=== PATIENT | female | born 1950 | race African-American/Black ===

== ENCOUNTER 2016-07-28 19:13 | Emergency (ER) | payer MEDICARE ==
[~2016-07-28] VITALS: Ht 154.9 cm; Wt 60.0 kg
[~2016-07-28 19:13] MED LIST: ASPI81TA82 PO; ATOR40TA PO; CORE25TA PO; DIGO0.12 PO; FLUO20TA20 PO; FURO1TAB93 PO; LISI-360 PO; POTA-243 PO; RANI150T PO; REME15TA PO; SULF500T35 PO
[2016-07-28 19:15] VITALS: BP 135/78; PULSE 78; RESP 16; TEMP 98.5; O2SAT 97
[2016-07-28] MEDS ORDERED: FURO1TAB60 PO (19:48)
[2016-07-28] MEDS ORDERED: DIGO0.25 PO (19:48)
[2016-07-28] MEDS ORDERED: LISI10TA3 PO (19:48)
[2016-07-28] MEDS ORDERED: COUM5TAB PO (19:48)
[2016-07-28] MEDS ORDERED: SULF500T3 PO (19:48)
[2016-07-28] MEDS ORDERED: MIRTA15 PO (19:48)
[2016-07-28] MEDS ORDERED: RANI150T PO (19:48)
[2016-07-28] MEDS ORDERED: CARV12.5 PO (19:48)
[2016-07-28] MEDS ORDERED: POTA10TA2 PO (19:48)
--- NOTE | 2016-07-28 19:53 | PD ---
HPI Chief Complaint: Cold / Flu Symptoms Time Seen by Provider: 19:47 Travel History International Travel<30 days: No Contact w/Intl Traveler<30days: No Traveled to known affect area: No History of Present Illness HPI 65-year-old black female presents to emergency department with complaints of chronic joint pain and sinus problems. She states that these have been bothering her now for several months. Her doctor moved out of the area and she has not gotten a new doctor. She has missed her last appointment with her theology teacher and has not rescheduled. She also states that she saw her GI doctor back in January. Patient states that she thinks that she has osteoarthritis and has pain in her ankles, knees and arms. She also has sinus congestion, ear pain and intermittent sore throat. She states that these symptoms of been persistent for weeks to months. No acute changes. PFSH Past Medical History Arthritis: Yes Asthma: Yes Atrial Fibrillation: Yes Autoimmune Disease: No Blood Disorders: No Heart Rhythm Problems: No Cancer: No Cardiac Catheterization: Yes Cardiovascular Problems: Yes (ISCHEMIC HEART DISEASE) High Cholesterol: No Chemotherapy: No Chest Pain: Yes Congestive Heart Failure: Yes COPD: No Cerebrovascular Accident: No Coronary Artery Disease: Yes Diabetes: No Diminished Hearing: No Endocrine: No Gastrointestinal Disorders: Yes (CROHN'S) GERD: No Glaucoma: No Genitourinary: No Headaches: No Hepatitis: No Hiatal Hernia: No Hypertension: Yes Immune Disorder: No Kidney Stones: Yes Musculoskeletal: Yes (scoliosis. ) Neurologic: Yes (SCIATICA.) Psychiatric: No Reproductive: No Respiratory: Yes (NEW ONSET CHF) Migraines: No Myocardial Infarction: Yes (2005.) Radiation Therapy: No Renal Failure: No Seizures: No Sickle Cell Disease: No Sleep Apnea: No Thyroid Disease: No Ulcer: No Tetanus Vaccination: Unknown Influenza Vaccination: No Menopausal: Yes : 2 Para: 2 Miscarriage: 0 Past Surgical History Abdominal Surgery: Yes (C SECTION TIMES TWO AND FIBROIDS REMOVED) AICD: No Appendectomy: Yes Arteriovenous Shunt: No Cardiac Surgery: Yes ([employer]) Section: Yes (x2) Cholecystectomy: No Ear Surgery: No Endocrine Surgery: No Eye Surgery: No Genitourinary Surgery: No Gynecologic Surgery: No Insulin Pump: No Joint Replacement: No Neurologic Surgery: No Oral Surgery: No Thoracic Surgery: No Other Surgery: Yes Social History Alcohol Use: No Tobacco Use: No Substance Use: No Allergies-Medications (Allergen,Severity, Reaction): Coded Allergies: Penicillin (Verified Allergy, Severe, Swelling, 07/28/16) Cephalosporins (Verified Allergy, Unknown, Swelling, 07/28/16) Keflex (Verified Allergy, Unknown, RASH, 07/28/16) Reported Meds & Prescriptions Reported Meds & Active Scripts Active Reported Ranitidine (Ranitidine HCl) 150 Mg Tab 150 Mg PO BID Digoxin 0.25 Mg Tab 0.25 Mg PO DAILY Mirtazapine 15 Mg Tab 15 Mg PO HS Lasix (Furosemide) 40 Mg Tab 40 Mg PO DAILY Coreg (Carvedilol) 12.5 Mg Tab 12.5 Mg PO BID Sulfasalazine 500 Mg Tab 1,000 Mg PO BID Lisinopril 10 Mg Tab 10 Mg PO DAILY Potassium Chloride ER (Potassium Chloride) 10 Meq Tab 10 Meq PO DAILY Coumadin (Warfarin) 5 Mg Tab 5 Mg PO DAILY Review of Systems Except as stated in HPI: all other systems reviewed are Neg General / Constitutional: No: Fever, Chills Eyes: No: Diploplia, Blurred Vision HENT: Positive: Headaches, Sore Throat, Rhinitis, Congestion Cardiovascular: Positive: Irregular Rhythm, Edema Respiratory: Positive: Cough, No: Shortness of Breath, Wheezing Gastrointestinal: No: Nausea, Vomiting Genitourinary: No: Hematuria, Discharge Musculoskeletal: Positive: Myalgias, Arthralgias, Limited ROM, Weakness, Edema , Pain Skin: No Rash, No Itching Physical Exam Narrative GENERAL: Well-developed, well-nourished in no apparent distress. Nontoxic appearing. HEAD: Normocephalic, atraumatic. EYES: Pupils equal round and reactive. Extraocular motions intact. No scleral icterus. No injection or drainage. ENT: Nose clear. Throat without erythema, tonsillar hypertrophy or exudate. Uvula midline. Airway patent. NECK: Trachea midline. Supple, nontender, moves head freely. No central bony tenderness or spasm. CARDIOVASCULAR: Regular rate and irregular rhythm without murmurs, gallops, or rubs. RESPIRATORY: Clear to auscultation. Breath sounds equal bilaterally. No wheezes , rales, or rhonchi. GASTROINTESTINAL: Abdomen soft, non-tender, nondistended. No hepato-splenomegaly , or palpable masses. No guarding. EXTREMITIES: No clubbing, cyanosis, or edema. No joint tenderness. BACK: Nontender without deformity. No flank tenderness. NEUROLOGICAL: Awake, alert and oriented x 3 .Cranial nerves grossly intact. Motor and sensory grossly within normal limits. Normal speech. Data Data Last Documented VS Vital Signs Date Time Temp Pulse Resp B/P Pulse Ox O2 Delivery O2 Flow Rate FiO2 07/28/16 19:15 98.5 78 16 135/78 97 MDM Medical Decision Making Medical Screen Exam Complete: Yes Emergency Medical Condition: Yes Medical Record Reviewed: Yes Differential Diagnosis Differential diagnosis: Rheumatoid arthritis, osteoarthritis, CHF, allergies, sinusitis, URI Narrative Course Patient has multiple somatic complaints but a normal-appearing exam. The patient is taking Coumadin. She'll be placed on Lisa and Ultram. She'll be advised to follow-up with a primary care doctor within 1 week. The patient is counseled on taking Ultram and Coumadin. It does have a potential of increasing your INR. Patient is verbally counseled This is joint pain, rhinitis Diagnosis Primary Impression: Joint pain Qualified Code: M25.50 - Arthralgia, unspecified joint Additional Impression: Rhinitis Patient Instructions: General Instructions Additional Instructions: Rest. Contact a primary care doctor to make an appointment to be seen within 1 week. Contact her theology teacher to be seen within 1 week. Lisa and Ultram. Return to the ER for emergencies. Med/Other Pt SpecificInfo: Prescription(s) given Scripts Tramadol (Ultram)50 Mg Tab50 Mg PO Q8HR PRN (PAIN) #20 TAB Prov:Chicho Washington MD 07/28/16 Fexofenadine (Lisa Allergy)180 Mg [id number] Mg PO DAILY #30 TAB Ref 0 Prov:Chicho Washington MD 07/28/16 Disposition: 01 DISCHARGE HOME Condition: Stable Ivan Castañeda Jul 28, 2016 19:53
[2016-07-28] MEDS ORDERED: FEXO15TA PO (19:54)
[2016-07-28] MEDS ORDERED: ULTR50TA5 PO (19:54)
[2016-07-28] MEDS ORDERED: CETIRIZINE HCL 10 MG TAB PO ONE (20:00)
[2016-07-28] MEDS ORDERED: traMADol HCL 50 MG TAB PO ONE (20:00)
== END 2016-07-28 20:13 | disposition home or self-care (01) ==
LOC: NEPB 19:13
DX: M25.50 Pain in unspecified joint (principal); G89.29 Other chronic pain; J31.0 Chronic rhinitis
CPT/HCPCS: 99283

== ENCOUNTER 2016-12-22 22:04 | Emergency (ER) | payer MEDICARE ==
[~2016-12-22] VITALS: Ht 154.9 cm; Wt 55.0 kg
[~2016-12-22 22:04] MED LIST changes: -ASPI81TA82 PO; -ATOR40TA PO; +CARV12.5 PO; -CORE25TA PO; +COUM5TAB PO; -DIGO0.12 PO; +DIGO0.25 PO; +FEXO15TA PO; -FLUO20TA20 PO; +FURO1TAB60 PO; -FURO1TAB93 PO; -LISI-360 PO; +LISI10TA3 PO; +MIRTA15 PO; -POTA-243 PO; +POTA10TA2 PO; -REME15TA PO; +SULF500T3 PO; -SULF500T35 PO; +ULTR50TA5 PO
[2016-12-22 22:06] VITALS: BP 129/100; PULSE 109; RESP 20; TEMP 98.5; O2SAT 98
[2016-12-23 01:57] VITALS: BP 151/70; PULSE 110; RESP 18; O2SAT 98
[2016-12-23 02:34] VITALS: BP 137/109; PULSE 115; RESP 16; O2SAT 97
--- NOTE | 2016-12-23 03:26 | PD ---
HPI Chief Complaint: General Weakness Time Seen by Provider: 02:47 Travel History International Travel<30 days: No Contact w/Intl Traveler<30days: No Traveled to known affect area: No History of Present Illness HPI The patient is a 66-year-old Joann female who presents emergency department for multiple complaints. The patient states that she has a lead broken with her pacemaker, and had an appointment last week with her infectious disease physician, Dr. Patton. However, the patient states she was not feeling well and missed her appointment. She has an appointment in the future to see her infectious disease physician. She also notes a weight loss over the last 6 months of approximately 30 pounds. She saw her primary physician and is scheduled for an outpatient endoscopy and colonoscopy in January. The patient states earlier today she has some generalized weakness and was unable to get up out of bed. The patient felt like she had no energy. She denies any acute chest pain, shortness of breath, nausea, vomiting, or abdominal pain. She denies any dysuria. The patient states she just has generalized malaise. The patient does have a history of atrial fibrillation for which she takes Coumadin. PFSH Past Medical History Hx Anticoagulant Therapy: Yes Arthritis: Yes Asthma: Yes Atrial Fibrillation: Yes Autoimmune Disease: No Blood Disorders: No Heart Rhythm Problems: No Cancer: No Cardiac Catheterization: Yes Cardiovascular Problems: Yes (NV, HTN) High Cholesterol: No Chemotherapy: No Chest Pain: Yes Congestive Heart Failure: Yes COPD: No Cerebrovascular Accident: No Coronary Artery Disease: Yes Diabetes: No Diminished Hearing: No Endocrine: No Gastrointestinal Disorders: Yes (CROHN'S) GERD: No Glaucoma: No Genitourinary: No Headaches: No Hepatitis: No Hiatal Hernia: No Hypertension: Yes Immune Disorder: No Kidney Stones: Yes Musculoskeletal: Yes (scoliosis. ) Neurologic: Yes (SCIATICA.) Psychiatric: No Reproductive: No Respiratory: Yes (NEW ONSET CHF) Migraines: No Myocardial Infarction: Yes (2005.) Radiation Therapy: No Renal Failure: No Seizures: No Sickle Cell Disease: No Sleep Apnea: No Thyroid Disease: No Ulcer: No Tetanus Vaccination: Unknown Menopausal: Yes : 2 Para: 2 Miscarriage: 0 Past Surgical History Abdominal Surgery: Yes (C SECTION TIMES TWO AND FIBROIDS REMOVED) AICD: No Appendectomy: Yes Arteriovenous Shunt: No Cardiac Surgery: Yes ([employer]) Section: Yes (x2) Cholecystectomy: No Ear Surgery: No Endocrine Surgery: No Eye Surgery: No Genitourinary Surgery: No Gynecologic Surgery: No Insulin Pump: No Joint Replacement: No Neurologic Surgery: No Oral Surgery: No Thoracic Surgery: No Other Surgery: Yes Social History Alcohol Use: No Tobacco Use: No Substance Use: No Allergies-Medications (Allergen,Severity, Reaction): Coded Allergies: Penicillin (Verified Allergy, Severe, Swelling, 12/22/16) Cephalosporins (Verified Allergy, Unknown, Swelling, 12/22/16) Keflex (Verified Allergy, Unknown, RASH, 12/22/16) Reported Meds & Prescriptions Reported Meds & Active Scripts Active Lisa Allergy (Fexofenadine HCl) 180 Mg Tab 180 Mg PO DAILY Reported Ranitidine (Ranitidine HCl) 150 Mg Tab 150 Mg PO BID Digoxin 0.25 Mg Tab 0.25 Mg PO DAILY Mirtazapine 15 Mg Tab 15 Mg PO HS Lasix (Furosemide) 40 Mg Tab 40 Mg PO DAILY Coreg (Carvedilol) 12.5 Mg Tab 12.5 Mg PO BID Sulfasalazine 500 Mg Tab 1,000 Mg PO BID Lisinopril 10 Mg Tab 10 Mg PO DAILY Potassium Chloride ER (Potassium Chloride) 10 Meq Tab 10 Meq PO DAILY Coumadin (Warfarin) 5 Mg Tab 5 Mg PO DAILY Review of Systems Except as stated in HPI: all other systems reviewed are Neg General / Constitutional: No: Fever HENT: Positive: Lightheadedness Cardiovascular: Positive: Irregular Rhythm, No: Chest Pain or Discomfort, Dyspnea on exertion Respiratory: No: Shortness of Breath Gastrointestinal: Positive: Nausea, No: Vomiting, Abdominal Pain Genitourinary: No: Dysuria Musculoskeletal: Positive: Weakness Neurologic: Positive: Weakness Physical Exam Narrative GENERAL: Awake, alert, pleasant 66-year-old female who appears her stated age and is in no acute respiratory distress. SKIN: Focused skin assessment warm/dry. HEAD: Atraumatic. Normocephalic. EYES: Pupils equal and round. No scleral icterus. No injection or drainage. ENT: No nasal bleeding or discharge. No visible teeth. NECK: Trachea midline. No JVD. CARDIOVASCULAR: Irregularly irregular with a heart rate of 115. RESPIRATORY: No accessory muscle use. Clear to auscultation. Breath sounds equal bilaterally. GASTROINTESTINAL: Abdomen soft, non-tender, nondistended. No rebound tenderness. MUSCULOSKELETAL: No obvious deformities. No clubbing. No cyanosis. No edema. Positive distal pulses. NEUROLOGICAL: Awake and alert. No obvious cranial nerve deficits. Motor grossly within normal limits. Normal speech. PSYCHIATRIC: Appropriate mood and affect; insight and judgment normal. Data Data Last Documented VS Vital Signs Date Time Temp Pulse Resp B/P Pulse Ox O2 Delivery O2 Flow Rate FiO2 12/23/16 05:30 73 16 137/78 95 Room Air 12/22/16 22:06 98.5 Orders Complete Blood Count With Diff (12/23/16 03:19) Comprehensive Metabolic Panel (12/23/16 03:19) Creatine Kinase (Cpk) (12/23/16 03:19) Prothrombin Time / Inr (Pt) (12/23/16 03:19) Act Partial Throm Time (Ptt) (12/23/16 03:19) Troponin I (12/23/16 03:19) Thyroid Stimulating Hormone (12/23/16 03:19) Urinalysis - C+S If Indicated (12/23/16 03:19) Chest, Single Ap (12/23/16 03:19) Blood Glucose (12/23/16 03:19) Ecg Monitoring (12/23/16 03:19) Iv Access Insert/Monitor (12/23/16 03:19) Oximetry (12/23/16 03:19) Sodium Chloride 0.9% Flush (Ns Flush) (12/23/16 03:30) Sodium Chlorid 0.9% 500 Ml Inj (Ns 500 M (12/23/16 03:30) Diltiazem Inj (Cardizem Inj) (12/23/16 03:30) Digoxin (12/23/16 02:35) Diltiazem Inj (Cardizem Inj) (12/23/16 05:30) Urine Culture (12/23/16 04:40) Labs Laboratory Tests Test 12/23/16 12/23/16 02:35 04:40 White Blood Count 5.8 TH/MM3 Red Blood Count 4.86 MIL/MM3 Hemoglobin 11.9 GM/DL Hematocrit 37.4 % Mean Corpuscular Volume 77.0 FL Mean Corpuscular Hemoglobin 24.5 PG Mean Corpuscular Hemoglobin 31.7 % Concent Red Cell Distribution Width 21.0 % Platelet Count 314 TH/MM3 Mean Platelet Volume 8.3 FL Neutrophils (%) (Auto) 39.3 % Lymphocytes (%) (Auto) 50.3 % Monocytes (%) (Auto) 9.2 % Eosinophils (%) (Auto) 0.5 % Basophils (%) (Auto) 0.7 % Neutrophils # (Auto) 2.3 TH/MM3 Lymphocytes # (Auto) 2.9 TH/MM3 Monocytes # (Auto) 0.5 TH/MM3 Eosinophils # (Auto) 0.0 TH/MM3 Basophils # (Auto) 0.0 TH/MM3 CBC Comment DIFF FINAL Differential Comment Prothrombin Time 20.3 SEC Prothromb Time International 1.8 RATIO Ratio Activated Partial 30.1 SEC Thromboplast Time Sodium Level 140 MEQ/L Potassium Level 3.8 MEQ/L Chloride Level 104 MEQ/L Carbon Dioxide Level 27.8 MEQ/L Anion Gap 8 MEQ/L Blood Urea Nitrogen 12 MG/DL Creatinine 0.88 MG/DL Estimat Glomerular Filtration 78 ML/MIN Rate Random Glucose 86 MG/DL Calcium Level 8.6 MG/DL Total Bilirubin 0.6 MG/DL Aspartate Amino Transf 32 U/L (AST/SGOT) Alanine Aminotransferase 19 U/L (ALT/SGPT) Alkaline Phosphatase 140 U/L Total Creatine Kinase 86 U/L Troponin I 0.05 NG/ML Total Protein 7.5 GM/DL Albumin 3.1 GM/DL Thyroid Stimulating Hormone 3.020 uIU/ML 3rd Gen Digoxin Level 1.2 NG/ML Urine Color YELLOW Urine Turbidity CLEAR Urine pH 5.5 Urine Specific [place] 1.014 Urine Protein 30 mg/dL Urine Glucose (UA) NEG mg/dL Urine Ketones NEG mg/dL Urine Occult Blood NEG Urine Nitrite NEG Urine Bilirubin NEG Urine Urobilinogen LESS THAN 2.0 MG/DL Urine Leukocyte Esterase TRACE Urine RBC 1 /hpf Urine WBC 1 /hpf Urine Squamous Epithelial <1 /hpf Cells Urine Bacteria RARE /hpf Urine Hyaline Casts 11 /lpf Urine Granular Casts 2 /lpf Urine Mucus FEW /lpf Microscopic Urinalysis Comment CATH-CULTURE IND MDM Medical Decision Making Medical Screen Exam Complete: Yes Emergency Medical Condition: Yes Medical Record Reviewed: Yes Interpretation(s) EKG reveals atrial fibrillation with RVR, rate 116. Q wave noted in lead 1 and aVL. RSR prime in V1. Differential Diagnosis Differential diagnosis includes atrial fibrillation with RVR, congestive heart failure, ACS, UTI, hyponatremia, dehydration, hypothyroidism, electrolyte abnormality. Narrative Course IV was established, labs are drawn and sent, and the patient was placed on cardiac telemetry monitoring and continuous pulse oximetry monitoring. EKG was ordered and interpreted. Chest x-ray was obtained. UA was sent to lab. The patient did have A. fib with RVR, was administered Cardizem 10 mg intravenously. Diagnosis Primary Impression: Atrial fibrillation with RVR Additional Impression: Generalized weakness Patient Instructions: General Instructions Additional Instructions: Follow-up with your primary physician. Please provide the patient a copy of her x-ray results and lab results at discharge. Return if symptoms worsen or progress. Med/Other Pt SpecificInfo: No Change to Meds Disposition: 01 DISCHARGE HOME Condition: Stable Po Arboleda MD Dec 23, 2016 03:26
[2016-12-23] MEDS ORDERED: DILTIAZEM HCL 25 MG/5 ML VIAL IV ONE ×2 (03:30→05:30)
[2016-12-23] MEDS ORDERED: SODIUM CHLORID 0.9% 500 ML INJ 500 ML IV ONE (03:30)
[2016-12-23] MEDS ORDERED: SODIUM CHLORIDE 0.9% FLUSH 5 ML FLUSH IV FLUSH PRN (03:30)
[2016-12-23 03:49] LABS: AUTOMATED NEUTROPHIL # 2.3 TH/MM3 (1.8-7.7); BASOPHIL % 0.7 % (0.0-2.0); EOSINOPHIL % 0.5 % (0.0-4.0); HEMATOCRIT 37.4 % (35.0-46.0); HEMO FLAGS DIFF FINAL; LYMPH % 50.3 % (9.0-44.0); LYMPHOCYTE # 2.9 TH/MM3 (1.0-4.8); MEAN CORPUSCULAR HEMOGLOBIN 24.5 PG (27.0-34.0); MEAN CORPUSCULAR HGB CONC 31.7 % (32.0-36.0); MONO % 9.2 % (0.0-8.0); NEUT % 39.3 % (16.0-70.0); PLATELET COUNT 314 TH/MM3 (150-450); RED BLOOD COUNT 4.86 MIL/MM3 (4.00-5.30); WHITE BLOOD COUNT 5.8 TH/MM3 (4.0-11.0)
[2016-12-23 03:51] LABS: APTT (PATIENT) 30.1 SEC (24.3-30.1); INTERNATIONAL NORMALIZED RATIO 1.8 RATIO; PROTHROMBIN TIME - PATIENT 20.3 SEC (9.8-11.6)
[2016-12-23 03:55] VITALS: BP 145/101; PULSE 99; RESP 18; O2SAT 98
--- NOTE | 2016-12-23 04:02 | RADRPT ---
EXAM DATE/TIME: 12/23/2016 03:19 [facility] COMPARISON: CHEST SINGLE AP, May 30, 2014, 7:38. INDICATIONS : Shortness of breath. MEDICAL HISTORY : Hypertension. Myocardial infarction. Atrial fibrillation. SURGICAL HISTORY : Pacemaker. Cardiac catheterization. ENCOUNTER: Initial ACUITY: 1 day PAIN SCORE: 0/10 LOCATION: Bilateral chest FINDINGS: Portable AP view of the chest demonstrates a normal-sized cardiac silhouette with calcification of th e aorta. Left chest wall cardiac pacing device/AICD is present. EKG leads overlie the patient. There is elevation the right hemidiaphragm. No effusion, consolidation, or pneumothorax is visualized. The bones and soft tissues demonstrate no acute finding. CONCLUSION: No acute cardiopulmonary abnormality is identified. Kiet Ruiz MD on December 23, 2016 at 4:00 Board Certified Radiologist. This report was verified electronically.
[2016-12-23 04:12] LABS: ALT (GPT) 19 U/L (10-53); ANION GAP 8 MEQ/L (5-15); AST (GOT) 32 U/L (15-37); BICARBONATE 27.8 MEQ/L (21.0-32.0); BLOOD UREA NITROGEN 12 MG/DL (7-18); CHLORIDE 104 MEQ/L (98-107); GLOMERULAR FILTRATION RATE 78 ML/MIN (>89); POTASSIUM 3.8 MEQ/L (3.5-5.1); SODIUM (NA) 140 MEQ/L (136-145)
[2016-12-23 04:15] LABS: ALKALINE PHOSPHATASE 140 U/L (45-117); TOTAL BILIRUBIN ADULT 0.6 MG/DL (0.2-1.0)
[2016-12-23 04:22] LABS: CREATINE KINASE 86 U/L (26-192)
[2016-12-23 04:53] VITALS: BP 141/96; PULSE 109; RESP 18; O2SAT 96
[2016-12-23 04:58] LABS: DIGOXIN 1.2 NG/ML (0.8-2.0)
[2016-12-23 05:18] LABS: BACTERIA, URINE RARE /hpf; BLOOD, URINE NEG (NEG); COMMENT (UR) CATH-CULTURE IND; CULTURE IF INDICATED CATH CULTURE IND; GLUCOSE,URINE NEG (NEG); GRANULAR CAST, URINE 2 /lpf; HYALINE CAST, URINE 11 /lpf (RARE); KETONE, URINE NEG (NEG); MUCUS URINE FEW /lpf (OCC); NITRITE,URINE NEG (NEG); PH, URINE 5.5 (5.0-8.5); SQUAMOUS EPITHELIAL CELL URINE <1 /hpf (0-5); URINE COLOR YELLOW (YELLW/STRAW)
[2016-12-23 05:30] VITALS: BP 137/78; PULSE 73; RESP 16; O2SAT 95
--- NOTE | 2016-12-23 20:47 | EKG ---
Date Performed: 12/23/2016 Time Performed: 02:31:52 PTAGE: 66 years EKG: ATRIAL FIBRILLATION WITH RAPID VENTRICULAR RESPONSE PVCS IVCD RIGHT AXIS POSSIBLE ANTERIOR MYOCARDIAL INFARCTION ABNORMAL ECG PREVIOUS TRACING : 05/30/2014 07.34 Compared to the previous tracing SR no longer present DOCTOR: Ann Patton Interpretating Date/Time 12/23/2016 20:46:16
== END 2016-12-23 06:47 | disposition home or self-care (01) ==
LOC: NEPC 22:04
DX: I48.91 Unspecified atrial fibrillation (principal); I10 Essential (primary) hypertension; I50.9 Heart failure, unspecified; Z79.01 Long term (current) use of anticoagulants; Z95.0 Presence of cardiac pacemaker; J45.909 Unspecified asthma, uncomplicated; M19.90 Unspecified osteoarthritis, unspecified site; R53.81 Other malaise
CPT/HCPCS: 71010; 80053; 80162; 81001; 82550; 84443; 84484; 85025; 85610; 85730; 87086; 93005; 96361; 96374; 96376; 99285; J7040

== ENCOUNTER 2017-01-06 22:20 | Inpatient (IN) | payer MEDICARE ==
[~2017-01-06 22:20] MED LIST changes: -ULTR50TA5 PO
[2017-01-06 22:21] VITALS: BP 117/87; PULSE 93; RESP 18; TEMP 98.5; O2SAT 99
--- NOTE | 2017-01-06 22:26 | PD ---
Physical Exam Date Seen by Provider: Jan 06, 2017 Time Seen by Provider: 22:24 Narrative 66 yo female here for chest pain and SOB. Per patient she feels weak and tired. Cough. History of a. fib. Feels like something is off with her heart. No other issues. pain is 10/10. Vitals are stable in triage. Awaiting Bed placement. Data Data Last Documented VS Vital Signs Date Time Temp Pulse Resp B/P Pulse Ox O2 Delivery O2 Flow Rate FiO2 01/06/17 22:21 98.5 93 18 117/87 99 Room Air [facility] Medical Record Reviewed: Yes Supervised Visit with CORNELIUS: No Seamus Harvey Jan 06, 2017 22:26
[2017-01-06] MEDS ORDERED: SODIUM CHLORIDE 0.9% FLUSH 10 ML FLUSH IVF PRN (22:45)
[2017-01-06] MEDS ORDERED: ASPIRIN 81 MG CHEW TAB PO ONE (22:45)
[2017-01-06] MEDS ORDERED: REME15TA PO (22:47)
[2017-01-06] MEDS ORDERED: ATOR40TA16 PO (22:47)
[2017-01-06] MEDS ORDERED: PROZ20CA11 PO (22:47)
[2017-01-06] MEDS ORDERED: POTA-243 PO (22:47)
[2017-01-06] MEDS ORDERED: FOLI1TAB6 (22:47)
[2017-01-06 22:58] VITALS: BP_SYST 117; BP_SYST 134; BP_DIAS 80; BP_DIAS 88; PULSE 124
[2017-01-06 23:10] LABS: AUTOMATED NEUTROPHIL # 2.7 TH/MM3 (1.8-7.7); BASOPHIL % 0.3 % (0.0-2.0); EOSINOPHIL # 0.1 TH/MM3 (0-0.4); EOSINOPHIL % 1.1 % (0.0-4.0); HEMATOCRIT 40.7 % (35.0-46.0); HEMO FLAGS DIFF FINAL; LYMPH % 43.4 % (9.0-44.0); LYMPHOCYTE # 2.6 TH/MM3 (1.0-4.8); MEAN CELL VOLUME 78.4 FL (80.0-100.0); MEAN CORPUSCULAR HGB CONC 30.6 % (32.0-36.0); MONO % 9.2 % (0.0-8.0); PLATELET COUNT 271 TH/MM3 (150-450); RED BLOOD COUNT 5.19 MIL/MM3 (4.00-5.30); RED CELL DISTRIBUTION WIDTH 22.2 % (11.6-17.2); WHITE BLOOD COUNT 5.9 TH/MM3 (4.0-11.0)
--- NOTE | 2017-01-06 23:14 | RADRPT ---
EXAM DATE/TIME: 01/06/2017 22:50 [facility] COMPARISON: CHEST SINGLE AP, December 23, 2016, 3:19. INDICATIONS : Chest pain. MEDICAL HISTORY : Hypertension. Myocardial infarction. Atrial fibrillation. SURGICAL HISTORY : Pacemaker. ENCOUNTER: Initial ACUITY: 1 day PAIN SCORE: 3/10 LOCATION: Bilateral chest FINDINGS: Cardiomegaly, pacer/ICD device again noted. Lungs are clear. Osseous structures are intact. CONCLUSION: No acute disease. Jabari De Oliveira MD on January 06, 2017 at 23:12 Board Certified Radiologist. This report was verified electronically.
[2017-01-06 23:26] LABS: APTT (PATIENT) 22.3 SEC (24.3-30.1); INTERNATIONAL NORMALIZED RATIO 1.4 RATIO; PROTHROMBIN TIME - PATIENT 15.2 SEC (9.8-11.6)
[2017-01-06 23:36] LABS: ALT (GPT) 30 U/L (10-53)
[2017-01-06 23:40] LABS: ALKALINE PHOSPHATASE 171 U/L (45-117); CREATINE KINASE 108 U/L (26-192); TOTAL BILIRUBIN ADULT 0.9 MG/DL (0.2-1.0)
[2017-01-06 23:45] LABS: ANION GAP 6 MEQ/L (5-15); AST (GOT) 41 U/L (15-37); BLOOD UREA NITROGEN 12 MG/DL (7-18); CHLORIDE 98 MEQ/L (98-107); GLOMERULAR FILTRATION RATE 66 ML/MIN (>89); POTASSIUM 3.3 MEQ/L (3.5-5.1); SODIUM (NA) 136 MEQ/L (136-145)
--- NOTE | 2017-01-06 23:57 | PD ---
HPI Chief Complaint: Chest Pain Time Seen by Provider: 22:38 Travel History International Travel<30 days: No Contact w/Intl Traveler<30days: No Traveled to known affect area: No History of Present Illness HPI Patient is a 66 year old female who comes in complaining of chest pain, SOB, nausea and leg swelling. She says that she has noticed the leg swelling for the past few days. She says today she started to have chest pain and felt as if she would pass out, so she called 9-1-1. She says she has been using her inhaler at home without improvement of her SOB. She takes Lasix, and was recently told to take 20mg at morning and night, which she has been doing. She has not taken her Coumadin for the past day because she says she was supposed to have a colonoscopy tomorrow. PFSH Past Medical History Hx Anticoagulant Therapy: Yes Arthritis: Yes Asthma: Yes Atrial Fibrillation: Yes Autoimmune Disease: No Blood Disorders: No Heart Rhythm Problems: No Cancer: No Cardiac Catheterization: Yes Cardiovascular Problems: Yes (PR, HYPERTENSION) High Cholesterol: No Chemotherapy: No Chest Pain: Yes Congestive Heart Failure: Yes COPD: No Cerebrovascular Accident: No Coronary Artery Disease: Yes Diabetes: No Diminished Hearing: No Endocrine: No Gastrointestinal Disorders: Yes (CROHN'S) GERD: No Glaucoma: No Genitourinary: No Headaches: No Hepatitis: No Hiatal Hernia: No Hypertension: Yes Immune Disorder: No Implanted Vascular Access Dvce: Yes Kidney Stones: Yes Musculoskeletal: Yes (scoliosis. ) Neurologic: Yes (SCIATICA.) Psychiatric: No Reproductive: No Migraines: No Myocardial Infarction: Yes (2005.) Radiation Therapy: No Renal Failure: No Seizures: No Sickle Cell Disease: No Sleep Apnea: No Thyroid Disease: No Ulcer: No Menopausal: Yes : 2 Para: 2 Miscarriage: 0 Past Surgical History Abdominal Surgery: Yes (C SECTION TIMES TWO AND FIBROIDS REMOVED) AICD: No Appendectomy: Yes Arteriovenous Shunt: No Cardiac Surgery: Yes (MEDTRONIC) Section: Yes (x2) Cholecystectomy: No Ear Surgery: No Endocrine Surgery: No Eye Surgery: No Genitourinary Surgery: No Gynecologic Surgery: No Insulin Pump: No Joint Replacement: No Neurologic Surgery: No Oral Surgery: No Thoracic Surgery: No Other Surgery: Yes Social History Alcohol Use: No Tobacco Use: No Substance Use: No Allergies-Medications (Allergen,Severity, Reaction): Coded Allergies: Penicillin (Verified Allergy, Severe, Swelling, 01/06/17) Cephalosporins (Verified Allergy, Unknown, Swelling, 01/06/17) Keflex (Verified Allergy, Unknown, RASH, 01/06/17) Reported Meds & Prescriptions Reported Meds & Active Scripts Active Lisa Allergy (Fexofenadine HCl) 180 Mg Tab 180 Mg PO DAILY Reported Remeron (Mirtazapine) 15 Mg Tab 15 Mg PO HS Klor-Con 10 (Potassium Chloride) 10 Meq Tab 10 Meq PO BID Atorvastatin (Atorvastatin Calcium) 40 Mg Tab 40 Mg PO HS Prozac (Fluoxetine HCl) 20 Mg Cap 20 Mg PO DAILY Folic Acid 1 Mg Tablet Ranitidine (Ranitidine HCl) 150 Mg Tab 150 Mg PO BID Digoxin 0.25 Mg Tab 0.25 Mg PO DAILY Lasix (Furosemide) 40 Mg Tab 40 Mg PO DAILY Coreg (Carvedilol) 12.5 Mg Tab 12.5 Mg PO BID Sulfasalazine 500 Mg Tab 1,000 Mg PO BID Lisinopril 10 Mg Tab 10 Mg PO DAILY Coumadin (Warfarin) 5 Mg Tab 5 Mg PO DAILY Review of Systems Except as stated in HPI: all other systems reviewed are Neg General / Constitutional: No: Fever, Chills Eyes: No: Blurred Vision HENT: Positive: Lightheadedness, No: Headaches Cardiovascular: Positive: Chest Pain or Discomfort, Palpitations Respiratory: Positive: Cough, Shortness of Breath Gastrointestinal: Positive: Nausea, No: Vomiting Musculoskeletal: Positive: Edema, No: Pain Skin: No Rash, No Change in Pigmentation Neurologic: No: Weakness Physical Exam Narrative GENERAL: Awake and alert, in no acute distress. SKIN: Focused skin assessment warm/dry. HEAD: Atraumatic. Normocephalic. EYES: Pupils equal and round. No scleral icterus. ENT: Mucous membranes pink and moist. NECK: Trachea midline. No JVD. CARDIOVASCULAR: Regular rate and rhythm. No murmur appreciated. RESPIRATORY: No accessory muscle use. Crackles at the lung bases. Breath sounds equal bilaterally. GASTROINTESTINAL: Abdomen soft, non-tender, nondistended. MUSCULOSKELETAL: No obvious deformities. No clubbing. No cyanosis. 1+ pitting edema, bilateral lower extremities. NEUROLOGICAL: Awake and alert. No obvious cranial nerve deficits. Motor grossly within normal limits. Normal speech. PSYCHIATRIC: Appropriate mood and affect; insight and judgment normal. Data Data Last Documented VS Vital Signs Date Time Temp Pulse Resp B/P Pulse Ox O2 Delivery O2 Flow Rate FiO2 01/06/17 22:58 100 Nasal Cannula 2 01/06/17 22:58 124 117/80 134/88 01/06/17 22:21 98.5 18 Orders B-Type Natriuretic Peptide (01/06/17 22:45) Ckmb (Isoenzyme) Profile (01/06/17 22:45) Complete Blood Count With Diff (01/06/17 22:45) Comprehensive Metabolic Panel (01/06/17 22:45) Prothrombin Time / Inr (Pt) (01/06/17 22:45) Act Partial Throm Time (Ptt) (01/06/17 22:45) Troponin I (01/06/17 22:45) Chest, Single Ap (01/06/17 22:45) Ecg Monitoring (01/06/17 22:45) Bilateral Bp Monitoring (01/06/17 22:45) Iv Access Insert/Monitor (01/06/17 22:45) Oximetry (01/06/17 22:45) Oxygen Administration (01/06/17 22:45) Aspirin Chew (Aspirin Chew) (01/06/17 22:45) Sodium Chloride 0.9% Flush (Ns Flush) (01/06/17 22:45) CKMB (01/06/17 22:45) CKMB% (01/06/17 22:45) Heparin Infusion PATRICE.Q1H (01/06/17 23:50) Heparin Inj (Heparin Inj) (01/07/17 00:00) Heparin Inj (Heparin Inj) (01/07/17 06:00) Heparin Inj (Heparin Inj) (01/07/17 06:00) Heparin-D5w Inj (Heparin-D5w Inj) (01/07/17 00:00) Cbc No Diff, Includes Plts (01/09/17 06:00) Act Partial Throm Time (Ptt) (01/07/17 06:50) Occult Blood (Hemoccult) Stool (01/06/17 23:50) Potassium Chloride (Kcl) (01/07/17 00:00) Admit Order (Ed Use Only) (01/06/17 ) Labs Laboratory Tests Test 01/06/17 22:45 White Blood Count 5.9 TH/MM3 Red Blood Count 5.19 MIL/MM3 Hemoglobin 12.5 GM/DL Hematocrit 40.7 % Mean Corpuscular Volume 78.4 FL Mean Corpuscular Hemoglobin 24.0 PG Mean Corpuscular Hemoglobin 30.6 % Concent Red Cell Distribution Width 22.2 % Platelet Count 271 TH/MM3 Mean Platelet Volume 7.8 FL Neutrophils (%) (Auto) 46.0 % Lymphocytes (%) (Auto) 43.4 % Monocytes (%) (Auto) 9.2 % Eosinophils (%) (Auto) 1.1 % Basophils (%) (Auto) 0.3 % Neutrophils # (Auto) 2.7 TH/MM3 Lymphocytes # (Auto) 2.6 TH/MM3 Monocytes # (Auto) 0.5 TH/MM3 Eosinophils # (Auto) 0.1 TH/MM3 Basophils # (Auto) 0.0 TH/MM3 CBC Comment DIFF FINAL Differential Comment Prothrombin Time 15.2 SEC Prothromb Time International 1.4 RATIO Ratio Activated Partial 22.3 SEC Thromboplast Time Sodium Level 136 MEQ/L Potassium Level 3.3 MEQ/L Chloride Level 98 MEQ/L Carbon Dioxide Level 32.0 MEQ/L Anion Gap 6 MEQ/L Blood Urea Nitrogen 12 MG/DL Creatinine 1.01 MG/DL Estimat Glomerular Filtration 66 ML/MIN Rate Random Glucose 100 MG/DL Calcium Level 8.7 MG/DL Total Bilirubin 0.9 MG/DL Aspartate Amino Transf 41 U/L (AST/SGOT) Alanine Aminotransferase 30 U/L (ALT/SGPT) Alkaline Phosphatase 171 U/L Total Creatine Kinase 108 U/L Creatine Kinase MB 3.0 NG/ML Troponin I 0.19 NG/ML B-Type Natriuretic Peptide 901 PG/ML Total Protein 8.1 GM/DL Albumin 3.3 GM/DL [facility] Medical Decision Making Medical Screen Exam Complete: Yes Emergency Medical Condition: Yes Medical Record Reviewed: Yes Interpretation(s) ECG shows afib at a rate of 106, no ST elevation or depression. Differential Diagnosis ACS vs CHF vs NSTEMI vs STEMI Narrative Course Patient is a 66 year old female who comes in complaining of chest pain with SOB and nausea. Exam shows crackles at the lung bases and lower extremity edema. IV established, labs sent. 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 Patient given aspirin. Labs show a troponin of 0.19. INR is 1.4. Patient started on heparin. Chest x-ray shows cardiomegaly, no other abnormalities. Patient will be admitted for further management. Diagnosis Primary Impression: NSTEMI (non-ST elevated myocardial infarction) Additional Impression: CHF (congestive heart failure) Qualified Code: I50.23 - Acute on chronic systolic congestive heart failure Admitting Information Admitting Physician Requests: Admit Condition: Stable Renu Sheridan MD Jan 06, 2017 23:57
[2017-01-06] MEDS: HEPARIN-D5W INJ 250 ML IV SCH (23:59)
[2017-01-07] VITALS (16 sets, daily range): BP systolic 111–129; BP diastolic 68–102; PULSE 93–113; RESP 16–22; TEMP 97.9–98.3; O2SAT 93–100
[2017-01-07] MEDS ORDERED: NALOXONE HCL 0.4 MG/ML AMP IV PRN
[2017-01-07] MEDS ORDERED: HEPARIN SODIUM - IV 10,000 UNITS/10 ML VIAL IV ONE
--- NOTE | 2017-01-07 03:27 | HHI.HP ---
[facility] Joni Hair MD Admission Diagnosis NSTEMI Diagnoses: (1) NSTEMI (non-ST elevated myocardial infarction) (2) CHF (congestive heart failure) (3) Generalized weakness Chief Complaint: severe fatigue, shortness of breath, unintentional weight loss, peripheral edema Travel History International Travel<30 Days: No Contact w/Intl Traveler <30 Da: No Traveled to Known Affected Are: No History of Present Illness Written by Renetta Tellez, acting as scribe for Dr. Tony on 01/07/17 at 03:26. Colonoscopy prep day before yesterday but was unable to complete and called and cancelled yesterday. Coumadin on hold x 3 days for colonoscopy. She reports a history of Crohn's disease since age 39. Fatigue, severe - "I just don't have any get up and go" - symptoms x 3 - 4 weeks - 12/23/16 came to ED and received IVF, PCP Dr. Dee 12/28/16 - Lasix was adjusted by Dr. Dee - changed Lasix from 40 mg once daily to 20 mg BID 01/06/17, felt very light headed and near-syncopal during a visit to the restroom. Ankle and legs were edematous - states she's never had them swell before - started on 01/04/17. Reports a very poor appetite - 30 lb unintentional weight loss over the past 3 months - nausea and vomiting occurs intermittently. Denies dysphagia and odynophagia. She also reports diarrhea. Denies black or red stool. 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 Patton Lawtons like defibrillator has been shocking her over the past few weeks. Reports night sweats at home. EMS telemetry reviewed - patient was having runs of vtach Review of Systems Except as stated in HPI: all other systems reviewed are Neg Past Family Social History Past Medical History [place] 2005 Crohn's disease Atrial fibrillation CHF Asthma Denies diabetes mellitus, hypertension, CAD, kidney or liver disease, DVT, PE, CVA, seizures, or thyroid problems. Past Surgical History AICD 2014 Meniscus repair on right Appendectomy Myomectomy . Reported Medications Reported Meds & Active Scripts Active Lisa Allergy (Fexofenadine HCl) 180 Mg Tab 180 Mg PO DAILY Reported Remeron (Mirtazapine) 15 Mg Tab 15 Mg PO HS Klor-Con 10 (Potassium Chloride) 10 Meq Tab 10 Meq PO BID Atorvastatin (Atorvastatin Calcium) 40 Mg Tab 40 Mg PO HS Prozac (Fluoxetine HCl) 20 Mg Cap 20 Mg PO DAILY Folic Acid 1 Mg Tablet Ranitidine (Ranitidine HCl) 150 Mg Tab 150 Mg PO BID Digoxin 0.25 Mg Tab 0.25 Mg PO DAILY Lasix (Furosemide) 40 Mg Tab 40 Mg PO DAILY Coreg (Carvedilol) 12.5 Mg Tab 12.5 Mg PO BID Sulfasalazine 500 Mg Tab 1,000 Mg PO BID Lisinopril 10 Mg Tab 10 Mg PO DAILY Coumadin (Warfarin) 5 Mg Tab 5 Mg PO DAILY . Allergies: Coded Allergies: Penicillin (Verified Allergy, Severe, Swelling, 01/06/17) Cephalosporins (Verified Allergy, Unknown, Swelling, 01/06/17) Keflex (Verified Allergy, Unknown, RASH, 01/06/17) Active Ordered Medications Current Medications Aspirin (Aspirin Chew) 162 mg ONCE ONCE PO Last administered on 01/06/17 22:54 ; Start 01/06/17 at 22:45; Stop 01/06/17 at 22:46; Status DC Sodium Chloride (NS Flush) 2 ml UNSCH PRN IVF FLUSH AFTER USING IV ACCESS; Start 01/06/17 at 22:45; Stop 01/07/17 at 00:13; Status DC Heparin Sodium (Porcine) (Heparin Inj) 3,300 units ONCE ONCE IV Last administered on 01/06/17 23:58; Start 01/07/17 at 00:00; Stop 01/07/17 at 00:01 ; Status DC Heparin Sodium (Porcine) (Heparin Inj) 5,000 units UNSCH PRN IV APTT LESS THAN 25; Start 01/07/17 at 06:00 Heparin Sodium (Porcine) 2500 units 2,500 units UNSCH PRN IV APTT 25 TO 39; Start 01/07/17 at 06:00 Heparin Sodium/ Dextrose (Heparin-D5W Inj) 250 ml @ 0 mls/hr TITRATE IV Last administered on 01/06/17 23:59; Start 01/07/17 at 00:00 Potassium Chloride (KCl) 40 meq ONCE ONCE PO Last administered on 01/07/17 00 :08; Start 01/07/17 at 00:00; Stop 01/07/17 at 00:01; Status DC Sodium Chloride (NS Flush) 2 ml UNSCH PRN IV FLUSH FLUSH AFTER USING IV ACCESS ; Start 01/07/17 at 00:00 Sodium Chloride (NS Flush) 2 ml BID IV FLUSH ; Start 01/07/17 at 09:00 Naloxone HCl (Narcan Inj) 0.4 mg UNSCH PRN IV SEE LABEL COMMENTS; Start at 00:00 . Family History Mother with CAD, MVP . Social History Tobacco: denies Alcohol: denies Illicit drugs: denies . Physical Exam Vital Signs Vital Signs Date Time Temp Pulse Resp B/P Pulse Ox O2 Delivery O2 Flow Rate FiO2 01/07/17 01:52 105 18 98 Nasal Cannula 2 01/06/17 22:58 100 Nasal Cannula 2 01/06/17 22:58 124 117/80 134/88 01/06/17 22:21 98.5 93 18 117/87 99 Room Air Physical Exam GENERAL: This is a thin female patient, in no apparent distress. SKIN: No rashes, ecchymoses or lesions. Cool and dry. HEAD: Atraumatic. Normocephalic. EYES: No scleral icterus. No injection or drainage. ENT: Nose without bleeding, purulent drainage. NECK: Trachea midline. No JVD CARDIOVASCULAR: Regular rate and rhythm without murmurs, gallops, or rubs. RESPIRATORY: Bilaterally lower lobes with coarse creptiations. No wheezes, rales, or rhonchi. GASTROINTESTINAL: Abdomen soft, non-tender, nondistended. No guarding. MUSCULOSKELETAL: Extremities without clubbing, cyanosis. No calf tenderness. 1 + lower extremity edema. NEUROLOGICAL: Awake and alert. Motor and sensory grossly within normal limits. Normal speech. . Laboratory Laboratory Tests Test 01/06/17 22:45 White Blood Count 5.9 Red Blood Count 5.19 Hemoglobin 12.5 Hematocrit 40.7 Mean Corpuscular Volume 78.4 Mean Corpuscular Hemoglobin 24.0 Mean Corpuscular Hemoglobin 30.6 Concent Red Cell Distribution Width 22.2 Platelet Count 271 Mean Platelet Volume 7.8 Neutrophils (%) (Auto) 46.0 Lymphocytes (%) (Auto) 43.4 Monocytes (%) (Auto) 9.2 Eosinophils (%) (Auto) 1.1 Basophils (%) (Auto) 0.3 Neutrophils # (Auto) 2.7 Lymphocytes # (Auto) 2.6 Monocytes # (Auto) 0.5 Eosinophils # (Auto) 0.1 Basophils # (Auto) 0.0 CBC Comment DIFF FINAL Differential Comment Prothrombin Time 15.2 Prothromb Time International 1.4 Ratio Activated Partial 22.3 Thromboplast Time Sodium Level 136 Potassium Level 3.3 Chloride Level 98 Carbon Dioxide Level 32.0 Anion Gap 6 Blood Urea Nitrogen 12 Creatinine 1.01 Estimat Glomerular Filtration 66 Rate Random Glucose 100 Calcium Level 8.7 Total Bilirubin 0.9 Aspartate Amino Transf 41 (AST/SGOT) Alanine Aminotransferase 30 (ALT/SGPT) Alkaline Phosphatase 171 Total Creatine Kinase 108 Creatine Kinase MB 3.0 Troponin I 0.19 B-Type Natriuretic Peptide 901 Total Protein 8.1 Albumin 3.3 Result Diagram: 01/06/175 01/06/172244 Imaging Last Impressions Chest X-Ray 01/06/172244 Signed Impressions: Service Date/Time: Friday, January 06, 2017 22:50 - CONCLUSION: No acute disease. Jabari De Oliveira MD . Assessment and Plan Problem List: (1) CHF (congestive heart failure) ICD Code: I50.9 Status: Acute (2) Generalized weakness ICD Code: R53.1 Status: Acute Assessment and Plan Troponin spill secondary to respiratory distress vs NSTEMI - initial troponin I was 0.19 - on heparin drip - check serial EKGs and cardiac enzymes to r/o ACS - continuous cardiac telemetry to monitor heart rate and rhythm - consult patient's junior account manager Dr. Patton CHF exacerbation - BUN 901 - Lasix 20 mg IV BID - monitor I and Os qshift Hypokalemia - initial potassium 3.3 - replaced orally - recheck BMP in a.m. and follow results - replace potassium as needed Crohn's disease Unintentional weight loss with poor appetite and intermittent nausea/vomiting - consult senior librarian - patient follows with Dr. Robison. - will check TSH to evaluate diaphoresis and weight loss for possibly thyroid etiology DVT prophylaxis - on heparin drip . This note was transcribed by tere [Renetta Tellez]. I, Dr. Anurag Tony personally performed the history, physical exam, and medical decision making; and confirmed the accuracy of the information in the transcribed note. Authenticated by Dr. Anurag Tony on 01/07/17 at 03:26. Discussed Condition With ER physician and patient . Physician Certification 2 Midnight Certification Type: Admission for Inpatient Services Order for Inpatient Services The services are ordered in accordance with Medicare regulations or non- Medicare payer requirements, as applicable. In the case of services not specified as inpatient-only, they are appropriately provided as inpatient services in accordance with the 2-midnight benchmark. Estimated LOS (days): 3 days is the estimated time the patient will need to remain in the hospital, assuming treatment plan goals are met and no additional complications. Post-Hospital Plan: Home Problem Qualifiers (1) CHF (congestive heart failure): Qualified Code: I50.23 - Acute on chronic systolic congestive heart failure Renetta Tellez Jan 07, 2017 03:26 Anurag Tony MD Jan 07, 2017 08:18
[2017-01-07] MEDS ORDERED: FUROSEMIDE 20 MG/2 ML VIAL IV PUSH ONE (03:45)
[2017-01-07] MEDS ORDERED: POTASSIUM CHLORIDE 20 MEQ CONTROLLED RELEASE TAB PO ONE ×2 (03:45)
[2017-01-07] MEDS ORDERED: HEPARIN SODIUM - IV 10,000 UNITS/10 ML VIAL IV PRN ×2 (06:00)
[2017-01-07 06:08] LABS: AUTOMATED NEUTROPHIL # 2.2 TH/MM3 (1.8-7.7); BASOPHIL % 0.7 % (0.0-2.0); EOSINOPHIL # 0.1 TH/MM3 (0-0.4); EOSINOPHIL % 1.3 % (0.0-4.0); HEMATOCRIT 39.1 % (35.0-46.0); HEMO FLAGS DIFF FINAL; LYMPH % 48.7 % (9.0-44.0); LYMPHOCYTE # 2.6 TH/MM3 (1.0-4.8); MEAN CELL VOLUME 78.3 FL (80.0-100.0); MEAN CORPUSCULAR HEMOGLOBIN 24.2 PG (27.0-34.0); MEAN CORPUSCULAR HGB CONC 30.9 % (32.0-36.0); MONO % 8.1 % (0.0-8.0); NEUT % 41.2 % (16.0-70.0); PLATELET COUNT 290 TH/MM3 (150-450); RED CELL DISTRIBUTION WIDTH 22.4 % (11.6-17.2); WHITE BLOOD COUNT 5.3 TH/MM3 (4.0-11.0)
[2017-01-07 06:17] LABS: APTT (PATIENT) 51.1 SEC (24.3-30.1)
[2017-01-07 06:38] LABS: BICARBONATE 32.1 MEQ/L (21.0-32.0); POTASSIUM 4.2 MEQ/L (3.5-5.1)
--- NOTE | 2017-01-07 07:48 | HHI.PR ---
Subjective Remarks in no acute distress but with some sob. had on and off chest pain over night. Objective Vitals Vital Signs Date Time Temp Pulse Resp B/P Pulse Ox O2 Delivery O2 Flow Rate FiO2 01/07/17 06:47 98.3 113 20 121/94 95 01/07/17 04:00 102 22 122/68 100 Nasal Cannula 2 01/07/17 01:52 105 18 98 Nasal Cannula 2 01/06/17 22:58 100 Nasal Cannula 2 01/06/17 22:58 124 117/80 134/88 01/06/17 22:21 98.5 93 18 117/87 99 Room Air I/O 01/06/17 01/06/17 01/06/17 01/07/17 01/07/17 01/07/17 07:00 15:00 23:00 07:00 15:00 23:00 Output Total 550 ml Balance -550 ml Output Urine Total 550 ml Result Diagram: 01/07/17 0532 01/07/17 0532 Imaging Last Impressions Chest X-Ray 01/06/175 Signed Impressions: Service Date/Time: Friday, January 06, 2017 22:50 - CONCLUSION: No acute disease. Jabari De Oliveira MD Objective Remarks GENERAL: This is a well-nourished, well-developed patient, in no apparent distress. CARDIOVASCULAR: irregular rhythm/tachycardic RESPIRATORY: Clear to auscultation. Breath sounds equal bilaterally. No wheezes , rales, or rhonchi. GASTROINTESTINAL: Abdomen soft, non-tender, nondistended. Normal, active bowel sounds MUSCULOSKELETAL: Extremities without clubbing, cyanosis, or edema. NEURO: Alert & Oriented x4 to person, place, time, situation. Moves all ext x4 Medications and IVs Current Medications Aspirin (Aspirin Chew) 162 mg ONCE ONCE PO Last administered on 01/06/17 22:54 ; Start 01/06/17 at 22:45; Stop 01/06/17 at 22:46; Status DC Sodium Chloride (NS Flush) 2 ml UNSCH PRN IVF FLUSH AFTER USING IV ACCESS; Start 01/06/17 at 22:45; Stop 01/07/17 at 00:13; Status DC Heparin Sodium (Porcine) (Heparin Inj) 3,300 units ONCE ONCE IV Last administered on 01/06/17 23:58; Start 01/07/17 at 00:00; Stop 01/07/17 at 00:01 ; Status DC Heparin Sodium (Porcine) (Heparin Inj) 5,000 units UNSCH PRN IV APTT LESS THAN 25; Start 01/07/17 at 06:00 Heparin Sodium (Porcine) 2500 units 2,500 units UNSCH PRN IV APTT 25 TO 39; Start 01/07/17 at 06:00 Heparin Sodium/ Dextrose (Heparin-D5W Inj) 250 ml @ 0 mls/hr TITRATE IV Last administered on 01/06/17 23:59; Start 01/07/17 at 00:00 Potassium Chloride (KCl) 40 meq ONCE ONCE PO Last administered on 01/07/17 00 :08; Start 01/07/17 at 00:00; Stop 01/07/17 at 00:01; Status DC Sodium Chloride (NS Flush) 2 ml UNSCH PRN IV FLUSH FLUSH AFTER USING IV ACCESS ; Start 01/07/17 at 00:00 Sodium Chloride (NS Flush) 2 ml BID IV FLUSH ; Start 01/07/17 at 09:00 Naloxone HCl (Narcan Inj) 0.4 mg UNSCH PRN IV SEE LABEL COMMENTS; Start at 00:00 Aspirin (Ecotrin Ec) 325 mg DAILY PO ; Start 01/07/17 at 09:00 Atorvastatin Calcium (Lipitor) 40 mg HS PO ; Start 01/07/17 at 21:00 Carvedilol (Coreg) 12.5 mg BID PO ; Start 01/07/17 at 09:00 Digoxin (Lanoxin) 0.25 mg DAILY PO ; Start 01/07/17 at 09:00 Fluoxetine HCl (PROzac) 20 mg DAILY PO ; Start 01/07/17 at 09:00 Lisinopril (Prinivil) 10 mg DAILY PO ; Start 01/07/17 at 09:00 Mirtazapine (Remeron) 15 mg HS PO ; Start 01/07/17 at 21:00 Potassium Chloride (KCl) 10 meq BID PO ; Start 01/07/17 at 09:00 Sulfasalazine (Azulfidine) 1,000 mg BID PO ; Start 01/07/17 at 09:00 Famotidine (Pepcid) 20 mg BID PO ; Start 01/07/17 at 09:00 Furosemide (Lasix Inj) 20 mg BID@09,18 IV PUSH ; Start 01/07/17 at 09:00 Furosemide (Lasix Inj) 20 mg ONCE ONCE IV PUSH Last administered on 01/07/17 04:42; Start 01/07/17 at 03:45; Stop 01/07/17 at 03:46; Status DC Potassium Chloride (KCl) 40 meq ONCE ONCE PO Last administered on 01/07/17 04 :42; Start 01/07/17 at 03:45; Stop 01/07/17 at 03:46; Status DC A/P Assessment and Plan A/P NSTEMI - on heparin drip -continue aspirin,coreg and statin - continuous cardiac telemetry to monitor hear rate and rhythm - consulted patient's product safety administrator Dr. Patton CHF exacerbation - BUN 901 - Lasix 20 mg IV BID - monitor I and Os qshift Hypokalemia-replaced Crohn's disease Unintentional weight loss with poor appetite and intermittent nausea/vomiting - consulted manager management - patient follows with Dr. Robison. - TSH pending. DVT prophylaxis - on heparin ip Celina Patton MD Jan 07, 2017 07:48
[2017-01-07 08:23] LABS: HDL CHOLESTEROL 63.4 MG/DL (40.0-60.0)
[2017-01-07] MEDS: FUROSEMIDE 20 MG/2 ML VIAL IV PUSH SCH ×2 (09:00→18:21)
[2017-01-07] MEDS: FLUoxetine HCL 20 MG CAP PO SCH (09:50)
[2017-01-07] MEDS: ASPIRIN EC 325 MG TABEC PO SCH (09:51)
[2017-01-07] MEDS: CARVEDILOL 12.5 MG TAB PO SCH ×2 (09:51→21:03)
[2017-01-07] MEDS: DIGOXIN 0.25 MG TAB PO SCH (09:51)
[2017-01-07] MEDS: SODIUM CHLORIDE 0.9% FLUSH 10 ML FLUSH IV FLUSH SCH ×2 (09:51→21:00)
[2017-01-07] MEDS: FAMOTIDINE 20 MG TAB PO SCH ×2 (09:51→21:03)
[2017-01-07] MEDS: LISINOPRIL 10 MG TAB PO SCH (09:51)
[2017-01-07] MEDS: POTASSIUM CHLORIDE 10 MEQ CONTROLLED RELEASE TAB PO SCH ×2 (09:52→21:03)
[2017-01-07] MEDS: sulfaSALAzine 500 MG TAB PO SCH ×2 (10:15→21:03)
[2017-01-07] MEDS ORDERED: PROCHLORPERAZINE MALEATE 10 MG TAB PO PRN (11:15)
[2017-01-07 13:12] LABS: APTT (PATIENT) 47.8 SEC (24.3-30.1)
--- NOTE | 2017-01-07 14:05 | MB ---
cc: MOISES BRADSHAW DATE OF CONSULTATION: 01/07/2017 1950 REASON FOR GI CONSULTATION Evaluation of nausea and vomiting. HISTORY OF PRESENT ILLNESS This is a pleasant 66-year-old black female who is known to Dr. Robison in our practice. She was scheduled to have an outpatient EGD and colonoscopy and evaluation of 30-pound weight loss over the last 8 months, history of Crohn's disease, although the patient has been noncompliant with follow-up evaluations. She is maintained on Azulfidine therapy. She denies any hematochezia or GI bleeding. She has had some vague mid abdominal discomfort. She was prepping for a colonoscopy the day before yesterday but she could not complete the prep, she became nauseated. Coumadin was held for 3 days prior. Once again her Crohn's disease dates back to age 39. She felt very fatigued and then she developed shortness of breath. She was on Lasix. She had a near-syncopal episode in the restroom and she developed chest pain. She had presented to the hospital for further evaluation. She has a defibrillator in place. She feels a shocking sensation over the defibrillator region intermittently. The patient did have telemetry reviewed, she was having some runs of V-tach. The patient has had a poor appetite along with the weight loss. Apparently, she has been evaluated by Dr. Patton, cardiology and she apparently has sustained a non-ST MO. She was also diagnosed with modest CHF as well. I was asked to evaluate her nausea and vomiting further. PAST MEDICAL HISTORY 1. MO in 2005. 2. Crohn's disease. 3. Atrial fibrillation. 4. CHF. 5. Asthma. 6. She has an AICD placed in 2013. 7. Appendectomy. 8. Myectomy. MEDICATIONS Medications include: 1. Remeron. 2. Potassium. 3. Atorvastatin. 4. Prozac. 5. Folic acid. 6. Ranitidine. 7. Digoxin. 8. Lasix. 9. Coreg. 10. Sulfasalazine 1000 mg b.i.d. 11. Lisinopril. 12. Coumadin. ALLERGIES PENICILLIN, CEPHALASPORIN, AND KEFLEX. FAMILY HISTORY Family history is positive for coronary artery disease. SOCIAL HISTORY She denies smoking or alcohol or illicit drug use. REVIEW OF SYSTEMS A 12-point review of systems was stated above. LABORATORY DATA The hemoglobin was 12.5. White count, normal. Platelet count normal. Liver enzymes have SGOT, SGPT 41/30, respectively. Bilirubin was normal. Alk phos 170. Creatinine 1.0. PHYSICAL EXAMINATION GENERAL: Pleasant 66-year-old black female, alert and oriented x3 in no acute distress. VITAL SIGNS: Stable. She is afebrile. HEENT: Normocephalic. Sclerae anicteric. Oral mucosa dry. NECK: Neck is supple. I do not appreciate any JVD. CARDIAC: S1-S2, regular rhythm. A defibrillator is noted in the left anterior Chest. CHEST: The chest is clear to A&P. ABDOMEN: Abdomen is flat, soft, nontender. No organomegaly, masses. Bowel sounds are present. EXTREMITIES: Without clubbing, cyanosis or edema. IMPRESSION 1. Nausea and vomiting intermittently. 2. Non-ST MO. 3. History of coronary artery disease. 4. Mild CHF. 5. Long history of Crohn's disease. 6. History of unintentional weight loss of 30 pounds. PLAN At this point from a GI standpoint we will proceed conservatively due to her cardiac event and we will continue to monitor her GI course which apparently is stable at this time. I would suggest that the patient be given Zofran as needed p.r.n. for nausea or vomiting. If she has reflux symptoms will add PPI as well. I have explained to the patient that we can resume GI workup at a later date when she has been cleared from cardiology standpoint and her cardiac status is stable. We can continue her Azulfidine as well here in the hospital. Will follow the patient with you. Thank you for this consult. MD CALVIN Martinez/DAVID /11:09 AM /1:03 PM
--- NOTE | 2017-01-07 14:05 | ECHRPT ---
Indication: SHORTNESS OF BREATH CONCLUSIONS There are findings consistent with dilated cardiomyopathy. The left ventricular systolic function is severely reduced with an estimated ejection fraction less than 20%. There is global left ventricular dysfunction. The right ventricle is moderately dilated. The right ventricular systoilc function is moderately decreased. A pacemaker/defibrilator wire is noted. The left atrial size is urbtflgp-xb-mqolywxm dilated. The right atrial size is moderately dilated. Xxbvwtyo-yk-erkvtf mitral valve regurgitation. There is moderate to severe tricuspid valve regurgitation. There is estimated severe pulmonary hypertension present ( > 70 mmHg). The inferior vena cava is dilated. BP: 121 / 94 HR: 113 Rhythm: Sinus MEASUREMENTS (Male / Female) Normal Values Technical Quality:Fair 2D ECHO LV Diastolic Diameter PLAX 6.5 cm 4.2 - 5.9 / 3.9 - 5.3 cm LV Systolic Diameter PLAX 6.2 cm IVS Diastolic Thickness 0.8 cm 0.6 - 1.0 / 0.6 - 0.9 cm LVPW Diastolic Thickness 0.8 cm 0.6 - 1.0 / 0.6 - 0.9 cm LV Relative Wall Thickness 0.2 LVOT Diameter 1.8 cm Aortic Root Diameter 2.4 cm M-MODE AV Cusp Separation MM 1.9 cm DOPPLER LVOT Peak Velocity 52.3 cm/s LVOT Peak Gradient 1.1 mmHg LVOT Velocity Time Integral 5.2 cm Mitral E Point Velocity 107.0 cm/s LV E' Lateral Velocity 3.0 cm/s Mitral E to LV E' Lateral Ratio 35.2 LV E' Septal Velocity 3.3 cm/s Mitral E to LV E' Septal Ratio 32.8 TR Peak Velocity 379.0 cm/s TR Peak Gradient 57.5 mmHg PV Peak Velocity 40.1 cm/s PV Peak Gradient 0.6 mmHg FINDINGS LEFT VENTRICLE There are findings consistent with dilated cardiomyopathy. The left ventricular systolic function is severely reduced with an estimated ejection fraction less than 20%. There is global left ventricular dysfunction. This study was not technically sufficient to allow for evaluation of left ventricular diastolic func tion. RIGHT VENTRICLE The right ventricle is moderately dilated. The right ventricular systoilc function is moderately decreased. A pacemaker/defibrilator wire is noted. LEFT ATRIUM The left atrial size is gzmitddq-oi-snjsswwj dilated. RIGHT ATRIUM There is a pacemaker/defibrilator wire present in the right atrial cavity. The right atrial size is moderately dilated. ATRIAL SEPTUM The interatrial septum not well visualized. AORTA The aortic root and proximal ascending aorta are normal in size on limited imaging. MITRAL VALVE Structurally normal mitral valve. Dqglxceb-un-igsrwm mitral valve regurgitation. AORTIC VALVE Trileaflet aortic valve. Aortic valve sclerosis is present. No aortic valve regurgitation. TRICUSPID VALVE There is moderate to severe tricuspid valve regurgitation. Mild thickening of the tricuspid valve leaflets. There is estimated severe pulmonary hypertension present ( > 70 mmHg). PULMONARY VALVE No pulmonary valve regurgitation or stenosis. VESSELS The inferior vena cava is dilated. There is less than 50% respiratory change in dimension of the inferior vena cava (abnormal). PERICARDIUM No pericardial effusion. Chintan Joiner MD (Electronically Signed) Final Date:07 January 2017 14:04
--- NOTE | 2017-01-07 16:12 | EKG ---
Date Performed: 01/06/2017 Time Performed: 22:37:46 PTAGE: 66 years EKG: ATRIAL FIBRILLATION WITH RAPID VENTRICULAR RESPONSE POSSIBLE RIGHT VENTRICULAR HYPERTROPHY POSSIBLE ANTERIOR MYOCARDIAL INFARCTION Compared to prior tracing no significant change ABNORMAL ECG PREVIOUS TRACING : 12/23/2016 02.31 DOCTOR: Arash Contreras Interpretating Date/Time 01/07/2017 16:11:13
--- NOTE | 2017-01-07 20:36 | MB ---
cc: MATTHEW LAMMELI DATE OF CONSULTATION 01/07/17 HISTORY OF PRESENT ILLNESS Mrs. Krishna is a 66-year-old white female with history of nonischemic cardiomyopathy, Medtronic dual-chamber defibrillator placement, and atrial fibrillation. She has had severe fatigue, shortness of breath, weight loss, peripheral edema, poor appetite, nausea and vomiting over the last several weeks. She has been noncompliant with her followup in our office. PAST MEDICAL HISTORY Positive for myocardial function in 2005, nonischemic cardiomyopathy, coronary artery disease, ventricular tachycardia induced on EP testing in 2012, history of Medtronic dual-chamber defibrillator placement, hypertension, atrial fibrillation, hypokinemia, Crohn's disease, dyslipidemia, congestive heart failure. Depression and again noncompliance with medical management. MEDICATIONS AT HOME Included: 1. Coumadin. 2. Lasix. 3. Coreg. 4. Lisinopril. 5. Klor-Con. 6. Digoxin. 7. Ranitidine. 8. Folic acid. 9. Simvastatin. 10. Fluoxetine. 11. Sulfasalazine. ALLERGIES KEFLEX, PENICILLIN, CEPHALOSPORIN. SOCIAL HISTORY The patient does not smoke. She does not drink alcohol. She is . FAMILY HISTORY Positive for heart disease. REVIEW OF SYSTEMS Otherwise negative. PHYSICAL EXAMINATION VITAL SIGNS: Blood pressure 129/94, pulse 108 and irregular. HEENT: Negative. 2+ carotid upstrokes. No bruits. LUNGS: With bibasilar crackles. HEART: Irregular with no murmur, gallop. ABDOMEN: Soft. No bruits. EXTREMITIES: With mild edema. 1+ distal pulses. NEUROLOGIC: Exam is grossly nonfocal. CARDIOLOGY STUDIES EKG was reviewed and showed atrial fibrillation with increased ventricular response, right axis, delayed R-wave progression of precordial leads. Echocardiogram showed severe left ventricular dysfunction with an ejection fraction of less than 20%, biventricular enlargement, right ventricle dysfunction, biatrial enlargement, moderate to severe mitral regurgitation, ___ tricuspid regurgitation, severe pulmonary hypertension. LABORATORY DATA Hemoglobin 12.1, potassium 4.2, creatinine 0.9. Troponin 0.19 and 0.15. BNP 901, LDL 56, HDL 63. DIAGNOSIS 1. Acute exacerbation of chronic systolic congestive heart failure. 2. Nonischemic cardiomyopathy with severe left ventricular systolic dysfunction. 3. Mildly elevated troponin. 4. Chronic atrial fibrillation. 5. History of ventricular tachycardia. 6. History of Medtronic dual-chamber defibrillator placement. 7. Hypertension. 8. Crohn's disease. DISPOSITION Mrs. Krishna was found to have acute exacerbation of her chronic systolic congestive heart failure. I recommend to continue current medical program with IV diuresis closely monitoring her renal function. She has a history of nonischemic cardiomyopathy. I believe her mild troponin elevation is not related to acute coronary syndrome at this time. She has history of significant noncompliance with her medical care. I will follow her for cardiology during her hospitalization. She is undergoing a GI evaluation for her poor appetite, weight loss and Crohn's disease. MD TORO Farias/KAYLEE /7:23 PM /8:12 PM
[2017-01-07] MEDS: ATORVASTATIN 40 MG TAB PO SCH (21:03)
[2017-01-07] MEDS: MIRTAZAPINE 15 MG TAB PO SCH (21:03)
[2017-01-08] VITALS (24 sets, daily range): BP systolic 102–130; BP diastolic 72–95; PULSE 77–117; RESP 16–19; TEMP 98–98.6; O2SAT 94–98
--- NOTE | 2017-01-08 07:25 | HHI.GIFU ---
Subjective Remarks alert feeling better no nausea or chest pain Objective Vitals I&O Vital Signs Date Time Temp Pulse Resp B/P Pulse Ox O2 Delivery O2 Flow Rate FiO2 01/08/17 06:00 100 01/08/17 05:00 93 01/08/17 04:00 102 01/08/17 04:00 98.3 102 16 130/95 98 01/08/17 03:00 91 01/08/17 02:00 98 01/08/17 01:00 95 01/08/17 00:00 100 01/08/17 00:00 98.6 112 16 111/85 97 01/07/17 23:00 93 01/07/17 22:00 106 01/07/17 21:00 98 01/07/17 20:00 98.1 98 16 117/80 99 01/07/17 20:00 104 01/07/17 19:00 96 01/07/17 18:15 104 01/07/17 17:24 95 01/07/17 16:00 97.9 93 18 111/89 98 01/07/17 15:00 97.9 104 18 111/89 97 01/07/17 12:01 98.2 94 16 117/87 95 01/07/17 11:00 98.2 107 16 124/102 97 01/07/17 08:00 98.1 108 18 129/94 93 I/O 01/07/17 01/07/17 01/07/17 01/08/17 01/08/17 01/08/17 07:00 15:00 23:00 07:00 15:00 23:00 Intake Total 480 ml 550 ml Output Total 550 ml 1700 ml Balance -550 ml -1220 ml 550 ml Intake Oral 480 ml 480 ml IV Total 70 ml Output Urine Total 550 ml 1700 ml # Voids 3 # Bowel Movements 0 0 Laboratory Laboratory Tests Test 01/07/17 11:47 Activated Partial 47.8 Thromboplast Time Total Creatine Kinase 66 Troponin I 0.15 Thyroid Stimulating Hormone 2.170 3rd Gen Imaging Laboratory Tests Test 01/06/17 01/07/17 01/07/17 22:45 05:32 11:47 Prothrombin Time 15.2 SEC Prothromb Time International 1.4 RATIO Ratio Total Bilirubin 0.9 MG/DL Aspartate Amino Transf 41 U/L (AST/SGOT) Alanine Aminotransferase 30 U/L (ALT/SGPT) Alkaline Phosphatase 171 U/L Creatine Kinase MB 3.0 NG/ML B-Type Natriuretic Peptide 901 PG/ML Total Protein 8.1 GM/DL Albumin 3.3 GM/DL Magnesium Level 1.8 MG/DL White Blood Count 5.3 TH/MM3 Red Blood Count 5.00 MIL/MM3 Hemoglobin 12.1 GM/DL Hematocrit 39.1 % Mean Corpuscular Volume 78.3 FL Mean Corpuscular Hemoglobin 24.2 PG Mean Corpuscular Hemoglobin 30.9 % Concent Red Cell Distribution Width 22.4 % Platelet Count 290 TH/MM3 Mean Platelet Volume 7.8 FL Neutrophils (%) (Auto) 41.2 % Lymphocytes (%) (Auto) 48.7 % Monocytes (%) (Auto) 8.1 % Eosinophils (%) (Auto) 1.3 % Basophils (%) (Auto) 0.7 % Neutrophils # (Auto) 2.2 TH/MM3 Lymphocytes # (Auto) 2.6 TH/MM3 Monocytes # (Auto) 0.4 TH/MM3 Eosinophils # (Auto) 0.1 TH/MM3 Basophils # (Auto) 0.0 TH/MM3 CBC Comment DIFF FINAL Differential Comment Sodium Level 136 MEQ/L Potassium Level 4.2 MEQ/L Chloride Level 99 MEQ/L Carbon Dioxide Level 32.1 MEQ/L Anion Gap 5 MEQ/L Blood Urea Nitrogen 13 MG/DL Creatinine 0.86 MG/DL Estimat Glomerular Filtration 80 ML/MIN Rate Random Glucose 110 MG/DL Calcium Level 8.6 MG/DL Triglycerides Level 63 MG/DL Cholesterol Level 132 MG/DL LDL Cholesterol 56 MG/DL HDL Cholesterol 63.4 MG/DL Cholesterol/HDL Ratio 2.08 RATIO Activated Partial 47.8 SEC Thromboplast Time Total Creatine Kinase 66 U/L Troponin I 0.15 NG/ML Thyroid Stimulating Hormone 2.170 uIU/ML 3rd Gen Physical Exam CARDIAC: Regular rate and rhythm with no murmur gallop or rubs. ABDOMEN: Soft, nondistended, nontender; no hepatosplenomegaly; bowel sounds are present in all four quadrants. EXTREMITIES: No clubbing, cyanosis, or edema. SKIN: Normal; no rash; no jaundice. Assessment and Plan Assessment: (1) CHF (congestive heart failure) (2) NSTEMI (non-ST elevated myocardial infarction) (3) Nausea (4) Crohn's disease Plan Continue present therapy and w/u per cardiology..appears stable GI ... can consider GI w/u as outpt after dcd if cleared by cardiology... discussed w pt. Problem Qualifiers (1) CHF (congestive heart failure): Qualified Code: I50.23 - Acute on chronic systolic congestive heart failure Sammy Carroll MD Jan 08, 2017 07:25
--- NOTE | 2017-01-08 07:55 | HHI.PR ---
Subjective Remarks resting comfortably with no distress. no chest pain or sob. d/w the RN and no acute issues over night. Objective Vitals Vital Signs Date Time Temp Pulse Resp B/P Pulse Ox O2 Delivery O2 Flow Rate FiO2 01/08/17 06:00 100 01/08/17 05:00 93 01/08/17 04:00 102 01/08/17 04:00 98.3 102 16 130/95 98 01/08/17 03:00 91 01/08/17 02:00 98 01/08/17 01:00 95 01/08/17 00:00 100 01/08/17 00:00 98.6 112 16 111/85 97 01/07/17 23:00 93 01/07/17 22:00 106 01/07/17 21:00 98 01/07/17 20:00 98.1 98 16 117/80 99 01/07/17 20:00 104 01/07/17 19:00 96 01/07/17 18:15 104 01/07/17 17:24 95 01/07/17 16:00 97.9 93 18 111/89 98 01/07/17 15:00 97.9 104 18 111/89 97 01/07/17 12:01 98.2 94 16 117/87 95 01/07/17 11:00 98.2 107 16 124/102 97 01/07/17 08:00 98.1 108 18 129/94 93 I/O 01/07/17 01/07/17 01/07/17 01/08/17 01/08/17 01/08/17 07:00 15:00 23:00 07:00 15:00 23:00 Intake Total 480 ml 550 ml Output Total 550 ml 1700 ml Balance -550 ml -1220 ml 550 ml Intake Oral 480 ml 480 ml IV Total 70 ml Output Urine Total 550 ml 1700 ml # Voids 3 # Bowel Movements 0 0 Result Diagram: 01/07/17 0532 01/07/17 0532 Imaging Last Impressions Chest X-Ray 01/06/17 0495 Signed Impressions: Service Date/Time: Friday, January 06, 2017 22:50 - CONCLUSION: No acute disease. Jabari De Oliveira MD Objective Remarks GENERAL: This is a well-nourished, well-developed patient, in no apparent distress. CARDIOVASCULAR: irregular rhythm/tachycardic RESPIRATORY: Clear to auscultation. Breath sounds equal bilaterally. No wheezes , rales, or rhonchi. GASTROINTESTINAL: Abdomen soft, non-tender, nondistended. Normal, active bowel sounds MUSCULOSKELETAL: Extremities without clubbing, cyanosis, or edema. NEURO: Alert & Oriented x4 to person, place, time, situation. Moves all ext x4 Medications and IVs Current Medications Aspirin (Aspirin Chew) 162 mg ONCE ONCE PO Last administered on 01/06/17 22:54 ; Start 01/06/17 at 22:45; Stop 01/06/17 at 22:46; Status DC Sodium Chloride (NS Flush) 2 ml UNSCH PRN IVF FLUSH AFTER USING IV ACCESS; Start 01/06/17 at 22:45; Stop 01/07/17 at 00:13; Status DC Heparin Sodium (Porcine) (Heparin Inj) 3,300 units ONCE ONCE IV Last administered on 01/06/17 23:58; Start 01/07/17 at 00:00; Stop 01/07/17 at 00:01 ; Status DC Heparin Sodium (Porcine) (Heparin Inj) 5,000 units UNSCH PRN IV APTT LESS THAN 25; Start 01/07/17 at 06:00 Heparin Sodium (Porcine) 2500 units 2,500 units UNSCH PRN IV APTT 25 TO 39; Start 01/07/17 at 06:00 Heparin Sodium/ Dextrose (Heparin-D5W Inj) 250 ml @ 0 mls/hr TITRATE IV Last administered on 01/06/17 23:59; Start 01/07/17 at 00:00 Potassium Chloride (KCl) 40 meq ONCE ONCE PO Last administered on 01/07/17 00 :08; Start 01/07/17 at 00:00; Stop 01/07/17 at 00:01; Status DC Sodium Chloride (NS Flush) 2 ml UNSCH PRN IV FLUSH FLUSH AFTER USING IV ACCESS ; Start 01/07/17 at 00:00 Sodium Chloride (NS Flush) 2 ml BID IV FLUSH Last administered on 01/07/17 09: 51; Start 01/07/17 at 09:00 Naloxone HCl (Narcan Inj) 0.4 mg UNSCH PRN IV SEE LABEL COMMENTS; Start at 00:00 Aspirin (Ecotrin Ec) 325 mg DAILY PO Last administered on 01/07/17 09:51; Start 01/07/17 at 09:00 Atorvastatin Calcium (Lipitor) 40 mg HS PO Last administered on 01/07/17 21:03 ; Start 01/07/17 at 21:00 Carvedilol (Coreg) 12.5 mg BID PO Last administered on 01/07/17 21:03; Start 01/07/17 at 09:00 Digoxin (Lanoxin) 0.25 mg DAILY PO Last administered on 01/07/17 09:51; Start 01/07/17 at 09:00 Fluoxetine HCl (PROzac) 20 mg DAILY PO Last administered on 01/07/17 09:50; Start 01/07/17 at 09:00 Lisinopril (Prinivil) 10 mg DAILY PO Last administered on 01/07/17 09:51; Start 01/07/17 at 09:00 Mirtazapine (Remeron) 15 mg HS PO Last administered on 01/07/17 21:03; Start 01/07/17 at 21:00 Potassium Chloride (KCl) 10 meq BID PO Last administered on 01/07/17 21:03; Start 01/07/17 at 09:00 Sulfasalazine (Azulfidine) 1,000 mg BID PO Last administered on 01/07/17 21:03 ; Start 01/07/17 at 09:00 Famotidine (Pepcid) 20 mg BID PO Last administered on 01/07/17 21:03; Start at 09:00 Furosemide (Lasix Inj) 20 mg BID@,18 IV PUSH Last administered on 01/07/17 18:21; Start 01/07/17 at 09:00 Furosemide (Lasix Inj) 20 mg ONCE ONCE IV PUSH Last administered on 01/07/17 04:42; Start 01/07/17 at 03:45; Stop 01/07/17 at 03:46; Status DC Potassium Chloride (KCl) 40 meq ONCE ONCE PO Last administered on 01/07/17 04 :42; Start 01/07/17 at 03:45; Stop 01/07/17 at 03:46; Status DC Prochlorperazine Maleate (Compazine) 10 mg Q6H PRN PO nausea/vomting; Start 03/16 at 11:15 A/P Assessment and Plan A/P elevated troponin -continue aspirin,coreg and statin - continuous cardiac telemetry to monitor hear rate and rhythm - cardiology consult appreciated; recommended medical treatment- will dc heparin drip if ok with cardiology. CHF exacerbation - BUN 901 - Lasix 20 mg IV BID - monitor I and Os qshift Hypokalemia-replaced Crohn's disease Unintentional weight loss with poor appetite and intermittent nausea/vomiting - GI consult appreciated- further workup when more stable. consult PT. DVT prophylaxis - on heparin drip Discharge Planning discharge planning within the next 24-48 hrs if stable. Celina Patton MD Jan 08, 2017 07:55
[2017-01-08] MEDS: POTASSIUM CHLORIDE 10 MEQ CONTROLLED RELEASE TAB PO SCH ×2 (08:31→21:01)
[2017-01-08] MEDS: ASPIRIN EC 325 MG TABEC PO SCH (08:31)
[2017-01-08] MEDS: CARVEDILOL 12.5 MG TAB PO SCH ×2 (08:32→21:00)
[2017-01-08] MEDS: LISINOPRIL 10 MG TAB PO SCH (08:32)
[2017-01-08] MEDS: FAMOTIDINE 20 MG TAB PO SCH ×2 (08:32→21:00)
[2017-01-08] MEDS: sulfaSALAzine 500 MG TAB PO SCH ×2 (08:32→21:01)
[2017-01-08] MEDS: DIGOXIN 0.25 MG TAB PO SCH (08:32)
[2017-01-08] MEDS: FUROSEMIDE 20 MG/2 ML VIAL IV PUSH SCH ×2 (08:33→18:22)
[2017-01-08] MEDS: SODIUM CHLORIDE 0.9% FLUSH 10 ML FLUSH IV FLUSH SCH ×2 (08:33→21:00)
[2017-01-08] MEDS: FLUoxetine HCL 20 MG CAP PO SCH (08:33)
[2017-01-08] MEDS: HEPARIN-D5W INJ 250 ML IV SCH (11:02)
[2017-01-08 13:19] LABS: APTT (PATIENT) 37.1 SEC (24.3-30.1)
[2017-01-08 13:25] LABS: INTERNATIONAL NORMALIZED RATIO 1.5 RATIO; PROTHROMBIN TIME - PATIENT 16.7 SEC (9.8-11.6)
--- NOTE | 2017-01-08 17:21 | EKG ---
Date Performed: 01/07/2017 Time Performed: 12:31:10 PTAGE: 66 years EKG: Atrial fibrillation Marked right axis deviation Incomplete right bundle branch block Poor R wave progression brisach tonie be a normal varriant. Nonspecific T wave changes. There is one premature ventricular contraction noted. When compared to previous tracing, no significant change. Abnormal ECG PREVIOUS TRACING : 01/06/2017 22.37 DOCTOR: Carl Mobley Interpretating Date/Time 01/08/2017 17:20:24
--- NOTE | 2017-01-08 17:23 | PD.CARD.PN ---
Subjective Subjective Remarks No CP or SOB, feels better, tele w NS WCT Objective Medications Current Medications Medications (Trade) Dose Ordered Sig/Junaid Route Start Time Stop Time Status Last Admin (Heparin Inj) 5,000 units UNSCH PRN IV 01/07/17 06:00 Heparin Sodium (Porcine) 2500 units 2,500 units UNSCH PRN IV 01/07/17 06:00 01/08/17 13:44 (Heparin-D5W Inj) 250 ml @ 0 mls/hr TITRATE IV 01/07/17 00:00 01/08/17 11:02 (NS Flush) 2 ml UNSCH PRN IV FLUSH 01/07/17 00:00 (NS Flush) 2 ml BID IV FLUSH 01/07/17 09:00 01/07/17 09:51 (Narcan Inj) 0.4 mg UNSCH PRN IV 01/07/17 00:00 (Ecotrin Ec) 325 mg DAILY PO 01/07/17 09:00 01/08/17 08:31 (Lipitor) 40 mg HS PO 01/07/17 21:00 01/07/17 21:03 (Coreg) 12.5 mg BID PO 01/07/17 09:00 01/08/17 08:32 (Lanoxin) 0.25 mg DAILY PO 01/07/17 09:00 01/08/17 08:32 (PROzac) 20 mg DAILY PO 01/07/17 09:00 01/08/17 08:33 (Prinivil) 10 mg DAILY PO 01/07/17 09:00 01/08/17 08:32 (Remeron) 15 mg HS PO 01/07/17 21:00 01/07/17 21:03 (KCl) 10 meq BID PO 01/07/17 09:00 01/08/17 08:31 (Azulfidine) 1,000 mg BID PO 01/07/17 09:00 01/08/17 08:32 (Pepcid) 20 mg BID PO 01/07/17 09:00 01/08/17 08:32 (Lasix Inj) 20 mg BID@09,18 IV PUSH 01/07/17 09:00 01/08/17 08:33 Prochlorperazine Maleate 10 mg 10 mg Q6H PRN PO 01/07/17 11:15 (Coumadin Consult Pharmacy) 0 ml @ 0 mls/hr UNSCH OTHER 01/08/17 12:00 (Coumadin) 5 mg DAILY@16 PO 01/09/17 09:00 Vital Signs / I&O Vital Signs Date Time Temp Pulse Resp B/P Pulse Ox O2 Delivery O2 Flow Rate FiO2 01/08/17 16:34 109 01/08/17 15:30 101 01/08/17 15:30 98.2 89 18 120/94 96 01/08/17 14:20 77 01/08/17 13:34 95 01/08/17 12:06 91 01/08/17 11:26 98.3 101 19 102/72 94 01/08/17 11:26 81 01/08/17 10:00 106 01/08/17 09:47 98 01/08/17 08:30 106 01/08/17 07:30 106 01/08/17 07:30 98.0 106 18 122/84 94 Manual Cuff/Auscultation 01/08/17 06:00 100 01/08/17 05:00 93 01/08/17 04:00 102 01/08/17 04:00 98.3 102 16 130/95 98 01/08/17 03:00 91 01/08/17 02:00 98 01/08/17 01:00 95 01/08/17 00:00 100 01/08/17 00:00 98.6 112 16 111/85 97 01/07/17 23:00 93 01/07/17 22:00 106 01/07/17 21:00 98 01/07/17 20:00 98.1 98 16 117/80 99 01/07/17 20:00 104 01/07/17 19:00 96 01/07/17 18:15 104 01/07/17 17:24 95 I/O 01/07/17 01/07/17 01/07/17 01/08/17 01/08/17 01/08/17 06:59 14:59 22:59 06:59 14:59 22:59 Intake Total 480 ml 550 ml Output Total 550 ml 1700 ml Balance -550 ml -1220 ml 550 ml Intake Oral 480 ml 480 ml IV Total 70 ml Output Urine Total 550 ml 1700 ml # Voids 3 # Bowel Movements 0 0 Physical Exam GENERAL: In NAD SKIN: Warm and dry. HEAD: Normocephalic. EYES: No scleral icterus. No injection or drainage. NECK: Supple, trachea midline. No JVD or lymphadenopathy. CARDIOVASCULAR: Irreg, without murmurs, gallops, or rubs. RESPIRATORY: Breath sounds equal bilaterally. No accessory muscle use. GASTROINTESTINAL: Abdomen soft, non-tender, nondistended. MUSCULOSKELETAL: No cyanosis, or edema. Laboratory Laboratory Tests Test 01/08/17 11:07 Prothrombin Time 16.7 SEC Prothromb Time International 1.5 RATIO Ratio Activated Partial 37.1 SEC Thromboplast Time Imaging Last Impressions Chest X-Ray 01/06/17 5065 Signed Impressions: Service Date/Time: Friday, January 06, 2017 22:50 - CONCLUSION: No acute disease. Jabari De Oliveira MD Assessment and Plan Problem List: (1) Acute CHF (congestive heart failure) (2) Nonischemic cardiomyopathy (3) Elevated troponin (4) Atrial fibrillation with RVR (5) Crohn's disease Assessment and Plan Continue tx for CHF. No clear evidence of ACS, she has h/o nonischemic CM. Increase activity. Anticipate discharge soon. Will schedule f/u appt in our office. Ann Patton MD Jan 08, 2017 17:23
[2017-01-08 20:42] LABS: APTT (PATIENT) 64.6 SEC (24.3-30.1)
[2017-01-08] MEDS: ATORVASTATIN 40 MG TAB PO SCH (21:00)
[2017-01-08] MEDS: MIRTAZAPINE 15 MG TAB PO SCH (21:01)
[2017-01-09] VITALS (26 sets, daily range): BP systolic 92–117; BP diastolic 68–80; PULSE 3–115; RESP 16; TEMP 97.7–98.5; O2SAT 95–100
[2017-01-09 04:32] LABS: HEMATOCRIT 35.8 % (35.0-46.0); MEAN CELL VOLUME 77.3 FL (80.0-100.0); MEAN CORPUSCULAR HEMOGLOBIN 24.7 PG (27.0-34.0); MEAN CORPUSCULAR HGB CONC 31.9 % (32.0-36.0); PLATELET COUNT 230 TH/MM3 (150-450); RED BLOOD COUNT 4.63 MIL/MM3 (4.00-5.30); REVIEW FLAG FINAL; WHITE BLOOD COUNT 5.4 TH/MM3 (4.0-11.0)
[2017-01-09 04:42] LABS: APTT (PATIENT) 54.9 SEC (24.3-30.1); INTERNATIONAL NORMALIZED RATIO 1.4 RATIO
[2017-01-09 04:52] LABS: BICARBONATE 34.3 MEQ/L (21.0-32.0); POTASSIUM 3.8 MEQ/L (3.5-5.1)
[2017-01-09] MEDS: DIGOXIN 0.25 MG TAB PO SCH (07:59)
[2017-01-09] MEDS: FLUoxetine HCL 20 MG CAP PO SCH (07:59)
[2017-01-09] MEDS: ASPIRIN EC 325 MG TABEC PO SCH (07:59)
[2017-01-09] MEDS: LISINOPRIL 10 MG TAB PO SCH (07:59)
[2017-01-09] MEDS: CARVEDILOL 12.5 MG TAB PO SCH ×2 (07:59→20:44)
[2017-01-09] MEDS: FAMOTIDINE 20 MG TAB PO SCH (07:59)
[2017-01-09] MEDS: POTASSIUM CHLORIDE 10 MEQ CONTROLLED RELEASE TAB PO SCH ×2 (07:59→20:44)
[2017-01-09] MEDS: sulfaSALAzine 500 MG TAB PO SCH ×2 (07:59→20:44)
[2017-01-09] MEDS: SODIUM CHLORIDE 0.9% FLUSH 10 ML FLUSH IV FLUSH SCH ×2 (08:00→20:44)
[2017-01-09] MEDS: FUROSEMIDE 20 MG/2 ML VIAL IV PUSH SCH ×2 (08:00→16:22)
--- NOTE | 2017-01-09 08:16 | HHI.PR ---
Subjective Remarks in no acute distress. denies chest pain or sob. HR slightly elevated. d/w the RN. Objective Vitals Vital Signs Date Time Temp Pulse Resp B/P Pulse Ox O2 Delivery O2 Flow Rate FiO2 01/09/17 06:00 96 01/09/17 05:00 100 01/09/17 04:00 102 01/09/17 03:59 98.0 3 116/80 100 01/09/17 03:00 98 01/09/17 02:00 98 01/09/17 01:00 92 01/09/17 00:00 108 01/08/17 23:00 104 01/08/17 23:00 98.3 100 124/83 96 01/08/17 22:00 92 01/08/17 21:00 110 01/08/17 20:00 106 01/08/17 20:00 98.5 107 109/85 97 01/08/17 19:00 117 01/08/17 18:05 116 01/08/17 17:25 92 01/08/17 16:34 109 01/08/17 15:30 101 01/08/17 15:30 98.2 89 18 120/94 96 01/08/17 14:20 77 01/08/17 13:34 95 01/08/17 12:06 91 01/08/17 11:26 98.3 101 19 102/72 94 01/08/17 11:26 81 01/08/17 10:00 106 01/08/17 09:47 98 01/08/17 08:30 106 I/O 01/08/17 01/08/17 01/08/17 01/09/17 01/09/17 01/09/17 07:00 15:00 23:00 07:00 15:00 23:00 Intake Total 550 ml 692 ml 560 ml Output Total 1700 ml 1500 ml Balance 550 ml -1008 ml -940 ml Intake Oral 480 ml 600 ml 480 ml IV Total 70 ml 92 ml 80 ml Output Urine Total 1700 ml 1500 ml # Voids 3 # Bowel Movements 0 Result Diagram: 01/09/1730901/09/17309 Imaging Last Impressions Chest X-Ray 01/06/17 3188 Signed Impressions: Service Date/Time: Friday, January 06, 2017 22:50 - CONCLUSION: No acute disease. Jabari De Oliveira MD Objective Remarks GENERAL: This is a well-nourished, well-developed patient, in no apparent distress. CARDIOVASCULAR: irregular rhythm/tachycardic RESPIRATORY: Clear to auscultation. Breath sounds equal bilaterally. No wheezes , rales, or rhonchi. GASTROINTESTINAL: Abdomen soft, non-tender, nondistended. Normal, active bowel sounds MUSCULOSKELETAL: Extremities without clubbing, cyanosis, or edema. NEURO: Alert & Oriented x4 to person, place, time, situation. Moves all ext x4 Procedures none Medications and IVs Current Medications Aspirin (Aspirin Chew) 162 mg ONCE ONCE PO Last administered on 01/06/17 22:54 ; Start 01/06/17 at 22:45; Stop 01/06/17 at 22:46; Status DC Sodium Chloride (NS Flush) 2 ml UNSCH PRN IVF FLUSH AFTER USING IV ACCESS; Start 01/06/17 at 22:45; Stop 01/07/17 at 00:13; Status DC Heparin Sodium (Porcine) (Heparin Inj) 3,300 units ONCE ONCE IV Last administered on 01/06/17 23:58; Start 01/07/17 at 00:00; Stop 01/07/17 at 00:01 ; Status DC Heparin Sodium (Porcine) (Heparin Inj) 5,000 units UNSCH PRN IV APTT LESS THAN 25; Start 01/07/17 at 06:00 Heparin Sodium (Porcine) 2500 units 2,500 units UNSCH PRN IV APTT 25 TO 39 Last administered on 01/08/17 13:44; Start 01/07/17 at 06:00 Heparin Sodium/ Dextrose (Heparin-D5W Inj) 250 ml @ 0 mls/hr TITRATE IV Last administered on 01/08/17 11:02; Start 01/07/17 at 00:00 Potassium Chloride (KCl) 40 meq ONCE ONCE PO Last administered on 01/07/17 00 :08; Start 01/07/17 at 00:00; Stop 01/07/17 at 00:01; Status DC Sodium Chloride (NS Flush) 2 ml UNSCH PRN IV FLUSH FLUSH AFTER USING IV ACCESS ; Start 01/07/17 at 00:00 Sodium Chloride (NS Flush) 2 ml BID IV FLUSH Last administered on 01/09/17 08: 00; Start 01/07/17 at 09:00 Naloxone HCl (Narcan Inj) 0.4 mg UNSCH PRN IV SEE LABEL COMMENTS; Start at 00:00 Aspirin (Ecotrin Ec) 325 mg DAILY PO Last administered on 01/09/17 07:59; Start 01/07/17 at 09:00 Atorvastatin Calcium (Lipitor) 40 mg HS PO Last administered on 01/08/17 21:00 ; Start 01/07/17 at 21:00 Carvedilol (Coreg) 12.5 mg BID PO Last administered on 01/09/17 07:59; Start 01/07/17 at 09:00 Digoxin (Lanoxin) 0.25 mg DAILY PO Last administered on 01/09/17 07:59; Start 01/07/17 at 09:00 Fluoxetine HCl (PROzac) 20 mg DAILY PO Last administered on 01/09/17 07:59; Start 01/07/17 at 09:00 Lisinopril (Prinivil) 10 mg DAILY PO Last administered on 01/09/17 07:59; Start 01/07/17 at 09:00 Mirtazapine (Remeron) 15 mg HS PO Last administered on 01/08/17 21:01; Start 01/07/17 at 21:00 Potassium Chloride (KCl) 10 meq BID PO Last administered on 01/09/17 07:59; Start 01/07/17 at 09:00 Sulfasalazine (Azulfidine) 1,000 mg BID PO Last administered on 01/09/17 07:59 ; Start 01/07/17 at 09:00 Famotidine (Pepcid) 20 mg BID PO Last administered on 01/09/17 07:59; Start at 09:00 Furosemide (Lasix Inj) 20 mg BID@09,18 IV PUSH Last administered on 01/09/17 08:00; Start 01/07/17 at 09:00 Furosemide (Lasix Inj) 20 mg ONCE ONCE IV PUSH Last administered on 01/07/17 04:42; Start 01/07/17 at 03:45; Stop 01/07/17 at 03:46; Status DC Potassium Chloride (KCl) 40 meq ONCE ONCE PO Last administered on 01/07/17 04 :42; Start 01/07/17 at 03:45; Stop 01/07/17 at 03:46; Status DC Prochlorperazine Maleate 10 mg 10 mg Q6H PRN PO nausea/vomting; Start 01/07/17 at 11:15 Pharmacy Profile Note (Coumadin Consult Pharmacy) 0 ml @ 0 mls/hr UNSCH OTHER ; Start 01/08/17 at 12:00 Warfarin Sodium (Coumadin) 5 mg DAILY@16 PO ; Start 01/09/17 at 16:00 Patient Medication Teaching (Coumadin Booklet) 1 ONCE ONCE .XX Last administered on 01/08/17t 16:17; Start 01/08/17 at 16:00; Stop 01/08/17 at 16:01 ; Status DC A/P Assessment and Plan A/P elevated troponin -continue aspirin,coreg and statin - continuous cardiac telemetry to monitor hear rate and rhythm - cardiology consult appreciated; recommended medical treatment- CHF exacerbation - BUN 901 - Lasix 20 mg IV BID - monitor I and Os qshift atrial fibrillation; HR slightly elevated continue coreg; will consider increasing the dose if HR remains elevated. continue heparin drip and Coumadin monitor PT/INR Hypokalemia-replaced Crohn's disease Unintentional weight loss with poor appetite and intermittent nausea/vomiting - GI consult appreciated- further workup as outpatient- when more stable. PT evaluation appreciated. DVT prophylaxis - on heparin drip/coumadin Discharge Planning dc home- probably tomorrow- if HR remains stable- Celina Patton MD Jan 09, 2017 08:16
[2017-01-09] MEDS ORDERED: PILL SPLITTER OTHER PRN (14:00)
[2017-01-09] MEDS ORDERED: WARFARIN SOD 6 MG TAB PO ONE (16:00)
[2017-01-09] MEDS ORDERED: WARFARIN SOD 5 MG TAB PO SCH (16:00)
[2017-01-09] MEDS: MIRTAZAPINE 15 MG TAB PO SCH (20:44)
[2017-01-09] MEDS: ATORVASTATIN 40 MG TAB PO SCH (20:44)
[2017-01-10] VITALS (28 sets, daily range): BP systolic 102–126; BP diastolic 66–80; PULSE 64–174; RESP 16–18; TEMP 97.5–98.5; O2SAT 96–99
--- NOTE | 2017-01-10 07:55 | HHI.PR ---
Subjective Remarks in no acute distress. denies chest pain or sob. HR still on high side. Objective Vitals Vital Signs Date Time Temp Pulse Resp B/P Pulse Ox O2 Delivery O2 Flow Rate FiO2 01/10/17 06:00 101 01/10/17 05:00 90 01/10/17 04:00 92 01/10/17 03:30 98.5 83 16 102/80 99 01/10/17 03:00 93 01/10/17 02:00 90 01/10/17 01:00 78 01/10/17 00:00 94 01/09/17 23:30 98.4 80 16 109/76 95 01/09/17 23:00 103 01/09/17 22:00 94 01/09/17 21:00 104 01/09/17 20:45 98.5 87 16 93/71 97 01/09/17 20:00 98 01/09/17 19:00 90 01/09/17 18:14 109 01/09/17 17:06 94 01/09/17 16:27 87 01/09/17 15:08 98.0 93 16 92/68 100 01/09/17 15:08 97 01/09/17 14:21 81 01/09/17 13:25 80 01/09/17 12:13 63 01/09/17 11:32 97.7 107 16 92/68 99 01/09/17 11:32 81 01/09/17 10:00 73 01/09/17 09:16 115 01/09/17 08:45 97.8 98 16 117/74 99 01/09/17 08:45 93 I/O 01/09/17 01/09/17 01/09/17 01/10/17 01/10/17 01/10/17 07:00 15:00 23:00 07:00 15:00 23:00 Intake Total 560 ml 440 ml 540 ml Output Total 1500 ml 1300 ml 500 ml Balance -940 ml -860 ml 40 ml Intake Oral 480 ml 360 ml 460 ml IV Total 80 ml 80 ml 80 ml Output Urine Total 1500 ml 1300 ml 500 ml # Bowel Movements 1 0 Result Diagram: 01/09/1730901/09/17309 Imaging Last Impressions Chest X-Ray 01/06/17 1005 Signed Impressions: Service Date/Time: Wednesday, January 06, 2017 22:50 - CONCLUSION: No acute disease. Jabari De Oliveira MD Objective Remarks GENERAL: This is a well-nourished, well-developed patient, in no apparent distress. CARDIOVASCULAR: irregular rhythm/tachycardic RESPIRATORY: Clear to auscultation. Breath sounds equal bilaterally. No wheezes , rales, or rhonchi. GASTROINTESTINAL: Abdomen soft, non-tender, nondistended. Normal, active bowel sounds MUSCULOSKELETAL: Extremities without clubbing, cyanosis, or edema. NEURO: Alert & Oriented x4 to person, place, time, situation. Moves all ext x4 Procedures none Medications and IVs Current Medications Aspirin (Aspirin Chew) 162 mg ONCE ONCE PO Last administered on 01/06/17 22:54 ; Start 01/06/17 at 22:45; Stop 01/06/17 at 22:46; Status DC Sodium Chloride (NS Flush) 2 ml UNSCH PRN IVF FLUSH AFTER USING IV ACCESS; Start 01/06/17 at 22:45; Stop 01/07/17 at 00:13; Status DC Heparin Sodium (Porcine) (Heparin Inj) 3,300 units ONCE ONCE IV Last administered on 01/06/17 23:58; Start 01/07/17 at 00:00; Stop 01/07/17 at 00:01 ; Status DC Heparin Sodium (Porcine) (Heparin Inj) 5,000 units UNSCH PRN IV APTT LESS THAN 25; Start 01/07/17 at 06:00 Heparin Sodium (Porcine) 2500 units 2,500 units UNSCH PRN IV APTT 25 TO 39 Last administered on 01/08/17 13:44; Start 01/07/17 at 06:00 Heparin Sodium/ Dextrose (Heparin-D5W Inj) 250 ml @ 0 mls/hr TITRATE IV Last administered on 01/08/17 11:02; Start 01/07/17 at 00:00 Potassium Chloride (KCl) 40 meq ONCE ONCE PO Last administered on 01/07/17 00 :08; Start 01/07/17 at 00:00; Stop 01/07/17 at 00:01; Status DC Sodium Chloride (NS Flush) 2 ml UNSCH PRN IV FLUSH FLUSH AFTER USING IV ACCESS ; Start 01/07/17 at 00:00 Sodium Chloride (NS Flush) 2 ml BID IV FLUSH Last administered on 01/09/17 08: 00; Start 01/07/17 at 09:00 Naloxone HCl (Narcan Inj) 0.4 mg UNSCH PRN IV SEE LABEL COMMENTS; Start at 00:00 Aspirin (Ecotrin Ec) 325 mg DAILY PO Last administered on 01/09/17 07:59; Start 01/07/17 at 09:00 Atorvastatin Calcium (Lipitor) 40 mg HS PO Last administered on 01/09/17 20:44 ; Start 01/07/17 at 21:00 Carvedilol (Coreg) 12.5 mg BID PO Last administered on 01/09/17 20:44; Start 01/07/17 at 09:00 Digoxin (Lanoxin) 0.25 mg DAILY PO Last administered on 01/09/17 07:59; Start 01/07/17 at 09:00 Fluoxetine HCl (PROzac) 20 mg DAILY PO Last administered on 01/09/17 07:59; Start 01/07/17 at 09:00 Lisinopril (Prinivil) 10 mg DAILY PO Last administered on 01/09/17 07:59; Start 01/07/17 at 09:00 Mirtazapine (Remeron) 15 mg HS PO Last administered on 01/09/17 20:44; Start 01/07/17 at 21:00 Potassium Chloride (KCl) 10 meq BID PO Last administered on 01/09/17 20:44; Start 01/07/17 at 09:00 Sulfasalazine (Azulfidine) 1,000 mg BID PO Last administered on 01/09/17 20:44 ; Start 01/07/17 at 09:00 Famotidine (Pepcid) 20 mg BID PO Last administered on 01/09/17 07:59; Start at 09:00; Stop 01/09/17 at 13:55; Status DC Furosemide (Lasix Inj) 20 mg BID@,18 IV PUSH Last administered on 01/09/17 16:22; Start 01/07/17 at 09:00 Furosemide (Lasix Inj) 20 mg ONCE ONCE IV PUSH Last administered on 01/07/17 04:42; Start 01/07/17 at 03:45; Stop 8/10/17 at 03:46; Status DC Potassium Chloride (KCl) 40 meq ONCE ONCE PO Last administered on 01/07/17 04 :42; Start 01/07/17 at 03:45; Stop 01/07/17 at 03:46; Status DC Prochlorperazine Maleate 10 mg 10 mg Q6H PRN PO nausea/vomting; Start 01/07/17 at 11:15 Pharmacy Profile Note (Coumadin Consult Pharmacy) 0 ml @ 0 mls/hr UNSCH OTHER ; Start 01/08/17 at 12:00 Warfarin Sodium (Coumadin) 5 mg DAILY@16 PO ; Start 01/09/17 at 16:00; Status Hold Patient Medication Teaching (Coumadin Booklet) 1 ONCE ONCE .XX Last administered on 01/08/17 16:17; Start 01/08/17 at 16:00; Stop 01/08/17 at 16:01 ; Status DC Warfarin Sodium (Coumadin) 6 mg ONCE@1600 ONCE PO Last administered on 16:22; Start 01/09/17 at 16:00; Stop 01/09/17 at 16:01; Status DC Famotidine (Pepcid) 10 mg BID PO ; Start 01/10/17 at 09:00 Miscellaneous (Pill Splitter) 1 ea UNSCH PRN OTHER SEE LABEL COMMENTS; Start at 14:00 A/P Assessment and Plan A/P elevated troponin -continue aspirin,coreg and statin - continuous cardiac telemetry to monitor hear rate and rhythm - cardiology consult appreciated; recommended medical treatment- CHF exacerbation - BUN 901 - continue Lasix 20 mg IV BID - monitor I and Os qshift atrial fibrillation; HR slightly elevated continue coreg; will consider increasing the dose if HR remains elevated. continue heparin drip and Coumadin monitor PT/INR Hypokalemia-replaced Crohn's disease Unintentional weight loss with poor appetite and intermittent nausea/vomiting - GI consult appreciated- further workup as outpatient- when more stable. PT evaluation appreciated. DVT prophylaxis - on heparin drip/coumadin Discharge Planning dc home- probably tomorrow-if HR stable. Celina Patton MD Jan 10, 2017 07:55
[2017-01-10 08:07] LABS: INTERNATIONAL NORMALIZED RATIO 1.2 RATIO; PROTHROMBIN TIME - PATIENT 13.4 SEC (9.8-11.6)
[2017-01-10] MEDS: FUROSEMIDE 20 MG/2 ML VIAL IV PUSH SCH ×2 (08:40→16:54)
[2017-01-10] MEDS: FLUoxetine HCL 20 MG CAP PO SCH (08:41)
[2017-01-10] MEDS: LISINOPRIL 10 MG TAB PO SCH (08:41)
[2017-01-10] MEDS: ASPIRIN EC 325 MG TABEC PO SCH (08:41)
[2017-01-10] MEDS: FAMOTIDINE 20 MG TAB PO SCH ×2 (08:42→20:11)
[2017-01-10] MEDS: POTASSIUM CHLORIDE 10 MEQ CONTROLLED RELEASE TAB PO SCH ×2 (08:44→20:10)
[2017-01-10] MEDS: sulfaSALAzine 500 MG TAB PO SCH ×2 (08:45→20:10)
[2017-01-10] MEDS: DIGOXIN 0.25 MG TAB PO SCH (08:45)
[2017-01-10] MEDS: SODIUM CHLORIDE 0.9% FLUSH 10 ML FLUSH IV FLUSH SCH ×2 (08:46→20:11)
[2017-01-10] MEDS: CARVEDILOL 12.5 MG TAB PO SCH ×2 (08:47→20:11)
[2017-01-10 16:48] LABS: POTASSIUM 4.1 MEQ/L (3.5-5.1)
[2017-01-10] MEDS: WARFARIN SOD 7.5 MG TAB PO SCH (16:53)
[2017-01-10] MEDS: SODIUM CHLORIDE 0.9% FLUSH 10 ML FLUSH IV FLUSH PRN (16:55)
[2017-01-10] MEDS: ATORVASTATIN 40 MG TAB PO SCH (20:10)
[2017-01-10] MEDS: MIRTAZAPINE 15 MG TAB PO SCH (20:11)
[2017-01-10] MEDS: HEPARIN-D5W INJ 250 ML IV SCH (20:14)
[2017-01-11] VITALS (30 sets, daily range): BP systolic 97–121; BP diastolic 60–90; PULSE 74–149; RESP 14–19; TEMP 97.9–98.8; O2SAT 97–98
[2017-01-11 07:03] LABS: APTT (PATIENT) 58.1 SEC (24.3-30.1); INTERNATIONAL NORMALIZED RATIO 1.4 RATIO; PROTHROMBIN TIME - PATIENT 15.7 SEC (9.8-11.6)
--- NOTE | 2017-01-11 08:14 | HHI.PR ---
Subjective Remarks resting comfortably with no distress. no chest pain or sob. at times tachycardic. otherwise no other acute issues over night. d/w the RN. Objective Vitals Vital Signs Date Time Temp Pulse Resp B/P Pulse Ox O2 Delivery O2 Flow Rate FiO2 01/11/17 06:47 149 01/11/17 06:00 105 01/11/17 05:00 89 01/11/17 04:20 98.3 80 16 113/87 97 01/11/17 04:00 84 01/11/17 03:00 93 01/11/17 02:00 90 01/11/17 01:29 143 01/11/17 01:00 85 01/11/17 00:00 94 01/10/17 23:30 97.5 71 16 126/75 99 01/10/17 23:00 81 01/10/17 22:00 76 01/10/17 21:00 80 01/10/17 20:20 98.1 78 16 118/66 99 01/10/17 20:00 84 01/10/17 19:46 137 01/10/17 19:00 91 01/10/17 18:04 92 01/10/17 17:02 90 01/10/17 16:40 67 01/10/17 15:28 174 01/10/17 15:00 97.9 68 18 105/67 98 01/10/17 15:00 79 01/10/17 14:18 64 01/10/17 13:07 108 01/10/17 12:05 88 01/10/17 11:02 89 01/10/17 11:02 98.1 75 18 106/67 98 01/10/17 10:17 85 01/10/17 10:00 101 01/10/17 09:29 97.5 108 18 108/73 96 I/O 01/10/17 01/10/17 01/10/17 01/11/17 01/11/17 01/11/17 07:00 15:00 23:00 07:00 15:00 23:00 Intake Total 540 ml 816 ml 1158 ml Output Total 500 ml 1350 ml 400 ml Balance 40 ml -534 ml 758 ml Intake Oral 460 ml 720 ml 1070 ml IV Total 80 ml 96 ml 88 ml Output Urine Total 500 ml 1350 ml 400 ml # Bowel Movements 0 1 0 Result Diagram: 01/09/17 0310 01/10/17 1536 Imaging Last Impressions Chest X-Ray 01/06/17 2245 Signed Impressions: Service Date/Time: Friday, January 06, 2017 22:50 - CONCLUSION: No acute disease. Jabari De Oliveira MD Objective Remarks GENERAL: This is a well-nourished, well-developed patient, in no apparent distress. CARDIOVASCULAR: irregular rhythm/tachycardic RESPIRATORY: Clear to auscultation. Breath sounds equal bilaterally. No wheezes , rales, or rhonchi. GASTROINTESTINAL: Abdomen soft, non-tender, nondistended. Normal, active bowel sounds MUSCULOSKELETAL: Extremities without clubbing, cyanosis, or edema. NEURO: Alert & Oriented x4 to person, place, time, situation. Moves all ext x4 Procedures none Medications and IVs Current Medications Aspirin (Aspirin Chew) 162 mg ONCE ONCE PO Last administered on 01/06/17 22:54 ; Start 01/06/17 at 22:45; Stop 01/06/17 at 22:46; Status DC Sodium Chloride (NS Flush) 2 ml UNSCH PRN IVF FLUSH AFTER USING IV ACCESS; Start 01/06/17 at 22:45; Stop 01/07/17 at 00:13; Status DC Heparin Sodium (Porcine) (Heparin Inj) 3,300 units ONCE ONCE IV Last administered on 01/06/17 23:58; Start 01/07/17 at 00:00; Stop 01/07/17 at 00:01 ; Status DC Heparin Sodium (Porcine) (Heparin Inj) 5,000 units UNSCH PRN IV APTT LESS THAN 25; Start 01/07/17 at 06:00 Heparin Sodium (Porcine) 2500 units 2,500 units UNSCH PRN IV APTT 25 TO 39 Last administered on 01/08/17 13:44; Start 01/07/17 at 06:00 Heparin Sodium/ Dextrose (Heparin-D5W Inj) 250 ml @ 0 mls/hr TITRATE IV Last administered on 01/10/17 20:14; Start 01/07/17 at 00:00 Potassium Chloride (KCl) 40 meq ONCE ONCE PO Last administered on 01/07/17 00 :08; Start 01/07/17 at 00:00; Stop 01/07/17 at 00:01; Status DC Sodium Chloride (NS Flush) 2 ml UNSCH PRN IV FLUSH FLUSH AFTER USING IV ACCESS Last administered on 01/10/17 16:55; Start 01/07/17 at 00:00 Sodium Chloride (NS Flush) 2 ml BID IV FLUSH Last administered on 01/10/17 20: 11; Start 01/07/17 at 09:00 Naloxone HCl (Narcan Inj) 0.4 mg UNSCH PRN IV SEE LABEL COMMENTS; Start at 00:00 Aspirin (Ecotrin Ec) 325 mg DAILY PO Last administered on 01/10/17 08:41; Start 01/07/17 at 09:00 Atorvastatin Calcium (Lipitor) 40 mg HS PO Last administered on 01/10/17 20:10 ; Start 01/07/17 at 21:00 Carvedilol (Coreg) 12.5 mg BID PO Last administered on 01/10/17 20:11; Start 01/07/17 at 09:00 Digoxin (Lanoxin) 0.25 mg DAILY PO Last administered on 01/10/17 08:45; Start 01/07/17 at 09:00 Fluoxetine HCl (PROzac) 20 mg DAILY PO Last administered on 01/10/17 08:41; Start 01/07/17 at 09:00 Lisinopril (Prinivil) 10 mg DAILY PO Last administered on 01/10/17 08:41; Start 01/07/17 at 09:00 Mirtazapine (Remeron) 15 mg HS PO Last administered on 01/10/17 20:11; Start 01/07/17 at 21:00 Potassium Chloride (KCl) 10 meq BID PO Last administered on 01/10/17 20:10; Start 01/07/17 at 09:00 Sulfasalazine (Azulfidine) 1,000 mg BID PO Last administered on 01/10/17 20:10 ; Start 01/07/17 at 09:00 Famotidine (Pepcid) 20 mg BID PO Last administered on 01/09/17 07:59; Start at 09:00; Stop 01/09/17 at 13:55; Status DC Furosemide (Lasix Inj) 20 mg BID@18 IV PUSH Last administered on 01/10/17 16:54; Start 01/07/17 at 09:00 Furosemide (Lasix Inj) 20 mg ONCE ONCE IV PUSH Last administered on 01/07/17 04:42; Start 01/07/17 at 03:45; Stop 01/07/17 at 03:46; Status DC Potassium Chloride (KCl) 40 meq ONCE ONCE PO Last administered on 01/07/17 04 :42; Start 01/07/17 at 03:45; Stop 01/07/17 at 03:46; Status DC Prochlorperazine Maleate 10 mg 10 mg Q6H PRN PO nausea/vomting; Start 01/07/17 at 11:15 Pharmacy Profile Note (Coumadin Consult Pharmacy) 0 ml @ 0 mls/hr UNSCH OTHER ; Start 01/08/17 at 12:00 Warfarin Sodium (Coumadin) 5 mg DAILY@16 PO ; Start 01/09/17 at 16:00; Status Cancel Patient Medication Teaching (Coumadin Booklet) 1 ONCE ONCE .XX Last administered on 01/08/17 16:17; Start 01/08/17 at 16:00; Stop 01/08/17 at 16:01 ; Status DC Warfarin Sodium (Coumadin) 6 mg ONCE@1600 ONCE PO Last administered on 16:22; Start 01/09/17 at 16:00; Stop 01/09/17 at 16:01; Status DC Famotidine (Pepcid) 10 mg BID PO Last administered on 01/10/17 20:11; Start at 09:00 Miscellaneous (Pill Splitter) 1 ea UNSCH PRN OTHER SEE LABEL COMMENTS; Start at 14:00 Warfarin Sodium (Coumadin) 7.5 mg DAILY@1600 PO Last administered on 01/10/17 16:53; Start 01/10/17 at 16:00 A/P Assessment and Plan A/P elevated troponin -continue aspirin,coreg and statin - continuous cardiac telemetry to monitor hear rate and rhythm - cardiology consult appreciated; recommended medical treatment- CHF exacerbation - BUN 901 - continue Lasix 20 mg IV BID - monitor I and Os qshift atrial fibrillation; HR slightly elevated continue coreg; will consider increasing the dose if HR remains elevated. continue heparin drip and Coumadin monitor PT/INR Hypokalemia-replaced Crohn's disease Unintentional weight loss with poor appetite and intermittent nausea/vomiting - GI consult appreciated- further workup as outpatient- when more stable. PT evaluation appreciated. DVT prophylaxis - on heparin drip/coumadin Discharge Planning HR still at times elevated- will observe today and d/w cardiology about possible further adjustment in her meds. possible dc home tomorrow if stable. Celina Patton MD Jan 11, 2017 08:14
[2017-01-11] MEDS: sulfaSALAzine 500 MG TAB PO SCH ×2 (08:52→21:16)
[2017-01-11] MEDS: LISINOPRIL 10 MG TAB PO SCH (08:53)
[2017-01-11] MEDS: POTASSIUM CHLORIDE 10 MEQ CONTROLLED RELEASE TAB PO SCH ×2 (08:53→21:15)
[2017-01-11] MEDS: CARVEDILOL 12.5 MG TAB PO SCH ×2 (08:53→21:16)
[2017-01-11] MEDS: FAMOTIDINE 20 MG TAB PO SCH ×2 (08:53→21:15)
[2017-01-11] MEDS: ASPIRIN EC 325 MG TABEC PO SCH (08:53)
[2017-01-11] MEDS: FLUoxetine HCL 20 MG CAP PO SCH (08:53)
[2017-01-11] MEDS: FUROSEMIDE 20 MG/2 ML VIAL IV PUSH SCH ×2 (08:54→17:00)
[2017-01-11] MEDS: SODIUM CHLORIDE 0.9% FLUSH 10 ML FLUSH IV FLUSH SCH ×2 (08:54→21:00)
[2017-01-11] MEDS: DIGOXIN 0.25 MG TAB PO SCH (08:54)
[2017-01-11] MEDS: WARFARIN SOD 7.5 MG TAB PO SCH (16:59)
[2017-01-11] MEDS: SODIUM CHLORIDE 0.9% FLUSH 10 ML FLUSH IV FLUSH PRN (17:00)
--- NOTE | 2017-01-11 20:00 | PD.CARD.PN ---
Subjective Subjective Remarks No CP, mild ATWOOD, ambulating in the room Objective Medications Current Medications Medications (Trade) Dose Ordered Sig/Junaid Route Start Time Stop Time Status Last Admin (Heparin Inj) 5,000 units UNSCH PRN IV 01/07/17 06:00 Heparin Sodium (Porcine) 2500 units 2,500 units UNSCH PRN IV 01/07/17 06:00 01/08/17 13:44 (Heparin-D5W Inj) 250 ml @ 0 mls/hr TITRATE IV 01/07/17 00:00 01/10/17 20:14 (NS Flush) 2 ml UNSCH PRN IV FLUSH 01/07/17 00:00 01/11/17 17:00 (NS Flush) 2 ml BID IV FLUSH 01/07/17 09:00 01/11/17 08:54 (Narcan Inj) 0.4 mg UNSCH PRN IV 01/07/17 00:00 (Ecotrin Ec) 325 mg DAILY PO 01/07/17 09:00 01/11/17 08:53 (Lipitor) 40 mg HS PO 01/07/17 21:00 01/10/17 20:10 (Coreg) 12.5 mg BID PO 01/07/17 09:00 01/11/17 08:53 (Lanoxin) 0.25 mg DAILY PO 01/07/17 09:00 01/11/17 08:54 (PROzac) 20 mg DAILY PO 01/07/17 09:00 01/11/17 08:53 (Prinivil) 10 mg DAILY PO 01/07/17 09:00 01/11/17 08:53 (Remeron) 15 mg HS PO 01/07/17 21:00 01/10/17 20:11 (KCl) 10 meq BID PO 01/07/17 09:00 01/11/17 08:53 (Azulfidine) 1,000 mg BID PO 01/07/17 09:00 01/11/17 08:52 (Lasix Inj) 20 mg BID@09,18 IV PUSH 01/07/17 09:00 01/11/17 17:00 Prochlorperazine Maleate 10 mg 10 mg Q6H PRN PO 01/07/17 11:15 (Coumadin Consult Pharmacy) 0 ml @ 0 mls/hr UNSCH OTHER 01/08/17 12:00 (Pepcid) 10 mg BID PO 01/10/17 09:00 01/11/17 08:53 (Pill Splitter) 1 ea UNSCH PRN OTHER 01/09/17 14:00 (Coumadin) 7.5 mg DAILY@1600 PO 01/10/17 16:00 01/11/17 16:59 Vital Signs / I&O Vital Signs Date Time Temp Pulse Resp B/P Pulse Ox O2 Delivery O2 Flow Rate FiO2 01/11/17 18:18 94 01/11/17 17:00 84 01/11/17 16:00 82 01/11/17 15:25 97.9 86 14 121/60 98 01/11/17 15:00 107 01/11/17 14:00 86 01/11/17 13:00 88 01/11/17 12:00 74 01/11/17 11:15 98.7 84 19 97/63 97 01/11/17 11:00 94 01/11/17 10:00 96 01/11/17 09:00 94 01/11/17 08:00 92 01/11/17 07:45 98.8 81 16 101/68 97 01/11/17 07:12 94 01/11/17 06:47 149 01/11/17 06:00 105 01/11/17 05:00 89 01/11/17 04:20 98.3 80 16 113/87 97 01/11/17 04:00 84 01/11/17 03:00 93 01/11/17 02:00 90 01/11/17 01:29 143 01/11/17 01:00 85 01/11/17 00:00 94 01/10/17 23:30 97.5 71 16 126/75 99 01/10/17 23:00 81 01/10/17 22:00 76 01/10/17 21:00 80 01/10/17 20:20 98.1 78 16 118/66 99 01/10/17 20:00 84 I/O 01/10/17 01/10/17 01/10/17 01/11/17 01/11/17 01/11/17 07:00 15:00 23:00 07:00 15:00 23:00 Intake Total 540 ml 816 ml 1158 ml 1050 ml Output Total 500 ml 1350 ml 400 ml 1350 ml Balance 40 ml -534 ml 758 ml -300 ml Intake Oral 460 ml 720 ml 1070 ml 960 ml IV Total 80 ml 96 ml 88 ml 90 ml Output Urine Total 500 ml 1350 ml 400 ml 1350 ml # Bowel Movements 0 1 0 1 Physical Exam GENERAL: In NAD SKIN: Warm and dry. HEAD: Normocephalic. EYES: No scleral icterus. No injection or drainage. NECK: Supple, trachea midline. No JVD or lymphadenopathy. CARDIOVASCULAR: Irreg, without murmurs, gallops, or rubs. RESPIRATORY: Breath sounds equal bilaterally. No accessory muscle use. GASTROINTESTINAL: Abdomen soft, non-tender, nondistended. MUSCULOSKELETAL: No cyanosis, or edema. Laboratory Laboratory Tests Test 01/11/17 06:05 Prothrombin Time 15.7 SEC Prothromb Time International 1.4 RATIO Ratio Activated Partial 58.1 SEC Thromboplast Time Imaging Last Impressions Chest X-Ray 01/06/17 7825 Signed Impressions: Service Date/Time: Friday, January 06, 2017 22:50 - CONCLUSION: No acute disease. Jabari De Oliveira MD Assessment and Plan Problem List: (1) Acute CHF (congestive heart failure) (2) Nonischemic cardiomyopathy (3) Elevated troponin (4) Atrial fibrillation with RVR (5) Crohn's disease Assessment and Plan HR increased, will increase carvedilol for better rate control. Continue tx for CHF. No clear evidence of ACS, she has h/o nonischemic CM. Increase activity. Anticipate discharge soon. Will schedule f/u appt in our office. Ann Patton MD Jan 11, 2017 20:00
[2017-01-11] MEDS: MIRTAZAPINE 15 MG TAB PO SCH (21:15)
[2017-01-11] MEDS: ATORVASTATIN 40 MG TAB PO SCH (21:16)
[2017-01-11] MEDS ORDERED: LORATADINE 10 MG TAB PO PRN (21:45)
[2017-01-11] MEDS ORDERED: RESP: ALBUTEROL 2.5 MG/IPRATROPIUM 0.5 MG NEB (PRN) NEB (21:45)
[2017-01-11] MEDS: HEPARIN-D5W INJ 250 ML IV SCH (22:24)
[2017-01-12] VITALS (11 sets, daily range): BP systolic 93–108; BP diastolic 58–77; PULSE 74–89; RESP 15; TEMP 97.9–98.5; O2SAT 96–97
[2017-01-12 06:57] LABS: HEMATOCRIT 39.1 % (35.0-46.0); MEAN CELL VOLUME 78.5 FL (80.0-100.0); MEAN CORPUSCULAR HEMOGLOBIN 24.3 PG (27.0-34.0); MEAN CORPUSCULAR HGB CONC 30.9 % (32.0-36.0); PLATELET COUNT 250 TH/MM3 (150-450); RED BLOOD COUNT 4.99 MIL/MM3 (4.00-5.30); RED CELL DISTRIBUTION WIDTH 22.5 % (11.6-17.2); REVIEW FLAG FINAL; WHITE BLOOD COUNT 5.2 TH/MM3 (4.0-11.0)
[2017-01-12 07:12] LABS: APTT (PATIENT) 82.8 SEC (24.3-30.1); INTERNATIONAL NORMALIZED RATIO 1.9 RATIO; PROTHROMBIN TIME - PATIENT 21.3 SEC (9.8-11.6)
[2017-01-12] MEDS: SODIUM CHLORIDE 0.9% FLUSH 10 ML FLUSH IV FLUSH SCH (08:32)
[2017-01-12] MEDS: FLUoxetine HCL 20 MG CAP PO SCH (08:33)
[2017-01-12] MEDS: POTASSIUM CHLORIDE 10 MEQ CONTROLLED RELEASE TAB PO SCH (08:33)
[2017-01-12] MEDS: DIGOXIN 0.25 MG TAB PO SCH (08:33)
[2017-01-12] MEDS: LISINOPRIL 10 MG TAB PO SCH (08:33)
[2017-01-12] MEDS: FUROSEMIDE 20 MG/2 ML VIAL IV PUSH SCH (08:33)
[2017-01-12] MEDS: FAMOTIDINE 20 MG TAB PO SCH (08:33)
[2017-01-12] MEDS: ASPIRIN EC 325 MG TABEC PO SCH (08:34)
[2017-01-12] MEDS: sulfaSALAzine 500 MG TAB PO SCH (08:34)
[2017-01-12] MEDS: CARVEDILOL 12.5 MG TAB PO SCH (08:34)
--- NOTE | 2017-01-12 08:45 | HHI.PR ---
Subjective Remarks resting comfortably with no distress. denies chest pain or sob. HR is much better today. d/w the RN and no acute issues over night. Objective Vitals Vital Signs Date Time Temp Pulse Resp B/P Pulse Ox O2 Delivery O2 Flow Rate FiO2 01/12/17 08:00 85 01/12/17 07:00 80 01/12/17 07:00 97.9 79 15 108/77 96 01/12/17 06:10 74 01/12/17 05:00 86 01/12/17 04:00 80 01/12/17 03:00 98.5 85 93/58 97 01/12/17 03:00 89 01/12/17 02:00 88 01/12/17 01:00 84 01/12/17 00:00 82 01/11/17 23:00 93 01/11/17 23:00 98.4 87 114/90 97 01/11/17 22:00 84 01/11/17 21:00 84 01/11/17 20:00 98.5 90 108/83 97 01/11/17 20:00 96 01/11/17 19:00 100 01/11/17 18:18 94 01/11/17 17:00 84 01/11/17 16:00 82 01/11/17 15:25 97.9 86 14 121/60 98 01/11/17 15:00 107 01/11/17 14:00 86 01/11/17 13:00 88 01/11/17 12:00 74 01/11/17 11:15 98.7 84 19 97/63 97 01/11/17 11:00 94 01/11/17 10:00 96 01/11/17 09:00 94 I/O 01/11/17 01/11/17 01/11/17 01/12/17 01/12/17 01/12/17 07:00 15:00 23:00 07:00 15:00 23:00 Intake Total 1158 ml 1050 ml 240 ml Output Total 400 ml 1350 ml 500 ml Balance 758 ml -300 ml -260 ml Intake Oral 1070 ml 960 ml 240 ml IV Total 88 ml 90 ml Output Urine Total 400 ml 1350 ml 500 ml # Bowel Movements 0 1 Result Diagram: 01/12/17 0605 01/10/17 1536 Imaging Last Impressions Chest X-Ray 01/06/17 6585 Signed Impressions: Service Date/Time: Friday, January 06, 2017 22:50 - CONCLUSION: No acute disease. Jabari De Oliveira MD Objective Remarks GENERAL: This is a well-nourished, well-developed patient, in no apparent distress. CARDIOVASCULAR: irregular rhythm RESPIRATORY: Clear to auscultation. Breath sounds equal bilaterally. No wheezes , rales, or rhonchi. GASTROINTESTINAL: Abdomen soft, non-tender, nondistended. Normal, active bowel sounds MUSCULOSKELETAL: Extremities without clubbing, cyanosis, or edema. NEURO: Alert & Oriented x4 to person, place, time, situation. Moves all ext x4 Procedures none Medications and IVs Current Medications Aspirin (Aspirin Chew) 162 mg ONCE ONCE PO Last administered on 01/06/17 22:54 ; Start 01/06/17 at 22:45; Stop 01/06/17 at 22:46; Status DC Sodium Chloride (NS Flush) 2 ml UNSCH PRN IVF FLUSH AFTER USING IV ACCESS; Start 01/06/17 at 22:45; Stop 01/07/17 at 00:13; Status DC Heparin Sodium (Porcine) (Heparin Inj) 3,300 units ONCE ONCE IV Last administered on 01/06/17 23:58; Start 01/07/17 at 00:00; Stop 01/07/17 at 00:01 ; Status DC Heparin Sodium (Porcine) (Heparin Inj) 5,000 units UNSCH PRN IV APTT LESS THAN 25; Start 01/07/17 at 06:00 Heparin Sodium (Porcine) 2500 units 2,500 units UNSCH PRN IV APTT 25 TO 39 Last administered on 01/08/17 13:44; Start 01/07/17 at 06:00 Heparin Sodium/ Dextrose (Heparin-D5W Inj) 250 ml @ 0 mls/hr TITRATE IV Last administered on 01/11/17 22:24; Start 01/07/17 at 00:00 Potassium Chloride (KCl) 40 meq ONCE ONCE PO Last administered on 01/07/17 00 :08; Start 01/07/17 at 00:00; Stop 01/07/17 at 00:01; Status DC Sodium Chloride (NS Flush) 2 ml UNSCH PRN IV FLUSH FLUSH AFTER USING IV ACCESS Last administered on 01/11/17 17:00; Start 01/07/17 at 00:00 Sodium Chloride (NS Flush) 2 ml BID IV FLUSH Last administered on 01/11/17 21: 00; Start 01/07/17 at 09:00 Naloxone HCl (Narcan Inj) 0.4 mg UNSCH PRN IV SEE LABEL COMMENTS; Start at 00:00 Aspirin (Ecotrin Ec) 325 mg DAILY PO Last administered on 01/11/17 08:53; Start 01/07/17 at 09:00 Atorvastatin Calcium (Lipitor) 40 mg HS PO Last administered on 01/11/17 21:16 ; Start 01/07/17 at 21:00 Carvedilol (Coreg) 12.5 mg BID PO Last administered on 01/11/17 08:53; Start 01/07/17 at 09:00; Stop 01/11/17 at 19:59; Status DC Digoxin (Lanoxin) 0.25 mg DAILY PO Last administered on 01/11/17 08:54; Start 01/07/17 at 09:00 Fluoxetine HCl (PROzac) 20 mg DAILY PO Last administered on 01/11/17 08:53; Start 01/07/17 at 09:00 Lisinopril (Prinivil) 10 mg DAILY PO Last administered on 01/11/17 08:53; Start 01/07/17 at 09:00 Mirtazapine (Remeron) 15 mg HS PO Last administered on 01/11/17 21:15; Start 01/07/17 at 21:00 Potassium Chloride (KCl) 10 meq BID PO Last administered on 01/11/17 21:15; Start 01/07/17 at 09:00 Sulfasalazine (Azulfidine) 1,000 mg BID PO Last administered on 01/11/17 21:16 ; Start 01/07/17 at 09:00 Famotidine (Pepcid) 20 mg BID PO Last administered on 01/09/17 07:59; Start at 09:00; Stop 01/09/17 at 13:55; Status DC Furosemide (Lasix Inj) 20 mg BID@,18 IV PUSH Last administered on 01/11/17 17:00; Start 01/07/17 at 09:00 Furosemide (Lasix Inj) 20 mg ONCE ONCE IV PUSH Last administered on 01/07/17 04:42; Start 01/07/17 at 03:45; Stop 01/07/17 at 03:46; Status DC Potassium Chloride (KCl) 40 meq ONCE ONCE PO Last administered on 01/07/17 04 :42; Start 01/07/17 at 03:45; Stop 01/07/17 at 03:46; Status DC Prochlorperazine Maleate 10 mg 10 mg Q6H PRN PO nausea/vomting; Start 01/07/17 at 11:15 Pharmacy Profile Note (Coumadin Consult Pharmacy) 0 ml @ 0 mls/hr UNSCH OTHER ; Start 01/08/17 at 12:00 Warfarin Sodium (Coumadin) 5 mg DAILY@16 PO ; Start 01/09/17 at 16:00; Status Cancel Patient Medication Teaching (Coumadin Booklet) 1 ONCE ONCE .XX Last administered on 01/08/17 16:17; Start 01/08/17 at 16:00; Stop 01/08/17 at 16:01 ; Status DC Warfarin Sodium (Coumadin) 6 mg ONCE@1600 ONCE PO Last administered on 16:22; Start 01/09/17 at 16:00; Stop 01/09/17 at 16:01; Status DC Famotidine (Pepcid) 10 mg BID PO Last administered on 01/11/17 21:15; Start at 09:00 Miscellaneous (Pill Splitter) 1 ea UNSCH PRN OTHER SEE LABEL COMMENTS; Start at 14:00 Warfarin Sodium (Coumadin) 7.5 mg DAILY@1600 PO Last administered on 01/11/17 16:59; Start 01/10/17 at 16:00 Carvedilol (Coreg) 25 mg BID PO Last administered on 01/11/17 21:16; Start at 21:00 Non-Formulary Medication 180 mg DAILY PO ; Start 01/12/17 at 09:00; Stop at 09:00; Status DC Albuterol/ Ipratropium (Duoneb Neb) 1 ampule Q4HR NEB PRN NEB wheezing; Start 01/11/17 at 21:45 Loratadine (Claritin) 10 mg DAILY PRN PO ALLERGIES; Start 01/11/17 at 21:45 A/P Assessment and Plan A/P elevated troponin -continue aspirin,coreg and statin - continuous cardiac telemetry to monitor hear rate and rhythm - cardiology consult appreciated; recommended medical treatment- acute on chronic systolic CHF-improved - continue Lasix ,BB and lisinopril atrial fibrillation; HR now controlled increased coreg- continue coumadin monitor PT/INR as outpatient. Hypokalemia-replaced Crohn's disease Unintentional weight loss with poor appetite and intermittent nausea/vomiting - GI consult appreciated- further workup as outpatient- when more stable. PT evaluation appreciated. Discharge Planning [facility] was offered but the patient declined. will dc home with f/u by PCP,cardiology and GI. see med list. d/w the patient and RN. d/w today. time spent 31 min. Celina Patton MD Jan 12, 2017 08:45
[2017-01-12] MEDS ORDERED: CARV12.5 PO (08:47)
--- NOTE | 2017-01-12 08:48 | HHI.DS ---
Discharge Summary Admission Date Jan 07, 2017 at 00:03 Discharge Date: Jan 12, 2017 Admitting Diagnosis NSTEMI (1) CHF (congestive heart failure) ICD Code: I50.9 Diagnosis: Principal (2) Generalized weakness ICD Code: R53.1 Diagnosis: Principal Procedures none Brief History - From Admission Written by Renetta Tellez, acting as scribe for Dr. Tony on 01/07/17 at 03:26. Colonoscopy prep day before yesterday but was unable to complete and called and cancelled yesterday. Coumadin on hold x 3 days for colonoscopy. She reports a history of Crohn's disease since age 39. Fatigue, severe - "I just don't have any get up and go" - symptoms x 3 - 4 weeks - 12/23/16 came to ED and received IVF, PCP Dr. Dee 12/28/16 - Lasix was adjusted by Dr. Dee - changed Lasix from 40 mg once daily to 20 mg BID 01/06/17, felt very light headed and near-syncopal during a visit to the restroom. Ankle and legs were edematous - states she's never had them swell before - started on 01/04/17. Reports a very poor appetite - 30 lb unintentional weight loss over the past 3 months - nausea and vomiting occurs intermittently. Denies dysphagia and odynophagia. She also reports diarrhea. Denies black or red stool. Shortness of breath/asthma symptoms Sinus congestion, productive cough Pasting Inspector: Dr. Patton Barnard like defibrillator has been shocking her over the past few weeks. Reports night sweats at home. EMS telemetry reviewed - patient was having runs of vtach CBC/BMP: 01/12/17 0605 01/10/17 1536 Significant Findings Laboratory Tests Test 01/10/17 01/10/17 01/11/17 01/12/17 06:05 15:36 06:05 06:05 Prothrombin Time 13.4 SEC 15.7 SEC 21.3 SEC (9.8-11.6) (9.8-11.6) (9.8-11.6) Activated Partial 62.0 SEC 58.1 SEC 82.8 SEC Thromboplast Time (24.3-30.1) (24.3-30.1) (24.3-30.1) Chloride Level 97 MEQ/L (98-107) Carbon Dioxide Level 34.0 MEQ/L (21.0-32.0) Estimat Glomerular Filtration 67 ML/MIN (>89) Rate Mean Corpuscular Volume 78.5 FL (80.0-100.0) Mean Corpuscular Hemoglobin 24.3 PG (27.0-34.0) Mean Corpuscular Hemoglobin 30.9 % Concent (32.0-36.0) Red Cell Distribution Width 22.5 % (11.6-17.2) Imaging Last Impressions Chest X-Ray 01/06/179 Signed Impressions: Service Date/Time: Friday, January 06, 2017 22:50 - CONCLUSION: No acute disease. Jabari De Oliveira MD PE at Discharge GENERAL: This is a well-nourished, well-developed patient, in no apparent distress. CARDIOVASCULAR: irregular rhythm RESPIRATORY: Clear to auscultation. Breath sounds equal bilaterally. No wheezes , rales, or rhonchi. GASTROINTESTINAL: Abdomen soft, non-tender, nondistended. Normal, active bowel sounds MUSCULOSKELETAL: Extremities without clubbing, cyanosis, or edema. NEURO: Alert & Oriented x4 to person, place, time, situation. Moves all ext x4 Hospital Course elevated troponin -continue aspirin,coreg and statin - continuous cardiac telemetry to monitor hear rate and rhythm - cardiology consult appreciated; recommended medical treatment- acute on chronic systolic CHF-improved - continue Lasix ,BB and lisinopril atrial fibrillation; HR now controlled increased coreg- continue coumadin monitor PT/INR as outpatient. Hypokalemia-replaced Crohn's disease Unintentional weight loss with poor appetite and intermittent nausea/vomiting - GI consult appreciated- further workup as outpatient- when more stable. PT evaluation appreciated. Pt Condition on Discharge: Fair Discharge Disposition: Discharge Home Discharge Time: > 30 minutes Discharge Instructions DIET: Follow Instructions for: Heart Healthy Diet Activities you can perform: Regular-No Restrictions Follow up Referrals: Cardiology Gastroenterology PCP Follow-up New Orders: PT/INR New Medications: Carvedilol (Coreg) 12.5 Mg Tab 25 MG PO BID a-fib Days 30 Ref 0 TAB Continued Medications: Atorvastatin (Atorvastatin) 40 Mg Tab 40 MG PO HS Cholesterol Management #30 Ref 0 TAB Digoxin (Digoxin) 0.25 Mg Tab 0.25 MG PO DAILY Regulate Heart Beat #30 Ref 0 TAB Fexofenadine (Lisa Allergy) 180 Mg Tab 180 MG PO DAILY Allergy Management #30 Ref 0 TAB Fluoxetine (Prozac) 20 Mg Cap 20 MG PO DAILY #30 Ref 0 CAP Folic Acid (Folic Acid) 1 Mg Tablet Furosemide (Lasix) 40 Mg Tab 40 MG PO DAILY #30 Ref 0 TAB Lisinopril (Lisinopril) 10 Mg Tab 10 MG PO DAILY #30 Ref 0 TAB Mirtazapine (Remeron) 15 Mg Tab 15 MG PO HS Depression Control #30 Ref 0 TAB Potassium Chloride ER (Klor-Con 10) 10 Meq Tab 10 MEQ PO BID Electrolyte Replacement #60 Ref 0 TAB Ranitidine (Ranitidine) 150 Mg Tab 150 MG PO BID Heartburn Management #60 Ref 0 TAB Sulfasalazine (Sulfasalazine) 500 Mg Tab 1000 MG PO BID #240 Ref 0 TAB Warfarin (Coumadin) 5 Mg Tab 5 MG PO DAILY Blood Clot Prevention #30 Ref 0 TAB Discontinued Medications: Carvedilol (Coreg) 12.5 Mg Tab 12.5 MG PO BID #60 Ref 0 TAB Celina Patton MD Jan 12, 2017 08:48
--- NOTE | 2017-01-12 08:48 | HHI.DCPOC ---
Discharge Care Plan Diagnosis: (1) Acute CHF (congestive heart failure) Your Health Problems Are: Shortness of Breath Goals to Promote Your Health * To prevent worsening of your condition and complications * To maintain your health at the optimal level Directions to Meet Your Goals Take your medications as prescribed Follow your dietary instruction Follow activity as directed Keep your appointments as scheduled Take your immunizations and boosters as scheduled If your symptoms worsen call your PCP, if no PCP go to Urgent Care Center or Emergency Room Smoking is Dangerous to Your Health. Avoid second hand smoke Call the 24-hour hour crisis hotline for domestic abuse at Celina Patton MD Jan 12, 2017 08:48
[2017-01-12] MEDS ORDERED: NON-FORMULARY DRUG (Fexofenadine (Allegra Allergy) 180 MG) PO SCH (09:00)
--- NOTE | 2017-01-12 11:57 | PD.CARD.PN ---
Subjective Subjective Remarks No CP or SOB, HR better controlled Objective Medications Current Medications Medications (Trade) Dose Ordered Sig/Junaid Route Start Time Stop Time Status Last Admin (Heparin Inj) 5,000 units UNSCH PRN IV 01/07/17 06:00 (Heparin Inj) 2,500 units UNSCH PRN IV 01/07/17 06:00 01/08/17 13:44 (NS Flush) 2 ml UNSCH PRN IV FLUSH 01/07/17 00:00 01/11/17 17:00 (NS Flush) 2 ml BID IV FLUSH 01/07/17 09:00 01/12/17 08:32 (Narcan Inj) 0.4 mg UNSCH PRN IV 01/07/17 00:00 (Ecotrin Ec) 325 mg DAILY PO 01/07/17 09:00 01/12/17 08:34 (Lipitor) 40 mg HS PO 01/07/17 21:00 01/11/17 21:16 (Lanoxin) 0.25 mg DAILY PO 01/07/17 09:00 01/12/17 08:33 (PROzac) 20 mg DAILY PO 01/07/17 09:00 01/12/17 08:33 (Prinivil) 10 mg DAILY PO 01/07/17 09:00 01/12/17 08:33 (Remeron) 15 mg HS PO 01/07/17 21:00 01/11/17 21:15 (KCl) 10 meq BID PO 01/07/17 09:00 01/12/17 08:33 (Azulfidine) 1,000 mg BID PO 01/07/17 09:00 01/12/17 08:34 (Lasix Inj) 20 mg BID@09,18 IV PUSH 01/07/17 09:00 01/12/17 08:33 Prochlorperazine Maleate 10 mg 10 mg Q6H PRN PO 01/07/17 11:15 (Coumadin Consult Pharmacy) 0 ml @ 0 mls/hr UNSCH OTHER 01/08/17 12:00 (Pepcid) 10 mg BID PO 01/10/17 09:00 01/12/17 08:33 (Pill Splitter) 1 ea UNSCH PRN OTHER 01/09/17 14:00 (Coreg) 25 mg BID PO 01/11/17 21:00 01/12/17 08:34 (Claritin) 10 mg DAILY PRN PO 01/11/17 21:45 (Coumadin) 5 mg DAILY@16 PO 01/12/17 16:00 Vital Signs / I&O Vital Signs Date Time Temp Pulse Resp B/P Pulse Ox O2 Delivery O2 Flow Rate FiO2 01/12/17 10:02 86 01/12/17 09:00 74 01/12/17 08:00 85 01/12/17 07:00 80 01/12/17 07:00 97.9 79 15 108/77 96 01/12/17 06:10 74 01/12/17 05:00 86 01/12/17 04:00 80 01/12/17 03:00 98.5 85 93/58 97 01/12/17 03:00 89 01/12/17 02:00 88 01/12/17 01:00 84 01/12/17 00:00 82 01/11/17 23:00 93 01/11/17 23:00 98.4 87 114/90 97 01/11/17 22:00 84 01/11/17 21:00 84 01/11/17 20:00 98.5 90 108/83 97 01/11/17 20:00 96 01/11/17 19:00 100 01/11/17 18:18 94 01/11/17 17:00 84 01/11/17 16:00 82 01/11/17 15:25 97.9 86 14 121/60 98 01/11/17 15:00 107 01/11/17 14:00 86 01/11/17 13:00 88 01/11/17 12:00 74 I/O 01/11/17 01/11/17 01/11/17 01/12/17 01/12/17 01/12/17 07:00 15:00 23:00 07:00 15:00 23:00 Intake Total 1158 ml 1050 ml 240 ml Output Total 400 ml 1350 ml 500 ml Balance 758 ml -300 ml -260 ml Intake Oral 1070 ml 960 ml 240 ml IV Total 88 ml 90 ml Output Urine Total 400 ml 1350 ml 500 ml # Bowel Movements 0 1 Physical Exam GENERAL: In NAD SKIN: Warm and dry. HEAD: Normocephalic. EYES: No scleral icterus. No injection or drainage. NECK: Supple, trachea midline. No JVD or lymphadenopathy. CARDIOVASCULAR: Irreg, without murmurs, gallops, or rubs. RESPIRATORY: Breath sounds equal bilaterally. No accessory muscle use. GASTROINTESTINAL: Abdomen soft, non-tender, nondistended. MUSCULOSKELETAL: No cyanosis, or edema. Laboratory Laboratory Tests Test 01/12/17 06:05 White Blood Count 5.2 TH/MM3 Red Blood Count 4.99 MIL/MM3 Hemoglobin 12.1 GM/DL Hematocrit 39.1 % Mean Corpuscular Volume 78.5 FL Mean Corpuscular Hemoglobin 24.3 PG Mean Corpuscular Hemoglobin 30.9 % Concent Red Cell Distribution Width 22.5 % Platelet Count 250 TH/MM3 Mean Platelet Volume 8.2 FL Prothrombin Time 21.3 SEC Prothromb Time International 1.9 RATIO Ratio Activated Partial 82.8 SEC Thromboplast Time Imaging Last Impressions Chest X-Ray 01/06/17 5015 Signed Impressions: Service Date/Time: Friday, January 06, 2017 22:50 - CONCLUSION: No acute disease. Jabari De Oliveira MD Assessment and Plan Problem List: (1) Acute CHF (congestive heart failure) (2) Nonischemic cardiomyopathy (3) Elevated troponin (4) Atrial fibrillation with RVR (5) Crohn's disease Assessment and Plan HR controlled with increased dose carvedilol. Continue tx for CHF. No clear evidence of ACS, she has h/o nonischemic CM. Increase activity. Discharge home as planned. Will schedule f/u appt in our office. Ann Patton MD Jan 12, 2017 11:57
[2017-01-12] MEDS ORDERED: WARFARIN SOD 5 MG TAB PO SCH (16:00)
== END 2017-01-12 12:10 | disposition home or self-care (01) | DRG 292 ==
LOC: NEPC 22:20 → NEDA 01-07 00:03 → NEDH 01-07 04:00 → HCVR 01-07 06:43 → HCIN 01-07 17:00
PROVIDERS: ADMIT Internal Medicine; ATTEND Internal Medicine
DX: I11.0 Hypertensive heart disease with heart failure (principal); K50.90 Crohn's disease, unspecified, without complications; I47.2 Ventricular tachycardia; I42.9 Cardiomyopathy, unspecified; I48.2 Chronic atrial fibrillation; I50.23 Acute on chronic systolic (congestive) heart failure; M19.90 Unspecified osteoarthritis, unspecified site; J45.909 Unspecified asthma, uncomplicated; I25.10 Atherosclerotic heart disease of native coronary artery without angina pectoris; E87.6 Hypokalemia; E78.5 Hyperlipidemia, unspecified; F32.9 Major depressive disorder, single episode, unspecified; R53.1 Weakness; R63.4 Abnormal weight loss; Z79.01 Long term (current) use of anticoagulants; Z95.810 Presence of automatic (implantable) cardiac defibrillator; I25.2 Old myocardial infarction; Z91.19 Patient's noncompliance with other medical treatment and regimen
CPT/HCPCS: 71010; 80048; 80053; 80061; 82550; 82552; 83735; 83880; 84443; 84484; 85025; 85027; 85610; 85730; 93005; 93306; 96374; 96375; J1644; J1940

== ENCOUNTER 2017-05-10 07:56 | Day surgery (SDC) | payer MEDICARE ==
[2017-05-10] VITALS (8 sets, daily range): BP systolic 98–121; BP diastolic 64–77; PULSE 56–82; RESP 16–20; TEMP 97.7–97.9; O2SAT 91–98
[~2017-05-10] VITALS: Ht 154.9 cm; Wt 47.3 kg
[~2017-05-10 07:56] MED LIST changes: +ATOR40TA16 PO; +FOLI1TAB6; +KLOR10TA PO; -MIRTA15 PO; -POTA10TA2 PO; +PROZ20CA11 PO; +REME15TA PO
[2017-05-10] MEDS ORDERED: SIMV40TA PO (08:13)
[2017-05-10] MEDS ORDERED: SYMB160A INH (08:13)
[2017-05-10 08:41] LABS: AUTOMATED NEUTROPHIL # 5.8 TH/MM3 (1.8-7.7); BASOPHIL % 0.4 % (0.0-2.0); EOSINOPHIL # 0.1 TH/MM3 (0-0.4); EOSINOPHIL % 0.7 % (0.0-4.0); HEMATOCRIT 37.2 % (35.0-46.0); HEMO FLAGS DIFF FINAL; LYMPH % 27.7 % (9.0-44.0); LYMPHOCYTE # 2.6 TH/MM3 (1.0-4.8); MEAN CELL VOLUME 91.7 FL (80.0-100.0); MEAN CORPUSCULAR HEMOGLOBIN 29.9 PG (27.0-34.0); MEAN CORPUSCULAR HGB CONC 32.6 % (32.0-36.0); MONO % 9.6 % (0.0-8.0); NEUT % 61.6 % (16.0-70.0); PLATELET COUNT 369 TH/MM3 (150-450); RED BLOOD COUNT 4.06 MIL/MM3 (4.00-5.30); WHITE BLOOD COUNT 9.4 TH/MM3 (4.0-11.0)
[2017-05-10 08:59] LABS: APTT (PATIENT) 36.4 SEC (24.3-30.1); INTERNATIONAL NORMALIZED RATIO 1.4 RATIO; PROTHROMBIN TIME - PATIENT 13.9 SEC (9.8-11.6)
[2017-05-10] MEDS ORDERED: LIDOCAINE 1%/EPINEPHrine 1:100,000 SOLN 20 ML VIAL ONE (09:03)
[2017-05-10] MEDS ORDERED: MIDAZOLAM HCL 2 MG/2 ML VIAL ONE (09:22)
[2017-05-10] MEDS ORDERED: SODIUM CHLOR 0.9% 1000 ML IV SCH (09:45)
--- NOTE | 2017-05-10 10:51 | PD.RAD ---
Post CT Procedure Prog Note Pre Procedure Diagnosis: (1) Elevated LFTs Post Procedure Diagnosis: Procedure Date: May 10, 2017 Supervising Radiologist: Vladimir Wilson Proceduralist/Assist: marco ulloa Estimated blood loss: none Plan of Activity Patient to Unit: ROPU Patient Condition: Good See PACS Report for procedural detail/treatment Vladimir Wilson MD May 10, 2017 10:51
--- NOTE | 2017-05-10 16:06 | RADRPT ---
EXAM DATE/TIME: 05/10/2017 09:43 [facility] COMPARISON: No previous studies available for comparison. INDICATIONS : Abnormal liver function tests. SEDATION TIME: 15 minutes BIOPSY SITE: liver MEDICATION(S): 1.) 1 mg midazolam (Versed) IV 2.) 50 mcg fentanyl (Sublimaze) DEVICE(S): 1.) 18 gauge Temno core biopsy needle MEDICAL HISTORY : Chronic obstructive pulmonary disease. Congestive heart failure. SURGICAL HISTORY : Appendectomy. ENCOUNTER: Initial ACUITY: 1 day PAIN SCORE: 0/10 LOCATION: Bilateral abdomen A total of one core specimen(s) were obtained and sent to the laboratory for pathologic evaluation. PROCEDURE: 1. CT guided liver biopsy. 2. Conscious sedation with continuous EKG and oximetry monitoring. 3. EKG and oximetry remained stable throughout the procedure. Prior to the procedure informed consent was obtained. Any appropriate prior imaging studies were rev iewed. Using automated exposure control and adjustment of the mA and/or kV according to patient size, radiat ion dose was kept as low as reasonably achievable to obtain optimal diagnostic quality images. DICOM format image data is available electronically for review and comparison. The site was prepped in a sterile fashion. Full sterile technique was used, including cap, mask, dank rile gloves and gown and a large sterile sheet. Hand hygiene and 2% chlorhexidine and/or betadine/al cohol prep was utilized per protocol for cutaneous antisepsis. The skin and subcutaneous tissues wer e infiltrated with local anesthetic solution. With CT guidance the previously identified target was localized. Biopsy was performed using the presc ribed needle as above. Adequate hemostasis was obtained with compression at the puncture site. Follow-up CT scan reveals no hemorrhage. The patient tolerated the procedure well and there were no complications. The patient was returned to the Radiology Outpatient Unit in stable condition. CONCLUSION: Uncomplicated CT guided biopsy. Vladimir Wilson MD on May 10, 2017 at 16:04 Board Certified Radiologist. This report was verified electronically.
== END 2017-05-10 14:40 | disposition home or self-care (01) ==
LOC: HRAD 07:56 → HRIP 07:59 → HRAD 14:40
PROVIDERS: ATTEND Physician Assistant Medical
DX: K75.3 Granulomatous hepatitis, not elsewhere classified (principal); J44.9 Chronic obstructive pulmonary disease, unspecified; I50.9 Heart failure, unspecified; I11.0 Hypertensive heart disease with heart failure; Z90.49 Acquired absence of other specified parts of digestive tract
CPT/HCPCS: 47000; 77012; 85025; 85610; 85730; 88307; 88312; 88313; J2250; J3010

== ENCOUNTER 2017-08-16 16:28 | Inpatient (IN) | payer MEDICARE ==
[~2017-08-16] VITALS: Ht 154.9 cm; Wt 42.0 kg
[~2017-08-16 16:28] MED LIST changes: -ATOR40TA16 PO; +SIMV40TA PO; +SYMB160A INH
[2017-08-16 17:13] VITALS: BP 104/61; PULSE 81; RESP 15; TEMP 98.3; O2SAT 97
[2017-08-16] MEDS ORDERED: PROZ20CA11 PO (17:27)
[2017-08-16] MEDS ORDERED: ATOR40TA16 PO (17:27)
[2017-08-16] MEDS ORDERED: ALBU0.08 NEB (17:27)
[2017-08-16] MEDS ORDERED: SODIUM CHLOR 0.9% 1000 ML INJ 1,000 ML IV SCH (17:48)
--- NOTE | 2017-08-16 18:33 | PD ---
HPI Chief Complaint: General Weakness Time Seen by Provider: 17:04 Travel History International Travel<30 days: No Contact w/Intl Traveler<30days: No Traveled to known affect area: No History of Present Illness HPI 67-year-old female that presents to the ED for evaluation of generalized weakness. Patient came here by ambulance for evaluation of this. Patient was at her doctor's office in complaining of having weakness and not been able to eat for the past 6 months. Per patient she's been taking some liquids as well as ensure but she states that for the most part she has a loss of appetite and she's also having burning when she eats. Per patient he feels like her foot gets stuck as well. She has a significant history of chronic Crohn's disease as well as A. fib with a defibrillator. She takes Coumadin. She states that she had an episode of blood in her stool on Wednesday but has since stopped. She states the she's been compliant with her Crohn's disease. Per patient she had EGD as well as a colonoscopy recently this year. She does not know their results of it however. It seems that the patient is mainly very concerned that no one of her doctors actually pain attention to her. Per patient most of her doctors have been complaining to maybe she is noncompliant although she states that she has been compliant. She states that her pain on her belly is chronic but she is concerned because now she is not eating or drinking anything. She states that her pain currently is 5 out of 10. Denies any urinary issues. States that her main concern is that she is not able to swallow well and she has a lot of pain and she thinks she might have thrush. PFSH Past Medical History Hx Anticoagulant Therapy: Yes Arthritis: Yes (RA , OA) Asthma: Yes Atrial Fibrillation: Yes Autoimmune Disease: Yes (Crohn's , OA , RA) Blood Disorders: No Anxiety: Yes Depression: Yes Heart Rhythm Problems: Yes (A FIB) Cancer: No Cardiac Catheterization: Yes Cardiovascular Problems: Yes High Cholesterol: Yes Chemotherapy: No Chest Pain: Yes Congestive Heart Failure: Yes COPD: Yes Cerebrovascular Accident: No Coronary Artery Disease: Yes Diabetes: No Diminished Hearing: No Endocrine: No Gastrointestinal Disorders: Yes (Crohn's) GERD: Yes Glaucoma: No Genitourinary: No Headaches: No Hepatitis: No Hiatal Hernia: No Hypertension: Yes Immune Disorder: Yes (crohn's ) Implanted Vascular Access Dvce: Yes Kidney Stones: No Musculoskeletal: Yes Neurologic: No Psychiatric: Yes (depression) Reproductive: No Respiratory: Yes Migraines: No Myocardial Infarction: Yes (2005.) Radiation Therapy: No Renal Failure: No Seizures: No Sickle Cell Disease: No Sleep Apnea: No Thyroid Disease: No Ulcer: No Tetanus Vaccination: Unknown Menopausal: Yes : 2 Para: 2 Miscarriage: 0 Past Surgical History Abdominal Surgery: Yes (appendectomy) AICD: Yes (defib mode DDD low 40, high 130) Appendectomy: Yes Arteriovenous Shunt: No Cardiac Surgery: No Section: Yes (x2) Cholecystectomy: No Ear Surgery: No Endocrine Surgery: No Eye Surgery: No Genitourinary Surgery: No Gynecologic Surgery: Yes (fibroids removed, ) Insulin Pump: No Joint Replacement: No Neurologic Surgery: No Oral Surgery: No Pacemaker: Yes Thoracic Surgery: No Other Surgery: Yes (fibroids removed 1985, , appendectomy, knee sx bilat, ) Social History Alcohol Use: No Tobacco Use: No Substance Use: No Allergies-Medications (Allergen,Severity, Reaction): Coded Allergies: penicillin G (Unverified Allergy, Severe, Swelling, 08/16/17) cefepime (Unverified Allergy, Unknown, Swelling, 08/16/17) ceftaroline fosamil (Unverified Allergy, Unknown, Swelling, 08/16/17) cephalexin (Unverified Allergy, Unknown, RASH, 08/16/17) Reported Meds & Prescriptions Reported Meds & Active Scripts Active Coreg (Carvedilol) 12.5 Mg Tab 25 Mg PO BID 30 Days Lisa Allergy (Fexofenadine HCl) 180 Mg Tab 180 Mg PO DAILY Reported Albuterol Neb (Albuterol Sulfate) 2.5 Mg/3 Ml Neb 2.5 Mg NEB TID NEB PRN Atorvastatin (Atorvastatin Calcium) 40 Mg Tab 40 Mg PO HS Prozac (Fluoxetine HCl) 20 Mg Cap 20 Mg PO DAILY Remeron (Mirtazapine) 15 Mg Tab 15 Mg PO HS Klor-Con 10 (Potassium Chloride) 10 Meq Tab 10 Meq PO BID Folic Acid 1 Mg Tablet Ranitidine (Ranitidine HCl) 150 Mg Tab 150 Mg PO BID Digoxin 0.25 Mg Tab 0.25 Mg PO DAILY Lasix (Furosemide) 40 Mg Tab 40 Mg PO DAILY Sulfasalazine 500 Mg Tab 1,000 Mg PO BID Lisinopril 10 Mg Tab 5 Mg PO DAILY Coumadin (Warfarin) 5 Mg Tab 5 Mg PO DAILY Review of Systems Except as stated in HPI: all other systems reviewed are Neg Physical Exam Narrative GENERAL: SKIN: Warm and dry. HEAD: Atraumatic. Normocephalic. EYES: Pupils equal and round. No scleral icterus. No injection or drainage. ENT: No nasal bleeding or discharge. Mucous membranes pink and moist. Tongue is midline. No uvula deviation. No obvious erythema or white patches on the throat. NECK: Trachea midline. No JVD. CARDIOVASCULAR: Regular rate and rhythm. No murmurs, S3, S4. RESPIRATORY: No accessory muscle use. Clear to auscultation. Breath sounds equal bilaterally. GASTROINTESTINAL: Abdomen soft, tender to palpation on the lower abdomen, nondistended. Hepatic and splenic margins not palpable. MUSCULOSKELETAL: Extremities without clubbing, cyanosis, or edema. No obvious deformities. Full range of motion of the upper and lower extremities bilaterally. 2+ pulses bilaterally. NEUROLOGICAL: Awake and alert. No obvious cranial nerve deficits. Motor grossly within normal limits. Five out of 5 muscle strength in the arms and legs. Normal speech. PSYCHIATRIC: Appropriate mood and affect; insight and judgment normal. Data Data Last Documented VS Vital Signs Date Time Temp Pulse Resp B/P (MAP) Pulse Ox O2 Delivery O2 Flow Rate FiO2 08/16/17 19:29 82 16 120/72 (88) 98 Nasal Cannula 2.00 08/16/17 17:13 98.3 Orders Orders Complete Blood Count With Diff (08/16/17 17:48) Comprehensive Metabolic Panel (08/16/17 17:48) Lipase (08/16/17 17:48) Lactic Acid (08/16/17 17:48) Prothrombin Time / Inr (Pt) (08/16/17 17:48) Act Partial Throm Time (Ptt) (08/16/17 17:48) Urinalysis - C+S If Indicated (08/16/17 17:48) Ct Abd/Pel W Iv Contrast(Rout) (08/16/17 17:48) Iv Access Insert/Monitor (08/16/17 17:48) Sodium Chlor 0.9% 1000 Ml Inj (Ns 1000 M (08/16/17 17:48) Chest, Single Ap (08/16/17 17:48) Barium Swallow (08/16/17 ) Ondansetron Inj (Zofran Inj) (08/16/17 19:30) Morphine Inj (Morphine Inj) (08/16/17 19:30) Type And Screen (08/16/17 19:45) Red Blood Cells (Rbc) (08/16/17 19:45) Blood Product Administration (08/16/17 19:45) Sodium Chlor 0.9% 250 Ml Inj (Ns 250 Ml (08/16/17 19:45) Admit To Inpatient (08/16/17 ) Vital Signs (Adult) Q4H (08/16/17 19:56) Activity Oob With Assistance (08/16/17 19:56) Soldering Inspector / Telemetry .CONTINUOUS (08/16/17 19:56) Diet Heart Healthy (08/17/17 Breakfast) Sodium Chloride 0.9% Flush (Ns Flush) (08/16/17 20:00) Sodium Chloride 0.9% Flush (Ns Flush) (08/16/17 21:00) Basic Metabolic Panel (Bmp) (08/17/17 06:00) Complete Blood Count With Diff (08/17/17 06:00) Pt Request For Service (08/16/17 19:56) Case Management Consult (08/16/17 19:56) Naloxone Inj (Narcan Inj) (08/16/17 20:00) Inpatient Certification (08/16/17 ) Admit Order (Ed Use Only) (08/16/17 19:59) Labs Laboratory Tests Test 08/16/17 18:00 08/16/17 18:10 White Blood Count 10.5 TH/MM3 Red Blood Count 2.52 MIL/MM3 Hemoglobin 7.8 GM/DL Hematocrit 24.1 % Mean Corpuscular Volume 95.6 FL Mean Corpuscular Hemoglobin 30.8 PG Mean Corpuscular Hemoglobin Concent 32.2 % Red Cell Distribution Width 17.5 % Platelet Count 440 TH/MM3 Mean Platelet Volume 6.2 FL Neutrophils (%) (Auto) 58.2 % Lymphocytes (%) (Auto) 24.1 % Monocytes (%) (Auto) 16.9 % Eosinophils (%) (Auto) 0.6 % Basophils (%) (Auto) 0.2 % Neutrophils # (Auto) 6.1 TH/MM3 Lymphocytes # (Auto) 2.5 TH/MM3 Monocytes # (Auto) 1.8 TH/MM3 Eosinophils # (Auto) 0.1 TH/MM3 Basophils # (Auto) 0.0 TH/MM3 CBC Comment DIFF FINAL Differential Comment Prothrombin Time 17.4 SEC Prothromb Time International Ratio 1.7 RATIO Activated Partial Thromboplast Time 33.0 SEC Blood Urea Nitrogen 11 MG/DL Creatinine 0.78 MG/DL Random Glucose 91 MG/DL Total Protein 6.1 GM/DL Albumin 1.9 GM/DL Calcium Level 7.8 MG/DL Alkaline Phosphatase 163 U/L Aspartate Amino Transf (AST/SGOT) 14 U/L Alanine Aminotransferase (ALT/SGPT) 12 U/L Total Bilirubin 0.3 MG/DL Sodium Level 136 MEQ/L Potassium Level 3.9 MEQ/L Chloride Level 105 MEQ/L Carbon Dioxide Level 22.7 MEQ/L Anion Gap 8 MEQ/L Estimat Glomerular Filtration Rate 89 ML/MIN Lactic Acid Level 1.2 mmol/L Lipase 122 U/L Urine Color YELLOW Urine Turbidity CLEAR Urine pH 5.0 Urine Specific [place] 1.007 Urine Protein NEG mg/dL Urine Glucose (UA) NEG mg/dL Urine Ketones NEG mg/dL Urine Occult Blood NEG Urine Nitrite NEG Urine Bilirubin NEG Urine Urobilinogen LESS THAN 2.0 MG/DL Urine Leukocyte Esterase TRACE Urine RBC 1 /hpf Urine WBC 1 /hpf Urine Squamous Epithelial Cells 1 /hpf Urine Hyaline Casts 18 /lpf Urine Mucus FEW /lpf Microscopic Urinalysis Comment CULT NOT INDICATED MDM Medical Decision Making Medical Screen Exam Complete: Yes Emergency Medical Condition: Yes Medical Record Reviewed: Yes Interpretation(s) CBC & BMP Diagram 08/16/17 18:00 Total Protein 6.1 L, Albumin 1.9 L, Calcium Level 7.8 L, Alkaline Phosphatase 163 H, Aspartate Amino Transf (AST/SGOT) 14 L, Alanine Aminotransferase (ALT/ SGPT) 12, Total Bilirubin 0.3 Last Impressions Chest X-Ray 08/16/17 1748 Signed Impressions: Service Date/Time: Wednesday, August 16, 2017 18:22 - CONCLUSION: 1. No acute findings. Mild elevation right hemidiaphragm. Cardiomegaly. Ivan Zavaleta MD Barium Swallow X-Ray 08/16/17 0000 Signed Impressions: Service Date/Time: Wednesday, August 16, 2017 18:22 - CONCLUSION: 1. Moderate to severe esophageal motility disorder. No obstructing or constricting lesions. Ivan Zavaleta MD Differential Diagnosis Acute abdomen versus obstruction versus Crohn's disease versus dysphagia versus nausea versus mass versus generalized weakness Narrative Course 67-year-old female that presents to the ED for evaluation of inability to eat and weakness. Patient was properly examined and was found to have signs and symptoms of unclear etiology. Recommend labs and imaging. Patient will be having a bite and swallow she states that she has a lot of difficulty eating secondary to pain when she swallows. No obvious sign of infection on exam she is concerned she might have thrush but she does not have any white patches. She does state that the food does seem to get stuck and questionable whether patient has strictures. Labs and imaging came back positive for significant anemia change from before as well as motility disorder to the esophagus. No other sign of acute disease. 4 she patient cannot get a CT contrast or CT without contrast of the abdomen secondary to patient having the barium swallow. Case was discussed in my attending who recommends patient get a dose of Dilaudid here and admission for further eval. Patient was admitted to who agrees to admission. I spoke with Dr. beck over the phone who states that for the most part for the motility disorders not much to do unfortunately. He will round on the patient if she gets admitted. [facility] Point of Care Internal Pos. & Neg. Controls: Passed Fecal Specimen Occult Blood: Negative Diagnosis Primary Impression: Generalized weakness Additional Impressions: Anemia Qualified Codes: D64.9 - Anemia, unspecified Abdominal pain Qualified Codes: R10.30 - Lower abdominal pain, unspecified Esophageal motility disorder Admitting Information Admitting Physician Requests: Admit Seamus Harvey Aug 16, 2017 18:33
[2017-08-16 18:34] LABS: AUTOMATED NEUTROPHIL # 6.1 TH/MM3 (1.8-7.7); BASOPHIL % 0.2 % (0.0-2.0); EOSINOPHIL # 0.1 TH/MM3 (0-0.4); EOSINOPHIL % 0.6 % (0.0-4.0); HEMATOCRIT 24.1 % (35.0-46.0); HEMOGLOBIN 7.8 GM/DL (11.6-15.3); LYMPH % 24.1 % (9.0-44.0); LYMPHOCYTE # 2.5 TH/MM3 (1.0-4.8); MEAN CELL VOLUME 95.6 FL (80.0-100.0); MEAN CORPUSCULAR HEMOGLOBIN 30.8 PG (27.0-34.0); MEAN CORPUSCULAR HGB CONC 32.2 % (32.0-36.0); MEAN PLATELET VOLUME 6.2 FL (7.0-11.0); MONO % 16.9 % (0.0-8.0); MONOCYTE # 1.8 TH/MM3 (0-0.9); NEUT % 58.2 % (16.0-70.0); PLATELET COUNT 440 TH/MM3 (150-450); RED BLOOD COUNT 2.52 MIL/MM3 (4.00-5.30); RED CELL DISTRIBUTION WIDTH 17.5 % (11.6-17.2); WHITE BLOOD COUNT 10.5 TH/MM3 (4.0-11.0)
[2017-08-16 18:41] LABS: INTERNATIONAL NORMALIZED RATIO 1.7 RATIO; PROTHROMBIN TIME - PATIENT 17.4 SEC (9.8-11.6)
[2017-08-16 18:41] LABS: BILIRUBIN, URINE NEG (NEG); BLOOD, URINE NEG (NEG); GLUCOSE,URINE NEG (NEG); HYALINE CAST, URINE 18 /lpf (RARE); KETONE, URINE NEG (NEG); MUCUS URINE FEW /lpf (OCC); NITRITE,URINE NEG (NEG); SQUAMOUS EPITHELIAL CELL URINE 1 /hpf (0-5); URINE COLOR YELLOW (YELLW/STRAW); URINE LEUKOCYTE ESTERASE TRACE (NEG)
[2017-08-16 18:48] LABS: ALBUMIN 1.9 GM/DL (3.4-5.0); AST (GOT) 14 U/L (15-37); BICARBONATE 22.7 MEQ/L (21.0-32.0); BLOOD UREA NITROGEN 11 MG/DL (7-18); CALCIUM 7.8 MG/DL (8.5-10.1); CHLORIDE 105 MEQ/L (98-107); CREATININE 0.78 MG/DL (0.50-1.00); GLOMERULAR FILTRATION RATE 89 ML/MIN (>89); GLUCOSE,RANDOM 91 MG/DL (74-106); SODIUM (NA) 136 MEQ/L (136-145)
[2017-08-16 18:50] LABS: ALT (GPT) 12 U/L (10-53)
[2017-08-16 18:52] LABS: ALKALINE PHOSPHATASE 163 U/L (45-117); TOTAL BILIRUBIN ADULT 0.3 MG/DL (0.2-1.0); TOTAL PROTEIN 6.1 GM/DL (6.4-8.2)
--- NOTE | 2017-08-16 19:19 | RADRPT ---
EXAM DATE/TIME: 08/16/2017 18:22 [facility] COMPARISON: No previous studies available for comparison. INDICATIONS : Patient has had difficulty swallowing for a week. FLUORO TIME: .4 minutes IMAGE COUNT: 8 CONTRAST: 1. Liquid E-Z Paque Barium Sulfate (60% w/v, 41% w.w) MEDICAL HISTORY : Chronic obstructive pulmonary disease. Congestive heart failure Crohns SURGICAL HISTORY : Appendectomy. ENCOUNTER: Initial ACUITY: 1 week PAIN SCORE: 6/10 LOCATION: mid sternum FINDINGS: No aspiration noted. Esophagus is mildly dilated and there is a moderate to severe esophageal motilit y disorder. No obstructing or constricting lesions identified. CONCLUSION: 1. Moderate to severe esophageal motility disorder. No obstructing or constricting lesions. Ivan Zavaleta MD on August 16, 2017 at 19:16 Board Certified Radiologist. This report was verified electronically.
--- NOTE | 2017-08-16 19:28 | RADRPT ---
EXAM DATE/TIME: 08/16/2017 18:22 [facility] COMPARISON: CHEST SINGLE AP, January 06, 2017, 22:50. INDICATIONS : Mid chest pain and inability to swallow food. MEDICAL HISTORY : Chronic obstructive pulmonary disease. Congestive heart failure Crohns SURGICAL HISTORY : Appendectomy. Pacemaker. ENCOUNTER: Initial ACUITY: 1 week PAIN SCORE: 7/10 LOCATION: mid chest FINDINGS: A single view of the chest demonstrates elevated right hemidiaphragm. No focal consolidation or effus ion. Pacer leads overlie right atrium and right ventricle. Mild cardiomegaly. CONCLUSION: 1. No acute findings. Mild elevation right hemidiaphragm. Cardiomegaly. Ivan Zavaleta MD on August 16, 2017 at 19:24 Board Certified Radiologist. This report was verified electronically.
[2017-08-16 19:29] VITALS: BP 120/72; PULSE 82; RESP 16; O2SAT 98
[2017-08-16] MEDS ORDERED: MORPHINE SULFATE 4 MG/ML INJ IV PUSH ONE (19:30)
[2017-08-16] MEDS ORDERED: ONDANSETRON HCL 4 MG/2 ML VIAL IV PUSH ONE (19:30)
[2017-08-16] MEDS ORDERED: SODIUM CHLOR 0.9% 250 ML INJ 250 ML IV ONE (19:45)
[2017-08-16] MEDS ORDERED: NALOXONE HCL 0.4 MG/ML AMP IV PUSH PRN (20:00)
[2017-08-16] MEDS ORDERED: SODIUM CHLORIDE 0.9% FLUSH 10 ML FLUSH IV FLUSH PRN (20:00)
[2017-08-16 21:37] VITALS: BP 112/67; PULSE 82
[2017-08-16] MEDS: PANTOPRAZOLE SODIUM 40 MG VIAL IV PUSH SCH (23:03)
[2017-08-17] VITALS (15 sets, daily range): BP systolic 92–135; BP diastolic 53–92; PULSE 60–94; RESP 15–17; TEMP 98.1–98.9; O2SAT 96–99
[2017-08-17] MEDS: SODIUM CHLORIDE 0.9% FLUSH 10 ML FLUSH IV FLUSH SCH ×3 (00:15→21:25)
--- NOTE | 2017-08-17 02:59 | HHI.HP ---
[facility] Service [facility] Primary [facility] Physician Joni Hair MD Admission Diagnosis acute anemia, hypotension, esophageal motility disorder Diagnoses: Travel History International Travel<30 Days: No Contact w/Intl Traveler <30 Da: No Traveled to Known Affected Are: No History of Present Illness History from patient, ER PA communication, review of medical records. Patient reported that she wants to her PCPs office today and was complaining of her generalized weakness and weight loss. 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 valle and was telling him about her dark stool. She was told at that time on Wednesday to stop her Coumadin. Her and her was 4.6. PCP then sent the patient to hospital for further evaluation. Patient stated that she has stopped her Coumadin since Wednesday. She denies missing any of her medications. She states that she is compliant She reports the black stool also has stopped since Wednesday. It was only once. Patient follows with Dr. Dr. Robison for her Crohn's disease. She reported has had endoscopy and colonoscopy in April 2017. Had polypectomy. But nothing significant was found in the EGD. Also report of weight loss. Reports she lost from 136 pounds to 92 pounds between December 2016 to now July 2017. She has been taking ensure for the past 14 days. She has been taking ensure for the past 2-1/2 months. When she swallows food, she felt food stuck in her mouth. Also has learning disabilities lost 136lbs to 92lbs between december 2016 to now have been taking ensure last 2.5 months when she swallows food, she felt food is stuck around epigastric area, also had burning at belly button area had ct abdomen and pelvis at [facility] about 3 months ago - nothing was wrong then diarrhea off and on due to crohn/s but nothing unusal Review of Systems Except as stated in HPI: all other systems reviewed are Neg Past Family Social History Past Medical History htn crohn's cad- [place] 2005; EF 20-% then s/p aicd- cardiomyopathy- EF 20% in echo 12/2016 afib pulmonary htn >70 moderate to severe mitral regurg osteoarthritis rheumatic arthritis Past Surgical History aicd fibroids c section Allergies: Coded Allergies: penicillin G (Unverified Allergy, Severe, Swelling, 08/16/17) cefepime (Unverified Allergy, Unknown, Swelling, 08/16/17) ceftaroline fosamil (Unverified Allergy, Unknown, Swelling, 08/16/17) cephalexin (Unverified Allergy, Unknown, RASH, 08/16/17) Family History son - dm brother- heart problem and at 33 yo mom- mitral valve prolapse Social History never smoked no etoh abuse no drugs 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 o in no apparent distress. SKIN: No rashes, ecchymoses or lesions. Cool and dry. HEAD: Atraumatic. Normocephalic. No temporal or scalp tenderness. EYES: No scleral icterus. No injection or drainage. ENT: Nose without bleeding, purulent drainage or septal hematoma. Airway patent. NECK: upple, nontender, no meningeal signs. CARDIOVASCULAR: Regular rate and rhythm without murmurs, gallops, or rubs. RESPIRATORY: Clear to auscultation. Breath sounds equal bilaterally. No wheezes , rales, or rhonchi. GASTROINTESTINAL: Abdomen soft, non-tender, nondistended. . No guarding. MUSCULOSKELETAL: Extremities without clubbing, cyanosis, or edema.No calf tenderness. NEUROLOGICAL: Awake and alert. Normal speech Laboratory Laboratory Tests Test 08/16/17 18:00 08/16/17 18:10 White Blood Count 10.5 Red Blood Count 2.52 Hemoglobin 7.8 Hematocrit 24.1 Mean Corpuscular Volume 95.6 Mean Corpuscular Hemoglobin 30.8 Mean Corpuscular Hemoglobin Concent 32.2 Red Cell Distribution Width 17.5 Platelet Count 440 Mean Platelet Volume 6.2 Neutrophils (%) (Auto) 58.2 Lymphocytes (%) (Auto) 24.1 Monocytes (%) (Auto) 16.9 Eosinophils (%) (Auto) 0.6 Basophils (%) (Auto) 0.2 Neutrophils # (Auto) 6.1 Lymphocytes # (Auto) 2.5 Monocytes # (Auto) 1.8 Eosinophils # (Auto) 0.1 Basophils # (Auto) 0.0 CBC Comment DIFF FINAL Differential Comment Prothrombin Time 17.4 Prothromb Time International Ratio 1.7 Activated Partial Thromboplast Time 33.0 Blood Urea Nitrogen 11 Creatinine 0.78 Random Glucose 91 Total Protein 6.1 Albumin 1.9 Calcium Level 7.8 Alkaline Phosphatase 163 Aspartate Amino Transf (AST/SGOT) 14 Alanine Aminotransferase (ALT/SGPT) 12 Total Bilirubin 0.3 Sodium Level 136 Potassium Level 3.9 Chloride Level 105 Carbon Dioxide Level 22.7 Anion Gap 8 Estimat Glomerular Filtration Rate 89 Lactic Acid Level 1.2 Lipase 122 Urine Color YELLOW Urine Turbidity CLEAR Urine pH 5.0 Urine Specific [place] 1.007 Urine Protein NEG Urine Glucose (UA) NEG Urine Ketones NEG Urine Occult Blood NEG Urine Nitrite NEG Urine Bilirubin NEG Urine Urobilinogen LESS THAN 2.0 Urine Leukocyte Esterase TRACE Urine RBC 1 Urine WBC 1 Urine Squamous Epithelial Cells 1 Urine Hyaline Casts 18 Urine Mucus FEW Microscopic Urinalysis Comment CULT NOT INDICATED Result Diagram: 08/16/17 1800 08/16/17 1800 Caprini VTE Risk Assessment Caprini VTE Risk Assessment: Mod/High Risk (score >= 2) Caprini Risk Assessment Model Point Value = 1 Point Value = 2 Point Value = 3 Point Value = 5 Age 41-60 Minor surgery BMI > 25 kg/m2 Swollen legs Varicose veins or History of unexplained or recurrent spontaneous Oral contraceptives or hormone replacement Sepsis (< 1 month) Serious lung disease, including pneumonia (< 1 month) Abnormal pulmonary function Acute myocardial infarction Congestive heart failure (< 1 month) History of inflammatory bowel disease Medical patient at bed rest Age 61-74 Arthroscopic surgery Major open surgery (> 45 min) Laparoscopic surgery (> 45 min) Malignancy Confined to bed (> 72 hours) Immobilizing plaster cast Central venous access Age >= 75 History of VTE Family history of VTE Factor V Leiden Prothrombin [id number] Lupus anticoagulant Anticardiolipin antibodies Elevated serum homocysteine Heparin-induced thrombocytopenia Other congenital or acquired thrombophilia Stroke (< 1 month) Elective arthroplasty Hip, pelvis, or leg fracture Acute spinal cord injury (< 1 month) Prophylaxis Regimen Total Risk Factor Score Risk Level Prophylaxis Regimen 0-1 Low Early ambulation 2 Moderate Order ONE of the following: *Sequential Compression Device (SCD) *Heparin 5000 units SQ BID 3-4 Higher Order ONE of the following medications: *Heparin 5000 units SQ TID *Enoxaparin/Lovenox 40 mg SQ daily (WT < 150 kg, CrCl > 30 mL/min) *Enoxaparin/Lovenox 30 mg SQ daily (WT < 150 kg, CrCl > 10-29 mL/min) *Enoxaparin/Lovenox 30 mg SQ BID (WT < 150 kg, CrCl > 30 mL/min) AND/OR *Sequential Compression Device (SCD) 5 or more Highest Order ONE of the following medications: *Heparin 5000 units SQ TID (Preferred with Epidurals) *Enoxaparin/Lovenox 40 mg SQ daily (WT < 150 kg, CrCl > 30 mL/min) *Enoxaparin/Lovenox 30 mg SQ daily (WT < 150 kg, CrCl > 10-29 mL/min) *Enoxaparin/Lovenox 30 mg SQ BID (WT < 150 kg, CrCl > 30 mL/min) AND *Sequential Compression Device (SCD) Assessment and Plan Assessment and Plan Impression: Generalized weakness. Symptomatically anemia. Acute blood loss anemia. Patient had 1 large episode of melena on Wednesday. She stopped Coumadin since then. Today's guaiac is negative per ER. Significant weight loss since December 2016. Dysphagia. Barium swallow revealing esophageal motility disorder. Hypertension Nonischemic cardiomyopathy. EF of 20%. Latest echo December 2016 on records. Patient reports she had echo on Wednesday, August 13, 2017 at clinic. Atrial fibrillation. Status post AICD/pacemaker placement. Pulmonary hypertension greater than 70 on echocardiogram Moderate to severe mitral regurgitation on echocardiogram Crohn's disease Osteo-arthritis Rheumatic arthritis Depression. Patient lost her son at age 2525 years old to diabetes. 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 Plan: Transfuse 2 units of PRBC tonight. Transfuse each unit over 4 hours Watch for fluid overload. Lasix in between transfusions. Hold Coumadin. Protonix 40 mg IV every 12 hours. GI consult. Barium swallow reports reviewed. Evidence of esophageal motility disorder. Chest x-ray Reviewed. No Evidence of Pneumothorax/Infiltrate/Pulmonary Edema. Continue Home Medications Apart from Coumadin. Physical Therapy Evaluation DVT Prophylaxis with SCD. GI Prophylaxis on Pantoprazole. Discussed Condition With Patient, ER PA, nursing staff Physician Certification 2 Midnight Certification Type: Admission for Inpatient Services Order for Inpatient Services The services are ordered in accordance with Medicare regulations or non- Medicare payer requirements, as applicable. In the case of services not specified as inpatient-only, they are appropriately provided as inpatient services in accordance with the 2-midnight benchmark. Estimated LOS (days): 2 days is the estimated time the patient will need to remain in the hospital, assuming treatment plan goals are met and no additional complications. Post-Hospital Plan: Home Anurag Tony MD Aug 17, 2017 02:59
[2017-08-17] MEDS ORDERED: RESP: ALBUTEROL 2.5 MG/3 ML NEB (PRN) NEB (03:30)
[2017-08-17] MEDS ORDERED: FUROSEMIDE 20 MG/2 ML VIAL IV PUSH ONE (03:30)
[2017-08-17] MEDS ORDERED: PILL SPLITTER OTHER PRN (03:45)
[2017-08-17] MEDS: POTASSIUM CHLORIDE 10 MEQ CONTROLLED RELEASE TAB PO SCH ×2 (08:57→21:24)
[2017-08-17] MEDS: LORATADINE 10 MG TAB PO SCH (08:57)
[2017-08-17] MEDS: PANTOPRAZOLE SODIUM 40 MG VIAL IV PUSH SCH ×2 (08:57→21:25)
[2017-08-17] MEDS: FUROSEMIDE 40 MG TAB PO SCH (08:58)
[2017-08-17] MEDS: sulfaSALAzine 500 MG TAB PO SCH ×2 (08:58→23:00)
[2017-08-17] MEDS: LISINOPRIL 10 MG TAB PO SCH (08:58)
[2017-08-17] MEDS: CARVEDILOL 12.5 MG TAB PO SCH ×2 (08:58→21:25)
[2017-08-17] MEDS: FAMOTIDINE 20 MG TAB PO SCH ×2 (08:58→21:24)
[2017-08-17] MEDS: FLUoxetine HCL 20 MG CAP PO SCH (08:58)
[2017-08-17] MEDS: DIGOXIN 0.25 MG TAB PO SCH (09:00)
[2017-08-17] MEDS ORDERED: DIATRIZOATE MEGLUM/DIATRIZOATE SOD 9 ML CUP ONE ×2 (10:32)
--- NOTE | 2017-08-17 11:14 | MB ---
cc: Rio Multani MD, Sunil P MD Moulis, Harry MD Oung,Anurag MELTON DATE OF CONSULT: 08/17/2017 REASON FOR CONSULTATION: I have asked to see the patient at request of Dr. Tony for evaluation of anemia and Crohn's disease. HISTORY: The patient is a pleasant 67-year-old white female who has been diagnosed with small bowel Crohn's. I reviewed the chart. We do not have pathology in this regard, but apparently this was determined at the time of either an appendectomy or a Meckel's diverticulectomy. She denies any Azulfidine. She was on sulfasalazine for years. She has had upper endoscopy and colonoscopy this past 02/2017 and the upper endoscopy revealed some gastric erosion, otherwise the esophagus was unremarkable. The duodenum and jejunum were also unremarkable. A colonoscopy done at the same time revealed colon polyps and diverticula. The preparation for which was not the best. Biopsy of the stomach just revealed gastritis. There was no evidence of any celiac disease. Repeat biopsies of the stomach just revealed gastritis. Random colonic biopsies were unremarkable for Crohn's, but there is some nonspecific inflammation. There were inflammatory polyps noted. A number of years ago, she did have a small follow through which showed some inflammation in the small intestine, but this is nothing new. It was suggested that she have a CT enterography, but she has not complied with this suggestion. The reason for these procedures was that a CAT scan done in 12/2016 showed thickening of the duodenum and proximal jejunal area. The patient states that she was in her usual state of good health, but it was noted that her INR is quite elevated. She saw her ctrs last week and on the same day she had a black stool. The ctrs stopped the Coumadin and apparent INR has drifted down. She had no more black stools. In the emergency room, she was Hemoccult negative. Also, over the last several weeks, she has had problems swallowing both liquids and solids, but predominantly solids. Food gets caught at her GE junction. A barium swallow done in the emergency room showed a nonspecific motility disorder. She describes periumbilical discomfort. It is sharp and it is a pulling sensation like something tried to crawl out. No obvious provocative or palliative features. She has also lost a significant amount of weight she states. Just no appetite. Patient does not take a lot of aspirin or NSAIDs. She has not been taking anything for her heartburn per se - some of her abdominal pain can be burning at times. She is taking an H2 alyssa. She denies any odynophagia, early satiety. No fever, chills, hematochezia, diarrhea, or constipation. PAST MEDICAL HISTORY: Significant for Crohn's of the small intestine - Please see above for further discussion. She has a history of gastric erosions. A normal esophagus on upper endoscopy in 02/2017. In addition, she has had inflammatory colon polyps and mild nonspecific change in the colon on biopsies. She has also had colonic diverticulosis. She apparently had a Meckel's diverticulum that was operated on. She had an appendix that was operated on and this is when they may have found her Crohn's, although I do not have documentation of this. Also, has recent anemia, possible GI bleeding. All the Hemoccults are negative. Weight loss, hypertension, VA, AICD, cardiomyopathy, atrial fibrillation, pulmonary hypertension, moderate to severe mitral regurgitation, osteoarthritis, rheumatoid arthritis. She has a history of GERD, also elevated alkaline phosphatase in the past. Seasonal allergies, asthma and congestive heart failure. PAST SURGICAL HISTORY: AICD, upper endoscopy and colonoscopy - these both done 02/2017. She has had fibroids. She had a . ALLERGIES: PENICILLIN, CEFEPIME, CEFTAROLINE, CEPHALEXIN. FAMILY HISTORY: Not significant for any colon cancer or colon polyps. SOCIAL HISTORY: Does not smoke. Does not drank alcohol at this time. 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 MEDICATIONS: As an outpatient are: Digoxin, lisinopril, Ranitidine, Fluoxetine, Lisa, albuterol, folic acid, sulfasalazine. MEDICATIONS: As an inpatient are currently: Lipitor, Remeron, Coreg, Lanoxin, Prozac, Lasix, Prinivil, potassium, Azulfidine, Claritin, Pepcid. She was also started on IV Protonix. Her Coumadin has been on hold. REVIEW OF SYSTEMS: Since 12/2016, she has lost almost 40 pounds of weight. She is taking Ensure for this. No fever or chills. CARDIOPULMONARY: No chest pain, palpitation, or shortness of breath. GASTROINTESTINAL: Please see above. She has problems swallowing as mentioned above. Otherwise, unremarkable 12-point review of systems. PHYSICAL EXAM: VITAL SIGNS: Blood pressure is 1119/92, pulse of 94 (range between 82-94, respiration rate of 17, temperature 98.1. GENERAL: She is an elderly, female resting comfortably at this time, appears to be in no acute GI distress. HEENT: Her pupils are equal and reactive to light. No obvious scleral icterus. Oropharynx, she had dental caries. No tongue deviation or Candidal lesions. Hearing was intact. NECK: Supple. No thyromegaly or lymphadenopathy. LUNGS: Clear to auscultation and percussion. HEART: For the most part, a regular rate and rhythm. No murmurs heard. ABDOMEN: Soft, nontender, no organomegaly, masses, ascites, or hernias. Bowel sounds positive in all 4 quadrants. RECTAL: I did not repeat a rectal exam. Apparently she was Hemoccult negative. EXTREMITIES: There is no cyanosis, clubbing or edema. NEUROLOGIC: Her conjunctivae are grossly intact. No gross sensory deficits. SKIN: Moist and warm. She is alert and oriented x 3. DATABASE: A barium swallow was done yesterday which revealed a moderate to severe esophageal dysmotility. There is no obstructing or constricting lesions. LABORATORY DATA: Reviewed, hemoglobin is 7.8, hematocrit 24.1, white blood cell count was 10,500, MCV of 95.6, platelet count 440,000. Her alkaline phosphatase again is elevated at 163, SGOT 14, SGPT 12, total bilirubin of 1.9 which is low. Total protein 6.1 is low, lipase 122 is normal. BUN 11, creatinine 0.78, potassium 3.9, sodium 136. Her INR is 1.7, which is normal. PT is 17.4 is elevated, PTT of 33. They attempted a CAT scan yesterday, but she had contrast from her barium swallow and could not do this. IMPRESSION: 1. Dysphagia - As mentioned above in 02/2017 the Esophagus was normal on EGD. This is not unusual in esophageal dysmotility. Her barium swallow at this time showed moderate to severe dysmotility. Because she has problems swallowing, she was taking ice chips and cold things to help, but she understands in this situation you want to avoid extreme hot and cold foods and liquids. If she needs anything, she should to try some lukewarm water before she eats. We talked about the etiology of dysmotility disorder including reflux, achalasia, etc. The barium swallow did not look like achalasia. 2. Crohn's disease - She said she was diagnosed a years ago involving the small intestine. She has had it for almost 40 years. There is no evidence on recent colonoscopy and upper endoscopy. She has been treated with sulfasalazine. 3. Dark stools. None at this time. Hemoccult check was negative. 4. Anemia - She understands the sulfasalazine sometimes causes an anemia. This could be acute GI bleeding also basically AVM of the small intestine, cannot rule out Crohn's of the a small intestine etc. The bleeding appears to be stopped at this time. 3. Elevated alkaline phosphatase is not new. She has had this in the office also. 4. Abdominal pain, central abdominal pain. This appears sometimes described as a feeling the something trying to get out. Sometimes it is burning in nature. Again, this may well be Crohn's itself. RECOMMENDATIONS: 1. Continue PPI. 2. We discussed the best way in regard to diet for dysmotility - avoid extreme hot and cold foods and drinking lukewarm water before she eats anything. 3. We talked about repeat upper endoscopy and at this time dilating it. This sometimes helps with esophageal dysmotility, but I think it is a low yield procedure at this time. 3. CT scan abdomen and pelvis with IV contrast when possible to evaluate the symptoms of abdominal pain and weight loss for any strictures or malignancies. If this is not helpful, she may need a formal CT enterography in regards to Crohn's. 4. Further recommendations depend on how she does - Dr. Humphrey will see the patient tomorrow. MD HERVE Hatfield/HENRY , 10:04 AM , 11:13 AM ALLISON
[2017-08-17] MEDS ORDERED: DIATRIZOATE MEGLUM/DIATRIZOATE SOD 9 ML CUP PO ONE (11:15)
[2017-08-17] MEDS: oxyCODONE/ACETAMINOPHEN 5 MG/325 MG TAB PO PRN (11:19)
[2017-08-17 12:41] LABS: AUTOMATED NEUTROPHIL # 4.5 TH/MM3 (1.8-7.7); BASOPHIL % 0.4 % (0.0-2.0); EOSINOPHIL # 0.2 TH/MM3 (0-0.4); EOSINOPHIL % 2.7 % (0.0-4.0); HEMATOCRIT 34.2 % (35.0-46.0); HEMOGLOBIN 11.3 GM/DL (11.6-15.3); LYMPH % 18.5 % (9.0-44.0); LYMPHOCYTE # 1.3 TH/MM3 (1.0-4.8); MEAN CELL VOLUME 90.1 FL (80.0-100.0); MEAN CORPUSCULAR HEMOGLOBIN 29.7 PG (27.0-34.0); MEAN PLATELET VOLUME 6.3 FL (7.0-11.0); MONO % 11.1 % (0.0-8.0); MONOCYTE # 0.7 TH/MM3 (0-0.9); NEUT % 67.3 % (16.0-70.0); PLATELET COUNT 350 TH/MM3 (150-450); RED BLOOD COUNT 3.79 MIL/MM3 (4.00-5.30); RED CELL DISTRIBUTION WIDTH 18.9 % (11.6-17.2); WHITE BLOOD COUNT 6.8 TH/MM3 (4.0-11.0)
[2017-08-17 13:04] LABS: BICARBONATE 27.5 MEQ/L (21.0-32.0); CALCIUM 8.6 MG/DL (8.5-10.1); CREATININE 0.69 MG/DL (0.50-1.00)
[2017-08-17] MEDS: DICLOFENAC SODIUM 50 MG DELAYED RELEASE TAB PO SCH ×2 (13:36→23:00)
[2017-08-17] MEDS ORDERED: IOHEXOL 350 MG/ML 10 ML VIAL (for RAD DIAG) IVCONTRAST ONE (14:06)
--- NOTE | 2017-08-17 14:30 | RADRPT ---
EXAM DATE/TIME: 08/17/2017 13:57 [facility] COMPARISON: CT ABDOMEN & PELVIS W CONTRAST, March 12, 2012, 14:25. INDICATIONS : Abdominal pain. General weakness and weight loss. IV CONTRAST: 90 cc Omnipaque 350 (iohexol) IV ORAL CONTRAST: Patient refused oral contrast. RADIATION DOSE: 4.52 CTDIvol (mGy) MEDICAL HISTORY : Cardiovascular disease. Chronic obstructive pulmonary disease. Gastroesophageal reflux disease.Crohn' s disease. hypertension. asthma. SURGICAL HISTORY : Pacemaker. Appendectomy. ENCOUNTER: Initial ACUITY: 1 day PAIN SCALE: 2/10 LOCATION: Abdomen. TECHNIQUE: Volumetric scanning of the abdomen and pelvis was performed. Using automated exposure control and ad justment of the mA and/or kV according to patient size, radiation dose was kept as low as reasonably achievable to obtain optimal diagnostic quality images. DICOM format image data is available electro nically for review and comparison. FINDINGS: LOWER LUNGS: The visualized lower lungs are clear. Heart size appears to be enlarged. LIVER: There is some fatty infiltration versus some edema throughout the liver parenchyma. No dilated biliar y ducts are demonstrated. The portal system is patent. The gallbladder is unremarkable. SPLEEN: Normal size without lesion. PANCREAS: Within normal limits. KIDNEYS: Normal in size and shape. There is no mass, stone or hydronephrosis. ADRENAL GLANDS: Within normal limits. VASCULAR: There is no aortic aneurysm. BOWEL/MESENTERY: There appears to be residual barium in the colon which obscures some of the detail in the mid left ab domen and lower pelvis. Bowel gas pattern appears to be within normal limits. There does not appear t o be any abnormal distention of the small or large bowel. ABDOMINAL WALL: Within normal limits. RETROPERITONEUM: There is no lymphadenopathy. BLADDER: No wall thickening or mass. REPRODUCTIVE: Within normal limits. INGUINAL: There is no lymphadenopathy or hernia. MUSCULOSKELETAL: Within normal limits for patient age. No significant changes compared to the prior study from 2012 CONCLUSION: 1. There is decreased density throughout the liver suggestive of either fatty infiltration versus soledad ma. 2. No biliary tract obstruction. 3. Residual barium in the colon obscures some of the detail in the mid left abdomen and pelvis. Other michelle, unremarkable and stable CT scan of the abdomen and pelvis compared to 2011. Barrera Santizo MD on August 17, 2017 at 14:23 Board Certified Radiologist. This report was verified electronically.
--- NOTE | 2017-08-17 15:53 | EKG ---
Date Performed: 08/16/2017 Time Performed: 17:16:22 PTAGE: 67 years EKG: ATRIAL FIBRILLATION NONSPECIFIC INTRAVENTRICULAR CONDUCTION DELAY RIGHT AXIS DEVIATION INFE RIOR MYOCARDIAL INFARCTION ABNORMAL ECG PREVIOUS TRACING : 01/07/2017 12.31 Compared to previous tracing, possible inferior infarct pat tern is now present. DOCTOR: Manuel Meza Interpretating Date/Time 08/17/2017 15:53:03
--- NOTE | 2017-08-17 19:07 | HHI.PR ---
Subjective Remarks The patient states she is feeling much better Denies cp/sob slightly hypotensive earlier - bp improved. Objective Vitals Vital Signs Date Time Temp Pulse Resp B/P (MAP) Pulse Ox O2 Delivery O2 Flow Rate FiO2 08/17/17 17:03 08/17/17 17:00 98.4 60 16 92/53 (66) 96 08/17/17 15:16 68 15 99/55 (70) 96 Room Air 08/17/17 15:15 16 08/17/17 12:52 17 08/17/17 10:20 93 17 114/71 (85) 99 Room Air 08/17/17 08:55 98.3 94 17 119/92 98 08/17/17 08:07 92 16 135/85 (102) 97 Room Air 08/17/17 06:33 82 16 118/72 (87) 98 Room Air 08/17/17 06:22 98.9 82 16 112/69 98 08/17/17 05:22 98.9 82 16 118/69 98 08/17/17 04:47 98.9 82 16 118/72 08/17/17 04:22 98.1 90 16 112/72 98 08/17/17 04:22 98.9 82 16 109/61 98 08/17/17 01:12 98.7 84 16 106/67 98 08/17/17 00:27 98.8 82 16 112/71 98 08/17/17 00:04 98.4 71 16 101/66 99 08/16/17 21:37 82 112/67 (82) 08/16/17 19:29 82 16 120/72 (88) 98 Nasal Cannula 2.00 I/O 08/16/17 08/16/17 08/16/17 08/17/17 08/17/17 08/17/17 07:00 15:00 23:00 07:00 15:00 23:00 Intake Total 400 ml 1500 ml Balance 400 ml 1500 ml Intake IV Total 1100 ml Packed Cells 400 ml 400 ml Result Diagram: 08/17/17 1130 08/17/17 1130 Imaging Last Impressions Abdomen/Pelvis CT 08/17/17 0000 Signed Impressions: Service Date/Time: Thursday, August 17, 2017 13:57 - CONCLUSION: 1. There is decreased density throughout the liver suggestive of either fatty infiltration versus edema. 2. No biliary tract obstruction. 3. Residual barium in the colon obscures some of the detail in the mid left abdomen and pelvis. Otherwise, unremarkable and stable CT scan of the abdomen and pelvis compared to 2012. Barrera Santizo MD Chest X-Ray 08/16/17 1748 Signed Impressions: Service Date/Time: Wednesday, August 16, 2017 18:22 - CONCLUSION: 1. No acute findings. Mild elevation right hemidiaphragm. Cardiomegaly. Ivan Zavaleta MD Barium Swallow X-Ray 08/16/17 0000 Signed Impressions: Service Date/Time: Wednesday, August 16, 2017 18:22 - CONCLUSION: 1. Moderate to severe esophageal motility disorder. No obstructing or constricting lesions. Ivan Zavaleta MD Objective Remarks AAox3 S1S2 Irregular rate and rythm, no MRG. 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 Recommendations noted. Continue PPI PT consult dietitian for carl loss. Yury Mims MD Aug 17, 2017 19:07
[2017-08-17] MEDS: ATORVASTATIN 40 MG TAB PO SCH (21:24)
[2017-08-17] MEDS: MIRTAZAPINE 15 MG TAB PO SCH (21:24)
[2017-08-18] VITALS (9 sets, daily range): BP systolic 82–111; BP diastolic 51–70; PULSE 64–96; RESP 18–22; TEMP 97.5–98.7; O2SAT 18–98
[2017-08-18] MEDS: sulfaSALAzine 500 MG TAB PO SCH ×2 (08:47→20:23)
[2017-08-18] MEDS: FLUoxetine HCL 20 MG CAP PO SCH (08:47)
[2017-08-18] MEDS: DICLOFENAC SODIUM 50 MG DELAYED RELEASE TAB PO SCH ×2 (08:47→20:25)
[2017-08-18] MEDS: CARVEDILOL 12.5 MG TAB PO SCH ×2 (08:47→20:24)
[2017-08-18] MEDS: FAMOTIDINE 20 MG TAB PO SCH ×2 (08:47→20:25)
[2017-08-18] MEDS: DIGOXIN 0.25 MG TAB PO SCH (08:47)
[2017-08-18] MEDS: FUROSEMIDE 40 MG TAB PO SCH (08:48)
[2017-08-18] MEDS: SODIUM CHLORIDE 0.9% FLUSH 10 ML FLUSH IV FLUSH SCH ×2 (08:48→20:28)
[2017-08-18] MEDS: LORATADINE 10 MG TAB PO SCH (08:48)
[2017-08-18] MEDS: POTASSIUM CHLORIDE 10 MEQ CONTROLLED RELEASE TAB PO SCH ×2 (08:48→20:26)
[2017-08-18] MEDS: PANTOPRAZOLE SODIUM 40 MG VIAL IV PUSH SCH (08:48)
[2017-08-18] MEDS: LISINOPRIL 10 MG TAB PO SCH (08:50)
--- NOTE | 2017-08-18 09:57 | HHI.GIFU ---
GI Follow-up Note Consult Follow-up Subjective: Patient laying in bed comfortably, no new complaints and states she feels much better. Swallowing has improved. She states the dysphagia started about [address] A&P reviewed with patient. H&H much better after transfusion. Denies abd pain. Objective: PHYSICAL EXAMINATION: Vitals signs stable No fever HEENT: no jaundice. CHEST: Chest is clear to auscultation CARDIAC: Regular rate and rhythm ABDOMEN: Soft, nondistended, nontender EXTREMITIES: No edema. SKIN: warm and dry BOOKKEEPER: alert and oriented times three. Available Data (labs, X- Rays, Procedues) : Laboratory Tests Test 08/16/17 18:00 08/16/17 18:10 08/17/17 11:30 08/17/17 21:43 Red Blood Count 2.52 MIL/MM3 (4.00-5.30) 3.79 MIL/MM3 (4.00-5.30) Hemoglobin 7.8 GM/DL (11.6-15.3) 11.3 GM/DL (11.6-15.3) Hematocrit 24.1 % (35.0-46.0) 34.2 % (35.0-46.0) Red Cell Distribution Width 17.5 % (11.6-17.2) 18.9 % (11.6-17.2) Mean Platelet Volume 6.2 FL (7.0-11.0) 6.3 FL (7.0-11.0) Monocytes (%) (Auto) 16.9 % (0.0-8.0) 11.1 % (0.0-8.0) Monocytes # (Auto) 1.8 TH/MM3 (0-0.9) Prothrombin Time 17.4 SEC (9.8-11.6) Activated Partial Thromboplast Time 33.0 SEC (24.3-30.1) Total Protein 6.1 GM/DL (6.4-8.2) Albumin 1.9 GM/DL (3.4-5.0) Calcium Level 7.8 MG/DL (8.5-10.1) Alkaline Phosphatase 163 U/L (45-117) Aspartate Amino Transf (AST/SGOT) 14 U/L (15-37) Urine Leukocyte Esterase TRACE (NEG) Urine Mucus FEW /lpf (OCC) Random Glucose 140 MG/DL (74-106) ASSESSMENT/PLAN: 1. Dysphagia-improved. I reiterated avoiding cold beverages. If becomes a problem again can repeat EGD w/ possible dilation. 2.Crohn's-CT somewhat limited by residual barium but no sign active IBD. 3. Anemia-improved after transfusion. Will discuss outpt Pill camera study with Dr Robison. Anemia likely exaccerbated by GI bleeding due to coumadin toxicity. She appears well enough to go home and can f/u with Dr Robison in office. It was a pleasure seeing Facundo Krishna. Thank you for this consult. Entered by: Jacob Cornejo MD Aug 18, 2017 09:57
[2017-08-18] MEDS ORDERED: SODIUM CHLOR 0.9% 1000 ML INJ 1,000 ML IV ONE ×2 (11:15→14:30)
--- NOTE | 2017-08-18 13:01 | HHI.PR ---
Subjective Remarks Follow-up for dysphagia. Patient is currently doing well. She reports no problem eating or drinking. GI evaluated patient today again and cleared for discharge. Objective Vitals Vital Signs Date Time Temp Pulse Resp B/P (MAP) Pulse Ox O2 Delivery O2 Flow Rate FiO2 08/18/17 12:08 97.6 64 18 82/52 (62) 94 08/18/17 10:36 96 08/18/17 08:12 97.5 71 18 98/54 (69) 18 08/18/17 05:00 98.0 72 22 110/65 (80) 96 08/18/17 00:40 98.7 80 18 109/69 (82) 98 08/17/17 21:15 98.1 82 17 104/67 (79) 96 08/17/17 21:15 90 08/17/17 21:00 87 08/17/17 17:03 08/17/17 17:00 98.4 60 16 92/53 (66) 96 08/17/17 15:16 68 15 99/55 (70) 96 Room Air 08/17/17 15:15 16 08/17/17 12:52 17 I/O 08/17/17 08/17/17 08/17/17 08/18/17 08/18/17 08/18/17 07:00 15:00 23:00 07:00 15:00 23:00 Intake Total 400 ml 1500 ml 500 ml 100 ml Output Total 1 ml Balance 400 ml 1500 ml 499 ml 100 ml Intake Oral 500 ml 100 ml IV Total 1100 ml Packed Cells 400 ml 400 ml Output Urine Total 1 ml # Voids 0 1 # Bowel Movements 1 0 Result Diagram: 08/17/17 1130 08/17/17 1130 Imaging Last Impressions Abdomen/Pelvis CT 08/17/17 0000 Signed Impressions: Service Date/Time: Thursday, August 17, 2017 13:57 - CONCLUSION: 1. There is decreased density throughout the liver suggestive of either fatty infiltration versus edema. 2. No biliary tract obstruction. 3. Residual barium in the colon obscures some of the detail in the mid left abdomen and pelvis. Otherwise, unremarkable and stable CT scan of the abdomen and pelvis compared to 2012. Barrera Santizo MD Chest X-Ray 08/16/17 [id number] Signed Impressions: Service Date/Time: Wednesday, August 16, 2017 18:22 - CONCLUSION: 1. No acute findings. Mild elevation right hemidiaphragm. Cardiomegaly. Ivan Zavaleta MD Barium Swallow X-Ray 08/16/17 0000 Signed Impressions: Service Date/Time: Wednesday, August 16, 2017 18:22 - CONCLUSION: 1. Moderate to severe esophageal motility disorder. No obstructing or constricting lesions. Ivan Zavaleta MD Objective Remarks GENERAL: Alert, oriented 3, NAD. SKIN: Warm and dry. HEAD: Normocephalic. EYES: No scleral icterus. No injection or drainage. NECK: Supple, trachea midline. No JVD or lymphadenopathy. CARDIOVASCULAR: Regular rate and rhythm without murmurs, gallops, or rubs. RESPIRATORY: Breath sounds equal bilaterally. No accessory muscle use. GASTROINTESTINAL: Abdomen soft, non-tender, nondistended. MUSCULOSKELETAL: No cyanosis, or edema. BACK: Nontender without obvious deformity. No CVA tenderness. 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 Krishna is a 67-year-old female with a history of small bowel Crohn's disease who was admitted to the hospital due to dysphagia. Patient was also anemic on presentation and received 2 units of blood PRBCs. - Dysphagia - Crohn's disease - Anemia - likely GI blood loss or anemia of chronic disease. - GI evaluated patient. GI is okay for patient to go home today and follow up in the office with Dr. Robison. - Continue sulfasalazine, Protonix - Status post 2 units of PRBCs transfusion. Hemoglobin 11.3 today. -Hemoccult was negative. -Atrial fibrillation -patient follows up with Dr. Patton. Her [id number] score would be 3 (female, age 67, HTN). -Severe cardiomyopathy with ejection fraction 20% on echocardiogram in December 2016. -She already has defibrillator/pacemaker in place. -I discussed with patient regarding switching warfarin to apixaban. We discussed at length regarding pros and cons. Patient decided to stay on warfarin and discuss with cardiology in future. -INR is 1.7 on 08/16/2017. She can continue warfarin. Again strongly advised patient to consider apixaban. -Hypotension -Patient's blood pressure dropped to 82/52 today. This is likely due to Lasix. -Lisinopril was held due to low blood pressure. -We will give patient 1 L fluid bolus. If her blood pressure remains stable , patient can be discharged either later today or tomorrow morning. -We would probably advise patient to discontinue diuretics for now. -Due to significant cardiomyopathy patient should be on some diuretics. Will consider low-dose Lasix on discharge. Full code. Warfarin currently on hold due to anemia. Can resume upon discharge since Hemoccult was negative. Virginie Burnham DO Aug 18, 2017 1:01 pm
[2017-08-18] MEDS ORDERED: WARFARIN SOD 5 MG TAB PO SCH (16:00)
[2017-08-18] MEDS: oxyCODONE/ACETAMINOPHEN 5 MG/325 MG TAB PO PRN (18:20)
[2017-08-18] MEDS: MIRTAZAPINE 15 MG TAB PO SCH (20:25)
[2017-08-18] MEDS: ATORVASTATIN 40 MG TAB PO SCH (20:26)
[2017-08-19] VITALS: BP 118/76; PULSE 84; RESP 18; TEMP 98.2; O2SAT 98
[2017-08-19 00:01] VITALS: PULSE 84
[2017-08-19 04:00] VITALS: BP 123/59; PULSE 101; RESP 18; TEMP 98.2; O2SAT 97
[2017-08-19 08:02] VITALS: PULSE 108
[2017-08-19 08:04] LABS: INTERNATIONAL NORMALIZED RATIO 1.3 RATIO; PROTHROMBIN TIME - PATIENT 13.2 SEC (9.8-11.6)
[2017-08-19] MEDS: DICLOFENAC SODIUM 50 MG DELAYED RELEASE TAB PO SCH (08:18)
[2017-08-19] MEDS: oxyCODONE/ACETAMINOPHEN 5 MG/325 MG TAB PO PRN (08:18)
[2017-08-19] MEDS: LORATADINE 10 MG TAB PO SCH (08:18)
[2017-08-19] MEDS: FAMOTIDINE 20 MG TAB PO SCH (08:18)
[2017-08-19] MEDS: FLUoxetine HCL 20 MG CAP PO SCH (08:19)
[2017-08-19] MEDS: sulfaSALAzine 500 MG TAB PO SCH (08:19)
[2017-08-19] MEDS: CARVEDILOL 12.5 MG TAB PO SCH (08:19)
[2017-08-19] MEDS: DIGOXIN 0.25 MG TAB PO SCH (08:20)
[2017-08-19] MEDS: SODIUM CHLORIDE 0.9% FLUSH 10 ML FLUSH IV FLUSH SCH (08:20)
[2017-08-19] MEDS: POTASSIUM CHLORIDE 10 MEQ CONTROLLED RELEASE TAB PO SCH (08:20)
[2017-08-19 08:55] VITALS: BP 122/81; PULSE 104; RESP 16; TEMP 98; O2SAT 99
[2017-08-19] MEDS ORDERED: PANTOPRAZOLE SOD 40 MG DELAYED RELEASE TAB PO SCH (09:00)
--- NOTE | 2017-08-19 09:18 | HHI.GIFU ---
GI Follow-up Note Consult Follow-up Subjective: Patient laying in bed comfortably, no new complaints and states swallowing has been good. She does have some abd cramping with BMs but states stools are soft and formed. Objective: PHYSICAL EXAMINATION: Vitals signs stable No fever ABDOMEN: Soft, nondistended, mild periumbilical tenderness. EXTREMITIES: No clubbing, cyanosis, or edema. SKIN: warm and dry ENGROSSER: alert and oriented times three. Available Data (labs, X- Rays, Procedues) : Laboratory Tests Test 08/16/17 18:00 08/16/17 18:10 08/17/17 11:30 08/17/17 21:43 Red Blood Count 2.52 MIL/MM3 (4.00-5.30) 3.79 MIL/MM3 (4.00-5.30) Hemoglobin 7.8 GM/DL (11.6-15.3) 11.3 GM/DL (11.6-15.3) Hematocrit 24.1 % (35.0-46.0) 34.2 % (35.0-46.0) Red Cell Distribution Width 17.5 % (11.6-17.2) 18.9 % (11.6-17.2) Mean Platelet Volume 6.2 FL (7.0-11.0) 6.3 FL (7.0-11.0) Monocytes (%) (Auto) 16.9 % (0.0-8.0) 11.1 % (0.0-8.0) Monocytes # (Auto) 1.8 TH/MM3 (0-0.9) Prothrombin Time 17.4 SEC (9.8-11.6) Activated Partial Thromboplast Time 33.0 SEC (24.3-30.1) Total Protein 6.1 GM/DL (6.4-8.2) Albumin 1.9 GM/DL (3.4-5.0) Calcium Level 7.8 MG/DL (8.5-10.1) Alkaline Phosphatase 163 U/L (45-117) Aspartate Amino Transf (AST/SGOT) 14 U/L (15-37) Urine Leukocyte Esterase TRACE (NEG) Urine Mucus FEW /lpf (OCC) Random Glucose 140 MG/DL (74-106) Test 08/19/17 07:39 Prothrombin Time 13.2 SEC (9.8-11.6) ASSESSMENT/PLAN: 1. Dysphagia-improved 2. Anemia-improved 3. Hx of Crohn's-consider outpt Pillcam or CT/MR enterography. F/U with Dr Robison after discharge. will sign off. Call if needed. It was a pleasure seeing Facundo Krishna. Thank you for this consult. Entered by: Jacob Cornejo MD Aug 19, 2017 09:18
[2017-08-19] MEDS ORDERED: PANT40TA3 PO (11:04)
[2017-08-19] MEDS ORDERED: FURO1TAB62 PO (11:04)
--- NOTE | 2017-08-19 17:34 | HHI.DS ---
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 Patient reported that she wants to her PCPs office today and was complaining of her generalized weakness and weight loss. 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 patton and was telling him about her dark stool. She was told at that time on Wednesday to stop her Coumadin. Her and her was 4.6. PCP then sent the patient to hospital for further evaluation. Patient stated that she has stopped her Coumadin since Wednesday. She denies missing any of her medications. She states that she is compliant She reports the black stool also has stopped since Wednesday. It was only once. Patient follows with Dr. Dr. Robison for her Crohn's disease. She reported has had endoscopy and colonoscopy in April 2017. Had polypectomy. But nothing significant was found in the EGD. Also report of weight loss. Reports she lost from 136 pounds to 92 pounds between December 2016 to now July 2017. She has been taking ensure for the past 14 days. She has been taking ensure for the past 2-1/2 months. When she swallows food, she felt food stuck in her mouth. Also has learning disabilities lost 136lbs to 92lbs between december 2016 to now have been taking ensure last 2.5 months when she swallows food, she felt food is stuck around epigastric area, also had burning at belly button area had ct abdomen and pelvis at [facility] about 3 months ago - nothing was wrong then diarrhea off and on due to crohn/s but nothing unusal CBC/BMP: 08/17/17 1130 08/17/17 1130 Significant Findings Laboratory Tests Test 08/16/17 18:00 08/16/17 18:10 08/17/17 11:30 08/17/17 21:43 Red Blood Count 2.52 MIL/MM3 (4.00-5.30) 3.79 MIL/MM3 (4.00-5.30) Hemoglobin 7.8 GM/DL (11.6-15.3) 11.3 GM/DL (11.6-15.3) Hematocrit 24.1 % (35.0-46.0) 34.2 % (35.0-46.0) Red Cell Distribution Width 17.5 % (11.6-17.2) 18.9 % (11.6-17.2) Mean Platelet Volume 6.2 FL (7.0-11.0) 6.3 FL (7.0-11.0) Monocytes (%) (Auto) 16.9 % (0.0-8.0) 11.1 % (0.0-8.0) Monocytes # (Auto) 1.8 TH/MM3 (0-0.9) Prothrombin Time 17.4 SEC (9.8-11.6) Activated Partial Thromboplast Time 33.0 SEC (24.3-30.1) Total Protein 6.1 GM/DL (6.4-8.2) Albumin 1.9 GM/DL (3.4-5.0) Calcium Level 7.8 MG/DL (8.5-10.1) Alkaline Phosphatase 163 U/L (45-117) Aspartate Amino Transf (AST/SGOT) 14 U/L (15-37) Urine Leukocyte Esterase TRACE (NEG) Urine Mucus FEW /lpf (OCC) Random Glucose 140 MG/DL (74-106) Test 08/19/17 07:39 Prothrombin Time 13.2 SEC (9.8-11.6) Imaging Last Impressions Abdomen/Pelvis CT 08/17/17 0000 Signed Impressions: Service Date/Time: Thursday, August 17, 2017 13:57 - CONCLUSION: 1. There is decreased density throughout the liver suggestive of either fatty infiltration versus edema. 2. No biliary tract obstruction. 3. Residual barium in the colon obscures some of the detail in the mid left abdomen and pelvis. Otherwise, unremarkable and stable CT scan of the abdomen and pelvis compared to 2012. Barrera Santizo MD Chest X-Ray 08/16/17 1748 Signed Impressions: Service Date/Time: Wednesday, August 16, 2017 18:22 - CONCLUSION: 1. No acute findings. Mild elevation right hemidiaphragm. Cardiomegaly. Ivan Zavaleta MD Barium Swallow X-Ray 08/16/17 0000 Signed Impressions: Service Date/Time: Wednesday, August 16, 2017 18:22 - CONCLUSION: 1. Moderate to severe esophageal motility disorder. No obstructing or constricting lesions. Ivan Zavaleta MD PE at Discharge GENERAL: Alert, oriented 3, NAD. SKIN: Warm and dry. HEAD: Normocephalic. EYES: No scleral icterus. No injection or drainage. NECK: Supple, trachea midline. No JVD or lymphadenopathy. CARDIOVASCULAR: Regular rate and rhythm without murmurs, gallops, or rubs. RESPIRATORY: Breath sounds equal bilaterally. No accessory muscle use. GASTROINTESTINAL: Abdomen soft, non-tender, nondistended. MUSCULOSKELETAL: No cyanosis, or edema. BACK: Nontender without obvious deformity. No CVA tenderness. Pt update on day of discharge Patient is doing well. No acute concerns. No CP, SOB, fever, chills. Hospital Course Ms. Krishna is a 67-year-old female with a history of small bowel Crohn's disease who was admitted to the hospital due to dysphagia. Patient was also anemic on presentation and received 2 units of blood PRBCs. - Dysphagia - Crohn's disease - Anemia - likely GI blood loss or anemia of chronic disease. - GI evaluated patient. GI is okay for patient to go home today and follow up in the office with Dr. Robison. - Continue sulfasalazine, Protonix - Status post 2 units of PRBCs transfusion. Hemoglobin 11.3 today. - Hemoccult was negative. -Atrial fibrillation -patient follows up with Dr. Patton. Her [id number] score would be 3 (female, age 67, HTN). -Severe cardiomyopathy with ejection fraction 20% on echocardiogram in December 2016. -She already has defibrillator/pacemaker in place. -I discussed with patient regarding switching warfarin to apixaban. We discussed at length regarding pros and cons. Patient decided to stay on warfarin and discuss with cardiology in future. -INR is 1.7 on 08/16/2017. She can continue warfarin. Again strongly advised patient to consider apixaban. -Hypotension -Patient's blood pressure dropped to 82/52 today. This is likely due to Lasix. -Lisinopril was held due to low blood pressure. -We will give patient 1 L fluid bolus. If her blood pressure remains stable , patient can be discharged either later today or tomorrow morning. -We would probably advise patient to discontinue diuretics for now. -Due to significant cardiomyopathy patient should be on some diuretics. Will consider low-dose Lasix on discharge. Full code. Pt Condition on Discharge: Good Discharge Disposition: Discharge Home Discharge Time: > 30 minutes Discharge Instructions DIET: Follow Instructions for: Heart Healthy Diet Activities you can perform: Regular-No Restrictions Follow up Referrals: Cardiology - 2 Weeks with Ann Patton MD Gastroenterology - 1 Week with Matt Robison MD PCP Follow-up - 1 Week New Medications: Furosemide (Lasix) 20 Mg Tab 20 MG PO BID for Heart, #60 TAB 0 Refills Pantoprazole (Pantoprazole) 40 Mg Tab 40 MG PO DAILY for Reflux, #30 TAB 11 Refills Continued Medications: Albuterol Neb (Albuterol Neb) 2.5 Mg/3 Ml Neb 2.5 MG NEB TID NEB PRN for SHORTNESS OF BREATH, #60 NEBULE 0 Refills Atorvastatin (Atorvastatin) 40 Mg Tab 40 MG PO HS for Cholesterol Management, #30 TAB 0 Refills Carvedilol (Coreg) 12.5 Mg Tab 25 MG PO BID for a-fib for 30 Days, TAB 0 Refills Digoxin (Digoxin) 0.25 Mg Tab 0.25 MG PO DAILY for Regulate Heart Beat, #30 TAB 0 Refills Fexofenadine (Lisa Allergy) 180 Mg Tab 180 MG PO DAILY for Allergy Management, #30 TAB 0 Refills Fluoxetine (Prozac) 20 Mg Cap 20 MG PO DAILY, #30 CAP 0 Refills Folic Acid (Folic Acid) 1 Mg Tablet Lisinopril (Lisinopril) 10 Mg Tab 5 MG PO DAILY, #30 TAB 0 Refills Mirtazapine (Remeron) 15 Mg Tab 15 MG PO HS for Depression Control, #30 TAB 0 Refills Potassium Chloride ER (Klor-Con 10) 10 Meq Tab 10 MEQ PO BID for Electrolyte Replacement, #60 TAB 0 Refills Sulfasalazine (Sulfasalazine) 500 Mg Tab 1000 MG PO BID, #240 TAB 0 Refills Warfarin (Coumadin) 5 Mg Tab 5 MG PO DAILY for Blood Clot Prevention, #30 TAB 0 Refills Discontinued Medications: Furosemide (Lasix) 40 Mg Tab 40 MG PO DAILY, #30 TAB 0 Refills Ranitidine (Ranitidine) 150 Mg Tab 150 MG PO BID for Heartburn Management, #60 TAB 0 Refills Virginie Burnham DO Aug 19, 2017 17:34
== END 2017-08-19 12:26 | disposition home or self-care (01) | DRG 812 ==
LOC: NEPE 16:28 → NEDA 20:01 → NEDH 08-17 00:03 → N05A 08-17 17:09
PROVIDERS: ADMIT Hospitalist; ATTEND Hospitalist
PROC: 30233N1 Transfusion of Nonautologous Red Blood Cells into Peripheral Vein, Percutaneous Approach (ICD-10-PCS; principal; 2017-08-17)
DX: D62 Acute posthemorrhagic anemia (principal); I95.9 Hypotension, unspecified; I42.9 Cardiomyopathy, unspecified; I27.20 Pulmonary hypertension, unspecified; I11.0 Hypertensive heart disease with heart failure; I50.9 Heart failure, unspecified; K50.00 Crohn's disease of small intestine without complications; K92.2 Gastrointestinal hemorrhage, unspecified; Z68.1 Body mass index [BMI] 19.9 or less, adult; R63.4 Abnormal weight loss; I48.91 Unspecified atrial fibrillation; Z79.01 Long term (current) use of anticoagulants; R53.1 Weakness; K22.4 Dyskinesia of esophagus; I25.10 Atherosclerotic heart disease of native coronary artery without angina pectoris; I25.2 Old myocardial infarction; Z95.810 Presence of automatic (implantable) cardiac defibrillator; I34.0 Nonrheumatic mitral (valve) insufficiency; M19.90 Unspecified osteoarthritis, unspecified site; M06.9 Rheumatoid arthritis, unspecified; F32.9 Major depressive disorder, single episode, unspecified; F81.9 Developmental disorder of scholastic skills, unspecified; K02.9 Dental caries, unspecified; R74.8 Abnormal levels of other serum enzymes
CPT/HCPCS: 36430; 71045; 74177; 74230; 80048; 80053; 81001; 83605; 83690; 83735; 85025; 85610; 85730; 86850; 86900; 86901; 86920; 93005; 96360; C9113; J1940; J2270; J2405; J7030; J7050; P9016; Q9963; Q9967

== ENCOUNTER 2017-08-30 05:21 | Observation (INO) | payer MEDICARE ==
[~2017-08-30] VITALS: Ht 154.9 cm; Wt 43.4 kg
[2017-08-30] VITALS (21 sets, daily range): BP systolic 72–136; BP diastolic 24–84; PULSE 60–119; RESP 14–20; TEMP 97.8–98.7; O2SAT 94–100
[~2017-08-30 05:21] MED LIST changes: +ALBU0.08 NEB; +ATOR40TA16 PO; -FURO1TAB60 PO; +FURO1TAB62 PO; +PANT40TA3 PO; -RANI150T PO; -SIMV40TA PO; -SYMB160A INH
--- NOTE | 2017-08-30 05:52 | PD ---
HPI Chief Complaint: GI Complaint Time Seen by Provider: 05:46 Travel History International Travel<30 days: No Contact w/Intl Traveler<30days: No Traveled to known affect area: No History of Present Illness HPI 67-year-old woman, on warfarin, presents emerged from bright red blood per rectum. She has a history of Crohn's, A. fib which is why she is on warfarin, as well as anemia. She had a recent admission for anemia thought to be related to GI bleeding. No definite source was found. She was transfused 2 units. She left about 2 weeks or so ago. She is on fine since then. Tonight she is using the commode when she felt like she had diarrhea and then noticed a large amount of bright red blood in the toilet. She had one second episode and came to the emergency department. No real abdominal pain. No lightheadedness, chest pain, trouble breathing, or other associated symptoms. Symptoms started just tonight just prior to arrival. History Past Medical History Narrative Medical htn A. fib, on warfarin crohn's disease cad- [place] 2005; EF 20-% then cardiomyopathy- EF 20% in echo 12/2016, s/p aicd- pulmonary htn >70 moderate to severe mitral regurg osteoarthritis rheumatic arthritis Tetanus Vaccination: Unknown Influenza Vaccination: No LMP: menapause Menopausal: Yes : 2 Para: 2 Social History Alcohol Use: No Tobacco Use: No Allergies-Medications (Allergen,Severity, Reaction): Coded Allergies: penicillin G (Unverified Allergy, Severe, Swelling, 08/30/17) cefepime (Unverified Allergy, Unknown, Swelling, 08/30/17) ceftaroline fosamil (Unverified Allergy, Unknown, Swelling, 08/30/17) cephalexin (Unverified Allergy, Unknown, RASH, 08/30/17) Reported Meds & Prescriptions Reported Meds & Active Scripts Active Lasix (Furosemide) 20 Mg Tab 20 Mg PO BID Pantoprazole (Pantoprazole Sodium) 40 Mg Tab 40 Mg PO DAILY Coreg (Carvedilol) 12.5 Mg Tab 25 Mg PO BID 30 Days Lisa Allergy (Fexofenadine HCl) 180 Mg Tab 180 Mg PO DAILY Reported Albuterol Neb (Albuterol Sulfate) 2.5 Mg/3 Ml Neb 2.5 Mg NEB TID NEB PRN Atorvastatin (Atorvastatin Calcium) 40 Mg Tab 40 Mg PO HS Prozac (Fluoxetine HCl) 20 Mg Cap 20 Mg PO DAILY Remeron (Mirtazapine) 15 Mg Tab 15 Mg PO HS Klor-Con 10 (Potassium Chloride) 10 Meq Tab 10 Meq PO BID Folic Acid 1 Mg Tablet Digoxin 0.25 Mg Tab 0.25 Mg PO DAILY Sulfasalazine 500 Mg Tab 1,000 Mg PO BID Lisinopril 10 Mg Tab 5 Mg PO DAILY Coumadin (Warfarin) 5 Mg Tab 5 Mg PO DAILY Review of Systems Except as stated in HPI: all other systems reviewed are Neg Physical Exam Narrative GENERAL: Well-appearing 67-year-old woman, no acute distress. SKIN: Focused skin assessment warm/dry. HEAD: Atraumatic. Normocephalic. EYES: Pupils equal and round. No scleral icterus. No injection or drainage. ENT: No nasal bleeding or discharge. Mucous membranes pink and moist. NECK: Trachea midline. No JVD. CARDIOVASCULAR: Regular rate and rhythm. No murmur appreciated. RESPIRATORY: No accessory muscle use. Clear to auscultation. Breath sounds equal bilaterally. GASTROINTESTINAL: Abdomen soft, non-tender, nondistended. Hepatic and splenic margins not palpable. MUSCULOSKELETAL: No obvious deformities. RECTAL: Grossly normal appearance of the rectum. There may be a small number of herpetiform ulcerations, they appear well-healed and may just be old scarring. There is no tenderness or in any case and no active bleeding. On rectal exam there is dark maroon liquid stools in the rectal vault. Guaiac positive. Data Data Last Documented VS Vital Signs Date Time Temp Pulse Resp B/P (MAP) Pulse Ox O2 Delivery O2 Flow Rate FiO2 08/30/17 05:26 98.4 76 16 101/61 (74) 97 Orders Orders Complete Blood Count With Diff (08/30/17 05:46) Comprehensive Metabolic Panel (08/30/17 05:46) Act Partial Throm Time (Ptt) (08/30/17 05:46) Prothrombin Time / Inr (Pt) (08/30/17 05:46) Iv Access Insert/Monitor (08/30/17 05:46) Place In Observation (08/30/17 ) Vital Signs (Adult) PATRICE.QSHIFT (08/30/17 06:58) Intake + Output PATRICE.QSHIFT (08/30/17 06:58) Diet Npo (08/30/17 Breakfast) Sodium Chloride 0.9% Flush (Ns Flush) (08/30/17 07:00) Sodium Chloride 0.9% Flush (Ns Flush) (08/30/17 09:00) Ondansetron Inj (Zofran Inj) (08/30/17 07:00) Hgb & Hct (08/30/17 06:58) Hgb & Hct (08/30/17 12:58) Hgb & Hct (08/30/17 18:58) Hgb & Hct (08/31/17 00:58) Complete Blood Count With Diff (08/31/17 06:00) Basic Metabolic Panel (Bmp) (08/31/17 06:00) Consult Gastroenterology (08/30/17 ) Pantoprazole Inj (Protonix Inj) (08/30/17 07:00) Admit Order (Ed Use Only) (08/30/17 ) Labs Laboratory Tests Test 08/30/17 05:49 White Blood Count 8.3 TH/MM3 Red Blood Count 3.91 MIL/MM3 Hemoglobin 11.6 GM/DL Hematocrit 35.9 % Mean Corpuscular Volume 91.7 FL Mean Corpuscular Hemoglobin 29.8 PG Mean Corpuscular Hemoglobin Concent 32.4 % Red Cell Distribution Width 18.6 % Platelet Count 456 TH/MM3 Mean Platelet Volume 6.8 FL Neutrophils (%) (Auto) 69.2 % Lymphocytes (%) (Auto) 21.6 % Monocytes (%) (Auto) 8.4 % Eosinophils (%) (Auto) 0.5 % Basophils (%) (Auto) 0.3 % Neutrophils # (Auto) 5.8 TH/MM3 Lymphocytes # (Auto) 1.8 TH/MM3 Monocytes # (Auto) 0.7 TH/MM3 Eosinophils # (Auto) 0.0 TH/MM3 Basophils # (Auto) 0.0 TH/MM3 CBC Comment DIFF FINAL Differential Comment Prothrombin Time 34.8 SEC Prothromb Time International Ratio 3.5 RATIO Activated Partial Thromboplast Time 67.8 SEC Blood Urea Nitrogen 19 MG/DL Creatinine 0.88 MG/DL Random Glucose 97 MG/DL Total Protein 7.1 GM/DL Albumin 2.3 GM/DL Calcium Level 8.5 MG/DL Alkaline Phosphatase 191 U/L Aspartate Amino Transf (AST/SGOT) 21 U/L Alanine Aminotransferase (ALT/SGPT) 15 U/L Total Bilirubin 0.5 MG/DL Sodium Level 140 MEQ/L Potassium Level 3.6 MEQ/L Chloride Level 106 MEQ/L Carbon Dioxide Level 26.8 MEQ/L Anion Gap 7 MEQ/L Estimat Glomerular Filtration Rate 78 ML/MIN MDM Medical Decision Making Medical Screen Exam Complete: Yes Emergency Medical Condition: Yes Interpretation(s) LABS: CBC unremarkable CMP unremarkable INR 3.5 Differential Diagnosis GI bleed, AVM, malignancy, hemorrhoid, other Narrative Course Medical decision making 67-year-old woman, on warfarin, lower GI bleed, unclear etiology, will check labs, reassess, likely admission for observation. Diagnosis Primary Impression: Lower GI bleed Gennaro Harris MD Aug 30, 2017 05:52
[2017-08-30 06:29] LABS: AUTOMATED NEUTROPHIL # 5.8 TH/MM3 (1.8-7.7); BASOPHIL % 0.3 % (0.0-2.0); EOSINOPHIL % 0.5 % (0.0-4.0); HEMATOCRIT 35.9 % (35.0-46.0); HEMOGLOBIN 11.6 GM/DL (11.6-15.3); LYMPH % 21.6 % (9.0-44.0); LYMPHOCYTE # 1.8 TH/MM3 (1.0-4.8); MEAN CELL VOLUME 91.7 FL (80.0-100.0); MEAN CORPUSCULAR HEMOGLOBIN 29.8 PG (27.0-34.0); MEAN CORPUSCULAR HGB CONC 32.4 % (32.0-36.0); MEAN PLATELET VOLUME 6.8 FL (7.0-11.0); MONO % 8.4 % (0.0-8.0); MONOCYTE # 0.7 TH/MM3 (0-0.9); NEUT % 69.2 % (16.0-70.0); PLATELET COUNT 456 TH/MM3 (150-450); RED BLOOD COUNT 3.91 MIL/MM3 (4.00-5.30); RED CELL DISTRIBUTION WIDTH 18.6 % (11.6-17.2); WHITE BLOOD COUNT 8.3 TH/MM3 (4.0-11.0)
[2017-08-30 06:39] LABS: INTERNATIONAL NORMALIZED RATIO 3.5 RATIO; PROTHROMBIN TIME - PATIENT 34.8 SEC (9.8-11.6)
[2017-08-30 06:56] LABS: ALBUMIN 2.3 GM/DL (3.4-5.0); AST (GOT) 21 U/L (15-37); BICARBONATE 26.8 MEQ/L (21.0-32.0); BLOOD UREA NITROGEN 19 MG/DL (7-18); CALCIUM 8.5 MG/DL (8.5-10.1); CHLORIDE 106 MEQ/L (98-107); CREATININE 0.88 MG/DL (0.50-1.00); GLOMERULAR FILTRATION RATE 78 ML/MIN (>89); GLUCOSE,RANDOM 97 MG/DL (74-106); SODIUM (NA) 140 MEQ/L (136-145)
[2017-08-30 06:57] LABS: ALT (GPT) 15 U/L (10-53)
[2017-08-30 06:59] LABS: ALKALINE PHOSPHATASE 191 U/L (45-117); TOTAL BILIRUBIN ADULT 0.5 MG/DL (0.2-1.0); TOTAL PROTEIN 7.1 GM/DL (6.4-8.2)
[2017-08-30] MEDS ORDERED: ONDANSETRON HCL 4 MG/2 ML VIAL IV PUSH PRN (07:00)
[2017-08-30] MEDS ORDERED: SODIUM CHLORIDE 0.9% FLUSH 10 ML FLUSH IV FLUSH PRN (07:00)
[2017-08-30] MEDS ORDERED: PANTOPRAZOLE SODIUM 40 MG VIAL IV PUSH SCH (07:00)
[2017-08-30] MEDS ORDERED: PILL SPLITTER OTHER PRN (07:15)
[2017-08-30 07:55] LABS: HEMATOCRIT 30.4 % (35.0-46.0)
[2017-08-30] MEDS ORDERED: PHYTONADIONE 5 MG TAB PO ONE ×2 (08:45→09:00)
[2017-08-30] MEDS: CARVEDILOL 12.5 MG TAB PO SCH ×2 (09:00→21:17)
[2017-08-30] MEDS ORDERED: SODIUM CHLOR 0.9% 250 ML INJ 250 ML IV ONE (09:00)
[2017-08-30] MEDS ORDERED: LISINOPRIL 10 MG TAB PO SCH (09:00)
[2017-08-30] MEDS ORDERED: SODIUM CHLOR 0.9% 1000 ML INJ 1,000 ML IV ONE (09:00)
[2017-08-30] MEDS ORDERED: FUROSEMIDE 20 MG TAB PO SCH (09:00)
[2017-08-30] MEDS ORDERED: FUROSEMIDE 20 MG/2 ML VIAL IV PUSH ONE (09:00)
[2017-08-30] MEDS: SODIUM CHLORIDE 0.9% FLUSH 10 ML FLUSH IV FLUSH SCH ×2 (09:00→21:18)
--- NOTE | 2017-08-30 09:13 | HHI.HP ---
HPI Service [facility] Hospitalists Primary Care Physician Joni Hair MD Admission Diagnosis Lower GI bleed Diagnoses: Chief Complaint: Bright red blood per rectum Travel History International Travel<30 Days: No Contact w/Intl Traveler <30 Da: No Traveled to Known Affected Are: No History of Present Illness Written by Domonique Sherman, acting as scribe for Dr. Parson on 08/30/17 at 09: 13. This is a 67-year-old female with a past medical history significant for Crohn' s disease, HTN, CAD s/p [place] 2005, CHF EF 20%, atrial fibrillation, pulmonary HTN and rheumatic arthritis who presents to [facility] with complaints of bright red blood per rectum x 1 day. Patient states she has had 3-4 bloody bowel movements this morning. Patient states she feels "pretty good" at present. She denies any complaints of nausea, vomiting or abdominal pain. She denies any chest pain. She states that she was a little lightheaded earlier but feels better now. She reports moving this past weekend. Patient was admitted last month with similar episode and required transfusion of 2 units. She follows with Dr. Robison as an outpatient. Review of Systems Except as stated in HPI: all other systems reviewed are Neg Past Family Social History Past Medical History Recent hospitalization 08/16/17 for acute anemia and hypotension requiring transfusion 2 units PRBCs Hypertension Atrial fibrillation on Coumadin CAD, previous [place] 2005 Nonischemic cardiomyopathy, EF 20% Atrial fibrillation Status post AICD/pacemaker placement Pulmonary hypertension Moderate to severe mitral regurgitation Crohn's disease Osteoarthritis Rheumatic arthritis Depression Past Surgical History AICD/Pacemaker Myomectomy C section Reported Medications Lasix (Furosemide) 20 Mg Tab 20 Mg PO BID Pantoprazole (Pantoprazole Sodium) 40 Mg Tab 40 Mg PO DAILY Coreg (Carvedilol) 12.5 Mg Tab 25 Mg PO BID 30 Days Lisa Allergy (Fexofenadine HCl) 180 Mg Tab 180 Mg PO DAILY Albuterol Neb (Albuterol Sulfate) 2.5 Mg/3 Ml Neb 2.5 Mg NEB TID NEB PRN Atorvastatin (Atorvastatin Calcium) 40 Mg Tab 40 Mg PO HS Prozac (Fluoxetine HCl) 20 Mg Cap 20 Mg PO DAILY Remeron (Mirtazapine) 15 Mg Tab 15 Mg PO HS Klor-Con 10 (Potassium Chloride) 10 Meq Tab 10 Meq PO BID Folic Acid 1 Mg Tablet Digoxin 0.25 Mg Tab 0.25 Mg PO DAILY Sulfasalazine 500 Mg Tab 1,000 Mg PO BID Lisinopril 10 Mg Tab 5 Mg PO DAILY Coumadin (Warfarin) 5 Mg Tab 5 Mg PO DAILY Allergies: Coded Allergies: penicillin G (Unverified Allergy, Severe, Swelling, 08/30/17) cefepime (Unverified Allergy, Unknown, Swelling, 08/30/17) ceftaroline fosamil (Unverified Allergy, Unknown, Swelling, 08/30/17) cephalexin (Unverified Allergy, Unknown, RASH, 08/30/17) Active Ordered Medications Current Medications Medications (Trade) Dose Ordered Sig/Junaid Route Start Time Stop Time Status Last Admin (NS Flush) 2 ml UNSCH PRN IV FLUSH 08/30/17 07:00 (NS Flush) 2 ml BID IV FLUSH 08/30/17 09:00 (Zofran Inj) 4 mg Q6H PRN IV PUSH 08/30/17 07:00 (Protonix Inj) 40 mg Q24H IV PUSH 08/30/17 07:00 08/30/17 07:21 (Lipitor) 40 mg HS PO 08/30/17 21:00 (Coreg) 25 mg BID PO 08/30/17 09:00 (Lanoxin) 0.25 mg DAILY PO 08/30/17 09:00 (Pill Splitter) 1 ea UNSCH PRN OTHER 08/30/17 07:15 (Azulfidine) 1,000 mg BID PO 08/30/17 09:00 UNV (Mephyton) 5 mg ONCE ONCE PO 08/30/17 09:00 08/30/17 09:01 UNV Sodium Chloride 1,000 ml @ 999 mls/hr BOLUS ONCE IV 08/30/17 09:00 08/30/17 10:00 UNV Sodium Chloride 250 ml @ 15 mls/hr ONCE ONCE IV 08/30/17 09:00 08/31/17 01:39 UNV (Lasix Inj) 20 mg ONCE ONCE IV PUSH 08/30/17 09:00 08/30/17 09:01 UNV (SoluMEDROL INJ) 60 mg ONCE ONCE IV PUSH 08/30/17 09:15 08/30/17 09:16 UNV Family History CAD, DM Social History Patient denies any tobacco use. She denies any alcohol consumption. She denies any illicit drug use. 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 Awake and alert. SKIN: No rashes, ecchymoses or lesions. Cool and dry. HEAD: Atraumatic. Normocephalic. No temporal or scalp tenderness. EYES: Pupils equal round and reactive. Extraocular motions intact. No scleral icterus. No injection or drainage. ENT: Nose without bleeding or purulent drainage. Throat without erythema, tonsillar hypertrophy or exudate. Uvula midline. Airway patent. NECK: Trachea midline. No lymphadenopathy. Supple, nontender, no meningeal signs. CARDIOVASCULAR: Regular rate and rhythm without murmurs, gallops, or rubs. RESPIRATORY: Clear to auscultation. Breath sounds equal bilaterally. No wheezes , rales, or rhonchi. GASTROINTESTINAL: Abdomen soft, non-tender, nondistended. No hepato-splenomegaly , or palpable masses. No guarding. MUSCULOSKELETAL: Extremities without clubbing, cyanosis, or edema. No joint tenderness, effusion, or edema noted. No calf tenderness. NEUROLOGICAL: Awake and alert. Cranial nerves II through XII intact. Motor and sensory grossly within normal limits. Five out of 5 muscle strength in all muscle groups. Normal speech. Laboratory Laboratory Tests Test 08/30/17 05:49 08/30/17 07:29 White Blood Count 8.3 Red Blood Count 3.91 Hemoglobin 11.6 10.0 Hematocrit 35.9 30.4 Mean Corpuscular Volume 91.7 Mean Corpuscular Hemoglobin 29.8 Mean Corpuscular Hemoglobin Concent 32.4 Red Cell Distribution Width 18.6 Platelet Count 456 Mean Platelet Volume 6.8 Neutrophils (%) (Auto) 69.2 Lymphocytes (%) (Auto) 21.6 Monocytes (%) (Auto) 8.4 Eosinophils (%) (Auto) 0.5 Basophils (%) (Auto) 0.3 Neutrophils # (Auto) 5.8 Lymphocytes # (Auto) 1.8 Monocytes # (Auto) 0.7 Eosinophils # (Auto) 0.0 Basophils # (Auto) 0.0 CBC Comment DIFF FINAL Differential Comment Prothrombin Time 34.8 Prothromb Time International Ratio 3.5 Activated Partial Thromboplast Time 67.8 Blood Urea Nitrogen 19 Creatinine 0.88 Random Glucose 97 Total Protein 7.1 Albumin 2.3 Calcium Level 8.5 Alkaline Phosphatase 191 Aspartate Amino Transf (AST/SGOT) 21 Alanine Aminotransferase (ALT/SGPT) 15 Total Bilirubin 0.5 Sodium Level 140 Potassium Level 3.6 Chloride Level 106 Carbon Dioxide Level 26.8 Anion Gap 7 Estimat Glomerular Filtration Rate 78 Result Diagram: 08/30/17 0729 08/30/17 0549 Caprini VTE Risk Assessment Caprini VTE Risk Assessment: Mod/High Risk (score >= 2) Caprini Risk Assessment Model Point Value = 1 Point Value = 2 Point Value = 3 Point Value = 5 Age 41-60 Minor surgery BMI > 25 kg/m2 Swollen legs Varicose veins or History of unexplained or recurrent spontaneous Oral contraceptives or hormone replacement Sepsis (< 1 month) Serious lung disease, including pneumonia (< 1 month) Abnormal pulmonary function Acute myocardial infarction Congestive heart failure (< 1 month) History of inflammatory bowel disease Medical patient at bed rest Age 61-74 Arthroscopic surgery Major open surgery (> 45 min) Laparoscopic surgery (> 45 min) Malignancy Confined to bed (> 72 hours) Immobilizing plaster cast Central venous access Age >= 75 History of VTE Family history of VTE Factor V Leiden Prothrombin [id number] Lupus anticoagulant Anticardiolipin antibodies Elevated serum homocysteine Heparin-induced thrombocytopenia Other congenital or acquired thrombophilia Stroke (< 1 month) Elective arthroplasty Hip, pelvis, or leg fracture Acute spinal cord injury (< 1 month) Prophylaxis Regimen Total Risk Factor Score Risk Level Prophylaxis Regimen 0-1 Low Early ambulation 2 Moderate Order ONE of the following: *Sequential Compression Device (SCD) *Heparin 5000 units SQ BID 3-4 Higher Order ONE of the following medications: *Heparin 5000 units SQ TID *Enoxaparin/Lovenox 40 mg SQ daily (WT < 150 kg, CrCl > 30 mL/min) *Enoxaparin/Lovenox 30 mg SQ daily (WT < 150 kg, CrCl > 10-29 mL/min) *Enoxaparin/Lovenox 30 mg SQ BID (WT < 150 kg, CrCl > 30 mL/min) AND/OR *Sequential Compression Device (SCD) 5 or more Highest Order ONE of the following medications: *Heparin 5000 units SQ TID (Preferred with Epidurals) *Enoxaparin/Lovenox 40 mg SQ daily (WT < 150 kg, CrCl > 30 mL/min) *Enoxaparin/Lovenox 30 mg SQ daily (WT < 150 kg, CrCl > 10-29 mL/min) *Enoxaparin/Lovenox 30 mg SQ BID (WT < 150 kg, CrCl > 30 mL/min) AND *Sequential Compression Device (SCD) Assessment and Plan Assessment and Plan 67-year-old female with a past medical history significant for Crohn's disease, HTN, CAD s/p [place] 2005, CHF EF 20%, atrial fibrillation, pulmonary HTN and rheumatic arthritis who presents to [facility] with complaints of bright red blood per rectum x 1 day. //GIB //Possible Crohn's exacerbation -Consult GI, appreciate assistance -keep NPO -Closely monitor with serial H/Hs -IV Protonix 40mg twice daily -Given IV solumedrol -continue home dose of sulfasalazine //Symptomatic anemia secondary to GIB with BP 72/42, HR 110 -Transfuse 2 units packed red blood cells -monitor closely //Supratherapeutic INR 3.5 -FFP and Vitamin K ordered -hold home dose of Coumadin -repeat PT/INR in am //Atrial fibrillation on Coumadin, rate controlled //Severe cardiomyopathy with EF 20% s/p AICD/pacemaker -hold Coumadin 2/2 GIB. Likely will not resume given 2 episodes of GIB in past month -Continue on digoxin and Coreg -Monitor for signs of fluid overload //DVT prophylaxis -Avoid chemoprophylaxis secondary to GI bleed -bilateral SCD/HANNAH hose Discussed Condition With ED physician, patient Physician Certification 2 Midnight Certification Type: Admission for Inpatient Services Order for Inpatient Services The services are ordered in accordance with Medicare regulations or non- Medicare payer requirements, as applicable. In the case of services not specified as inpatient-only, they are appropriately provided as inpatient services in accordance with the 2-midnight benchmark. Estimated LOS (days): 3 3 days is the estimated time the patient will need to remain in the hospital, assuming treatment plan goals are met and no additional complications. Post-Hospital Plan: Not yet determined Notes: This note was transcribed by tere Sherman. I, Dr. Raulito Parson personally performed the history, physical exam, and medical decision making; and confirmed the accuracy of the information in the transcribed note. Authenticated by Dr. Raulito Parson on 09/01/17 at 06:13. Domonique Sherman Aug 30, 2017 09:13 Raulito Parson MD Sep 01, 2017 06:12
[2017-08-30] MEDS ORDERED: methylPREDNISolone SOD SUCC 125 MG/2 ML VIAL IV PUSH ONE (09:15)
[2017-08-30] MEDS ORDERED: PHYTONADIONE 2.5 MG/SWFI 2.5 ML ORAL SYR PO ONE (10:00)
[2017-08-30] MEDS: sulfaSALAzine 500 MG TAB PO SCH ×2 (10:06→21:00)
[2017-08-30] MEDS: DIGOXIN 0.25 MG TAB PO SCH (10:06)
[2017-08-30] MEDS ORDERED: PHYTONADIONE 5 MG/SWFI 5 ML ORAL SYR PO ONE ×2 (12:00)
[2017-08-30 12:14] LABS: HEMATOCRIT 23.2 % (35.0-46.0); HEMOGLOBIN 7.9 GM/DL (11.6-15.3)
--- NOTE | 2017-08-30 15:57 | MB ---
cc: Freddy Jones MD DATE: 08/30/2017 DATE OF : 1950 SERVICE DATE: 08/30/2017. ENDOSCOPIST: Freddy Jones MD PRIMARY INSTRUMENT MAN: Matt Robison MD HISTORY OF PRESENT ILLNESS: This is a pleasant 67-year-old female who is known to our practice with Dr. Robison and a recent admission to the hospital. She came to the hospital with the complaint of having bright red blood per rectum, which was painless. Denies any severe fevers, chills, nausea or vomiting. Denies any melanotic stools. She had a recent admission to the hospital on August 17 for similar issues with rectal bleeding. Her medical history is significant for a questionable history of small bowel Crohn's disease, a distant history of a Meckel's diverticulectomy which is the time she may have been diagnosed with Crohn's disease. She recently underwent an upper endoscopy and a colonoscopy by Dr. Robison in 02/2017. EGD was significant for mild gastritis, gastric erosions, biopsy negative for H pylori, Normal duodenum. Colonoscopy was significant for a small polyp in the transverse colon, which otherwise was relatively negative, although it was a poorly prepped colon. She does have atrial fibrillation, therefore she is on long-term anticoagulation with Coumadin. In fact, her INR on admission is 3.5. Her hemoglobin dropped from 11.6 down to 7.9. She had some mild shortness of breath on exertion. She was transfused 2 units of blood with overall improvement. She has not had any further bloody bowel movements at this time. PAST MEDICAL HISTORY: Hypertension, atrial fibrillation, coronary artery disease, ischemic cardiomyopathy with ejection fraction of 20%, pulmonary hypertension, questionable history of Crohn's disease, rheumatoid arthritis, depression. PAST SURGICAL HISTORY: ICD placement and . ALLERGIES: PENICILLIN, CEFEPIME, CEFTRIAXONE, CEPHALEXIN. HOME MEDICATIONS: Include: 1. Lasix. 2. Pantoprazole. 3. Coreg. 4. Lisa. 5. Albuterol. 6. Atorvastatin. 7. Prozac. 8. Remeron. 9. Folic acid. 10. Digoxin 11. Sulfasalazine. 12. Lisinopril. 13. Coumadin. FAMILY HISTORY: No GI malignancies. SOCIAL HISTORY: Denied tobacco, alcohol, or drug abuse. 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 REVIEW OF SYSTEMS: A 10-point review of systems was obtained, found to be negative or noncontributory except as above-mentioned in the HPI. PHYSICAL EXAMINATION: VITAL SIGNS: 98.0, 102, 16, 120/80. 98. HEENT: Mucosae dry, but pink. Extraocular movements are intact. Oral mucosa is moist. NECK: Supple, nontender. No carotid bruits noted. No thyromegaly identified. CARDIOVASCULAR: Irregular rhythm, regular rate, slightly tachycardic. CTAB. No wheezing. ABDOMEN: Soft, nontender, nondistended. Bowel sounds present in all 4 quadrants. EXTREMITIES: No edema noted. Multiple joint changes consistent with rheumatoid arthritis and osteoarthritis. Equal strength of upper and lower extremities. GENITOURINARY: No CVA tenderness noted. NEUROLOGIC: Alert and oriented. No focal deficits. PSYCHIATRIC: Cooperative, appropriate mood and affect. LABORATORY DATA: WBC 8.3, hemoglobin 7.9, MCV 91.7, platelet count 456. Sodium 140, potassium 3.6, chloride was 106, bicarbonate 26, BUN 19, creatinine 0.88, total bilirubin 0.5, AST 21, ALT 15, alkaline phosphatase 191. INR 3.5. Digoxin 0.9. IMPRESSION: 1. Rectal bleeding may be secondary to lower gastrointestinal bleed such as diverticular bleeding, hemorrhoidal bleeding, less likely AVMs. Less likely to be an upper GI source and also precipitated by coagulopathy with a long-term anticoagulation use. 2. The patient has undergone endoscopic workup as recent as 03/19/2017. I am not sure if having her undergo repeated procedures would yield a significant benefit, and it would increase her risk given her significant cardiopulmonary issues. In saying that, if the patient continues to have rectal bleeding and therapeutic intervention is needed, then I believe endoscopic workup would be more than reasonable. RECOMMENDATIONS: 1. At this time, she has stopped bleeding and therefore, I would recommend continued monitoring of stool for persistent gastrointestinal bleeding. 2. Transfuse as necessary to alleviate her symptoms. 3. An outpatient followup with Dr. Robison as previously scheduled. Thank you for allowing the [facility] to participate in the care of this patient. We will follow along with you and make recommendation as per of the patient's clinical course. MD SREEDHAR Conde/BRAIN , 03:25 PM , 03:56 PM
[2017-08-30] MEDS ORDERED: PEG (High)/E-LYTE SOLN 4000 ML BTL PO ONE (19:15)
[2017-08-30] MEDS: ATORVASTATIN 40 MG TAB PO SCH (21:17)
[2017-08-30] MEDS: PANTOPRAZOLE SODIUM 40 MG VIAL IV PUSH SCH (21:17)
[2017-08-30 23:24] LABS: HEMATOCRIT 32.2 % (35.0-46.0)
[2017-08-31 04:00] VITALS: BP 104/68; PULSE 72; RESP 18; TEMP 98.2; O2SAT 95
[2017-08-31 05:12] LABS: BASOPHIL % 0.5 % (0.0-2.0); EOSINOPHIL # 0.1 TH/MM3 (0-0.4); EOSINOPHIL % 0.9 % (0.0-4.0); HEMATOCRIT 28.8 % (35.0-46.0); LYMPH % 19.4 % (9.0-44.0); LYMPHOCYTE # 1.7 TH/MM3 (1.0-4.8); MEAN CELL VOLUME 88.8 FL (80.0-100.0); MEAN CORPUSCULAR HEMOGLOBIN 30.7 PG (27.0-34.0); MEAN CORPUSCULAR HGB CONC 34.6 % (32.0-36.0); MEAN PLATELET VOLUME 6.5 FL (7.0-11.0); MONOCYTE # 0.9 TH/MM3 (0-0.9); NEUT % 69.2 % (16.0-70.0); PLATELET COUNT 275 TH/MM3 (150-450); RED BLOOD COUNT 3.24 MIL/MM3 (4.00-5.30); RED CELL DISTRIBUTION WIDTH 16.6 % (11.6-17.2); WHITE BLOOD COUNT 8.6 TH/MM3 (4.0-11.0)
[2017-08-31 05:21] LABS: INTERNATIONAL NORMALIZED RATIO 1.6 RATIO; PROTHROMBIN TIME - PATIENT 15.9 SEC (9.8-11.6)
[2017-08-31 05:43] LABS: BICARBONATE 29.7 MEQ/L (21.0-32.0); CALCIUM 7.8 MG/DL (8.5-10.1); CREATININE 0.71 MG/DL (0.50-1.00)
[2017-08-31 08:00] VITALS: BP 110/76; PULSE 19; RESP 19; TEMP 98.1; O2SAT 96
[2017-08-31] MEDS: sulfaSALAzine 500 MG TAB PO SCH ×2 (08:30→20:50)
[2017-08-31] MEDS: CARVEDILOL 12.5 MG TAB PO SCH ×2 (08:30→20:50)
[2017-08-31] MEDS: PANTOPRAZOLE SODIUM 40 MG VIAL IV PUSH SCH (08:30)
[2017-08-31] MEDS: DIGOXIN 0.25 MG TAB PO SCH (08:30)
[2017-08-31] MEDS: SODIUM CHLORIDE 0.9% FLUSH 10 ML FLUSH IV FLUSH SCH ×2 (08:30→20:51)
[2017-08-31 12:00] VITALS: BP 108/72; PULSE 68; RESP 18; TEMP 97.7; O2SAT 95
[2017-08-31 12:05] LABS: HEMATOCRIT 29.7 % (35.0-46.0); HEMOGLOBIN 10.2 GM/DL (11.6-15.3)
--- NOTE | 2017-08-31 13:30 | HHI.PR ---
Subjective Remarks hungry no episodes of rectal bleeding today stools brown- no bloodno adominal pain, hungry Objective Vitals Vital Signs Date Time Temp Pulse Resp B/P (MAP) Pulse Ox O2 Delivery O2 Flow Rate FiO2 08/31/17 12:00 97.7 68 18 108/72 (84) 95 08/31/17 08:00 98.1 19 19 110/76 (87) 96 08/31/17 07:10 Room Air 08/31/17 04:00 Room Air 08/31/17 04:00 98.2 72 18 104/68 (80) 95 08/31/17 00:00 Room Air 08/30/17 23:36 98.3 90 16 120/62 (81) 97 08/30/17 23:13 97.8 119 20 118/58 95 08/30/17 22:44 98.5 99 20 133/55 95 08/30/17 20:00 Room Air 08/30/17 20:00 97.8 89 17 136/84 (101) 94 08/30/17 16:07 98.3 95 17 124/79 (94) 97 08/30/17 16:01 98.2 83 18 99/72 98 08/30/17 15:45 98.3 60 18 124/24 97 I/O 08/30/17 08/30/17 08/30/17 08/31/17 08/31/17 08/31/17 07:00 15:00 23:00 07:00 15:00 23:00 Intake Total 1420 ml 435 ml 1060 ml Output Total 350 ml Balance 1420 ml 435 ml 710 ml Intake Oral 600 ml IV Total 1000 ml 250 ml Packed Cells 400 ml 400 ml FFP 195 ml Blood Product IV Normal Saline Flush 20 ml 35 ml 15 ml Output Urine Total 350 ml # Voids 1 # Bowel Movements 3 0 0 Result Diagram: 08/31/17 1144 08/31/17 0459 Objective Remarks awake and alert, no acute distress anciteric lungs-n rales irregular rhythm abdomen soft, nontender extremities - no edema neuro exam- non focal A/P Assessment and Plan 67-year-old female with a past medical history significant for Crohn's disease, HTN, CAD s/p [place] 2005, CHF EF 20%, atrial fibrillation, pulmonary HTN and rheumatic arthritis who presents to [facility] with complaints of bright red blood per rectum x 1 day. //Lower GIB //Possible Crohn's exacerbation _ H and H stable,. recheck in am -IV Protonix 40mg twice daily -continue home dose of sulfasalazine //Symptomatic anemia secondary to GIB- feeling stronger -S/P Transfuse 2 units packed red blood cells -monitor closely //Supratherapeutic INR 3.5- reversed -FFP and Vitamin K ordered -hold home dose of Coumadin -repeat PT/INR in am //Atrial fibrillation on Coumadin, rate controlled //Severe cardiomyopathy with EF 20% s/p AICD/pacemaker -hold Coumadin 2/2 GIB. Likely will not resume given 2 episodes of GIB in past month -Continue on digoxin and Coreg -Monitor for signs of fluid overload //DVT prophylaxis -Avoid chemoprophylaxis secondary to GI bleed -bilateral SCD/HANNAH románe GI ff- Jeff Garrido MD Aug 31, 2017 13:30
[2017-08-31 16:00] VITALS: BP 105/70; PULSE 62; RESP 17; TEMP 97.9; O2SAT 97
[2017-08-31 20:00] VITALS: BP 81/67; PULSE 83; RESP 16; TEMP 98.1; O2SAT 97
--- NOTE | 2017-08-31 20:09 | HHI.GIFU ---
GI Follow-up Note Consult Follow-up Subjective: Patient laying in bed comfortably, no new complaints. No bleeding today. no fever or chill no abdo pain Objective: PHYSICAL EXAMINATION: Vitals signs stable No fever HEENT: Pupils round and reactive to light; normocephalic; atraumatic; no jaundice. Throat is clear. NECK: Neck is supple, no JVD, no lymphadenopathy. CHEST: Chest is clear to auscultation and percussion. CARDIAC: Regular rate and rhythm with no murmur gallop or rubs. ABDOMEN: Soft, nondistended, nontender; no hepatosplenomegaly; bowel sounds are present in all four quadrants. EXTREMITIES: No clubbing, cyanosis, or edema. SKIN: Normal; no rash; no jaundice. COORDINATOR OF PLACEMENT: No focal deficits; alert and oriented times three. Available Data (labs, X- Rays, Procedues) : ASSESSMENT/PLAN: 1. Rectal bleeding - resolved - has recently had EGd and colon. 2. acute anemia of blood loss plan: 1. diet as tolerated 2. Out pt follow up 3. will need pill cam. 4. Dr marie with to follow starting tomorrow It was a pleasure seeing Facundo Krishna. Thank you for this consult. Entered by: Freddy De Dios MD Aug 31, 2017 20:09
[2017-08-31] MEDS: PANTOPRAZOLE SOD 40 MG DELAYED RELEASE TAB PO SCH (20:50)
[2017-08-31] MEDS: ATORVASTATIN 40 MG TAB PO SCH (20:51)
[2017-09-01] VITALS: BP 125/77; PULSE 90; RESP 16; TEMP 98.2; O2SAT 96
[2017-09-01 04:00] VITALS: BP 89/63; PULSE 76; RESP 16; TEMP 98.2; O2SAT 97
[2017-09-01 07:43] LABS: HEMATOCRIT 29.8 % (35.0-46.0); HEMOGLOBIN 10.1 GM/DL (11.6-15.3); MEAN CELL VOLUME 89.8 FL (80.0-100.0); MEAN CORPUSCULAR HEMOGLOBIN 30.5 PG (27.0-34.0); MEAN PLATELET VOLUME 6.6 FL (7.0-11.0); PLATELET COUNT 288 TH/MM3 (150-450); RED BLOOD COUNT 3.32 MIL/MM3 (4.00-5.30); RED CELL DISTRIBUTION WIDTH 17.2 % (11.6-17.2); WHITE BLOOD COUNT 5.8 TH/MM3 (4.0-11.0)
[2017-09-01 08:00] VITALS: BP 103/75; PULSE 79; RESP 18; TEMP 98.1; TEMP 98.4; O2SAT 96
[2017-09-01] MEDS: PANTOPRAZOLE SOD 40 MG DELAYED RELEASE TAB PO SCH (08:30)
[2017-09-01] MEDS: sulfaSALAzine 500 MG TAB PO SCH (08:30)
[2017-09-01] MEDS: SODIUM CHLORIDE 0.9% FLUSH 10 ML FLUSH IV FLUSH SCH (08:30)
[2017-09-01] MEDS: DIGOXIN 0.25 MG TAB PO SCH (08:30)
[2017-09-01] MEDS: CARVEDILOL 12.5 MG TAB PO SCH (08:30)
--- NOTE | 2017-09-01 10:57 | HHI.GIFU ---
GI Follow-up Note Consult Follow-up Subjective: Patient laying in bed comfortably, no new complaints. Normal stool with no bleeding. Objective: PHYSICAL EXAMINATION: Vitals signs stable No fever HEENT: EOMI SURGICAL TECH: alert and oriented times three. Available Data (labs, X- Rays, Procedues) : Hgb has been stable, 10-10.2 for the past three readings ASSESSMENT/PLAN:GI bleeding with unremarkable EGD/colonoscopy this past April. OK to d/c from GI standpoint, off warfarin. We'll try to coordinate small intestine capsule endoscopy for tomorrow to try to keep her off her blood thinner as short a time as possible. It was a pleasure seeing Facundo Krishna Entered by: Matt Hylton MD Sep 01, 2017 10:57
[2017-09-01 12:00] VITALS: BP 92/58; PULSE 69; RESP 18; TEMP 98.2; O2SAT 95
--- NOTE | 2017-09-01 12:50 | HHI.PR ---
Subjective Remarks no complains of abdominal pain, nausea or vomiting no episodes of bleeding here Objective Vitals Vital Signs Date Time Temp Pulse Resp B/P (MAP) Pulse Ox O2 Delivery O2 Flow Rate FiO2 09/01/17 12:00 98.2 69 18 92/58 (69) 95 09/01/17 08:00 98.1 79 18 103/75 (84) 96 09/01/17 08:00 Room Air 09/01/17 08:00 98.4 79 18 103/75 (84) 96 09/01/17 04:00 98.2 76 16 89/63 (72) 97 09/01/17 04:00 Room Air 09/01/17 00:00 98.2 90 16 125/77 (93) 96 09/01/17 00:00 Room Air 08/31/17 20:00 98.1 83 16 81/67 (72) 97 08/31/17 20:00 Room Air 08/31/17 16:00 97.9 62 17 105/70 (82) 97 I/O 08/31/17 08/31/17 08/31/17 09/01/17 09/01/17 09/01/17 07:00 15:00 23:00 07:00 15:00 23:00 Intake Total 1060 ml 1200 ml 500 ml Output Total 350 ml 500 ml 500 ml Balance 710 ml 700 ml 0 ml Intake Oral 600 ml 1200 ml 500 ml IV Total 250 ml FFP 195 ml Blood Product IV Normal Saline Flush 15 ml Output Urine Total 350 ml 500 ml 500 ml # Voids 4 # Bowel Movements 0 2 Result Diagram: 09/01/17 0713 08/31/17 0459 Objective Remarks awake and alert, no acute distress anciteric lungs-no rales irregular rhythm abdomen soft, nontender extremities - no edema neuro exam- non focal A/P Assessment and Plan 67-year-old female with a past medical history significant for Crohn's disease, HTN, CAD s/p [place] 2005, CHF EF 20%, atrial fibrillation, pulmonary HTN and rheumatic arthritis who presents to [facility] with complaints of bright red blood per rectum x 1 day. //Lower GIB- no active episoes here //Possible Crohn's exacerbation _ H and H stable, -IV Protonix 40mg twice daily- change to po -continue home dose of sulfasalazine - plan for capsule endoscopy as OP- //Symptomatic anemia secondary to GIB- feeling stronger -S/P Transfuse 2 units packed red blood cells -monitor closely //Supratherapeutic INR 3.5- reversed -FFP and Vitamin K ordered -hold home dose of Coumadin - hold till GI work up completed //Atrial fibrillation on Coumadin, rate controlled //Severe cardiomyopathy with EF 20% s/p AICD/pacemaker -hold Coumadin 2/2 GIB. 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 Patton //DVT prophylaxis -Avoid chemoprophylaxis secondary to GI bleed -bilateral SCD/HANNAH francee DC home today OP ff up with PCP and GI. Jeff Garrido MD Sep 01, 2017 12:50
[2017-09-01] MEDS ORDERED: POTASSIUM CHLORIDE 20 MEQ CONTROLLED RELEASE TAB PO ONE (13:00)
--- NOTE | 2017-09-01 19:05 | HHI.DS ---
Discharge Summary Admission Date Aug 30, 2017 at 07:01 Discharge Date: Sep 01, 2017 Admitting Diagnosis Lower GI bleed (1) Anemia ICD Code: D64.9 - Anemia, unspecified Diagnosis: Principal Status: Acute (2) Crohn's disease ICD Code: K50.90 - Crohn's disease, unspecified, without complications Status: Acute (3) Atrial fibrillation with RVR ICD Code: I48.91 - Unspecified atrial fibrillation Diagnosis: Secondary Status: Acute Procedures none Brief History - From Admission Written by Domonique Sherman, acting as scribe for Dr. Parson on 08/30/17 at 09: 13. This is a 67-year-old female with a past medical history significant for Crohn' s disease, HTN, CAD s/p VT 2005, CHF EF 20%, atrial fibrillation, pulmonary HTN and rheumatic arthritis who presents to [facility] with complaints of bright red blood per rectum x 1 day. Patient states she has had 3-4 bloody bowel movements this morning. Patient states she feels "pretty good" at present. She denies any complaints of nausea, vomiting or abdominal pain. She denies any chest pain. She states that she was a little lightheaded earlier but feels better now. She reports moving this past weekend. Patient was admitted last month with similar episode and required transfusion of 2 units. She follows with Dr. Robison as an outpatient. CBC/BMP: 09/01/17 0713 08/31/17 0459 Significant Findings Laboratory Tests Test 08/30/17 05:49 08/30/17 07:29 08/30/17 10:30 08/30/17 23:00 Red Blood Count 3.91 MIL/MM3 (4.00-5.30) Red Cell Distribution Width 18.6 % (11.6-17.2) Platelet Count 456 TH/MM3 (150-450) Mean Platelet Volume 6.8 FL (7.0-11.0) Monocytes (%) (Auto) 8.4 % (0.0-8.0) Prothrombin Time 34.8 SEC (9.8-11.6) Activated Partial Thromboplast Time 67.8 SEC (24.3-30.1) Blood Urea Nitrogen 19 MG/DL (7-18) Albumin 2.3 GM/DL (3.4-5.0) Alkaline Phosphatase 191 U/L (45-117) Estimat Glomerular Filtration Rate 78 ML/MIN (>89) Hemoglobin 10.0 GM/DL (11.6-15.3) 7.9 GM/DL (11.6-15.3) 11.0 GM/DL (11.6-15.3) Hematocrit 30.4 % (35.0-46.0) 23.2 % (35.0-46.0) 32.2 % (35.0-46.0) B-Type Natriuretic Peptide 907 PG/ML (0-100) Test 08/31/17 04:51 08/31/17 04:59 08/31/17 11:44 09/01/17 07:13 Prothrombin Time 15.9 SEC (9.8-11.6) Red Blood Count 3.24 MIL/MM3 (4.00-5.30) 3.32 MIL/MM3 (4.00-5.30) Hemoglobin 10.0 GM/DL (11.6-15.3) 10.2 GM/DL (11.6-15.3) 10.1 GM/DL (11.6-15.3) Hematocrit 28.8 % (35.0-46.0) 29.7 % (35.0-46.0) 29.8 % (35.0-46.0) Mean Platelet Volume 6.5 FL (7.0-11.0) 6.6 FL (7.0-11.0) Monocytes (%) (Auto) 10.0 % (0.0-8.0) Random Glucose 109 MG/DL (74-106) Calcium Level 7.8 MG/DL (8.5-10.1) Potassium Level 3.4 MEQ/L (3.5-5.1) PE at Discharge awake and alert, no acute distress anciteric lungs-no rales irregular rhythm abdomen soft, nontender extremities - no edema neuro exam- non focal Pt update on day of discharge awake and alert tolerating po no episodes of melena or hematochezia Hospital Course 67-year-old female with a past medical history significant for Crohn's disease, HTN, CAD s/p VT 2005, CHF EF 20%, atrial fibrillation, pulmonary HTN and rheumatic arthritis who presents to [facility] with complaints of bright red blood per rectum x 1 day. //Lower GIB- no active episodes here //Possible Crohn's exacerbation _ H and H stable, -IV Protonix 40mg twice daily- change to po -continue home dose of sulfasalazine - plan for capsule endoscopy as OP- //Symptomatic anemia secondary to GIB- feeling stronger -S/P Transfuse 2 units packed red blood cells -monitor closely //Supratherapeutic INR 3.5- reversed -FFP and Vitamin K ordered -hold home dose of Coumadin - hold till GI work up completed //Atrial fibrillation on Coumadin, rate controlled //Severe cardiomyopathy with EF 20% s/p AICD/pacemaker -hold Coumadin 2/2 GIB. 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 Patton //DVT prophylaxis -Avoid chemoprophylaxis secondary to GI bleed -bilateral SCD/HANNAH hose DC home today OP ff up with PCP and GI. Pt Condition on Discharge: Stable Discharge Disposition: Discharge Home Discharge Time: <= 30 minutes Discharge Instructions DIET: Follow Instructions for: Heart Healthy Diet Speech Therapy-Diet Recommends: Regular Activities you can perform: Weight Bearing as Skip Activities to Avoid: Strenuous Activity Follow up Referrals: Gastroenterology - 2-3 Days with Matt Robison MD PCP Follow-up - 09/03/17 with [facility] New Orders: BASIC METABOLIC PROF - 09/02/17 Continued Medications: Albuterol Neb (Albuterol Neb) 2.5 Mg/3 Ml Neb 2.5 MG NEB TID NEB PRN for SHORTNESS OF BREATH, #60 NEBULE 0 Refills Atorvastatin (Atorvastatin) 40 Mg Tab 40 MG PO HS for Cholesterol Management, #30 TAB 0 Refills Digoxin (Digoxin) 0.25 Mg Tab 0.25 MG PO DAILY for Regulate Heart Beat, #30 TAB 0 Refills Fexofenadine (Lisa Allergy) 180 Mg Tab 180 MG PO DAILY for Allergy Management, #30 TAB 0 Refills Fluoxetine (Prozac) 20 Mg Cap 20 MG PO DAILY, #30 CAP 0 Refills Furosemide (Lasix) 20 Mg Tab 20 MG PO BID for Heart, #60 TAB 0 Refills Lisinopril (Lisinopril) 10 Mg Tab 5 MG PO DAILY, #30 TAB 0 Refills Mirtazapine (Remeron) 15 Mg Tab 15 MG PO HS for Depression Control, #30 TAB 0 Refills Pantoprazole (Pantoprazole) 40 Mg Tab 40 MG PO DAILY for Reflux, #30 TAB 11 Refills Potassium Chloride ER (Klor-Con 10) 10 Meq Tab 10 MEQ PO BID for Electrolyte Replacement, #60 TAB 0 Refills Sulfasalazine (Sulfasalazine) 500 Mg Tab 1000 MG PO BID, #240 TAB 0 Refills Discontinued Medications: Warfarin (Coumadin) 5 Mg Tab 5 MG PO DAILY for Blood Clot Prevention, #30 TAB 0 Refills Jeff Garrido MD Sep 01, 2017 19:05
== END 2017-09-01 13:43 | disposition home or self-care (01) ==
LOC: NEPC 05:21 → NEDA 07:01 → N04B 13:03
PROVIDERS: ADMIT Internal Medicine; ATTEND Internal Medicine
DX: K92.2 Gastrointestinal hemorrhage, unspecified (principal); I25.10 Atherosclerotic heart disease of native coronary artery without angina pectoris; I25.2 Old myocardial infarction; R06.02 Shortness of breath; I25.5 Ischemic cardiomyopathy; I34.0 Nonrheumatic mitral (valve) insufficiency; R42 Dizziness and giddiness; I11.0 Hypertensive heart disease with heart failure; I50.9 Heart failure, unspecified; I48.91 Unspecified atrial fibrillation; I27.20 Pulmonary hypertension, unspecified; M06.9 Rheumatoid arthritis, unspecified; R79.1 Abnormal coagulation profile; F32.9 Major depressive disorder, single episode, unspecified; M19.90 Unspecified osteoarthritis, unspecified site; Z79.01 Long term (current) use of anticoagulants; Z79.899 Other long term (current) drug therapy; Z95.0 Presence of cardiac pacemaker
CPT/HCPCS: 36430; 80048; 80053; 80162; 83880; 85014; 85018; 85025; 85027; 85610; 85730; 86850; 86900; 86901; 86920; 86927; 96361; 96374; 96375; 96376; 99285; C9113; G0378; J1940; J2930; J7030; J7050; P9016; P9017

== ENCOUNTER 2018-03-22 00:48 | Inpatient (IN) ==
[2018-03-22 02:05] LABS: Baso % (Auto) 0.5 % (0.0-2.0); Eos % (Auto) 0.4 % (0.0-4.0); Hematocrit 35.1 % (35.0-46.0); Hemoglobin 11.7 gm/dL (11.6-15.3); Lymph # (Auto) 1.5 th/mm3 (1.0-4.8); Mean Corpuscular HGB Conc 33.3 % (32.0-36.0); Mean Corpuscular Hemoglobin 30.6 pg (27.0-34.0); Mean Corpuscular Volume 91.9 fL (80.0-100.0); Mean Platelet Volume 7.7 fL (7.0-11.0); Mono # (Auto) 0.6 th/mm3 (0.0-0.9); Mono % (Auto) 8.4 % (0.0-8.0); Neut # (Auto) 5.1 th/mm3 (1.8-7.7); Neut % (Auto) 69.7 % (16.0-70.0); Platelet Count 275 th/mm3 (150-450); Red Blood Count 3.82 mil/mm3 (4.00-5.30); Red Cell Distribution Width 14.7 % (11.6-17.2); White Blood Count 7.3 th/mm3 (4.0-11.0)
[2018-03-22] MEDS ORDERED: Sodium Chlor 0.9% Inj 500 ML IV.SIG ONE (02:10)
[2018-03-22] MEDS ORDERED: Morphine Inj 4 MG/ML Vial IV.PUSH ONE (02:10)
--- NOTE | 2018-03-22 02:10 | ED ---
HPI General Chief complaint: Abdominal Pain Stated complaint: Abd/back pain Time Seen by Provider: 03/22/18 01:12 Source: patient Mode of arrival: ambulatory Limitations: no limitations History of Present Illness HPI narrative: The patient is a 67 year old female who presents to the [facility] emergency department with a history of left flank pain that she reports began on Wednesday night. She reports that the pain is sharp in character and began to radiate around to the abdomen. She reports that now she has pain in bilateral upper quadrants of the abdomen and bilateral flanks. She denies having any nausea or vomiting associated with this. She denies having any fevers, however she has had chills. She denies having any increased stool frequency. She reports that she has 1 soft stool daily. She did move her bowels earlier today. She denies seeing any blood in her stool or black or tarry stools. She reports that she does have a history of Crohn's disease and is on sulfasalazine for this. She denies any history of kidney stones. She denies any dysuria or urinary urgency. She does however report having urinary frequency which she attributes to being on Lasix. On review of systems otherwise, the patient denies having any cough, congestion, neck pain, chest pain, shortness of breath, or neurologic symptoms. Related Data Home Medications Medication Instructions Recorded Confirmed atorvastatin 20 mg PO DAILY 03/22/18 03/22/18 carvedilol [Coreg] 25 mg PO BID 03/22/18 03/22/18 digoxin 0.25 mg PO DAILY 03/22/18 03/22/18 fexofenadine [Lisa Allergy] 180 mg PO DAILY 03/22/18 03/22/18 fluoxetine [Prozac] 20 mg PO DAILY 03/22/18 03/22/18 folic acid 1 mg PO DAILY 03/22/18 03/22/18 furosemide 20 mg PO DAILY 03/22/18 03/22/18 lisinopril 10 mg PO DAILY 03/22/18 03/22/18 mirtazapine [Remeron] 30 mg PO DAILY 03/22/18 03/22/18 pantoprazole [Protonix] 20 mg PO DAILY 03/22/18 03/22/18 warfarin [Coumadin] 5 mg PO [id number] 03/22/18 03/22/18 Allergies Allergy/AdvReac Type Severity Reaction Status Date / Time penicillin G Allergy Severe Swelling Verified 03/22/18 00:55 cefepime Allergy Unknown Swelling Verified 03/22/18 00:55 ceftaroline fosamil Allergy Unknown Swelling Verified 03/22/18 00:55 cephalexin Allergy Unknown RASH Verified 03/22/18 00:55 Review of Systems ROS: all other systems reviewed are negative [facility] Medical History Medical History Atrial fibrillation (Acute) Crohn's disease (Acute) GI bleed (Acute) HTN (hypertension) (Acute) Hx of myocardial infarction (Acute) Nonischemic cardiomyopathy (Acute) Pulmonary hypertension (Acute) Rheumatoid arthritis (Acute) Surgical History Surgical History H/O myomectomy (Acute) Hx of section (Acute) S/P placement of cardiac pacemaker (Acute) Social History Social History Substance History: No History of Abuse Smoking Status: Former smoker How Often Do You Have a Drink Containing Alcohol: Monthly or less Recent Travel in [facility] within the Last 8 Weeks: No Recent Out of Country Travel within the Last 8 Weeks: No Immunization History Tetanus Immunization: Unsure Exam Const General: cooperative, no acute distress and well developed Nutritional Appearance: well nourished Orientation: alert, awake and oriented x3 HENMT Head: normocephalic and atraumatic Nose: no nasal discharge and no epistaxis Mouth: moist mucous membranes Throat: posterior oropharynx normal and uvula midline Eyes Sclera: normal sclerae Pupils: PERRL Neck Neck: no meningeal signs, trachea midline and no JVD Resp Effort & Inspection: no use of accessory muscles Auscultation: clear to auscultation bilaterally Cardio Rate: regular rate Rhythm: regular rhythm Heart Sounds: no murmurs GI Inspection: non-distended Palpation: soft, no hepatosplenomegaly, no guarding, not rigid and tender in the epigastrum, in the LUQ and in the RUQ; not in the LLQ, not in the RLQ, not at McBurney's point, not periumbilically, Brown's sign negative and with no rebound tenderness Auscultation: normal bowel sounds Back/Spine/Pelvis Back: CVA tenderness (The patient reports having bilateral CVA tenderness worse on the left compared to the right.) Skin General: dry skin (warm) Neuro General: alert, awake, oriented x3 and other (Grossly nonfocal) Speech: speech normal Motor: no movement abnormalities noted Extrem General: normal to inspection (2+ pulses in all 4 extremities peer), no calf tenderness, no clubbing, no cyanosis and no edema Psych Mood: congruent mood Affect: normal affect Judgment: judgment good Course Reevaluation(s) Reevaluation #1: The patient on reexamination reported feeling improved. The patient was resting comfortably. Additional Reevaluation(s): The patient's case including history, pertinent physical examination findings, and laboratory studies were discussed with Dr. Padron. It was agreed that the patient would be admitted to the hospitalist service. Initial Documented Vital Signs Temperature 97.7 F 03/22/18 00:52 Pulse Rate 72 03/22/18 00:52 Respiratory Rate 20 03/22/18 00:52 Blood Pressure 133/74 03/22/18 00:52 Pulse Oximetry 97 03/22/18 00:52 Last Documented Vital Signs Temperature 98.0 F 03/22/18 00:55 Pulse Rate 58 L 03/22/18 04:31 Respiratory Rate 15 03/22/18 04:31 Blood Pressure 105/60 03/22/18 04:31 Pulse Oximetry 95 03/22/18 04:31 Medical Decision Making MDM Narrative Medical decision making narrative: During the course of the patient's emergency department visit, the patient's history, examination, and differential diagnosis were reviewed with the patient. The patient was placed on a monitor car operator with oximetry and frequent blood pressure monitoring. The patient had IV access obtained and blood work sent for analysis. A diagnostic evaluation was started regarding the patient's abdominal pain. The patient was initially provided normal saline IV fluids, morphine for pain, Zofran for nausea. Patient's diagnostic evaluation is remarkable for a white count of 7.3, hemoglobin 11.7, platelets 275 with 8.4 monocytes, PT 14.1, INR subtherapeutic at 1.4, PTT 28.3, chemistry is remarkable for a GFR of 81, calcium 8.4, AST 49, alk phos 148, cardiac enzymes within normal limits, C-reactive protein slightly elevated at 1.47, albumin 2.9, lipase within normal limits, lactic acid within normal limits at 1.1, urinalysis shows no acute abnormality. CHEST X-RAY: Shows no acute cardiopulmonary disease. CT scan of the abdomen and pelvis reveals bilateral renal infarcts which are new compared to the patient's CT scan from July 2017, cardiomegaly, hepatic steatosis, nonspecific dilatation of the pancreatic duct, cleft seen at the spleen which is either developmental or sequela of previous injury, no fluid around the spleen. As the patient has a history of atrial fibrillation and a cardiomyopathy with a prior ejection fraction of 20% with a subtherapeutic INR there is a concern that the patient has developed a cardiac thrombosis with emboli to the kidneys. The patient will be started on heparin while the patient's Coumadin is improved to be therapeutic. The patient will be admitted and have a 2D echo done. The patient's results were discussed with the patient, including the plan of care. I explained that further testing and/ or monitoring is indicated based on the patient's history, examination, and/ or laboratory findings. Therefore, I recommended admission for additional evaluation. The patient expressed understanding and was agreeable with this plan. The patient was admitted to the hospital in guarded condition and sent to a bed under the care of the [facility] service. Medical Screen Exam Complete: Yes Emergency Medical Condition: Yes Differential Diagnosis Differential Diagnosis: Crohn's exacerbation, versus pyelonephritis, versus kidney stone, versus ischemic bowel Medical Records Medical records reviewed: Yes I reviewed the patient's medical records. Lab Data Lab results reviewed: Yes I reviewed the patient's lab results. Result diagrams: 03/22/18 01:55 03/22/18 01:55 Lab Results 03/22/18 03/22/18 03/22/18 Range/Units 01:55 01:55 01:55 WBC 7.3 (4.0-11.0) th/mm3 RBC 3.82 L (4.00-5.30) mil/mm3 Hgb 11.7 (11.6-15.3) gm/dL Hct 35.1 (35.0-46.0) % MCV 91.9 (80.0-100.0) fL MCH 30.6 (27.0-34.0) pg MCHC 33.3 (32.0-36.0) % RDW 14.7 (11.6-17.2) % Plt Count 275 (150-450) th/mm3 MPV 7.7 (7.0-11.0) fL Neut % (Auto) 69.7 (16.0-70.0) % Lymph % (Auto) 21.0 (9.0-44.0) % Garden % (Auto) 8.4 H (0.0-8.0) % Eos % (Auto) 0.4 (0.0-4.0) % Baso % (Auto) 0.5 (0.0-2.0) % Neut # (Auto) 5.1 (1.8-7.7) th/mm3 Lymph # (Auto) 1.5 (1.0-4.8) th/mm3 Garden # (Auto) 0.6 (0.0-0.9) th/mm3 Eos # (Auto) 0.0 (0.0-0.4) th/mm3 Baso # (Auto) 0.0 (0.0-0.2) th/mm3 WBC Differential . Differential Comment Auto diff final ESR (0-30) mm/hr PT 14.1 H (9.8-11.6) sec INR 1.4 Ratio APTT 28.3 (24.3-30.1) sec Sodium 137 (136-145) meq/L Potassium 3.9 (3.5-5.1) meq/L Chloride 102 (98-107) meq/L Carbon Dioxide 29.8 (21.0-32.0) meq/L Anion Gap 5 (5-15) meq/L BUN 9 (7-18) mg/dL Creatinine 0.85 (0.50-1.00) mg/dL Estimated GFR 81 L (>89) mL/min Random Glucose 103 (74-106) mg/dL Lactic Acid (0.4-2.0) mmol/L Calcium 8.4 L (8.5-10.1) mg/dL Magnesium 1.6 (1.5-2.5) mg/dL Total Bilirubin 0.6 (0.2-1.0) mg/dL AST 49 H (15-37) U/L ALT 34 (10-53) U/L Alkaline Phosphatase 148 H (45-117) U/L Total Creatine Kinase 59 (26-192) U/L Troponin I 0.02 (0.02-0.05) ng/mL C-Reactive Protein 1.47 H (0.00-0.30) mg/dL Total Protein 7.3 (6.4-8.2) g/dL Albumin 2.9 L (3.4-5.0) g/dL Lipase 126 (73-393) U/L Urine Color (Yellw/Straw) Urine Clarity (Clear) Urine pH (5.0-8.5) Ur Specific Oley (1.002-1.035) Urine Protein (Neg-Trace) mg/dL Urine Glucose (UA) (Negative) mg/dL Urine Ketones (Negative) mg/dL Urine Occult Blood (Negative) Urine Nitrate (Negative) Urine Bilirubin (Negative) Urine Urobilinogen (Less than 2) mg/dL Ur Leukocyte Esterase (Negative) Urine RBC (0-3) /hpf Urine WBC (0-5) /hpf Urine Mucus (Occasional) /lpf Micro UA Comment Ur Microscopic Review Urine Culture Comments 03/22/18 03/22/18 03/22/18 Range/Units 01:55 01:55 03:30 WBC (4.0-11.0) th/mm3 RBC (4.00-5.30) mil/mm3 Hgb (11.6-15.3) gm/dL Hct (35.0-46.0) % MCV (80.0-100.0) fL MCH (27.0-34.0) pg MCHC (32.0-36.0) % RDW (11.6-17.2) % Plt Count (150-450) th/mm3 MPV (7.0-11.0) fL Neut % (Auto) (16.0-70.0) % Lymph % (Auto) (9.0-44.0) % Garden % (Auto) (0.0-8.0) % Eos % (Auto) (0.0-4.0) % Baso % (Auto) (0.0-2.0) % Neut # (Auto) (1.8-7.7) th/mm3 Lymph # (Auto) (1.0-4.8) th/mm3 Garden # (Auto) (0.0-0.9) th/mm3 Eos # (Auto) (0.0-0.4) th/mm3 Baso # (Auto) (0.0-0.2) th/mm3 WBC Differential Differential Comment ESR 20 (0-30) mm/hr PT (9.8-11.6) sec INR Ratio APTT (24.3-30.1) sec Sodium (136-145) meq/L Potassium (3.5-5.1) meq/L Chloride (98-107) meq/L Carbon Dioxide (21.0-32.0) meq/L Anion Gap (5-15) meq/L BUN (7-18) mg/dL Creatinine (0.50-1.00) mg/dL Estimated GFR (>89) mL/min Random Glucose (74-106) mg/dL Lactic Acid 1.1 (0.4-2.0) mmol/L Calcium (8.5-10.1) mg/dL Magnesium (1.5-2.5) mg/dL Total Bilirubin (0.2-1.0) mg/dL AST (15-37) U/L ALT (10-53) U/L Alkaline Phosphatase (45-117) U/L Total Creatine Kinase (26-192) U/L Troponin I (0.02-0.05) ng/mL C-Reactive Protein (0.00-0.30) mg/dL Total Protein (6.4-8.2) g/dL Albumin (3.4-5.0) g/dL Lipase (73-393) U/L Urine Color Becky (Yellw/Straw) Urine Clarity Clear (Clear) Urine pH 5.0 (5.0-8.5) Ur Specific Oley 1.035 (1.002-1.035) Urine Protein Negative (Neg-Trace) mg/dL Urine Glucose (UA) Negative (Negative) mg/dL Urine Ketones Negative (Negative) mg/dL Urine Occult Blood Negative (Negative) Urine Nitrate Negative (Negative) Urine Bilirubin Negative (Negative) Urine Urobilinogen Less than 2 (Less than 2) mg/dL Ur Leukocyte Esterase Negative (Negative) Urine RBC 1 (0-3) /hpf Urine WBC 2 (0-5) /hpf Urine Mucus Few H (Occasional) /lpf Micro UA Comment Culture not ind Ur Microscopic Review Not Reportable Urine Culture Comments Culture not ind Imaging Data Radiologist's impression: Chest X-Ray 03/22/18 01:40 CONCLUSION: No acute cardiopulmonary process. Abdomen/Pelvis CT 03/22/18 02:50 CONCLUSION: 1. Bilateral renal infarcts. 2. Cardiomegaly. 3. Hepatic steatosis. 4. Nonspecific dilatation the pancreatic duct. 5. 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 No fluid around the spleen is seen. ECG Data Attestation: I personally reviewed and interpreted this ECG as follows: Interpretation: The patient had an EKG done on arrival. The patient's EKG reveals an intermittently paced rhythm heart rate of 52 otherwise junctional appearing rhythm, QRS duration 126 ms, QTC 480 ms. Discharge Plan Discharge Disposition Patient Disposition: 30 Still Patient Discharge Details Diagnosis: Infarction of kidney, History of atrial fibrillation Physicians Team ED Provider: Maria C Contreras Primary Care Provider: Joni Hair Attending Provider: Daphne Padron Other Providers: Ann Patton ; [facility],Insurance Status ED Status: Admitted Patient
[2018-03-22 02:12] LABS: Activated Partial Thrombo Time 28.3 sec (24.3-30.1); INR 1.4 Ratio; Prothrombin Time 14.1 sec (9.8-11.6)
[2018-03-22 02:22] LABS: Albumin 2.9 g/dL (3.4-5.0); Anion Gap 5 meq/L (5-15); Aspartate Aminotransferase 49 U/L (15-37); Blood Urea Nitrogen 9 mg/dL (7-18); Calcium 8.4 mg/dL (8.5-10.1); Carbon Dioxide 29.8 meq/L (21.0-32.0); Chloride 102 meq/L (98-107); Glucose,Random 103 mg/dL (74-106); Lipase 126 U/L (73-393); Magnesium 1.6 mg/dL (1.5-2.5); Potassium 3.9 meq/L (3.5-5.1); Sodium 137 meq/L (136-145)
[2018-03-22 02:23] LABS: Alanine Aminotransferase 34 U/L (10-53); Alkaline Phosphatase 148 U/L (45-117); C-Reactive Protein 1.47 mg/dL (0.00-0.30); Glomerular Filtration Rate 81 mL/min (>89); Total Protein 7.3 g/dL (6.4-8.2); Troponin I 0.02 ng/mL (0.02-0.05)
[2018-03-22 02:24] LABS: Creatine Kinase 59 U/L (26-192)
--- NOTE | 2018-03-22 02:33 | XR ---
EXAM DATE: 03/22/2018 1:40 AM EDT AGE/SEX: 67 years / Female INDICATIONS: Cough, epigastric pain. CLINICAL DATA: This is the patient's initial encounter. Patient reports that signs and symptoms have been present for 1 week and indicates a pain score of 4/10. MEDICAL/SURGICAL HISTORY: Hypertension. Myocardial infarction. Crohn's disease. Asthma. Herbert estive heart failure. Pacemaker. COMPARISON: [facility] [place], CHEST SINGLE AP, 08/16/2017. . FINDINGS: There is a pacing device in the left chest. The heart size is mildly enlarged. The lungs are grossly clear. There is a skin fold projecting over the lateral lower right chest. There is persistent mild e levation of the right hemidiaphragm. CONCLUSION: No acute cardiopulmonary process. Electronically signed by: Kiet Bell MD 03/22/2018 2:32 AM EDT
--- NOTE | 2018-03-22 03:42 | CT ---
EXAM DATE: 03/22/2018 2:55 AM EDT AGE/SEX: 67 years / Female INDICATIONS: Abdomen pain. CLINICAL DATA: This is the patient's initial encounter. Patient reports that signs and symptoms have been present for 1 day and indicates a pain score of 6/10. MEDICAL/SURGICAL HISTORY: Cardiovascular disease. Hypertension. Crohn's disease. COPD GERD Asthma Appendectomy. Pacemaker. section. ORAL CONTRAST: No oral contrast ingested. RADIATION DOSE: 5.48 CTDI (mGy) COMPARISON: [facility] [place], CT ABDOMEN & PELVIS W CONTRAST, 08/17/2017. . TECHNIQUE: Multiple contiguous axial images were obtained through the abdomen and pelvis following b olus infusion of 75 ml Omnipaque 350 (iohexol) nonionic water-soluble contrast as a single exam dos e. No oral contrast ingested. Using automated exposure control and adjustment of the mA and/or kV ac cording to patient size, radiation dose was kept as low as reasonably achievable to obtain optimal di agnostic quality images. DICOM format image data is available electronically for review and comparis on. FINDINGS: Lower Lungs: The heart appears enlarged. There are pacing leads seen within the heart. There is minim al suspected atelectasis at the left base adjacent to the posterior heart border. Liver: The liver demonstrates diffuse decreased attenuation. No focal hepatic lesion is seen. The gal lbladder is nondistended. Spleen: There is a prominent cleft or division between the right and left aspects of the spleen. Flu id around spleen is not seen. This could be from a developmental cleft or the sequela of prior injury . Pancreas: The pancreatic mass seen. The pancreatic duct appears dilated at 5 mm. The common bile jerardo t measures 6 mm. Kidneys: There is an area of no enhancement seen in the medial posterior inferior aspect of the left kidney measuring 3.9 x 1.3 x 2.1 cm. There is a smaller similar area of decreased enhancement seen a t the inferior medial right kidney measuring 1.9 x 1.5 x 2.6 cm. Adrenal Glands: Unremarkable. Aorta: There is mild atherosclerotic calcifications seen throughout the arterial system. The main r enal arteries are patent. Bowel/Mesentery: The bowel loops are grossly unremarkable. The cecum and sigmoid colon have a normal configuration. Abdominal Wall: Intact. Retroperitoneum: No evidence of adenopathy in the retrocrural, para-aortic, or deep pelvic regions. Bladder: Contours are smooth. Reproductive Organs: No abnormal masses or calcifications seen. Inguinal: The inguinal region is unremarkable without evidence of adenopathy. Bony Structures: There is some degenerative change at the lumbar spine especially at the facet joint s. CONCLUSION: 1. Bilateral renal infarcts. 2. Cardiomegaly. 3. Hepatic steatosis. 4. Nonspecific dilatation the pancreatic duct. 5. 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 No fluid aroun d the spleen is seen. Electronically signed by: Kiet Bell MD 03/22/2018 3:41 AM EDT
[2018-03-22] MEDS ORDERED: Bisacodyl 10 MG Supp RECTAL PRN (04:16)
[2018-03-22] MEDS ORDERED: Acetaminophen 325 MG Tablet PO PRN (04:16)
[2018-03-22] MEDS ORDERED: Warfarin Consult Pharmacy OTHER PRN (04:18)
[2018-03-22 04:19] LABS: Bilirubin,Urine Negative (Negative); Clarity,Urine Clear (Clear); Color,Urine Amber (Yellw/Straw); Glucose,Urine (UA) Negative (Negative); Leukocyte Esterase,Urine Negative (Negative); Mucus,Urine Few /lpf (Occasional); Nitrite,Urine Negative (Negative); Specific Gravity,Urine 1.035 (1.002-1.035)
[2018-03-22] MEDS: Heparin Drip 25,000 UNIT/250 ML BAG IV.CONT PRN (04:25)
[2018-03-22] MEDS ORDERED: Sodium Chloride 0.9% 2 ML Flush PRN IV.FLUSH (04:59)
[2018-03-22 07:35] LABS: Hematocrit 32.8 % (35.0-46.0); Hemoglobin 10.9 gm/dL (11.6-15.3); Mean Corpuscular HGB Conc 33.1 % (32.0-36.0); Mean Corpuscular Hemoglobin 30.5 pg (27.0-34.0); Mean Corpuscular Volume 92.3 fL (80.0-100.0); Mean Platelet Volume 7.5 fL (7.0-11.0); Platelet Count 259 th/mm3 (150-450); Red Blood Count 3.55 mil/mm3 (4.00-5.30); Red Cell Distribution Width 14.8 % (11.6-17.2); White Blood Count 6.9 th/mm3 (4.0-11.0)
[2018-03-22] MEDS ORDERED: Lisinopril 10 MG Tablet PO SCH (09:00)
[2018-03-22] MEDS ORDERED: Morphine Sulfate Inj 2 MG/ML Vial IV.PUSH ONE (09:20)
--- NOTE | 2018-03-22 09:51 | P.HP ---
History of Present Illness Primary Care Physician: Joni Hair MD History of Present Illness: 67-year-old black female being admitted for acute low back pain w/ bilateral renal infarcts. Patient was in her usual state of health until about 2 days ago when she began experiencing a gradual onset of left-sided low back pain. Pain had expanded to her right side as well as her abdomen. Patient had taken some Tylenol with transient relief. However the patient ultimately did worsen to a 10/10 intensity prompting her to come to the emergency department. Says that anything she does seems to worsen the pain with chest slight relief upon resting in bed. Denies any nausea vomiting or changes in her bowel patterns. Denies any hematuria or dysuria. Denies any fevers or chills. Says because of her pain level she missed the last 2 doses of her Coumadin. Says that she has chronic low back pain due to her scoliosis and arthritis but says that this pain is acutely worse. Patient says she is compliant overall with her Coumadin dosing for her A. fib and her sulfasalazine dosing for her Crohn's disease. In the emergency department she had an EKG done which showed unchanged paced rhythm. Her INR was 1.4. CT abdomen was performed which was suggestive of bilateral renal infarcts. BMP was unremarkable for any acute kidney injury. Patient was given IV pain medication and IV fluids started on a heparin drip. Inpatient Certification: I certify that the inpatient services were ordered in accordance with Medicare regulations governing the order. This includes certification that hospital inpatient services are reasonable and necessary and in the case of services not specified as inpatient-only under 42 CFR 419.22(n), that they are appropriately provided as inpatient services in accordance to with the 2-midnight benchmark under 43 CFR 412.3(e) Estimated Total Length of Stay (Days): 2 Plans for Post Hospital Care: Not yet determined Review of Systems All other systems reviewed negative except as stated in HPI PMFSH - History History Provided By: Patient - Medical History Medical History: Medical History (Last Reviewed 03/22/18 @ 09:45 by Bassam Yang MD) Atrial fibrillation Crohn's disease GI bleed HTN (hypertension) Hx of myocardial infarction Nonischemic cardiomyopathy Pulmonary hypertension Rheumatoid arthritis - Surgical History Surgical History: Surgical History (Last Reviewed 03/22/18 @ 09:45 by Bassam Ynag MD) H/O myomectomy Hx of section S/P placement of cardiac pacemaker - Family History Family History: Family History (Last Updated 03/22/18 @ 09:46 by Bassam Yang MD) Other Heart disease - Social History I have reviewed the patient's Social History: Yes - Tobacco History Smoking Status: Never smoker - Alcohol History How Often Do You Have a Drink Containing Alcohol: Monthly or less - Substance Use History Substance History: No History of Abuse - Travel History Recent Travel in the [place] Within the Last 8 Weeks: No Recent Travel Out of the Country Within the Last 8 Weeks: No - Immunization History Tetanus Immunization: Unsure Medications and Allergies Active Medications: Active Medications Acetaminophen (Tylenol) 650 mg PO Q4H PRN PRN Reason: Temp > 100.4 Al Hydroxide/Mg Hydroxide (Milk Of Magnesia Liq) 30 ml PO Q12H PRN PRN Reason: Mild Constipation Atorvastatin Calcium (Lipitor) 20 mg PO DAILY [facility] Bisacodyl (Dulcolax Supp) 10 mg RECTAL DAILY PRN PRN Reason: SEVERE CONSITIPATION Carvedilol (Coreg) 25 mg PO BID [facility] Digoxin (Lanoxin) 250 mcg PO DAILY [facility] Fluoxetine HCl (Prozac) 20 mg PO DAILY [facility] Furosemide (Lasix) 20 mg PO DAILY [facility] Heparin Sodium/Dextrose (Heparin/D5w 25,000 U/250 Ml) 25,000 unit in 250 mls @ 0 mls/hr IV.CONT TITRATE PRN; Protocol PRN Reason: Per Protocol Last Admin: 03/22/18 04:25 Dose: 800 units/hr, 8 mls/hr Lactulose (Lactulose Liq) 30 ml PO DAILY PRN PRN Reason: SEVERE CONSITIPATION Lisinopril (Prinivil) 10 mg PO DAILY [facility] Mirtazapine (Remeron) 30 mg PO DAILY [facility] Ondansetron HCl (Zofran Inj) 4 mg IV.PUSH Q6H PRN PRN Reason: NAUSEA OR VOMITING Pantoprazole Sodium (Protonix) 20 mg PO DAILY [facility] Patient Medication Teaching (Coumadin Booklet) 1 each OTHER ONCE ONE Stop: 03/22/18 15:01 Pharmacy Profile Note (Coumadin Consult Pharmacy) 1 each OTHER UNSCH PRN PRN Reason: PHARMACY DOCUMENTATION Senna/Docusate Sodium (Cecilia-Colace) 1 tab PO BID [facility] Sennosides (Senokot) 17.2 mg PO Q12H PRN PRN Reason: Moderate Constipation Sodium Chloride (Ns Flush) 2 ml IV.FLUSH BID [facility] Sodium Chloride (Ns Flush) 2 ml IV.FLUSH PRN PRN PRN Reason: FLUSH AFTER USING IV ACCESS Warfarin Sodium (Coumadin) 5 mg PO [id number]@1600 [facility] Allergies Allergy/AdvReac Type Severity Reaction Status Date / Time penicillin G Allergy Severe Swelling Verified 03/22/18 00:55 cefepime Allergy Unknown Swelling Verified 03/22/18 00:55 ceftaroline fosamil Allergy Unknown Swelling Verified 03/22/18 00:55 cephalexin Allergy Unknown RASH Verified 03/22/18 00:55 Home Medications Medication Instructions Recorded Confirmed Type atorvastatin 20 mg PO DAILY 03/22/18 03/22/18 History carvedilol [Coreg] 25 mg PO BID 03/22/18 03/22/18 History digoxin 0.25 mg PO DAILY 03/22/18 03/22/18 History fexofenadine [Lisa Allergy] 180 mg PO DAILY 03/22/18 03/22/18 History fluoxetine [Prozac] 20 mg PO DAILY 03/22/18 03/22/18 History folic acid 1 mg PO DAILY 03/22/18 03/22/18 History furosemide 20 mg PO DAILY 03/22/18 03/22/18 History lisinopril 10 mg PO DAILY 03/22/18 03/22/18 History mirtazapine [Remeron] 30 mg PO DAILY 03/22/18 03/22/18 History pantoprazole [Protonix] 20 mg PO DAILY 03/22/18 03/22/18 History warfarin [Coumadin] 5 mg PO QTUTHSASU 03/22/18 03/22/18 History Exam Vital signs: Vital Signs 03/22/18 00:52 03/22/18 00:55 03/22/18 02:58 Temperature 97.7 F 98.0 F Pulse Rate 72 80 Respiratory Rate 20 20 20 Blood Pressure 133/74 130/70 Pulse Oximetry 97 98 03/22/18 04:31 Temperature Pulse Rate 58 L Respiratory Rate 15 Blood Pressure 105/60 Pulse Oximetry 95 Intake & Output 03/21/18 03/22/18 03/22/18 18:59 06:59 18:59 Intake Total 500 / 500 Balance 500 / 500 Weight 44.906 kg Intake: IV 500 / 500 NS Inj 500 ML @ Wide Open IV. 500 / 500 SIG BOLUS ONE Rx#:[id number] Narrative: VS: afebrile GENERAL: Lying in bed, awake, alert, no acute distress SKIN: Warm and dry. EYES: Pupils equal and round. No scleral icterus. No injection or drainage. ENT: No nasal bleeding or discharge. Mucous membranes pink and moist. CARDIOVASCULAR: Regular rate and rhythm. no murmurs RESPIRATORY: No accessory muscle use. Clear to auscultation. Breath sounds equal bilaterally. GASTROINTESTINAL: Abdomen soft, non-tender, nondistended. Extremities: No clubbing, cyanosis, or edema. No obvious deformities. MUSCULOSKELETAL: adequate muscle bulk and tone for age and habitus. Straight leg raise BL w/ no pain NEUROLOGICAL: Awake and alert. No obvious cranial nerve deficits. No facial droop nor slurred speech noted. PSYCHIATRIC: Appropriate mood and affect; insight and judgment normal. Results - Labs CBC & Chem 7: 03/22/18 07:05 03/22/18 01:55 Labs: Laboratory Results - last 24 hr 03/22/18 03/22/18 03/22/18 01:55 01:55 01:55 WBC 7.3 RBC 3.82 L Hgb 11.7 Hct 35.1 MCV 91.9 MCH 30.6 MCHC 33.3 RDW 14.7 Plt Count 275 MPV 7.7 Neut % (Auto) 69.7 Lymph % (Auto) 21.0 [place] % (Auto) 8.4 H Eos % (Auto) 0.4 Baso % (Auto) 0.5 Neut # (Auto) 5.1 Lymph # (Auto) 1.5 [place] # (Auto) 0.6 Eos # (Auto) 0.0 Baso # (Auto) 0.0 WBC Differential . Differential Comment Auto diff final ESR PT 14.1 H INR 1.4 APTT 28.3 Sodium 137 Potassium 3.9 Chloride 102 Carbon Dioxide 29.8 Anion Gap 5 BUN 9 Creatinine 0.85 Estimated GFR 81 L Random Glucose 103 Lactic Acid Calcium 8.4 L Magnesium 1.6 Total Bilirubin 0.6 AST 49 H ALT 34 Alkaline Phosphatase 148 H Total Creatine Kinase 59 Troponin I 0.02 C-Reactive Protein 1.47 H Total Protein 7.3 Albumin 2.9 L Lipase 126 Urine Color Urine Clarity Urine pH Ur Specific Strang Urine Protein Urine Glucose (UA) Urine Ketones Urine Occult Blood Urine Nitrate Urine Bilirubin Urine Urobilinogen Ur Leukocyte Esterase Urine RBC Urine WBC Urine Mucus Micro UA Comment Ur Microscopic Review Urine Culture Comments Digoxin 03/22/18 03/22/18 03/22/18 01:55 01:55 01:55 WBC RBC Hgb Hct MCV MCH MCHC RDW Plt Count MPV Neut % (Auto) Lymph % (Auto) [place] % (Auto) Eos % (Auto) Baso % (Auto) Neut # (Auto) Lymph # (Auto) [place] # (Auto) Eos # (Auto) Baso # (Auto) WBC Differential Differential Comment ESR 20 PT INR APTT Sodium Potassium Chloride Carbon Dioxide Anion Gap BUN Creatinine Estimated GFR Random Glucose Lactic Acid 1.1 Calcium Magnesium Total Bilirubin AST ALT Alkaline Phosphatase Total Creatine Kinase Troponin I C-Reactive Protein Total Protein Albumin Lipase Urine Color Urine Clarity Urine pH Ur Specific Strang Urine Protein Urine Glucose (UA) Urine Ketones Urine Occult Blood Urine Nitrate Urine Bilirubin Urine Urobilinogen Ur Leukocyte Esterase Urine RBC Urine WBC Urine Mucus Micro UA Comment Ur Microscopic Review Urine Culture Comments Digoxin 2.1 H 03/22/18 03/22/18 03:30 07:05 WBC 6.9 RBC 3.55 L Hgb 10.9 L Hct 32.8 L MCV 92.3 MCH 30.5 MCHC 33.1 RDW 14.8 Plt Count 259 MPV 7.5 Neut % (Auto) Lymph % (Auto) [place] % (Auto) Eos % (Auto) Baso % (Auto) Neut # (Auto) Lymph # (Auto) [place] # (Auto) Eos # (Auto) Baso # (Auto) WBC Differential Differential Comment ESR PT INR APTT Sodium Potassium Chloride Carbon Dioxide Anion Gap BUN Creatinine Estimated GFR Random Glucose Lactic Acid Calcium Magnesium Total Bilirubin AST ALT Alkaline Phosphatase Total Creatine Kinase Troponin I C-Reactive Protein Total Protein Albumin Lipase Urine Color Becky Urine Clarity Clear Urine pH 5.0 Ur Specific Strang 1.035 Urine Protein Negative Urine Glucose (UA) Negative Urine Ketones Negative Urine Occult Blood Negative Urine Nitrate Negative Urine Bilirubin Negative Urine Urobilinogen Less than 2 Ur Leukocyte Esterase Negative Urine RBC 1 Urine WBC 2 Urine Mucus Few H Micro UA Comment Culture not ind Ur Microscopic Review Not Reportable Urine Culture Comments Culture not ind Digoxin - Imaging Impressions Chest X-Ray 03/22/18 01:40 CONCLUSION: No acute cardiopulmonary process. Abdomen/Pelvis CT 03/22/18 02:50 CONCLUSION: 1. Bilateral renal infarcts. 2. Cardiomegaly. 3. Hepatic steatosis. 4. Nonspecific dilatation the pancreatic duct. 5. 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 No fluid around the spleen is seen. Caprini VTE Risk Assessment Caprini VTE Risk Assessment: No/Low Risk (score <= 1) Caprini Risk Assessment Model: Point Value = 1 Point Value = 2 Point Value = 3 Point Value = 5 Age 41-60 Minor surgery BMI > 25 kg/m2 Swollen legs Varicose veins or History of unexplained or recurrent spontaneous Oral contraceptives or hormone replacement Sepsis (< 1 month) Serious lung disease, including pneumonia (< 1 month) Abnormal pulmonary function Acute myocardial infarction Congestive heart failure (< 1 month) History of inflammatory bowel disease Medical patient at bed rest Age 61-74 Arthroscopic surgery Major open surgery (> 45 min) Laparoscopic surgery (> 45 min) Malignancy Confined to bed (> 72 hours) Immobilizing plaster cast Central venous access Age >= 75 History of VTE Family history of VTE Factor V Leiden Prothrombin [id number] Lupus anticoagulant Anticardiolipin antibodies Elevated serum homocysteine Heparin-induced thrombocytopenia Other congenital or acquired thrombophilia Stroke (< 1 month) Elective arthroplasty Hip, pelvis, or leg fracture Acute spinal cord injury (< 1 month) Prophylaxis Regimen: Total Risk Factor Score Risk Level Prophylaxis Regimen 0-1 Low Early ambulation 2 Moderate Order ONE of the following: *Sequential Compression Device (SCD) *Heparin 5000 units SQ BID 3-4 Higher Order ONE of the following medications: *Heparin 5000 units SQ TID *Enoxaparin/Lovenox 40 mg SQ daily (WT < 150 kg, CrCl > 30 mL/min) *Enoxaparin/Lovenox 30 mg SQ daily (WT < 150 kg, CrCl > 10-29 mL/min) *Enoxaparin/Lovenox 30 mg SQ BID (WT < 150 kg, CrCl > 30 mL/min) AND/OR *Sequential Compression Device (SCD) 5 or more Highest Order ONE of the following medications: *Heparin 5000 units SQ TID (Preferred with Epidurals) *Enoxaparin/Lovenox 40 mg SQ daily (WT < 150 kg, CrCl > 30 mL/min) *Enoxaparin/Lovenox 30 mg SQ daily (WT < 150 kg, CrCl > 10-29 mL/min) *Enoxaparin/Lovenox 30 mg SQ BID (WT < 150 kg, CrCl > 30 mL/min) AND *Sequential Compression Device (SCD) Assessment and Plan - Plan 67-year-old black female being admitted for acute low back pain Acute low back pain Possibly secondary to bilateral renal infarcts possibly secondary to emboli from A. fib versus other etiologies Continue heparin drip, bridging on Coumadin -no echo needed per cads, formal cardiac consultation pending -Pain medication as needed -Increase Lipitor from 20-40 mg A. fib pacemaker Nonischemic cardiomyopathy Chronic systolic heart failure Continue home Entresto, Coreg, digoxin and Lasix -increased dose of Warfarin with heparin drip Crohn's disease Continue home sulfasalazine and folic acid Continue home Remeron
[2018-03-22 10:08] LABS: Activated Partial Thrombo Time 50.9 sec (24.3-30.1); INR 1.4 Ratio; Prothrombin Time 13.8 sec (9.8-11.6)
[2018-03-22] MEDS: Mirtazapine 15 MG Tablet PO SCH (10:20)
[2018-03-22] MEDS: FLUoxetine 20 MG Capsule PO SCH (10:21)
[2018-03-22] MEDS: Carvedilol 12.5 MG Tablet PO SCH ×2 (10:21→20:33)
[2018-03-22] MEDS: Senna/Docusate Sodium 8.6/50 MG Tablet PO SCH ×2 (10:21→20:33)
[2018-03-22] MEDS: Pantoprazole Sodium 20 MG DR Tablet PO SCH (10:22)
[2018-03-22] MEDS: Furosemide 20 MG Tablet PO SCH (10:22)
[2018-03-22] MEDS: Digoxin 250 MCG Tablet PO SCH (10:22)
[2018-03-22] MEDS: Sodium Chloride 0.9% 2 ML Flush BID IV.FLUSH SCH ×2 (10:28→20:33)
--- NOTE | 2018-03-22 15:00 | P.CONCA ---
History of Present Illness Service: Cardiology Consult date: 03/22/18 Reason for Consult: Atrial fibrillation, subtherapeutic on Coumadin, concern of thrombus Primary Care Provider: Joni Hair MD History of Present Illness: This is a very pleasant 67-year-old -[place] female known to Dr. Patton with a past medical history of congestive heart failure, ventricular tachycardia, nonischemic cardiomyopathy, proximal atrial fibrillation, hypertension, hypokalemia, cardiac defibrillator, hyperlipidemia and GI bleeding. She states that on Wednesday she started to develop bilateral flank pain that radiated around to the front of her abdomen. Throughout the day, the abdominal pain increased in intensity and she decided come to the emergency department for further evaluation. She also states that she was having a few episodes of palpitation with mild dizziness that have subsided. She had an abdominal/pelvis CT scan which showed bilateral renal infarcts. She takes Coumadin and was scheduled for an INR check in January that she did not show up for. Currently, her INR is subtherapeutic at 1.4 and she was placed on a heparin drip. She denies any chest pain, pressure, palpitations, dizziness, edema or shortness of breath at this time. Review of Systems All other systems reviewed negative except as stated in HPI PMFSH - History History Provided By: Patient - Medical History Medical History: Medical History (Last Reviewed 03/22/18 @ 09:45 by Bassam Yang MD) Atrial fibrillation Crohn's disease GI bleed HTN (hypertension) Hx of myocardial infarction Nonischemic cardiomyopathy Pulmonary hypertension Rheumatoid arthritis - Surgical History Surgical History: Surgical History (Last Reviewed 03/22/18 @ 09:45 by Bassam Yang MD) H/O myomectomy Hx of section S/P placement of cardiac pacemaker - Family History Family History: Family History (Last Updated 03/22/18 @ 09:46 by Bassam Yang MD) Other Heart disease - Tobacco History Smoking Status: Never smoker - Alcohol History How Often Do You Have a Drink Containing Alcohol: Monthly or less - Substance Use History Substance History: No History of Abuse - Travel History Recent Travel in the [place] Within the Last 8 Weeks: No Recent Travel Out of the Country Within the Last 8 Weeks: No - Immunization History Tetanus Immunization: Unsure Medications and Allergies Allergies Allergy/AdvReac Type Severity Reaction Status Date / Time penicillin G Allergy Severe Swelling Verified 03/22/18 00:55 cefepime Allergy Unknown Swelling Verified 03/22/18 00:55 ceftaroline fosamil Allergy Unknown Swelling Verified 03/22/18 00:55 cephalexin Allergy Unknown RASH Verified 03/22/18 00:55 Home Medications Medication Instructions Recorded Confirmed Type atorvastatin 20 mg PO DAILY 03/22/18 03/22/18 History carvedilol [Coreg] 25 mg PO BID 03/22/18 03/22/18 History digoxin 0.25 mg PO DAILY 03/22/18 03/22/18 History fexofenadine [Lisa Allergy] 180 mg PO DAILY 03/22/18 03/22/18 History fluoxetine [Prozac] 20 mg PO DAILY 03/22/18 03/22/18 History folic acid 1 mg PO DAILY 03/22/18 03/22/18 History furosemide 20 mg PO DAILY 03/22/18 03/22/18 History lisinopril 10 mg PO DAILY 03/22/18 03/22/18 History mirtazapine [Remeron] 30 mg PO DAILY 03/22/18 03/22/18 History pantoprazole [Protonix] 20 mg PO DAILY 03/22/18 03/22/18 History warfarin [Coumadin] 5 mg PO QTUTHSASU 03/22/18 03/22/18 History Active Medications: Active Medications Acetaminophen (Tylenol) 650 mg PO Q4H PRN PRN Reason: Temp > 100.4 Al Hydroxide/Mg Hydroxide (Milk Of Magnmarge Liq) 30 ml PO Q12H PRN PRN Reason: Mild Constipation Atorvastatin Calcium (Lipitor) 40 mg PO HS [facility] Bisacodyl (Dulcolax Supp) 10 mg RECTAL DAILY PRN PRN Reason: SEVERE CONSITIPATION Carvedilol (Coreg) 25 mg PO BID [facility] Last Admin: 03/22/18 10:21 Dose: 25 mg Digoxin (Lanoxin) 250 mcg PO DAILY [facility] Last Admin: 03/22/18 10:22 Dose: 250 mcg Fluoxetine HCl (Prozac) 20 mg PO DAILY [facility] Last Admin: 03/22/18 10:21 Dose: 20 mg Furosemide (Lasix) 20 mg PO DAILY [facility] Last Admin: 03/22/18 10:22 Dose: 20 mg Heparin Sodium/Dextrose (Heparin/D5w 25,000 U/250 Ml) 25,000 unit in 250 mls @ 0 mls/hr IV.CONT TITRATE PRN; Protocol PRN Reason: Per Protocol Last Admin: 03/22/18 04:25 Dose: 800 units/hr, 8 mls/hr Lactulose (Lactulose Liq) 30 ml PO DAILY PRN PRN Reason: SEVERE CONSITIPATION Mirtazapine (Remeron) 30 mg PO DAILY [facility] Last Admin: 03/22/18 10:20 Dose: 30 mg Ondansetron HCl (Zofran Inj) 4 mg IV.PUSH Q6H PRN PRN Reason: NAUSEA OR VOMITING Pantoprazole Sodium (Protonix) 20 mg PO DAILY [facility] Last Admin: 03/22/18 10:22 Dose: 20 mg Patient Medication Teaching (Coumadin Booklet) 1 each OTHER ONCE ONE Stop: 03/22/18 15:01 Pharmacy Profile Note (Coumadin Consult Pharmacy) 1 each OTHER UNSCH PRN PRN Reason: PHARMACY DOCUMENTATION Senna/Docusate Sodium (Cecilia-Colace) 1 tab PO BID [facility] Last Admin: 03/22/18 10:21 Dose: 1 tab Sennosides (Senokot) 17.2 mg PO Q12H PRN PRN Reason: Moderate Constipation Sodium Chloride (Ns Flush) 2 ml IV.FLUSH BID [facility] Last Admin: 03/22/18 10:28 Dose: 2 ml Sodium Chloride (Ns Flush) 2 ml IV.FLUSH PRN PRN PRN Reason: FLUSH AFTER USING IV ACCESS Warfarin Sodium (Coumadin) 7.5 mg PO DAILY@1600 [facility] Exam Vital signs: Vital Signs 03/22/18 00:52 03/22/18 00:55 03/22/18 02:58 Temperature 97.7 F 98.0 F Pulse Rate 72 80 Respiratory Rate 20 20 20 Blood Pressure 133/74 130/70 Pulse Oximetry 97 98 03/22/18 04:31 03/22/18 08:00 03/22/18 10:00 Temperature Pulse Rate 58 L 61 71 Respiratory Rate 15 15 16 Blood Pressure 105/60 136/79 118/84 Pulse Oximetry 95 96 03/22/18 10:30 03/22/18 12:00 Temperature Pulse Rate 76 Respiratory Rate 20 15 Blood Pressure 109/56 L Pulse Oximetry 94 L Intake & Output 03/21/18 03/22/18 03/22/18 18:59 06:59 18:59 Intake Total 500 / 500 Balance 500 / 500 Weight 44.906 kg Intake: IV 500 / 500 NS Inj 500 ML @ Wide Open IV. 500 / 500 SIG BOLUS ONE Rx#:[id number] Narrative: GENERAL: This is a well-nourished, well-developed patient, in no apparent distress. Patient speaks in clear complete sentences. Patient is pleasant. HEENT: Head is atraumatic and normocephalic. Neck is supple without lymphadenopathy and trachea is midline. No JVD or carotid bruits. CARDIOVASCULAR: Atrial fibrillation controlled rate with pacer beats, without murmurs, gallops, or rubs. RESPIRATORY: Clear to auscultation. Breath sounds equal bilaterally. No wheezes , rales, or rhonchi. Chest wall is nontender. No use of accessory muscles. GASTROINTESTINAL: Bilateral flank pain that radiates around to the abdomen, nondistended. Abdomen soft. No obvious pulsatile mass or bruit. No CVA tenderness. Strong femoral pulses bilaterally. Normal bowel sounds in all quadrants. MUSCULOSKELETAL: Patient is moving upper and lower extremities freely. No calf tenderness or edema, no Homans sign. Strong pulses in upper and lower extremities. NEUROLOGICAL: Patient is alert and oriented. Cranial nerves 2-12 are grossly intact. No focal deficits and speech is clear. SKIN: No rash and turgor is normal. Results 03/22/18 07:05 03/22/18 01:55 Cardiac Enzymes 03/22/18 Range/Units 01:55 AST 49 H (15-37) U/L Troponin I 0.02 (0.02-0.05) ng/mL Coagulation 03/22/18 03/22/18 Range/Units 01:55 09:44 PT 14.1 H 13.8 H (9.8-11.6) sec APTT 28.3 50.9 H D (24.3-30.1) sec CBC 03/22/18 03/22/18 Range/Units 01:55 07:05 WBC 7.3 6.9 (4.0-11.0) th/mm3 RBC 3.82 L 3.55 L (4.00-5.30) mil/mm3 Hgb 11.7 10.9 L (11.6-15.3) gm/dL Hct 35.1 32.8 L (35.0-46.0) % Plt Count 275 259 (150-450) th/mm3 Neut # (Auto) 5.1 (1.8-7.7) th/mm3 Lymph # (Auto) 1.5 (1.0-4.8) th/mm3 [place] # (Auto) 0.6 (0.0-0.9) th/mm3 Eos # (Auto) 0.0 (0.0-0.4) th/mm3 Baso # (Auto) 0.0 (0.0-0.2) th/mm3 Comprehensive Metabolic Panel 03/22/18 Range/Units 01:55 Sodium 137 (136-145) meq/L Potassium 3.9 (3.5-5.1) meq/L Chloride 102 (98-107) meq/L Carbon Dioxide 29.8 (21.0-32.0) meq/L BUN 9 (7-18) mg/dL Creatinine 0.85 (0.50-1.00) mg/dL Calcium 8.4 L (8.5-10.1) mg/dL AST 49 H (15-37) U/L ALT 34 (10-53) U/L Alkaline Phosphatase 148 H (45-117) U/L Total Protein 7.3 (6.4-8.2) g/dL Albumin 2.9 L (3.4-5.0) g/dL Intake and Output 03/21/18 03/22/18 03/22/18 22:59 06:59 14:59 Intake Total 500 / 500 Balance 500 / 500 Intake: IV 500 / 500 NS Inj 500 ML @ Wide Open IV. 500 / 500 SIG BOLUS ONE Rx#:[id number] Other: Weight 44.906 kg - Imaging and Cardiology Imaging: Impressions Chest X-Ray 03/22/18 01:40 CONCLUSION: No acute cardiopulmonary process. Abdomen/Pelvis CT 03/22/18 02:50 CONCLUSION: 1. Bilateral renal infarcts. 2. Cardiomegaly. 3. Hepatic steatosis. 4. Nonspecific dilatation the pancreatic duct. 5. 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 No fluid around the spleen is seen. Assessment and Plan - Assessment (1) On Coumadin for atrial fibrillation Code(s): Z78.9 - Other specified health status Status: Acute (2) Infarction of kidney Code(s): N28.0 - Ischemia and infarction of kidney Status: Acute (3) History of atrial fibrillation Code(s): Z86.79 - Personal history of other diseases of the circulatory system Status: Acute - Plan Patient currently on Coumadin, with an INR of 1.4 subtherapeutic, patient was placed on heparin drip. Patient was scheduled for a INR check in January that she missed. Instructed the patient the importance of coming regularly for her INR checks to ensure that her INR is therapeutic. Patient currently in atrial fib with controlled rate with intermittent paced beats, continue to monitor. We will continue to monitor the patient during her hospitalization and follow- up the patient in our office post discharge. Patient was seen and evaluated by Dr. Patton who participated in care, management and decision-making. - Attending Attestation Patient seen and examined. I reviewed and agree with the evaluation and plan as presented. Patient noncompliant with her INR checks; presented with subtherapeutic INR and renal emboli. AF rate well controlled. Continue IV heparin until INR therapeutic. Nephrology evaluation. F/u in our office after discharge.
[2018-03-23] MEDS ORDERED: Sodium Chlor 0.9% Inj 500 ML IV.SIG SCH (01:00)
[2018-03-23 04:38] LABS: Activated Partial Thrombo Time 66.1 sec (24.3-30.1); INR 1.4 Ratio; Prothrombin Time 14.2 sec (9.8-11.6)
[2018-03-23] MEDS: Heparin Drip 25,000 UNIT/250 ML BAG IV.CONT PRN (06:01)
[2018-03-23] MEDS: Mirtazapine 15 MG Tablet PO SCH (09:03)
[2018-03-23] MEDS: Digoxin 250 MCG Tablet PO SCH (09:04)
[2018-03-23] MEDS: Pantoprazole Sodium 20 MG DR Tablet PO SCH (09:04)
[2018-03-23] MEDS: Sodium Chloride 0.9% 2 ML Flush BID IV.FLUSH SCH ×2 (09:04→21:39)
[2018-03-23] MEDS: Furosemide 20 MG Tablet PO SCH (09:04)
[2018-03-23] MEDS: FLUoxetine 20 MG Capsule PO SCH (09:04)
[2018-03-23] MEDS: Senna/Docusate Sodium 8.6/50 MG Tablet PO SCH ×2 (09:05→21:39)
[2018-03-23] MEDS: Carvedilol 12.5 MG Tablet PO SCH (09:05)
--- NOTE | 2018-03-23 10:52 | P.PN ---
Subjective Interval history: Nursing denies any deterioration since last night. Patient did have some borderline low blood pressures. Patient herself says that her pain is improved. Physical Exam Vital signs: Vital Signs 03/22/18 12:00 03/22/18 16:00 03/22/18 20:00 Temperature 98.0 F 98.8 F Pulse Rate 76 63 70 Respiratory Rate 15 17 Blood Pressure 109/56 L 114/60 117/60 Pulse Oximetry 94 L 92 L 96 03/23/18 00:00 03/23/18 02:45 03/23/18 04:00 Temperature 98.1 F 100.1 F H Pulse Rate 55 L 58 L Respiratory Rate 18 18 Blood Pressure 79/47 L 90/52 L 82/44 L Pulse Oximetry 93 L 94 L 03/23/18 08:00 Temperature 99.5 F Pulse Rate 65 Respiratory Rate 20 Blood Pressure 116/68 Pulse Oximetry 96 Intake & Output 03/22/18 03/23/18 03/23/18 18:59 06:59 18:59 Intake Total 750 / 750 Output Total 800 / 800 Balance -50 / -50 Weight 44 kg 44.8 kg Intake: IV 750 / 750 Heparin/D5W 25,000 U/250 mL 25, 250 / 250 000 unit In 250 ml @ Per Protocol IV.CONT TITRATE PRN Rx #:[id number] NS Inj 500 ML @ Wide Open IV. 500 / 500 SIG BOLUS JENSEN Rx#:[id number] Output: Urine 800 / 800 Other: Weight On Admission 44 kg Narrative: Clear lungs bilaterally, unlabored breathing In no acute distress Mild bilateral lumbar paraspinal tenderness to palpation Heart sounds indicate regular rate Results - Labs CBC & Chem 7: 03/22/18 07:05 03/22/18 01:55 Laboratory Results - last 24 hr 03/22/18 03/23/18 03/23/18 20:21 02:55 09:30 PT 14.2 H INR 1.4 APTT 52.0 H 66.1 H D 60.2 H Assessment and Plan - Plan 67-year-old black female being admitted for acute low back pain w/ BL renal infarcts Acute low back pain Possibly secondary to bilateral renal infarcts possibly secondary to emboli from A. fib versus other etiologies Continue heparin drip, bridging on Coumadin -Appreciate cardiac input, suspect subtherapeutic coumadin as cause -Pain medication as needed -Lipitor A. fib pacemaker Nonischemic cardiomyopathy Chronic systolic heart failure Continue home Entresto, Coreg, digoxin and Lasix -continue increased dose of Warfarin with heparin drip -INR check tomorrow, still subtherapeutic today Crohn's disease Continue home sulfasalazine and folic acid Continue home Remeron on heparin
--- NOTE | 2018-03-23 13:49 | P.PNCA ---
Subjective Interval history: Patient denies any chest pain, pressure, palpitations, dizziness, edema or shortness of breath. Bilateral flank pain is improving. Medications and Allergies Allergies Allergy/AdvReac Type Severity Reaction Status Date / Time penicillin G Allergy Severe Swelling Verified 03/22/18 00:55 cefepime Allergy Unknown Swelling Verified 03/22/18 00:55 ceftaroline fosamil Allergy Unknown Swelling Verified 03/22/18 00:55 cephalexin Allergy Unknown RASH Verified 03/22/18 00:55 Home Medications Medication Instructions Recorded Confirmed Type atorvastatin 20 mg PO DAILY 03/22/18 03/22/18 History carvedilol [Coreg] 25 mg PO BID 03/22/18 03/22/18 History digoxin 0.25 mg PO DAILY 03/22/18 03/22/18 History fexofenadine [Lisa Allergy] 180 mg PO DAILY 03/22/18 03/22/18 History fluoxetine [Prozac] 20 mg PO DAILY 03/22/18 03/22/18 History folic acid 1 mg PO DAILY 03/22/18 03/22/18 History furosemide 20 mg PO DAILY 03/22/18 03/22/18 History mirtazapine [Remeron] 30 mg PO DAILY 03/22/18 03/22/18 History pantoprazole [Protonix] 20 mg PO DAILY 03/22/18 03/22/18 History warfarin [Coumadin] 5 mg PO QTUTHSASU 03/22/18 03/22/18 History Active Medications: Active Medications Acetaminophen (Tylenol) 650 mg PO Q4H PRN PRN Reason: Temp > 100.4 Al Hydroxide/Mg Hydroxide (Milk Of Magnmarge Liq) 30 ml PO Q12H PRN PRN Reason: Mild Constipation Atorvastatin Calcium (Lipitor) 40 mg PO HS [facility] Last Admin: 03/22/18 20:33 Dose: 40 mg Bisacodyl (Dulcolax Supp) 10 mg RECTAL DAILY PRN PRN Reason: SEVERE CONSITIPATION Carvedilol (Coreg) 25 mg PO BID [facility] Last Admin: 03/23/18 09:05 Dose: Not Given Digoxin (Lanoxin) 250 mcg PO DAILY [facility] Last Admin: 03/23/18 09:04 Dose: 250 mcg Fluoxetine HCl (Prozac) 20 mg PO DAILY [facility] Last Admin: 03/23/18 09:04 Dose: 20 mg Furosemide (Lasix) 20 mg PO DAILY [facility] Last Admin: 03/23/18 09:04 Dose: 20 mg Heparin Sodium/Dextrose (Heparin/D5w 25,000 U/250 Ml) 25,000 unit in 250 mls @ 0 mls/hr IV.CONT TITRATE PRN; Protocol PRN Reason: Per Protocol Last Titration: 03/23/18 10:09 Dose: 800 units/hr, 8 mls/hr Lactulose (Lactulose Liq) 30 ml PO DAILY PRN PRN Reason: SEVERE CONSITIPATION Mirtazapine (Remeron) 30 mg PO DAILY [facility] Last Admin: 03/23/18 09:03 Dose: 30 mg Ondansetron HCl (Zofran Inj) 4 mg IV.PUSH Q6H PRN PRN Reason: NAUSEA OR VOMITING Pantoprazole Sodium (Protonix) 20 mg PO DAILY [facility] Last Admin: 03/23/18 09:04 Dose: 20 mg Pharmacy Profile Note (Coumadin Consult Pharmacy) 1 each OTHER UNSCH PRN PRN Reason: PHARMACY DOCUMENTATION Sacubitril/Valsartan (Entresto 24 Mg/26 Mg Tablet) 1 tab PO BID [facility] Last Admin: 03/23/18 09:05 Dose: Not Given Senna/Docusate Sodium (Cecilia-Colace) 1 tab PO BID [facility] Last Admin: 03/23/18 09:05 Dose: Not Given Sennosides (Senokot) 17.2 mg PO Q12H PRN PRN Reason: Moderate Constipation Sodium Chloride (Ns Flush) 2 ml IV.FLUSH BID [facility] Last Admin: 03/23/18 09:04 Dose: 2 ml Sodium Chloride (Ns Flush) 2 ml IV.FLUSH PRN PRN PRN Reason: FLUSH AFTER USING IV ACCESS Warfarin Sodium (Coumadin) 7.5 mg PO DAILY@1600 [facility] Last Admin: 03/22/18 18:13 Dose: 7.5 mg Physical Exam Vital signs: Vital Signs 03/22/18 16:00 03/22/18 20:00 03/23/18 00:00 Temperature 98.0 F 98.8 F 98.1 F Pulse Rate 63 70 55 L Respiratory Rate 17 18 Blood Pressure 114/60 117/60 79/47 L Pulse Oximetry 92 L 96 93 L 03/23/18 02:45 03/23/18 04:00 03/23/18 08:00 Temperature 100.1 F H 99.5 F Pulse Rate 58 L 59 L Respiratory Rate 18 20 Blood Pressure 90/52 L 82/44 L 116/68 Pulse Oximetry 94 L 96 03/23/18 12:00 Temperature 99.4 F Pulse Rate 63 Respiratory Rate 20 Blood Pressure 90/58 L Pulse Oximetry 95 Intake & Output 03/22/18 03/23/18 03/23/18 18:59 06:59 18:59 Intake Total 750 / 750 Output Total 800 / 800 Balance -50 / -50 Weight 44 kg 44.8 kg Intake: IV 750 / 750 Heparin/D5W 25,000 U/250 mL 25, 250 / 250 000 unit In 250 ml @ Per Protocol IV.CONT TITRATE PRN Rx #:[id number] NS Inj 500 ML @ Wide Open IV. 500 / 500 SIG BOLUS JENSEN Rx#:[id number] Output: Urine 800 / 800 Other: Weight On Admission 44 kg Narrative: GENERAL: This is a well-nourished, well-developed patient, in no apparent distress. Patient speaks in clear complete sentences. Patient is pleasant. HEENT: Head is atraumatic and normocephalic. Neck is supple without lymphadenopathy and trachea is midline. No JVD or carotid bruits. CARDIOVASCULAR: Atrial fibrillation at a controlled rate with occasional pacer spikes. Without murmurs, gallops, or rubs. RESPIRATORY: Clear to auscultation. Breath sounds equal bilaterally. No wheezes , rales, or rhonchi. Chest wall is nontender. No use of accessory muscles. GASTROINTESTINAL: Mild abdominal flank pain bilaterally the right to the front, nondistended. Abdomen soft. No obvious pulsatile mass or bruit. No CVA tenderness. Strong femoral pulses bilaterally. Normal bowel sounds in all quadrants. MUSCULOSKELETAL: Patient is moving upper and lower extremities freely. No calf tenderness or edema, no Homans sign. Strong pulses in upper and lower extremities. NEUROLOGICAL: Patient is alert and oriented. Cranial nerves 2-12 are grossly intact. No focal deficits and speech is clear. SKIN: No rash and turgor is normal. Results 03/22/18 07:05 03/22/18 01:55 Cardiac Enzymes 03/22/18 Range/Units 01:55 AST 49 H (15-37) U/L Troponin I 0.02 (0.02-0.05) ng/mL Coagulation 03/22/18 03/22/18 03/22/18 Range/Units 01:55 09:44 20:21 PT 14.1 H 13.8 H (9.8-11.6) sec APTT 28.3 50.9 H D 52.0 H (24.3-30.1) sec 03/23/18 03/23/18 Range/Units 02:55 09:30 PT 14.2 H (9.8-11.6) sec APTT 66.1 H D 60.2 H (24.3-30.1) sec CBC 03/22/18 03/22/18 Range/Units 01:55 07:05 WBC 7.3 6.9 (4.0-11.0) th/mm3 RBC 3.82 L 3.55 L (4.00-5.30) mil/mm3 Hgb 11.7 10.9 L (11.6-15.3) gm/dL Hct 35.1 32.8 L (35.0-46.0) % Plt Count 275 259 (150-450) th/mm3 Neut # (Auto) 5.1 (1.8-7.7) th/mm3 Lymph # (Auto) 1.5 (1.0-4.8) th/mm3 [place] # (Auto) 0.6 (0.0-0.9) th/mm3 Eos # (Auto) 0.0 (0.0-0.4) th/mm3 Baso # (Auto) 0.0 (0.0-0.2) th/mm3 Comprehensive Metabolic Panel 03/22/18 Range/Units 01:55 Sodium 137 (136-145) meq/L Potassium 3.9 (3.5-5.1) meq/L Chloride 102 (98-107) meq/L Carbon Dioxide 29.8 (21.0-32.0) meq/L BUN 9 (7-18) mg/dL Creatinine 0.85 (0.50-1.00) mg/dL Calcium 8.4 L (8.5-10.1) mg/dL AST 49 H (15-37) U/L ALT 34 (10-53) U/L Alkaline Phosphatase 148 H (45-117) U/L Total Protein 7.3 (6.4-8.2) g/dL Albumin 2.9 L (3.4-5.0) g/dL Intake and Output 03/22/18 03/23/18 03/23/18 22:59 06:59 14:59 Intake Total 750 / 750 Output Total 800 / 800 Balance -50 / -50 Intake: IV 750 / 750 Heparin/D5W 25,000 U/250 mL 25, 250 / 250 000 unit In 250 ml @ Per Protocol IV.CONT TITRATE PRN Rx #:[id number] NS Inj 500 ML @ Wide Open IV. 500 / 500 SIG BOLUS JENSEN Rx#:[id number] Output: Urine 800 / 800 Other: Weight 44 kg 44.8 kg Weight On Admission 44 kg - Imaging and Cardiology Imaging: Impressions Chest X-Ray 03/22/18 01:40 CONCLUSION: No acute cardiopulmonary process. Abdomen/Pelvis CT 03/22/18 02:50 CONCLUSION: 1. Bilateral renal infarcts. 2. Cardiomegaly. 3. Hepatic steatosis. 4. Nonspecific dilatation the pancreatic duct. 5. 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 No fluid around the spleen is seen. Assessment and Plan - Assessment (1) On Coumadin for atrial fibrillation Code(s): Z78.9 - Other specified health status Status: Acute (2) Infarction of kidney Code(s): N28.0 - Ischemia and infarction of kidney Status: Acute (3) History of atrial fibrillation Code(s): Z86.79 - Personal history of other diseases of the circulatory system Status: Acute - Plan Patient's INR level remains subtherapeutic, continue heparin drip for anticoagulation. Patient was scheduled for a INR check in January that she missed. Reeducated the patient on the importance of regular INR. Patient remains in atrial fibrillation with controlled rate with intermittent paced beats, continue to monitor patient on telemetry. We will continue to monitor the patient during her hospitalization and follow- up the patient in our office post discharge. Patient was seen and evaluated by Dr. Patton who participated in care, management and decision-making. - Attending Attestation Patient seen and examined. I reviewed and agree with the evaluation and plan as presented. Continue anticoagulation with heparin until INR therapeutic. Continue monitoring.
--- NOTE | 2018-03-24 01:28 | ECG ---
Date Performed: 03/22/2018 Time Performed: 01:54:28 PTAGE: 67 years EKG: Demand pacemaker with underlying AFib POSSIBLE RIGHT VENTRICULAR HYPERTROPHY POSSIBLE ANTER IOR MYOCARDIAL INFARCTION ABNORMAL ECG Since the PREVIOUS TRACING , no significant change noted DOCTOR: uCate Dominguez Interpretating Date/Time 03/24/2018 01:28:07
[2018-03-24 08:18] LABS: Hematocrit 32.1 % (35.0-46.0); Hemoglobin 10.6 gm/dL (11.6-15.3); Mean Corpuscular HGB Conc 33.2 % (32.0-36.0); Mean Corpuscular Hemoglobin 30.6 pg (27.0-34.0); Mean Corpuscular Volume 92.2 fL (80.0-100.0); Mean Platelet Volume 8.4 fL (7.0-11.0); Platelet Count 254 th/mm3 (150-450); Red Blood Count 3.48 mil/mm3 (4.00-5.30); Red Cell Distribution Width 14.7 % (11.6-17.2); White Blood Count 6.6 th/mm3 (4.0-11.0)
[2018-03-24 08:19] LABS: Activated Partial Thrombo Time 61.2 sec (24.3-30.1); INR 1.8 Ratio; Prothrombin Time 18.7 sec (9.8-11.6)
[2018-03-24] MEDS: Pantoprazole Sodium 20 MG DR Tablet PO SCH (08:37)
[2018-03-24] MEDS: Senna/Docusate Sodium 8.6/50 MG Tablet PO SCH ×2 (08:37→22:24)
[2018-03-24] MEDS: Sodium Chloride 0.9% 2 ML Flush BID IV.FLUSH SCH ×2 (08:37→22:24)
[2018-03-24] MEDS: Digoxin 250 MCG Tablet PO SCH (08:37)
[2018-03-24] MEDS: FLUoxetine 20 MG Capsule PO SCH (08:37)
[2018-03-24] MEDS: Mirtazapine 15 MG Tablet PO SCH (08:37)
--- NOTE | 2018-03-24 09:12 | P.PNCA ---
Subjective Interval history: Patient denies any chest pain, pressure, palpitations, dizziness, edema or shortness of breath. Patient denies any flank pain or abdominal pain at this time and states that she feels much better. Medications and Allergies Allergies Allergy/AdvReac Type Severity Reaction Status Date / Time penicillin G Allergy Severe Swelling Verified 03/22/18 00:55 cefepime Allergy Unknown Swelling Verified 03/22/18 00:55 ceftaroline fosamil Allergy Unknown Swelling Verified 03/22/18 00:55 cephalexin Allergy Unknown RASH Verified 03/22/18 00:55 Home Medications Medication Instructions Recorded Confirmed Type atorvastatin 20 mg PO DAILY 03/22/18 03/22/18 History carvedilol [Coreg] 25 mg PO BID 03/22/18 03/22/18 History digoxin 0.25 mg PO DAILY 03/22/18 03/22/18 History fexofenadine [Lisa Allergy] 180 mg PO DAILY 03/22/18 03/22/18 History fluoxetine [Prozac] 20 mg PO DAILY 03/22/18 03/22/18 History folic acid 1 mg PO DAILY 03/22/18 03/22/18 History furosemide 20 mg PO DAILY 03/22/18 03/22/18 History mirtazapine [Remeron] 30 mg PO DAILY 03/22/18 03/22/18 History pantoprazole [Protonix] 20 mg PO DAILY 03/22/18 03/22/18 History warfarin [Coumadin] 5 mg PO QTUTHSASU 03/22/18 03/22/18 History Active Medications: Active Medications Acetaminophen (Tylenol) 650 mg PO Q4H PRN PRN Reason: Temp > 100.4 Al Hydroxide/Mg Hydroxide (Milk Of Magnmarge Liq) 30 ml PO Q12H PRN PRN Reason: Mild Constipation Atorvastatin Calcium (Lipitor) 40 mg PO HS [facility] Last Admin: 03/23/18 21:38 Dose: 40 mg Bisacodyl (Dulcolax Supp) 10 mg RECTAL DAILY PRN PRN Reason: SEVERE CONSITIPATION Carvedilol (Coreg) 25 mg PO BID [facility] Last Admin: 03/23/18 09:05 Dose: Not Given Digoxin (Lanoxin) 250 mcg PO DAILY [facility] Last Admin: 03/24/18 08:37 Dose: 250 mcg Fluoxetine HCl (Prozac) 20 mg PO DAILY [facility] Last Admin: 03/24/18 08:37 Dose: 20 mg Furosemide (Lasix) 20 mg PO DAILY [facility] Last Admin: 03/23/18 09:04 Dose: 20 mg Heparin Sodium/Dextrose (Heparin/D5w 25,000 U/250 Ml) 25,000 unit in 250 mls @ 0 mls/hr IV.CONT TITRATE PRN; Protocol PRN Reason: Per Protocol Last Titration: 03/24/18 08:38 Dose: 800 units/hr, 8 mls/hr Lactulose (Lactulose Liq) 30 ml PO DAILY PRN PRN Reason: SEVERE CONSITIPATION Mirtazapine (Remeron) 30 mg PO DAILY [facility] Last Admin: 03/24/18 08:37 Dose: 30 mg Ondansetron HCl (Zofran Inj) 4 mg IV.PUSH Q6H PRN PRN Reason: NAUSEA OR VOMITING Pantoprazole Sodium (Protonix) 20 mg PO DAILY [facility] Last Admin: 03/24/18 08:37 Dose: 20 mg Pharmacy Profile Note (Coumadin Consult Pharmacy) 1 each OTHER UNSCH PRN PRN Reason: PHARMACY DOCUMENTATION Sacubitril/Valsartan (Entresto 24 Mg/26 Mg Tablet) 1 tab PO BID [facility] Last Admin: 03/23/18 09:05 Dose: Not Given Senna/Docusate Sodium (Cecilia-Colace) 1 tab PO BID [facility] Last Admin: 03/24/18 08:37 Dose: 1 tab Sennosides (Senokot) 17.2 mg PO Q12H PRN PRN Reason: Moderate Constipation Sodium Chloride (Ns Flush) 2 ml IV.FLUSH BID [facility] Last Admin: 03/24/18 08:37 Dose: 2 ml Sodium Chloride (Ns Flush) 2 ml IV.FLUSH PRN PRN PRN Reason: FLUSH AFTER USING IV ACCESS Warfarin Sodium (Coumadin) 7.5 mg PO DAILY@1600 [facility] Last Admin: 03/23/18 15:43 Dose: 7.5 mg Physical Exam Vital signs: Vital Signs 03/23/18 12:00 03/23/18 16:00 03/23/18 16:15 Temperature 99.4 F 98.0 F Pulse Rate 63 68 55 L Respiratory Rate 20 16 Blood Pressure 90/58 L 113/57 L Pulse Oximetry 95 93 L 03/23/18 17:04 03/23/18 20:00 03/23/18 20:04 Temperature 98.9 F Pulse Rate 66 63 Respiratory Rate 16 Blood Pressure 100/48 L 102/48 L Pulse Oximetry 95 03/24/18 00:00 03/24/18 04:00 03/24/18 08:00 Temperature 98.3 F 99.2 F 98.4 F Pulse Rate 76 75 62 Respiratory Rate 18 18 18 Blood Pressure 114/71 133/58 L 112/70 Pulse Oximetry 95 96 96 Intake & Output 03/23/18 03/24/18 03/24/18 18:59 06:59 18:59 Output Total 600 / 600 Balance -600 / -600 Weight 46.2 kg Output: Urine 600 / 600 Other: # Voids 2 Date of Last Bowel Movement 03/22/18 # Bowel Movements 1 - Constitutional no acute distress - Routine HEENT Exam Head: Present: normocephalic Eye: Present: PERRL ENT: Present: mucous membranes moist - Routine Neck Exam Present: full ROM - Routine Respiratory Exam Present: CTA bilaterally - Routine Cardiovascular Exam Present: S1, S2. Absent: murmur, gallop, rubs - Routine Abdominal Exam Present: normoactive bowel sounds - Routine Extremities Exam Present: full ROM, pulses intact, normal capillary refill. Absent: cyanosis, clubbing, edema - Routine Skin Exam Present: intact - Routine Neurological Exam Present: oriented X3 - Detailed Neurological Exam: Coma Scale Eye Opening: Spontaneous Verbal Response: Oriented Motor Response: Obey commands Jay Coma Scale Total: 15 - Routine Psychiatric Exam Present: normal affect Results 03/24/18 05:39 03/22/18 01:55 Coagulation 03/22/18 03/22/18 03/23/18 Range/Units 09:44 20:21 02:55 PT 13.8 H 14.2 H (9.8-11.6) sec APTT 50.9 H D 52.0 H 66.1 H D (24.3-30.1) sec 03/23/18 03/24/18 Range/Units 09:30 05:39 PT 18.7 H (9.8-11.6) sec APTT 60.2 H 61.2 H (24.3-30.1) sec CBC 03/24/18 Range/Units 05:39 WBC 6.6 (4.0-11.0) th/mm3 RBC 3.48 L (4.00-5.30) mil/mm3 Hgb 10.6 L (11.6-15.3) gm/dL Hct 32.1 L (35.0-46.0) % Plt Count 254 (150-450) th/mm3 Intake and Output 03/23/18 03/24/18 03/24/18 22:59 06:59 14:59 Output Total 600 / 600 Balance -600 / -600 Output: Urine 600 / 600 Other: # Voids 2 Date of Last Bowel Movement 03/22/18 # Bowel Movements 1 Weight 46.2 kg Assessment and Plan - Assessment (1) On Coumadin for atrial fibrillation Code(s): Z78.9 - Other specified health status Status: Acute (2) Infarction of kidney Code(s): N28.0 - Ischemia and infarction of kidney Status: Acute (3) History of atrial fibrillation Code(s): Z86.79 - Personal history of other diseases of the circulatory system Status: Acute - Plan Patient's INR level is up to 1.8, still subtherapeutic. Continue heparin drip for anticoagulation until INR is therapeutic. Discussed with patient again on the importance of keeping her appointments for INR checks, patient verbalized understanding. We will decrease digoxin to 0.125 mg and continue Coreg 25 mg twice daily. Patient remains in atrial fibrillation with controlled rate with intermittent paced beats, continue to monitor patient on telemetry. We will continue to monitor the patient during her hospitalization and follow- up the patient in our office post discharge. Patient was seen and evaluated by Dr. Patton who participated in care, management and decision-making. - Attending Attestation Patient seen and examined. I reviewed and agree with the evaluation and plan as presented. Continue anticoagulation with IV heparin until INR therapeutic. Continue carvedilol. Increase activity.
[2018-03-24] MEDS: Carvedilol 12.5 MG Tablet PO SCH ×2 (10:58→22:23)
--- NOTE | 2018-03-24 11:22 | P.PN ---
Subjective Interval history: Nursing denies any deterioration since last night except for some transient tachycardic episodes. Patient herself denies any new complaints. Says his back pain is better. Physical Exam Vital signs: Vital Signs 03/23/18 12:00 03/23/18 16:00 03/23/18 16:15 Temperature 99.4 F 98.0 F Pulse Rate 63 68 55 L Respiratory Rate 20 16 Blood Pressure 90/58 L 113/57 L Pulse Oximetry 95 93 L 03/23/18 17:04 03/23/18 20:00 03/23/18 20:04 Temperature 98.9 F Pulse Rate 66 63 Respiratory Rate 16 Blood Pressure 100/48 L 102/48 L Pulse Oximetry 95 03/24/18 00:00 03/24/18 04:00 03/24/18 08:00 Temperature 98.3 F 99.2 F 98.4 F Pulse Rate 76 75 63 Respiratory Rate 18 18 18 Blood Pressure 114/71 133/58 L 112/70 Pulse Oximetry 95 96 96 Intake & Output 03/23/18 03/24/18 03/24/18 18:59 06:59 18:59 Output Total 600 / 600 Balance -600 / -600 Weight 46.2 kg Output: Urine 600 / 600 Other: # Voids 2 Date of Last Bowel Movement 03/22/18 03/22/18 # Bowel Movements 1 Narrative: Minimal lumbar tenderness to palpation Heart sounds demonstrated an irregular rhythm but a regular rate Lying in bed, no acute distress, unlabored breathing clear lungs bilaterally Results - Labs CBC & Chem 7: 03/24/18 05:39 03/22/18 01:55 Laboratory Results - last 24 hr 03/24/18 03/24/18 05:39 05:39 WBC 6.6 RBC 3.48 L Hgb 10.6 L Hct 32.1 L MCV 92.2 MCH 30.6 MCHC 33.2 RDW 14.7 Plt Count 254 MPV 8.4 PT 18.7 H INR 1.8 APTT 61.2 H Assessment and Plan - Plan 67-year-old black female being admitted for acute low back pain w/ BL renal infarcts Acute low back pain Possibly secondary to bilateral renal infarcts possibly secondary to emboli from A. fib versus other etiologies Continue heparin drip, bridging on Coumadin -Appreciate cardiac input, suspect subtherapeutic coumadin as cause -Pain medication as needed -Lipitor A. fib pacemaker Nonischemic cardiomyopathy Chronic systolic heart failure Continue home Entresto, Coreg, digoxin and Lasix -continue increased dose of Warfarin with heparin drip -INR 1.8 today, recheck INR tomorrow, Crohn's disease Continue home sulfasalazine and folic acid Continue home Remeron on heparin
[2018-03-24] MEDS: Heparin Drip 25,000 UNIT/250 ML BAG IV.CONT PRN (12:54)
[2018-03-25 08:44] LABS: Activated Partial Thrombo Time 58.3 sec (24.3-30.1); INR 2.5 Ratio; Prothrombin Time 25.4 sec (9.8-11.6)
[2018-03-25] MEDS: Carvedilol 12.5 MG Tablet PO SCH ×2 (08:48→21:19)
[2018-03-25] MEDS: Mirtazapine 15 MG Tablet PO SCH (08:51)
[2018-03-25] MEDS: Pantoprazole Sodium 20 MG DR Tablet PO SCH (08:51)
[2018-03-25] MEDS: Sodium Chloride 0.9% 2 ML Flush BID IV.FLUSH SCH ×2 (08:51→21:20)
[2018-03-25] MEDS: Senna/Docusate Sodium 8.6/50 MG Tablet PO SCH ×2 (08:51→21:21)
[2018-03-25] MEDS: FLUoxetine 20 MG Capsule PO SCH (08:51)
[2018-03-25] MEDS ORDERED: Digoxin 125 MCG Tablet PO SCH (09:00)
--- NOTE | 2018-03-25 13:21 | P.PN ---
Subjective Interval history: Nursing reports some bradycardia into the 30s overnight and with the Coreg being held. Blood pressures going to the 90s systolic. Patient overall a symptomatic but she is lying in bed for the most part. Physical Exam Vital signs: Vital Signs 03/24/18 16:00 03/24/18 20:00 03/25/18 00:00 Temperature 98.4 F 98.2 F 97.9 F Pulse Rate 58 L 54 L 69 Respiratory Rate 18 18 18 Blood Pressure 90/58 L 108/64 100/62 Pulse Oximetry 95 98 03/25/18 02:55 03/25/18 03:00 03/25/18 04:00 Temperature 97.8 F Pulse Rate 37 L 67 65 Respiratory Rate 18 Blood Pressure 92/50 L Pulse Oximetry 95 03/25/18 08:00 03/25/18 09:00 03/25/18 12:00 Temperature 98.3 F 97.8 F Pulse Rate 58 L 63 Respiratory Rate 18 18 Blood Pressure 94/57 L 108/64 106/55 L Pulse Oximetry 98 98 Intake & Output 03/24/18 03/25/18 03/25/18 18:59 06:59 18:59 Intake Total 250 / 250 Output Total 600 / 600 Balance 250 / 250 -600 / -600 Weight 45.3 kg Intake: IV 250 / 250 Heparin/D5W 25,000 U/250 mL 25, 250 / 250 000 unit In 250 ml @ Per Protocol IV.CONT TITRATE PRN Rx #:[id number] Output: Urine 600 / 600 Other: # Voids 2 Date of Last Bowel Movement 03/22/18 03/23/18 # Bowel Movements 1 Narrative: Upon my exam is a regular heart rate, regular rhythm Clear lungs bilaterally, unlabored breathing Results - Labs CBC & Chem 7: 03/24/18 05:39 03/22/18 01:55 Laboratory Results - last 24 hr 03/25/18 06:39 PT 25.4 H INR 2.5 APTT 58.3 H Assessment and Plan - Plan 67-year-old black female being admitted for acute low back pain w/ BL renal infarcts Acute low back pain Possibly secondary to bilateral renal infarcts possibly secondary to emboli from A. fib versus other etiologies Stopping heparin, now on Coumadin as below -pain almost resolved A. fib pacemaker Nonischemic cardiomyopathy Chronic systolic heart failure Due to bradycardia borderline low normal blood pressure, Coreg strength is being decreased and digoxin will be held for now. Administer Entresto and Lasix as blood pressure tolerates -Warfarin was decreased from 7.5 mg to 5 mg yesterday, INR is 2.5 mg today, recheck INR tomorrow Crohn's disease Continue home sulfasalazine and folic acid Continue home Remeron on heparin
--- NOTE | 2018-03-25 14:13 | P.PNCA ---
Subjective Interval history: Patient denies any CP, pressure, palpitations, dizziness, edema or SOB. Medications and Allergies Allergies Allergy/AdvReac Type Severity Reaction Status Date / Time penicillin G Allergy Severe Swelling Verified 03/22/18 00:55 cefepime Allergy Unknown Swelling Verified 03/22/18 00:55 ceftaroline fosamil Allergy Unknown Swelling Verified 03/22/18 00:55 cephalexin Allergy Unknown RASH Verified 03/22/18 00:55 Home Medications Medication Instructions Recorded Confirmed Type atorvastatin 20 mg PO DAILY 03/22/18 03/22/18 History carvedilol [Coreg] 25 mg PO BID 03/22/18 03/22/18 History digoxin 0.25 mg PO DAILY 03/22/18 03/22/18 History fexofenadine [Lisa Allergy] 180 mg PO DAILY 03/22/18 03/22/18 History fluoxetine [Prozac] 20 mg PO DAILY 03/22/18 03/22/18 History folic acid 1 mg PO DAILY 03/22/18 03/22/18 History furosemide 20 mg PO DAILY 03/22/18 03/22/18 History mirtazapine [Remeron] 30 mg PO DAILY 03/22/18 03/22/18 History pantoprazole [Protonix] 20 mg PO DAILY 03/22/18 03/22/18 History warfarin [Coumadin] 5 mg PO [id number] 03/22/18 03/22/18 History Active Medications: Active Medications Acetaminophen (Tylenol) 650 mg PO Q4H PRN PRN Reason: Temp > 100.4 Al Hydroxide/Mg Hydroxide (Milk Of Magnesia Liq) 30 ml PO Q12H PRN PRN Reason: Mild Constipation Atorvastatin Calcium (Lipitor) 40 mg PO HS [facility] Last Admin: 03/24/18 22:23 Dose: 40 mg Bisacodyl (Dulcolax Supp) 10 mg RECTAL DAILY PRN PRN Reason: SEVERE CONSITIPATION Carvedilol (Coreg) 12.5 mg PO BID [facility] Fluoxetine HCl (Prozac) 20 mg PO DAILY [facility] Last Admin: 03/25/18 08:51 Dose: 20 mg Furosemide (Lasix) 20 mg PO DAILY [facility] Last Admin: 03/23/18 09:04 Dose: 20 mg Lactulose (Lactulose Liq) 30 ml PO DAILY PRN PRN Reason: SEVERE CONSITIPATION Mirtazapine (Remeron) 30 mg PO DAILY [facility] Last Admin: 03/25/18 08:51 Dose: 30 mg Ondansetron HCl (Zofran Inj) 4 mg IV.PUSH Q6H PRN PRN Reason: NAUSEA OR VOMITING Pantoprazole Sodium (Protonix) 20 mg PO DAILY [facility] Last Admin: 03/25/18 08:51 Dose: 20 mg Pharmacy Profile Note (Coumadin Consult Pharmacy) 1 each OTHER UNSCH PRN PRN Reason: PHARMACY DOCUMENTATION Sacubitril/Valsartan (Entresto 24 Mg/26 Mg Tablet) 1 tab PO BID [facility] Last Admin: 03/23/18 09:05 Dose: Not Given Senna/Docusate Sodium (Cecilia-Colace) 1 tab PO BID [facility] Last Admin: 03/25/18 08:51 Dose: 1 tab Sennosides (Senokot) 17.2 mg PO Q12H PRN PRN Reason: Moderate Constipation Sodium Chloride (Ns Flush) 2 ml IV.FLUSH BID [facility] Last Admin: 03/25/18 08:51 Dose: 2 ml Sodium Chloride (Ns Flush) 2 ml IV.FLUSH PRN PRN PRN Reason: FLUSH AFTER USING IV ACCESS Warfarin Sodium (Coumadin) 5 mg PO DAILY@1600 [facility] Physical Exam Vital signs: Vital Signs 03/24/18 16:00 03/24/18 20:00 03/25/18 00:00 Temperature 98.4 F 98.2 F 97.9 F Pulse Rate 58 L 54 L 69 Respiratory Rate 18 18 18 Blood Pressure 90/58 L 108/64 100/62 Pulse Oximetry 95 98 03/25/18 02:55 03/25/18 03:00 03/25/18 04:00 Temperature 97.8 F Pulse Rate 37 L 67 65 Respiratory Rate 18 Blood Pressure 92/50 L Pulse Oximetry 95 03/25/18 08:00 03/25/18 09:00 03/25/18 12:00 Temperature 98.3 F 97.8 F Pulse Rate 58 L 63 Respiratory Rate 18 18 Blood Pressure 94/57 L 108/64 106/55 L Pulse Oximetry 98 98 Intake & Output 03/24/18 03/25/18 03/25/18 18:59 06:59 18:59 Intake Total 250 / 250 Output Total 600 / 600 Balance 250 / 250 -600 / -600 Weight 45.3 kg Intake: IV 250 / 250 Heparin/D5W 25,000 U/250 mL 25, 250 / 250 000 unit In 250 ml @ Per Protocol IV.CONT TITRATE PRN Rx #:[id number] Output: Urine 600 / 600 Other: # Voids 2 Date of Last Bowel Movement 03/22/18 03/23/18 # Bowel Movements 1 - Constitutional no acute distress - Routine HEENT Exam Head: Present: normocephalic Eye: Present: PERRL ENT: Present: mucous membranes moist - Routine Neck Exam Present: full ROM - Routine Respiratory Exam Present: CTA bilaterally - Routine Cardiovascular Exam Present: S1, S2, irregular rhythm - Routine Abdominal Exam Present: normoactive bowel sounds - Routine Extremities Exam Present: full ROM, pulses intact, normal capillary refill. Absent: cyanosis, clubbing, edema - Routine Skin Exam Present: intact - Routine Neurological Exam Present: oriented X3 - Detailed Neurological Exam: Coma Scale Eye Opening: Spontaneous Verbal Response: Oriented Motor Response: Obey commands [place] Coma Scale Total: 15 - Routine Psychiatric Exam Present: normal affect Results 03/24/18 05:39 03/22/18 01:55 Coagulation 03/24/18 03/25/18 Range/Units 05:39 06:39 PT 18.7 H 25.4 H (9.8-11.6) sec APTT 61.2 H 58.3 H (24.3-30.1) sec CBC 03/24/18 Range/Units 05:39 WBC 6.6 (4.0-11.0) th/mm3 RBC 3.48 L (4.00-5.30) mil/mm3 Hgb 10.6 L (11.6-15.3) gm/dL Hct 32.1 L (35.0-46.0) % Plt Count 254 (150-450) th/mm3 Intake and Output 03/24/18 03/25/18 03/25/18 22:59 06:59 14:59 Output Total 600 / 600 Balance -600 / -600 Output: Urine 600 / 600 Other: # Voids 2 Date of Last Bowel Movement 03/23/18 # Bowel Movements 1 Weight 45.3 kg Assessment and Plan - Assessment (1) On Coumadin for atrial fibrillation Code(s): Z78.9 - Other specified health status Status: Acute (2) Infarction of kidney Code(s): N28.0 - Ischemia and infarction of kidney Status: Acute (3) History of atrial fibrillation Code(s): Z86.79 - Personal history of other diseases of the circulatory system Status: Acute - Plan Patient became hypotensive and bradycardiac this morning. We will discontinue the Digoxin and decrease Coreg to 12.5mg BID. Patient INR today is 2.5 therapeutic. Discharge home tomorrow if HR over 45 and systolic BP over 95. Discussed with the patient again the importance of keeping her appointments for INR checks, patient verbalized understanding. We will see the patient in our office post discharge and monitor her INR. Patient was seen and evaluated by Dr. Patton who participated in care, management and decision-making. - Attending Attestation Patient seen and examined. I reviewed and agree with the evaluation and plan as presented. Continue anticoagulation. DC home tomorrow if stable. Will schedule f /u in our office after discharge.
[2018-03-26 01:13] VITALS: RESP 16
[2018-03-26 04:15] LABS: Activated Partial Thrombo Time 41.8 sec (24.3-30.1); INR 2.4 Ratio; Prothrombin Time 24.7 sec (9.8-11.6)
[2018-03-26] MEDS: Mirtazapine 15 MG Tablet PO SCH ×2 (09:11→11:39)
[2018-03-26] MEDS: Senna/Docusate Sodium 8.6/50 MG Tablet PO SCH (09:11)
[2018-03-26] MEDS: Sodium Chloride 0.9% 2 ML Flush BID IV.FLUSH SCH (09:12)
[2018-03-26] MEDS: FLUoxetine 20 MG Capsule PO SCH (09:12)
[2018-03-26] MEDS: Pantoprazole Sodium 20 MG DR Tablet PO SCH (09:12)
--- NOTE | 2018-03-26 10:49 | P.DS ---
Date of admission: 03/22/18 04:11 Primary care physician: Joni Hair MD Brief History from admission: 67-year-old black female being admitted for acute low back pain w/ bilateral renal infarcts. Patient was in her usual state of health until about 2 days ago when she began experiencing a gradual onset of left-sided low back pain. Pain had expanded to her right side as well as her abdomen. Patient had taken some Tylenol with transient relief. However the patient ultimately did worsen to a 10/10 intensity prompting her to come to the emergency department. Says that anything she does seems to worsen the pain with chest slight relief upon resting in bed. Denies any nausea vomiting or changes in her bowel patterns. Denies any hematuria or dysuria. Denies any fevers or chills. Says because of her pain level she missed the last 2 doses of her Coumadin. Says that she has chronic low back pain due to her scoliosis and arthritis but says that this pain is acutely worse. Patient says she is compliant overall with her Coumadin dosing for her A. fib and her sulfasalazine dosing for her Crohn's disease. In the emergency department she had an EKG done which showed unchanged paced rhythm. Her INR was 1.4. CT abdomen was performed which was suggestive of bilateral renal infarcts. BMP was unremarkable for any acute kidney injury. Patient was given IV pain medication and IV fluids started on a heparin drip. DS: Medications - Discharge Medications Prescriptions: atorvastatin 40 mg PO HS #30 tab carvedilol [Coreg] 12.5 mg PO BID #60 tab DS: Summary Hospital Course: Patient was admitted, started on heparin and lipitor. Was restarted on Coumadin dosing. Cardiology concluded that the patient's likely bilateral renal infarcts came from being subtherapeutic on her Coumadin. Patient's back pain resolved. Achieved a therapeutic INR between 2.0 and 3.0. Patient had some PVCs as well as some fluctuating bradycardia, her cardiac meds were adjusted by cardiology with stabilization of her pulse. Patient has met maximal benefit from hospitalization is clinically stable for discharge. - Time Spent with Patient Total time spent providing and/or coordinating discharge services: Less than 30 minutes Exam Vital signs: Vital Signs 03/25/18 12:00 03/25/18 16:00 03/25/18 20:00 Temperature 97.8 F 98.0 F 98.4 F Pulse Rate 63 85 74 Respiratory Rate 18 18 Blood Pressure 106/55 L 116/65 122/60 Pulse Oximetry 98 97 98 03/26/18 00:00 03/26/18 04:00 03/26/18 08:00 Temperature 99.3 F 98.1 F 98.1 F Pulse Rate 65 56 L 62 Respiratory Rate 16 16 16 Blood Pressure 106/57 L 129/63 117/69 Pulse Oximetry 94 L 94 L 96 Intake & Output 03/25/18 03/26/18 03/26/18 18:59 06:59 18:59 Intake Total 680 / 680 680 / 680 Balance 680 / 680 680 / 680 Weight 46.1 kg Intake: IV 200 / 200 Heparin/D5W 25,000 U/250 mL 25, 200 / 200 000 unit In 250 ml @ Per Protocol IV.CONT TITRATE PRN Rx #:[id number] Oral 480 / 480 680 / 680 Other: # Voids 3 2 Date of Last Bowel Movement 03/26/18 03/26/18 Narrative: Heart sounds regular rate and rhythm, no murmurs Clear lungs bilaterally, unlabored breathing Results Procedures completed during hospitalization: . Labs on day of discharge: Labs from last 24 hours 03/26/18 03:33 PT 24.7 H INR 2.4 APTT 41.8 H D - Impressions ITS Impressions Chest X-Ray 03/22/18 01:40 CONCLUSION: No acute cardiopulmonary process. Abdomen/Pelvis CT 03/22/18 02:50 CONCLUSION: 1. Bilateral renal infarcts. 2. Cardiomegaly. 3. Hepatic steatosis. 4. Nonspecific dilatation the pancreatic duct. 5. 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 No fluid around the spleen is seen. Discharge Plan - Discharge Disposition Patient Disposition: Discharge Home - Discharge Condition Condition: Stable - Discharge Order Discharge Orders: Discharge Order (Routine); Ordered 03/26/18 Ordered By: Bassam Yang - Physicians Team Primary Care Provider: Joni Hair Attending Provider: Bassam Yang Other Providers: Ann Patton MD ; [facility]
[2018-03-26] MEDS: Carvedilol 12.5 MG Tablet PO SCH (11:57)
[2018-03-26 12:39] VITALS: BP 110/60; PULSE 62; TEMP 98.3; O2SAT 95
== END 2018-03-26 16:56 | disposition home or self-care (01) ==
LOC: NEPC 00:48 → NEDA 04:11 → N04 13:39
PROVIDERS: ADMIT Hospitalist; ATTEND Hospitalist

== ENCOUNTER 2018-04-07 23:38 | Observation (INO) ==
--- NOTE | 2018-04-08 00:02 | ED ---
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 fib on Coumadin, cardiomyopathy, AICD, here with her family for evaluation after her AICD discharged about 45 minutes prior to arrival. The patient reports that just prior to the AICD firing she felt nauseous and lightheaded. Afterwards she felt improved. She denies ever having chest pain. No fevers, chills, cough, or recent illness. No paresthesias or motor deficits. Chart review shows that the patient was admitted to the hospital last week for bilateral renal infarcts with subtherapeutic INR. She was seen and evaluated by her city route driver Dr. Patton in his office today. Reports that she had her INR checked today and it was 5. Related Data Home Medications Medication Instructions Recorded Confirmed fexofenadine [Lisa Allergy] 180 mg PO DAILY 03/22/18 04/07/18 fluoxetine [Prozac] 20 mg PO DAILY 03/22/18 04/07/18 folic acid 1 mg PO DAILY 03/22/18 04/07/18 furosemide 20 mg PO DAILY 03/22/18 04/07/18 mirtazapine [Remeron] 30 mg PO DAILY 03/22/18 04/07/18 pantoprazole [Protonix] 20 mg PO DAILY 03/22/18 04/07/18 Previous Rx's Medication Instructions Recorded atorvastatin 40 mg PO HS #30 tab 03/26/18 carvedilol [Coreg] 12.5 mg PO BID #60 tab 03/26/18 sacubitril-valsartan [Entresto] 1 tab PO BID tab 03/26/18 warfarin [Coumadin] 5 mg PO DAILY@1600 tab 03/26/18 Allergies Allergy/AdvReac Type Severity Reaction Status Date / Time penicillin G Allergy Severe Swelling Verified 04/07/18 23:48 cefepime Allergy Unknown Swelling Verified 04/07/18 23:48 ceftaroline fosamil Allergy Unknown Swelling Verified 04/07/18 23:48 cephalexin Allergy Unknown RASH Verified 04/07/18 23:48 Review of Systems ROS: all other systems reviewed are negative [facility] Family History Family History Other Heart disease Social History Social History Substance History: No History of Abuse Smoking Status: Never smoker How Often Do You Have a Drink Containing Alcohol: Never Recent Travel in [facility] within the Last 8 Weeks: No Recent Out of Country Travel within the Last 8 Weeks: No Immunization History Tetanus Immunization: Unsure Exam Narrative Exam Narrative: GENERAL: Well-developed, well-nourished, awake, alert, comfortable, no apparent distress. SKIN: Focused skin assessment warm/dry. HEAD: Atraumatic. Normocephalic. EYES: Pupils equal and round. No scleral icterus. No injection or drainage. ENT: Mucous membranes pink and moist. NECK: Trachea midline. No JVD. CARDIOVASCULAR: Regular rate and rhythm. Distal pulses brisk and equal bilaterally. RESPIRATORY: No accessory muscle use. Clear to auscultation. Breath sounds equal bilaterally. GASTROINTESTINAL: Abdomen soft, non-tender, nondistended. MUSCULOSKELETAL: No obvious deformities. No clubbing. No cyanosis. No edema. NEUROLOGICAL: Awake and alert. No obvious cranial nerve deficits. Motor grossly within normal limits. Normal speech. PSYCHIATRIC: Appropriate mood and affect; insight and judgment normal. Course Initial Documented Vital Signs Temperature 98.3 F 04/07/18 23:40 Pulse Rate 110 H 04/07/18 23:40 Respiratory Rate 24 04/07/18 23:40 Blood Pressure 113/77 04/07/18 23:40 Pulse Oximetry 97 04/07/18 23:40 Last Documented Vital Signs Temperature 98.3 F 04/07/18 23:40 Pulse Rate 108 H 04/07/18 23:50 Respiratory Rate 16 04/07/18 23:50 Blood Pressure 125/82 04/07/18 23:50 Pulse Oximetry 98 04/07/18 23:50 Medical Decision Making MDM Narrative Medical decision making narrative: Vital signs reviewed. 1:00 AM the patient's AICD was interrogated by the [employer] rep. The patient had an irregular rhythm at a rate of around 200 when her AICD fired. Labs reviewed and are remarkable for slight anemia which is around her baseline. Troponin is 0.03. Chest x-ray shows no acute cardia pulmonary disease. Patient reports that she was recently taken off of her digoxin a week ago by Dr. Patton. She will be admitted for overnight telemetry monitoring and cardiology evaluation. She was made aware of all findings, reports feeling significantly improved, and is resting comfortably on reassessment. Case discussed with hospitalist Dr. Parson who will admit the patient to his service. Medical Screen Exam Complete: Yes Emergency Medical Condition: Yes Differential Diagnosis Differential Diagnosis: AICD discharge, metabolic abnormality, dysrhythmia Lab Data Result diagrams: 04/08/18 00:40 04/08/18 00:00 Lab Results 04/08/18 04/08/18 04/08/18 Range/Units 00:00 00:00 00:40 WBC 6.3 (4.0-11.0) th/mm3 RBC 3.64 L (4.00-5.30) mil/mm3 Hgb 10.7 L (11.6-15.3) gm/dL Hct 34.6 L (35.0-46.0) % MCV 95.0 (80.0-100.0) fL MCH 29.3 (27.0-34.0) pg MCHC 30.8 L (32.0-36.0) % RDW 15.4 (11.6-17.2) % Plt Count 369 D (150-450) th/mm3 MPV 7.9 (7.0-11.0) fL Neut % (Auto) 51.9 (16.0-70.0) % Lymph % (Auto) 41.1 (9.0-44.0) % [place] % (Auto) 5.6 (0.0-8.0) % Eos % (Auto) 1.0 (0.0-4.0) % Baso % (Auto) 0.4 (0.0-2.0) % Neut # (Auto) 3.3 (1.8-7.7) th/mm3 Lymph # (Auto) 2.6 (1.0-4.8) th/mm3 [place] # (Auto) 0.4 (0.0-0.9) th/mm3 Eos # (Auto) 0.1 (0.0-0.4) th/mm3 Baso # (Auto) 0.0 (0.0-0.2) th/mm3 WBC Differential . Differential Comment Auto diff final PT (9.8-11.6) sec INR Ratio APTT (23.4-31.7) sec Sodium 140 (136-145) meq/L Potassium 4.2 (3.5-5.1) meq/L Chloride 105 (98-107) meq/L Carbon Dioxide 25.2 (21.0-32.0) meq/L Anion Gap 10 (5-15) meq/L BUN 14 (7-18) mg/dL Creatinine 1.08 H (0.50-1.00) mg/dL Estimated GFR 61 L (>89) mL/min Random Glucose 130 H (74-106) mg/dL Calcium 8.1 L (8.5-10.1) mg/dL Magnesium 1.8 (1.5-2.5) mg/dL Total Bilirubin 0.5 (0.2-1.0) mg/dL AST 45 H (15-37) U/L ALT 27 (10-53) U/L Alkaline Phosphatase 128 H (45-117) U/L Troponin I 0.03 (0.02-0.05) ng/mL Total Protein 7.5 (6.4-8.2) g/dL Albumin 2.9 L (3.4-5.0) g/dL 04/08/18 Range/Units 00:40 WBC (4.0-11.0) th/mm3 RBC (4.00-5.30) mil/mm3 Hgb (11.6-15.3) gm/dL Hct (35.0-46.0) % MCV (80.0-100.0) fL MCH (27.0-34.0) pg MCHC (32.0-36.0) % RDW (11.6-17.2) % Plt Count (150-450) th/mm3 MPV (7.0-11.0) fL Neut % (Auto) (16.0-70.0) % Lymph % (Auto) (9.0-44.0) % [place] % (Auto) (0.0-8.0) % Eos % (Auto) (0.0-4.0) % Baso % (Auto) (0.0-2.0) % Neut # (Auto) (1.8-7.7) th/mm3 Lymph # (Auto) (1.0-4.8) th/mm3 [place] # (Auto) (0.0-0.9) th/mm3 Eos # (Auto) (0.0-0.4) th/mm3 Baso # (Auto) (0.0-0.2) th/mm3 WBC Differential Differential Comment PT 41.4 H D (9.8-11.6) sec INR 4.1 Ratio APTT 37.3 H (23.4-31.7) sec Sodium (136-145) meq/L Potassium (3.5-5.1) meq/L Chloride (98-107) meq/L Carbon Dioxide (21.0-32.0) meq/L Anion Gap (5-15) meq/L BUN (7-18) mg/dL Creatinine (0.50-1.00) mg/dL Estimated GFR (>89) mL/min Random Glucose (74-106) mg/dL Calcium (8.5-10.1) mg/dL Magnesium (1.5-2.5) mg/dL Total Bilirubin (0.2-1.0) mg/dL AST (15-37) U/L ALT (10-53) U/L Alkaline Phosphatase (45-117) U/L Troponin I (0.02-0.05) ng/mL Total Protein (6.4-8.2) g/dL Albumin (3.4-5.0) g/dL Imaging Data Radiologist's impression: Chest X-Ray 04/08/18 00:01 CONCLUSION: No acute cardiopulmonary disease.. ECG Data Attestation: I personally reviewed and interpreted this ECG as follows: (Sinus, rate 105, occasional PVCs, incomplete RBBB, RVH, no acute ischemic abnormality.) Discharge Plan Discharge Disposition Patient Disposition: 30 Still Patient Discharge Condition Condition: Stable Discharge Details Diagnosis: AICD discharge Physicians Team ED Provider: Reed Fontanez Primary Care Provider: Joni Hair Rxs /Orders / Referrals /Forms Prescriptions: No Action fexofenadine [Lisa Allergy] 180 mg Tablet 180 mg PO DAILY RF: 0 pantoprazole [Protonix] 20 mg Tablet,Delayed Release (Dr/Ec) 20 mg PO DAILY RF: 0 mirtazapine [Remeron] 30 mg Tablet 30 mg PO DAILY RF: 0 folic acid 1 mg Tablet 1 mg PO DAILY RF: 0 furosemide 20 mg Tablet 20 mg PO DAILY RF: 0 fluoxetine [Prozac] 20 mg Capsule 20 mg PO DAILY RF: 0 atorvastatin 40 mg Tablet 40 mg PO HS Qty: 30 RF: 0 carvedilol [Coreg] 12.5 mg Tablet 12.5 mg PO BID Qty: 60 RF: 0 sacubitril-valsartan [Entresto] 24-26 mg Tablet 1 tab PO BID RF: 0 warfarin [Coumadin] 5 mg Tablet 5 mg PO DAILY@1600 RF: 0 Discharge Interventions Interventions: Vital Signs Last Done: 04/07/18 23:50 Status ED Status: With Doctor
--- NOTE | 2018-04-08 00:33 | XR ---
EXAM DATE: 04/08/2018 12:25 AM EST AGE/SEX: 67 years / Female INDICATIONS: Chest pain. Patient states issue with pacemaker and defibrillator. CLINICAL DATA: This is the patient's initial encounter. Patient reports that signs and symptoms have been present for 1 day and indicates a pain score of 0/10. MEDICAL/SURGICAL HISTORY: . Myocardial infarction. Chron' s disease. Asthma. Congestive heart failure. . Pacemaker and Defibrillator placement. COMPARISON: [facility] [place], CHEST 1V SINGLE AP, 03/22/2018. . FINDINGS: A single AP view of the chest demonstrates the lungs to be symmetrically aerated without evidence of mass, infiltrate or effusion. The cardiomediastinal contours are unremarkable. Osseous structures a re intact. Pacing device overlies the left chest. The leads appear intact. CONCLUSION: No acute cardiopulmonary disease.. Electronically signed by: Gautam Lassiter MD 04/08/2018 12:32 AM EST
[2018-04-08 01:03] LABS: Baso % (Auto) 0.4 % (0.0-2.0); Eos # (Auto) 0.1 th/mm3 (0.0-0.4); Hematocrit 34.6 % (35.0-46.0); Hemoglobin 10.7 gm/dL (11.6-15.3); Lymph # (Auto) 2.6 th/mm3 (1.0-4.8); Lymph % (Auto) 41.1 % (9.0-44.0); Mean Corpuscular Hemoglobin 29.3 pg (27.0-34.0); Mean Platelet Volume 7.9 fL (7.0-11.0); Mono # (Auto) 0.4 th/mm3 (0.0-0.9); Mono % (Auto) 5.6 % (0.0-8.0); Neut # (Auto) 3.3 th/mm3 (1.8-7.7); Neut % (Auto) 51.9 % (16.0-70.0); Platelet Count 369 th/mm3 (150-450); Red Blood Count 3.64 mil/mm3 (4.00-5.30); Red Cell Distribution Width 15.4 % (11.6-17.2); White Blood Count 6.3 th/mm3 (4.0-11.0)
[2018-04-08 01:05] LABS: Mean Corpuscular HGB Conc 30.8 % (32.0-36.0)
[2018-04-08 01:13] LABS: Alkaline Phosphatase 128 U/L (45-117); Total Protein 7.5 g/dL (6.4-8.2); Troponin I 0.03 ng/mL (0.02-0.05)
[2018-04-08 01:16] LABS: Activated Partial Thrombo Time 37.3 sec (23.4-31.7); INR 4.1 Ratio; Prothrombin Time 41.4 sec (9.8-11.6)
[2018-04-08 01:16] LABS: Alanine Aminotransferase 27 U/L (10-53); Albumin 2.9 g/dL (3.4-5.0); Anion Gap 10 meq/L (5-15); Aspartate Aminotransferase 45 U/L (15-37); Blood Urea Nitrogen 14 mg/dL (7-18); Calcium 8.1 mg/dL (8.5-10.1); Carbon Dioxide 25.2 meq/L (21.0-32.0); Chloride 105 meq/L (98-107); Glomerular Filtration Rate 61 mL/min (>89); Glucose,Random 130 mg/dL (74-106); Sodium 140 meq/L (136-145)
[2018-04-08 01:17] LABS: Potassium 4.2 meq/L (3.5-5.1)
[2018-04-08] MEDS ORDERED: Bisacodyl 10 MG Supp RECTAL PRN (01:52)
--- NOTE | 2018-04-08 05:27 | P.HPIM ---
History of Present Illness Service: [facility] Primary Care Physician: Joni Hair MD Chief Complaint: AICD firing History of Present Illness: 67-year-old female with history of CAD, A. fib on Coumadin, cardiomyopathy, AICD, presented to the ED after her AICD discharged about 45 minutes prior to arrival. The patient reports that just prior to the AICD firing she felt nauseous and lightheaded. Afterwards she felt ok. [employer] interrogated the AICD and found she had a HR of 200 prior to discharge. She currently denies chest pain, fever, chills, cough, or recent illness. She was recently taken off digoxin by her erp consultant Dr. Patton 2 weeks ago because her HR was controlled and BP was low. No other changes to medications. [facility] Medical History Medical History Atrial fibrillation (Acute) Crohn's disease (Acute) GI bleed (Acute) HTN (hypertension) (Acute) Hx of myocardial infarction (Acute) Nonischemic cardiomyopathy (Acute) Pulmonary hypertension (Acute) Rheumatoid arthritis (Acute) Surgical History Surgical History H/O myomectomy (Acute) Hx of section (Acute) S/P placement of cardiac pacemaker (Acute) Family History Family History Other Heart disease Social History Social History Substance History: No History of Abuse Second Hand Smoke Exposure: No Smoking Status: Never smoker How Often Do You Have a Drink Containing Alcohol: Monthly or less Recent Travel in [facility] within the Last 8 Weeks: No Recent Out of Country Travel within the Last 8 Weeks: No Immunization History Tetanus Immunization: Unsure Medications and Allergies Allergies Allergy/AdvReac Type Severity Reaction Status Date / Time penicillin G Allergy Severe Swelling Verified 04/07/18 23:48 cefepime Allergy Unknown Swelling Verified 04/07/18 23:48 ceftaroline fosamil Allergy Unknown Swelling Verified 04/07/18 23:48 cephalexin Allergy Unknown RASH Verified 04/07/18 23:48 Home Medications Medication Instructions Recorded Confirmed Type fexofenadine [Lisa Allergy] 180 mg PO DAILY 03/22/18 04/07/18 History fluoxetine [Prozac] 20 mg PO DAILY 03/22/18 04/07/18 History folic acid 1 mg PO DAILY 03/22/18 04/07/18 History furosemide 20 mg PO DAILY 03/22/18 04/07/18 History mirtazapine [Remeron] 30 mg PO DAILY 03/22/18 04/07/18 History pantoprazole [Protonix] 20 mg PO DAILY 03/22/18 04/07/18 History Active Medications: Active Medications Al Hydroxide/Mg Hydroxide (Milk Of Magnesia Liq) 30 ml PO Q12H PRN PRN Reason: Mild Constipation Atorvastatin Calcium (Lipitor) 40 mg PO HS [facility] Bisacodyl (Dulcolax Supp) 10 mg RECTAL DAILY PRN PRN Reason: SEVERE CONSITIPATION Carvedilol (Coreg) 12.5 mg PO BID [facility] Furosemide (Lasix) 20 mg PO DAILY [facility] Lactulose (Lactulose Liq) 30 ml PO DAILY PRN PRN Reason: SEVERE CONSITIPATION Mirtazapine (Remeron Soltab Odt) 30 mg PO DAILY [facility] Pantoprazole Sodium (Protonix) 20 mg PO DAILY [facility] Sacubitril/Valsartan (Entresto 24 Mg/26 Mg Tablet) 1 tab PO BID [facility] Sennosides (Senokot) 17.2 mg PO Q12H PRN PRN Reason: Moderate Constipation Sodium Chloride (Ns Flush) 2 ml IV.FLUSH UNSCH PRN PRN Reason: FLUSH AFTER USING IV ACCESS Physical Exam Vital signs: Last Vital Signs Temp 98.7 F 04/08/18 03:34 Pulse 95 H 04/08/18 03:34 Resp 18 04/08/18 03:34 BP 116/79 04/08/18 03:34 Pulse Ox 97 04/08/18 03:34 Intake & Output 04/05/18 04/06/18 04/07/18 04/08/18 06:59 06:59 06:59 06:59 Weight 45.359 kg Narrative: GENERAL: Thin patient laying in bed in no distress SKIN: Warm and dry. EYES: Pupils equal and round. No scleral icterus. No injection or drainage. NECK: Trachea midline. No JVD. CARDIOVASCULAR: Regular rate and rhythm. RESPIRATORY: No accessory muscle use. Clear to auscultation. Breath sounds equal bilaterally. GASTROINTESTINAL: Abdomen soft, non-tender, nondistended. Hepatic and splenic margins not palpable. MUSCULOSKELETAL: Extremities without clubbing, cyanosis, or edema. No obvious deformities. NEUROLOGICAL: Awake and alert. No obvious cranial nerve deficits. Motor grossly within normal limits. Normal speech. Assessment and Plan Plan 67-year-old female with history of CAD, A. fib on Coumadin, cardiomyopathy, AICD , anxiety and depression presented to the ED after her AICD discharged about 45 minutes prior to arrival. AICD firing, acute Interrogated and found elevated HR in 200s -Consult to cardiology for evaluation -Monitor telemetry Afib, chronic -Resume home medications -hold anticoagulation due to elevated INR Supra therapeutic INR, acute INR 4.1 -Hold Coumadin today -INR in AM DVT prophylaxis: SCDs H&P: Quality VTE Deep Vein Thrombosis/Pulmonary Embolism Present on Admission: No
[2018-04-08] MEDS: MIRTAZAPINE 30 MG PO SCH (09:37)
[2018-04-08] MEDS: Furosemide 20 MG Tablet PO SCH (09:39)
[2018-04-08] MEDS: FLUoxetine 20 MG Capsule PO SCH (09:39)
[2018-04-08] MEDS: Carvedilol 12.5 MG Tablet PO SCH ×2 (09:39→21:33)
[2018-04-08] MEDS: Pantoprazole Sodium 20 MG DR Tablet PO SCH (09:40)
[2018-04-08] MEDS: Amiodarone 200 MG Tablet PO SCH ×2 (14:13→21:33)
--- NOTE | 2018-04-08 15:38 | P.CONCA ---
History of Present Illness Service: Cardiology Consult date: 04/08/18 Requesting Physician: Raulito Parson Reason for Consult: AICD fired Primary Care Provider: Joni Hair MD Chief Complaint: AICD firing History of Present Illness: This is a very pleasant 67-year-old female known to Dr. Patton with a past medical history of congestive heart failure, coronary artery disease, [place] in 2006, nonischemic cardiomyopathy, Chron's disease, hypertension, hyperlipidemia, atrial fibrillation and [employer]tronic dual chamber defibrillator. She came to the Emergency Department earlier today after her AICD fired. She said, prior to her defibrillator firing, she became nauseous and lightheaded but after it discharged, she felt fine. AICD interrogated and showed that she had a HR of 200 prior to the device discharging. She denies any CP, pressure, palpitations, dizziness, edema or SOB at this time. Review of Systems All other systems reviewed negative except as stated in HPI PMFSH - History History Provided By: Patient - Medical History Medical History: Medical History (Last Reviewed 04/08/18 @ 06:00 by LEONARDO Pardees) Atrial fibrillation Crohn's disease GI bleed HTN (hypertension) Hx of myocardial infarction Nonischemic cardiomyopathy Pulmonary hypertension Rheumatoid arthritis - Surgical History Surgical History: Surgical History (Last Reviewed 04/08/18 @ 06:00 by LEONARDO Paredes) H/O myomectomy Hx of section S/P placement of cardiac pacemaker - Family History Family History: Family History (Last Reviewed 04/08/18 @ 06:00 by LEONARDO Paredes) Other Heart disease - Tobacco History Second Hand Smoke Exposure: No Smoking Status: Never smoker - Alcohol History How Often Do You Have a Drink Containing Alcohol: Monthly or less - Substance Use History Substance History: No History of Abuse - Travel History Recent Travel in the [place] Within the Last 8 Weeks: No Recent Travel Out of the Country Within the Last 8 Weeks: No - Immunization History Tetanus Immunization: Unsure Medications and Allergies Allergies Allergy/AdvReac Type Severity Reaction Status Date / Time penicillin G Allergy Severe Swelling Verified 04/07/18 23:48 cefepime Allergy Unknown Swelling Verified 04/07/18 23:48 ceftaroline fosamil Allergy Unknown Swelling Verified 04/07/18 23:48 cephalexin Allergy Unknown RASH Verified 04/07/18 23:48 Home Medications Medication Instructions Recorded Confirmed Type fexofenadine [Lisa Allergy] 180 mg PO DAILY 03/22/18 04/07/18 History fluoxetine [Prozac] 20 mg PO DAILY 03/22/18 04/07/18 History folic acid 1 mg PO DAILY 03/22/18 04/07/18 History furosemide 20 mg PO DAILY 03/22/18 04/07/18 History mirtazapine [Remeron] 30 mg PO DAILY 03/22/18 04/07/18 History pantoprazole [Protonix] 20 mg PO DAILY 03/22/18 04/07/18 History Active Medications: Active Medications Al Hydroxide/Mg Hydroxide (Milk Of Magnesia Liq) 30 ml PO Q12H PRN PRN Reason: Mild Constipation Amiodarone HCl (Cordarone) 200 mg PO Q12HR [facility] Last Admin: 04/08/18 14:13 Dose: 200 mg Atorvastatin Calcium (Lipitor) 40 mg PO [facility] Bisacodyl (Dulcolax Supp) 10 mg RECTAL DAILY PRN PRN Reason: SEVERE CONSITIPATION Carvedilol (Coreg) 12.5 mg PO BID [facility] Last Admin: 04/08/18 09:39 Dose: 12.5 mg Fluoxetine HCl (Prozac) 20 mg PO DAILY [facility] Last Admin: 04/08/18 09:39 Dose: 20 mg Furosemide (Lasix) 20 mg PO DAILY [facility] Last Admin: 04/08/18 09:39 Dose: 20 mg Lactulose (Lactulose Liq) 30 ml PO DAILY PRN PRN Reason: SEVERE CONSITIPATION Mirtazapine (Remeron Soltab Odt) 30 mg PO DAILY [facility] Last Admin: 04/08/18 09:37 Dose: Not Given Pantoprazole Sodium (Protonix) 20 mg PO DAILY [facility] Last Admin: 04/08/18 09:40 Dose: 20 mg Sacubitril/Valsartan (Entresto 24 Mg/26 Mg Tablet) 1 tab PO BID [facility] Last Admin: 04/08/18 09:40 Dose: 1 tab Sennosides (Senokot) 17.2 mg PO Q12H PRN PRN Reason: Moderate Constipation Sodium Chloride (Ns Flush) 2 ml IV.FLUSH UNSCH PRN PRN Reason: FLUSH AFTER USING IV ACCESS Exam Vital signs: Vital Signs 04/07/18 23:40 04/07/18 23:50 04/08/18 02:11 Temperature 98.3 F Pulse Rate 110 H 108 H 90 Respiratory Rate 24 16 16 Blood Pressure 113/77 125/82 113/79 Pulse Oximetry 97 98 97 04/08/18 03:34 04/08/18 07:51 04/08/18 08:39 Temperature 98.7 F 99.0 F Pulse Rate 95 H 92 H Respiratory Rate 18 16 Blood Pressure 116/79 115/83 Pulse Oximetry 97 94 L 98 04/08/18 11:43 Temperature 98.1 F Pulse Rate 86 Respiratory Rate 16 Blood Pressure 106/71 Pulse Oximetry 96 Intake & Output 04/07/18 04/08/18 04/08/18 18:59 06:59 18:59 Weight 45.359 kg Other: # Voids 1 Date of Last Bowel Movement 04/07/18 Weight On Admission 45.359 kg - Constitutional no acute distress - Routine HEENT Exam Head: Present: normocephalic Eye: Present: PERRL ENT: Present: mucous membranes moist - Routine Neck Exam Present: full ROM - Routine Respiratory Exam Present: CTA bilaterally - Routine Cardiovascular Exam Present: S1, S2. Absent: murmur, gallop, rubs - Routine Abdominal Exam Present: normoactive bowel sounds - Routine Extremities Exam Present: full ROM, pulses intact, normal capillary refill. Absent: cyanosis, clubbing, edema - Routine Skin Exam Present: intact - Routine Neurological Exam Present: oriented X3 Results 04/08/18 00:40 04/08/18 00:00 Cardiac Enzymes 04/08/18 Range/Units 00:00 AST 45 H (15-37) U/L Troponin I 0.03 (0.02-0.05) ng/mL Coagulation 04/08/18 Range/Units 00:40 PT 41.4 H D (9.8-11.6) sec APTT 37.3 H (23.4-31.7) sec CBC 04/08/18 Range/Units 00:40 WBC 6.3 (4.0-11.0) th/mm3 RBC 3.64 L (4.00-5.30) mil/mm3 Hgb 10.7 L (11.6-15.3) gm/dL Hct 34.6 L (35.0-46.0) % Plt Count 369 D (150-450) th/mm3 Neut # (Auto) 3.3 (1.8-7.7) th/mm3 Lymph # (Auto) 2.6 (1.0-4.8) th/mm3 [place] # (Auto) 0.4 (0.0-0.9) th/mm3 Eos # (Auto) 0.1 (0.0-0.4) th/mm3 Baso # (Auto) 0.0 (0.0-0.2) th/mm3 Comprehensive Metabolic Panel 04/08/18 Range/Units 00:00 Sodium 140 (136-145) meq/L Potassium 4.2 (3.5-5.1) meq/L Chloride 105 (98-107) meq/L Carbon Dioxide 25.2 (21.0-32.0) meq/L BUN 14 (7-18) mg/dL Creatinine 1.08 H (0.50-1.00) mg/dL Calcium 8.1 L (8.5-10.1) mg/dL AST 45 H (15-37) U/L ALT 27 (10-53) U/L Alkaline Phosphatase 128 H (45-117) U/L Total Protein 7.5 (6.4-8.2) g/dL Albumin 2.9 L (3.4-5.0) g/dL Intake and Output 04/08/18 04/08/18 04/08/18 06:59 14:59 22:59 Other: # Voids 1 Date of Last Bowel Movement 04/07/18 Weight 45.359 kg Weight On Admission 45.359 kg - Imaging and Cardiology Imaging: Impressions Chest X-Ray 04/08/18 00:01 CONCLUSION: No acute cardiopulmonary disease.. Assessment and Plan - Assessment (1) AICD discharge Code(s): Z45.02 - Encounter for adjustment and management of automatic implantable cardiac defibrillator Status: Acute (2) On Coumadin for atrial fibrillation Code(s): Z78.9 - Other specified health status Status: Acute (3) Infarction of kidney Code(s): N28.0 - Ischemia and infarction of kidney Status: Acute (4) History of atrial fibrillation Code(s): Z86.79 - Personal history of other diseases of the circulatory system Status: Acute - Plan Patient presented with AF with RVR resulting in shocks. We will give Amiodarone loading 200mg BID X 2 weeks. She is taking Coumadin 5mg at home for anticoagulation, INR is 4.1 today. We will hold Coumadin until INR is less than 3, then restart at 2.5mg QD. Continue to monitor the patient on telemetry. Recheck INR daily. We will continue to follow patient during her hospitalization and follow up in our office post discharge. Patient was seen and evaluated by Dr. Patton who participated in care, management and decision making. - Attending Attestation Patient seen and examined. I reviewed and agree with the evaluation and plan as presented. Start amio loading. Adjust warfarin dose. Continue tx for CHF. Will schedule f/u in our office after discharge.
--- NOTE | 2018-04-08 15:38 | ECG ---
Date Performed: 04/07/2018 Time Performed: 23:52:18 PTAGE: 67 years EKG: SINUS TACHYCARDIA WITH OCCASIONAL VENTRICULAR PREMATURE COMPLEXES INCOMPLETE RIGHT BUNDLE B RANCH BLOCK RIGHT VENTRICULAR HYPERTROPHY Compared to previous tracing, the patient is now in Sinus r hythm with PVCs (couplets) ABNORMAL ECG NO PREVIOUS TRACING DOCTOR: Rashard Guillen Interpretating Date/Time 04/08/2018 15:38:06
[2018-04-09 07:15] LABS: Prothrombin Time 30.7 sec (9.8-11.6)
[2018-04-09 07:20] LABS: Baso % (Auto) 0.4 % (0.0-2.0); Hematocrit 33.1 % (35.0-46.0); Hemoglobin 10.7 gm/dL (11.6-15.3); Lymph # (Auto) 1.8 th/mm3 (1.0-4.8); Lymph % (Auto) 37.5 % (9.0-44.0); Mean Corpuscular HGB Conc 32.3 % (32.0-36.0); Mean Corpuscular Hemoglobin 30.2 pg (27.0-34.0); Mean Corpuscular Volume 93.7 fL (80.0-100.0); Mono # (Auto) 0.5 th/mm3 (0.0-0.9); Mono % (Auto) 9.4 % (0.0-8.0); Neut # (Auto) 2.5 th/mm3 (1.8-7.7); Neut % (Auto) 51.7 % (16.0-70.0); Platelet Count 331 th/mm3 (150-450); Red Blood Count 3.53 mil/mm3 (4.00-5.30); Red Cell Distribution Width 15.2 % (11.6-17.2); White Blood Count 4.9 th/mm3 (4.0-11.0)
[2018-04-09 07:35] LABS: Albumin 2.7 g/dL (3.4-5.0); Anion Gap 8 meq/L (5-15); Aspartate Aminotransferase 17 U/L (15-37); Blood Urea Nitrogen 18 mg/dL (7-18); Calcium 8.5 mg/dL (8.5-10.1); Carbon Dioxide 28.6 meq/L (21.0-32.0); Chloride 104 meq/L (98-107); Glomerular Filtration Rate 65 mL/min (>89); Glucose,Random 105 mg/dL (74-106); Sodium 141 meq/L (136-145)
[2018-04-09 07:38] LABS: Alanine Aminotransferase 18 U/L (10-53); Alkaline Phosphatase 125 U/L (45-117); Total Protein 6.9 g/dL (6.4-8.2)
--- NOTE | 2018-04-09 08:24 | P.PNCA ---
Subjective Interval history: Pleasant 67-year-old female lying in bed denies any acute complaints overnight. She was hospitalized in February for bilateral renal infarcts possibly secondary to emboli. Her digoxin was stopped due to bradycardia, subsequently she came in with [facility] this admission. Heart rate stable telemetry reveals atrial fibrillation rates in the 90s. She denies any chest pain, shortness of breath, palpitations or dizziness. She was started on amiodarone loading, warfarin on hold due to elevated INR. Medications and Allergies Allergies Allergy/AdvReac Type Severity Reaction Status Date / Time penicillin G Allergy Severe Swelling Verified 04/07/18 23:48 cefepime Allergy Unknown Swelling Verified 04/07/18 23:48 ceftaroline fosamil Allergy Unknown Swelling Verified 04/07/18 23:48 cephalexin Allergy Unknown RASH Verified 04/07/18 23:48 Home Medications Medication Instructions Recorded Confirmed Type fexofenadine [Lisa Allergy] 180 mg PO DAILY 03/22/18 04/07/18 History fluoxetine [Prozac] 20 mg PO DAILY 03/22/18 04/07/18 History folic acid 1 mg PO DAILY 03/22/18 04/07/18 History furosemide 20 mg PO DAILY 03/22/18 04/07/18 History mirtazapine [Remeron] 30 mg PO DAILY 03/22/18 04/07/18 History pantoprazole [Protonix] 20 mg PO DAILY 03/22/18 04/07/18 History Active Medications: Active Medications Al Hydroxide/Mg Hydroxide (Milk Of Joi [place]) 30 ml PO Q12H PRN PRN Reason: Mild Constipation Amiodarone HCl (Cordarone) 200 mg PO Q12HR [facility] Last Admin: 04/08/18 21:33 Dose: 200 mg Atorvastatin Calcium (Lipitor) 40 mg PO HS [facility] Last Admin: 04/08/18 21:33 Dose: 40 mg Bisacodyl (Dulcolax Supp) 10 mg RECTAL DAILY PRN PRN Reason: SEVERE CONSITIPATION Carvedilol (Coreg) 12.5 mg PO BID [facility] Last Admin: 04/08/18 21:33 Dose: 12.5 mg Fluoxetine HCl (Prozac) 20 mg PO DAILY [facility] Last Admin: 04/08/18 09:39 Dose: 20 mg Furosemide (Lasix) 20 mg PO DAILY [facility] Last Admin: 04/08/18 09:39 Dose: 20 mg Lactulose (Lactulose Liq) 30 ml PO DAILY PRN PRN Reason: SEVERE CONSITIPATION Mirtazapine (Remeron Soltab Odt) 30 mg PO DAILY [facility] Last Admin: 04/08/18 09:37 Dose: Not Given Pantoprazole Sodium (Protonix) 20 mg PO DAILY [facility] Last Admin: 04/08/18 09:40 Dose: 20 mg Sacubitril/Valsartan (Entresto 24 Mg/26 Mg Tablet) 1 tab PO BID [facility] Last Admin: 04/08/18 21:33 Dose: 1 tab Sennosides (Senokot) 17.2 mg PO Q12H PRN PRN Reason: Moderate Constipation Sodium Chloride (Ns Flush) 2 ml IV.FLUSH UNSCH PRN PRN Reason: FLUSH AFTER USING IV ACCESS Physical Exam Vital signs: Vital Signs 04/08/18 08:39 04/08/18 11:43 04/08/18 16:00 Temperature 98.1 F 99.1 F Pulse Rate 86 98 H Respiratory Rate 16 16 Blood Pressure 106/71 139/89 Pulse Oximetry 98 96 99 04/08/18 19:25 04/08/18 20:00 04/08/18 23:45 Temperature 98.2 F 98.6 F Pulse Rate 109 H 89 93 H Respiratory Rate 18 16 Blood Pressure 95/71 L 98/68 L Pulse Oximetry 98 96 96 04/09/18 03:32 04/09/18 07:57 Temperature 98.5 F 98.3 F Pulse Rate 97 H 93 H Respiratory Rate 16 15 Blood Pressure 107/68 92/69 L Pulse Oximetry 96 98 Intake & Output 04/08/18 04/09/18 04/09/18 18:59 06:59 18:59 Other: # Voids 2 2 Date of Last Bowel Movement 04/07/18 - Constitutional no acute distress, thin, cooperative - Routine HEENT Exam Head: Present: normocephalic, atraumatic Eye: Present: EOMI, PERRL, normal accommodation ENT: Present: mucous membranes moist - Routine Neck Exam Present: supple - Routine Respiratory Exam Present: CTA bilaterally - Routine Cardiovascular Exam Present: tachycardia, irregular rhythm - Routine Abdominal Exam Present: soft - Routine Skin Exam Present: intact - Routine Neurological Exam Present: alert, oriented X3 - Detailed Neurological Exam: Coma Scale Eye Opening: Spontaneous Verbal Response: Oriented Motor Response: Obey commands [place] Coma Scale Total: 15 - Routine Psychiatric Exam Present: normal affect Results 04/09/18 06:10 04/09/18 06:10 Cardiac Enzymes 04/08/18 04/09/18 Range/Units 00:00 06:10 AST 45 H 17 (15-37) U/L Troponin I 0.03 (0.02-0.05) ng/mL Coagulation 04/08/18 04/09/18 Range/Units 00:40 06:10 PT 41.4 H D 30.7 H D (9.8-11.6) sec APTT 37.3 H (23.4-31.7) sec CBC 04/08/18 04/09/18 Range/Units 00:40 06:10 WBC 6.3 4.9 (4.0-11.0) th/mm3 RBC 3.64 L 3.53 L (4.00-5.30) mil/mm3 Hgb 10.7 L 10.7 L (11.6-15.3) gm/dL Hct 34.6 L 33.1 L (35.0-46.0) % Plt Count 369 D 331 (150-450) th/mm3 Neut # (Auto) 3.3 2.5 (1.8-7.7) th/mm3 Lymph # (Auto) 2.6 1.8 (1.0-4.8) th/mm3 [place] # (Auto) 0.4 0.5 (0.0-0.9) th/mm3 Eos # (Auto) 0.1 0.0 (0.0-0.4) th/mm3 Baso # (Auto) 0.0 0.0 (0.0-0.2) th/mm3 Comprehensive Metabolic Panel 04/08/18 04/09/18 Range/Units 00:00 06:10 Sodium 140 141 (136-145) meq/L Potassium 4.2 4.0 (3.5-5.1) meq/L Chloride 105 104 (98-107) meq/L Carbon Dioxide 25.2 28.6 (21.0-32.0) meq/L BUN 14 18 (7-18) mg/dL Creatinine 1.08 H 1.03 H (0.50-1.00) mg/dL Calcium 8.1 L 8.5 (8.5-10.1) mg/dL AST 45 H 17 (15-37) U/L ALT 27 18 (10-53) U/L Alkaline Phosphatase 128 H 125 H (45-117) U/L Total Protein 7.5 6.9 D (6.4-8.2) g/dL Albumin 2.9 L 2.7 L (3.4-5.0) g/dL Intake and Output 04/08/18 04/09/18 04/09/18 22:59 06:59 14:59 Other: # Voids 2 2 Date of Last Bowel Movement 04/07/18 - Imaging and Cardiology Imaging: Impressions Chest X-Ray 04/08/18 00:01 CONCLUSION: No acute cardiopulmonary disease.. Assessment and Plan - Plan Assessment Afib RVR Non ischemic cardiomyopathy Plan Will continue amio loading 200mg BID x 2 weeks, the 200mg daily. Will resume Coumadin 2.5mg PO daily. Continue to monitor the patient on telemetry. Recheck INR daily. ICD in place. Continues on entresto, coreg, and lasix. Patient was seen and evaluated by Dr. Guillen who participated in care, management and decision making. The exam, history, and the medical decision-making described in the above note were completed with the assistance of the mid-level provider. I reviewed and agree with the findings presented. I attest that I had a [id number] encounter with the patient on the same day, and personally performed and documented my assessment and findings in the medical record. Continue rx as per Dr Patton, including amio loading and d/c Code Status: Full Code Discussed Condition With: LORENA
[2018-04-09] MEDS: Carvedilol 12.5 MG Tablet PO SCH (08:50)
[2018-04-09] MEDS: Pantoprazole Sodium 20 MG DR Tablet PO SCH (08:50)
[2018-04-09] MEDS: Amiodarone 200 MG Tablet PO SCH ×2 (08:50→21:26)
[2018-04-09] MEDS: Furosemide 20 MG Tablet PO SCH (08:50)
[2018-04-09] MEDS: FLUoxetine 20 MG Capsule PO SCH (08:50)
[2018-04-09] MEDS: MIRTAZAPINE 30 MG PO SCH (08:50)
--- NOTE | 2018-04-09 10:15 | P.PNIM ---
Physical Exam Vital signs: Last Vital Signs Temp 98.3 F 04/09/18 07:57 Pulse 93 H 04/09/18 07:57 Resp 15 04/09/18 07:57 BP 92/69 L 04/09/18 07:57 Pulse Ox 98 04/09/18 07:57 Intake & Output 04/07/18 04/08/18 04/09/18 04/10/18 06:59 06:59 06:59 06:59 Weight 45.359 kg Narrative: GENERAL: fair general condition, not in distress. HEENT:not pale,aniteric CARDIOVASCULAR: Regular rate and rhythm without murmurs, gallops, or rubs. RESPIRATORY: Clear to auscultation. Breath sounds equal bilaterally. No wheezes , rales, or rhonchi. GASTROINTESTINAL: Abdomen soft, non-tender, nondistended. Normal active bowel sounds MUSCULOSKELETAL: Extremities without clubbing, cyanosis, or edema. NEURO: Alert & Oriented x4 to person, place, time, situation. Moves all ext x4 Results Labs CBC & Chem 7: 04/09/18 06:10 04/09/18 06:10 Labs: Assessment and Plan (1) AICD discharge: Code(s): Z45.02 - Encounter for adjustment and management of automatic implantable cardiac defibrillator Status: Acute (2) On Coumadin for atrial fibrillation: Code(s): Z78.9 - Other specified health status Status: Acute (3) Infarction of kidney: Code(s): N28.0 - Ischemia and infarction of kidney Status: Acute (4) History of atrial fibrillation: Code(s): Z86.79 - Personal history of other diseases of the circulatory system Status: Acute Plan 67-year-old female with history of CAD, A. fib on Coumadin, cardiomyopathy, AICD , anxiety and depression presented to the ED after her AICD discharged about 45 minutes prior to arrival. AICD firing, acute Interrogated and found elevated HR in 200s appreciate cardiology recs, was in A fib RVR according to read, was started on loading dose Amiodarone 200 bid for 2 weeks. -Monitor telemetry Afib, chronic - continue home medications, Amiodarone as above. - INR was supratherapeutic on admission, trended down to 3 this morning, continue to Monitor daily, resume Coumadin at 2.5mg when INR<3. with Amidoarone/ Coumadin interaction expect further dose adjustment may be needed. Progress Note: Quality VTE Deep Vein Thrombosis/Pulmonary Embolism Present on Admission: No
[2018-04-09 12:51] VITALS: RESP 16
[2018-04-09] MEDS ORDERED: Sodium Chlor 0.9% Inj 250 ML IV.SIG ONE (16:03)
[2018-04-10] MEDS: Carvedilol 12.5 MG Tablet PO SCH (04:32)
[2018-04-10 04:52] LABS: INR 2.1 Ratio; Prothrombin Time 21.6 sec (9.8-11.6)
--- NOTE | 2018-04-10 07:47 | P.PNCA ---
Subjective Interval history: Patient resting in bed, no complaints overnight. She denies any chest pain or shortness of breath. Telemetry reveals atrial fibrillation rates in the 90s. Heart rate does increase to 130s with activity. BPs have been running low caloric was not given yesterday. Will decrease dose. Medications and Allergies Allergies Allergy/AdvReac Type Severity Reaction Status Date / Time penicillin G Allergy Severe Swelling Verified 04/07/18 23:48 cefepime Allergy Unknown Swelling Verified 04/07/18 23:48 ceftaroline fosamil Allergy Unknown Swelling Verified 04/07/18 23:48 cephalexin Allergy Unknown RASH Verified 04/07/18 23:48 Home Medications Medication Instructions Recorded Confirmed Type fexofenadine [Lisa Allergy] 180 mg PO DAILY 03/22/18 04/07/18 History fluoxetine [Prozac] 20 mg PO DAILY 03/22/18 04/07/18 History folic acid 1 mg PO DAILY 03/22/18 04/07/18 History furosemide 20 mg PO DAILY 03/22/18 04/07/18 History mirtazapine [Remeron] 30 mg PO DAILY 03/22/18 04/07/18 History pantoprazole [Protonix] 20 mg PO DAILY 03/22/18 04/07/18 History Active Medications: Active Medications Al Hydroxide/Mg Hydroxide (Milk Of Magnesia Liq) 30 ml PO Q12H PRN PRN Reason: Mild Constipation Amiodarone HCl (Cordarone) 200 mg PO Q12HR [facility] Last Admin: 04/09/18 21:26 Dose: 200 mg Atorvastatin Calcium (Lipitor) 40 mg PO HS [facility] Last Admin: 04/09/18 21:25 Dose: 40 mg Bisacodyl (Dulcolax Supp) 10 mg RECTAL DAILY PRN PRN Reason: SEVERE CONSITIPATION Carvedilol (Coreg) 6.25 mg PO BID [facility] Fluoxetine HCl (Prozac) 20 mg PO DAILY [facility] Last Admin: 04/09/18 08:50 Dose: 20 mg Furosemide (Lasix) 20 mg PO DAILY [facility] Last Admin: 04/09/18 08:50 Dose: 20 mg Lactulose (Lactulose Liq) 30 ml PO DAILY PRN PRN Reason: SEVERE CONSITIPATION Mirtazapine (Remeron Soltab Odt) 30 mg PO DAILY [facility] Last Admin: 04/09/18 08:50 Dose: Not Given Pantoprazole Sodium (Protonix) 20 mg PO DAILY [facility] Last Admin: 04/09/18 08:50 Dose: 20 mg Sacubitril/Valsartan (Entresto 24 Mg/26 Mg Tablet) 1 tab PO BID [facility] Last Admin: 04/10/18 04:32 Dose: Not Given Sennosides (Senokot) 17.2 mg PO Q12H PRN PRN Reason: Moderate Constipation Sodium Chloride (Ns Flush) 2 ml IV.FLUSH UNSCH PRN PRN Reason: FLUSH AFTER USING IV ACCESS Warfarin Sodium (Coumadin) 2.5 mg PO ONCE ONE Stop: 04/10/18 07:31 Physical Exam Vital signs: Vital Signs 04/09/18 07:57 04/09/18 08:00 04/09/18 12:00 Temperature 98.3 F 98.1 F Pulse Rate 93 H 96 H 85 Respiratory Rate 15 16 Blood Pressure 92/69 L 73/57 L Pulse Oximetry 98 98 97 04/09/18 16:00 04/09/18 18:26 04/09/18 20:00 Temperature 97.9 F 98.2 F Pulse Rate 87 90 Respiratory Rate 16 16 Blood Pressure 78/60 L 89/67 L 88/68 L Pulse Oximetry 98 98 04/10/18 00:00 04/10/18 04:00 Temperature 97.8 F 98.1 F Pulse Rate 96 H 88 Respiratory Rate 16 16 Blood Pressure 85/66 L 84/62 L Pulse Oximetry 96 96 Intake & Output 04/09/18 04/10/18 04/10/18 18:59 06:59 18:59 Intake Total 1090 / 1090 250 / 250 Output Total Balance 1089 / 1089 250 / 250 Weight 45.35 kg Intake: IV 250 / 250 NS Inj 250 ML @ 250 mls/hr IV. 250 / 250 SIG BOLUS ONE Rx#:[id number] Oral 840 / 840 250 / 250 Output: Stool Other: # Voids 2 3 Date of Last Bowel Movement 04/08/18 04/08/18 - Constitutional no acute distress, thin, cooperative - Routine HEENT Exam Head: Present: normocephalic, atraumatic Eye: Present: EOMI, PERRL, normal accommodation ENT: Present: mucous membranes moist - Routine Neck Exam Present: supple - Routine Respiratory Exam Present: CTA bilaterally - Routine Cardiovascular Exam Present: tachycardia, irregular rhythm - Routine Abdominal Exam Present: soft - Routine Skin Exam Present: intact - Routine Neurological Exam Present: alert, oriented X3 - Detailed Neurological Exam: Coma Scale Eye Opening: Spontaneous Verbal Response: Oriented Motor Response: Obey commands [place] Coma Scale Total: 15 - Routine Psychiatric Exam Present: normal affect Results 04/09/18 06:10 04/09/18 06:10 Cardiac Enzymes 04/09/18 Range/Units 06:10 AST 17 (15-37) U/L Coagulation 04/09/18 04/10/18 Range/Units 06:10 04:10 PT 30.7 H D 21.6 H (9.8-11.6) sec CBC 04/09/18 Range/Units 06:10 WBC 4.9 (4.0-11.0) th/mm3 RBC 3.53 L (4.00-5.30) mil/mm3 Hgb 10.7 L (11.6-15.3) gm/dL Hct 33.1 L (35.0-46.0) % Plt Count 331 (150-450) th/mm3 Neut # (Auto) 2.5 (1.8-7.7) th/mm3 Lymph # (Auto) 1.8 (1.0-4.8) th/mm3 [place] # (Auto) 0.5 (0.0-0.9) th/mm3 Eos # (Auto) 0.0 (0.0-0.4) th/mm3 Baso # (Auto) 0.0 (0.0-0.2) th/mm3 Comprehensive Metabolic Panel 04/09/18 Range/Units 06:10 Sodium 141 (136-145) meq/L Potassium 4.0 (3.5-5.1) meq/L Chloride 104 (98-107) meq/L Carbon Dioxide 28.6 (21.0-32.0) meq/L BUN 18 (7-18) mg/dL Creatinine 1.03 H (0.50-1.00) mg/dL Calcium 8.5 (8.5-10.1) mg/dL AST 17 (15-37) U/L ALT 18 (10-53) U/L Alkaline Phosphatase 125 H (45-117) U/L Total Protein 6.9 D (6.4-8.2) g/dL Albumin 2.7 L (3.4-5.0) g/dL Intake and Output 04/09/18 04/10/18 04/10/18 22:59 06:59 14:59 Intake Total 1090 / 1090 250 / 250 Output Total Balance 1089 / 1089 250 / 250 Intake: IV 250 / 250 NS Inj 250 ML @ 250 mls/hr IV. 250 / 250 SIG BOLUS ONE Rx#:[id number] Oral 840 / 840 250 / 250 Output: Stool Other: # Voids 2 3 Date of Last Bowel Movement 04/08/18 Weight 45.35 kg Assessment and Plan - Plan Assessment Afib RVR Non ischemic cardiomyopathy Plan Will continue amio loading 200mg BID x 2 weeks, the 200mg daily. Will resume Coumadin 2.5mg PO daily. Continue to monitor the patient on telemetry. Recheck INR daily. ICD in place. Continues on entresto, coreg, and lasix. Patient is cleared for discharge home from a cardiology standpoint advised to follow-up with Dr. Dale within the next week. She will need careful monitoring of her INR. We will plan to discharge home on warfarin 2.5 mg daily and continue amiodarone loading. Patient was seen and evaluated by Dr. Guillen who participated in care, management and decision making. The exam, history, and the medical decision-making described in the above note were completed with the assistance of the mid-level provider. I reviewed and agree with the findings presented. I attest that I had a [id number] encounter with the patient on the same day, and personally performed and documented my assessment and findings in the medical record. Overall better. Code Status: Full Code Discussed Condition With: Emily Nick
[2018-04-10 07:53] VITALS: BP 94/73; TEMP 98.7; O2SAT 98
[2018-04-10] MEDS ORDERED: Carvedilol 6.25 MG Tablet PO SCH (09:00)
[2018-04-10] MEDS: Furosemide 20 MG Tablet PO SCH (09:43)
[2018-04-10] MEDS: FLUoxetine 20 MG Capsule PO SCH (09:43)
[2018-04-10] MEDS: Amiodarone 200 MG Tablet PO SCH (09:43)
[2018-04-10] MEDS: Pantoprazole Sodium 20 MG DR Tablet PO SCH (09:43)
[2018-04-10] MEDS: MIRTAZAPINE 30 MG PO SCH (09:44)
[2018-04-10 10:13] VITALS: PULSE 103
--- NOTE | 2018-04-10 13:16 | P.DS ---
Date of admission: 04/08/18 01:51 Primary care physician: Joni Hair MD Brief History from admission: HPI as documented by the admitting provider. 67-year-old female with history of CAD, A. fib on Coumadin, cardiomyopathy, AICD , presented to the ED after her AICD discharged about 45 minutes prior to arrival. The patient reports that just prior to the AICD firing she felt nauseous and lightheaded. Afterwards she felt ok. Bharath mora interrogated the AICD and found she had a HR of 200 prior to discharge. She currently denies chest pain, fever, chills, cough, or recent illness. She was recently taken off digoxin by her toys inspector Dr. Patton 2 weeks ago because her HR was controlled and BP was low. No other changes to medications. Patient update on day of discharge: Patient reports she is feeling well today. No chest pain or shortness of breath. DS: Medications - Discharge Medications Prescriptions: amiodarone 200 mg PO Q12HR #42 tab DS: Summary Hospital Course: 67-year-old female with history of CAD, A. fib on Coumadin, cardiomyopathy, AICD , anxiety and depression presented to the ED after her AICD discharged about 45 minutes prior to arrival. AICD firing, acute Interrogated and found elevated HR in 200s appreciate cardiology recs, was in A fib RVR according to read, was started on loading dose Amiodarone 200 bid for 2 weeks, then 200 mg daily. -Patient monitored on telemetry. She is to follow-up outpatient with cardiology within a week. Afib, chronic - continue home medications, Amiodarone as above. - INR was supratherapeutic on admission, trended down. Coumadin restarted at a lower dose of 2.5 mg daily Nonischemic cardiomyopathy: No exacerbation. -Continues on Entresto, Coreg, and Lasix. - Time Spent with Patient Total time spent providing and/or coordinating discharge services: Less than 30 minutes - Quality: VTE Deep Vein Thrombosis/Pulmonary Embolism Present on Admission: No Exam Vital signs: Vital Signs 04/09/18 16:00 04/09/18 18:26 04/09/18 20:00 Temperature 97.9 F 98.2 F Pulse Rate 87 90 Respiratory Rate 16 16 Blood Pressure 78/60 L 89/67 L 88/68 L Pulse Oximetry 98 98 04/10/18 00:00 04/10/18 04:00 04/10/18 07:52 Temperature 97.8 F 98.1 F 98.7 F Pulse Rate 96 H 88 98 H Respiratory Rate 16 16 16 Blood Pressure 85/66 L 84/62 L 94/73 L Pulse Oximetry 96 96 98 04/10/18 10:12 Temperature Pulse Rate 103 H Respiratory Rate Blood Pressure Pulse Oximetry Intake & Output 04/09/18 04/10/18 04/10/18 18:59 06:59 18:59 Intake Total 1090 / 1090 250 / 250 Output Total Balance 1089 / 1089 250 / 250 Weight 45.35 kg Intake: IV 250 / 250 NS Inj 250 ML @ 250 mls/hr IV. 250 / 250 SIG BOLUS ONE Rx#:[id number] Oral 840 / 840 250 / 250 Output: Stool Other: # Voids 2 3 Date of Last Bowel Movement 04/08/18 04/08/18 04/09/18 Narrative: GENERAL: This is a well-nourished, well-developed patient, in no apparent distress. CARDIOVASCULAR: Normal rate and irregular rhythm without murmurs, gallops, or rubs. RESPIRATORY: Good respiratory efforts. Breath sounds equal and clear to auscultation bilaterally. GASTROINTESTINAL: Abdomen soft, non-tender, non-distended. Normal active bowel sounds MUSCULOSKELETAL: Extremities without cyanosis, or edema. NEURO: Alert & Oriented x4 to person, place, time, situation. Moves all ext x4 PSYCH: Appropriate mood and affect. Results Procedures completed during hospitalization: None Labs on day of discharge: Labs from last 24 hours 04/10/18 04:10 PT 21.6 H INR 2.1 - Impressions ITS Impressions Chest X-Ray 04/08/18 00:01 CONCLUSION: No acute cardiopulmonary disease.. Discharge Plan - Discharge Disposition Patient Disposition: Discharge Home - Discharge Condition Condition: Stable - Discharge Order Discharge Orders: Discharge Order (Routine); Ordered 04/10/18 Ordered By: Mulugeta Bright - Physicians Team Primary Care Provider: Joni Hair Attending Provider: Mulugeta Bright Other Providers: Ann Patton MD ; [employer]
== END 2018-04-10 10:35 | disposition home or self-care (01) ==
LOC: NEDA 23:38 → NEPE 23:38 → NEDA 04-08 03:23 → NEPGCP 04-08 03:25
PROVIDERS: ADMIT Family Medicine; ATTEND Family Medicine

== ENCOUNTER 2018-04-27 16:00 | Inpatient (IN) ==
[2018-04-27] MEDS ORDERED: Metoprolol Inj 5 MG/5 ML Vial IV.PUSH ONE (17:02)
[2018-04-27 17:15] LABS: Baso % (Auto) 0.3 % (0.0-2.0); Eos % (Auto) 0.5 % (0.0-4.0); Hematocrit 31.7 % (35.0-46.0); Hemoglobin 10.3 gm/dL (11.6-15.3); Lymph % (Auto) 40.5 % (9.0-44.0); Mean Corpuscular HGB Conc 32.7 % (32.0-36.0); Mean Corpuscular Hemoglobin 28.9 pg (27.0-34.0); Mean Corpuscular Volume 88.4 fL (80.0-100.0); Mean Platelet Volume 8.2 fL (7.0-11.0); Mono # (Auto) 0.4 th/mm3 (0.0-0.9); Mono % (Auto) 7.6 % (0.0-8.0); Neut # (Auto) 2.5 th/mm3 (1.8-7.7); Neut % (Auto) 51.1 % (16.0-70.0); Platelet Count 277 th/mm3 (150-450); Red Blood Count 3.58 mil/mm3 (4.00-5.30); Red Cell Distribution Width 16.4 % (11.6-17.2)
--- NOTE | 2018-04-27 17:16 | ED ---
HPI General Chief complaint: Respiratory Symptoms Stated complaint: sob Time Seen by Provider: 04/27/18 16:48 History of Present Illness HPI narrative: Patient presents to the emergency department complaining of shortness of breath. States she was discharged recently secondary to elevated heart rate and pacemaker malfunction. Also states that they recently changed her medications and she saw her interactive project manager's mid-level provider yesterday and was given lasix for fluid overload. Dr. Patton is her interactive project manager. Patient reports dyspnea when she sits down, walks, and lies flat. She denies chest pain or nausea or vomiting or chills but reports subjective fever. Related Data Home Medications Medication Instructions Recorded Confirmed fexofenadine [Lisa Allergy] 180 mg PO DAILY 03/22/18 04/27/18 fluoxetine [Prozac] 20 mg PO DAILY 03/22/18 04/27/18 folic acid 1 mg PO DAILY 03/22/18 04/27/18 furosemide 20 mg PO DAILY 03/22/18 04/27/18 mirtazapine [Remeron] 30 mg PO HS 03/22/18 04/28/18 pantoprazole [Protonix] 20 mg PO DAILY 03/22/18 04/27/18 Previous Rx's Medication Instructions Recorded atorvastatin 40 mg PO HS #30 tab 03/26/18 sacubitril-valsartan [Entresto] 1 tab PO BID tab 03/26/18 amiodarone 200 mg PO Q12HR #42 tab 04/10/18 carvedilol [Coreg] 6.25 mg PO BID #60 tab 04/10/18 warfarin [Coumadin] 2.5 mg PO DAILY@1600 #0 tab 04/10/18 Allergies Allergy/AdvReac Type Severity Reaction Status Date / Time penicillin G Allergy Severe Swelling Verified 04/27/18 16:10 cefepime Allergy Unknown Swelling Verified 04/27/18 16:10 ceftaroline fosamil Allergy Unknown Swelling Verified 04/27/18 16:10 cephalexin Allergy Unknown RASH Verified 04/27/18 16:10 Review of Systems ROS: all other systems reviewed are negative [facility] Social History Social History Substance History: No History of Abuse Second Hand Smoke Exposure: No Smoking Status: Never smoker How Often Do You Have a Drink Containing Alcohol: Never Recent Travel in [facility] within the Last 8 Weeks: No Recent Out of Country Travel within the Last 8 Weeks: No Immunization History Tetanus Immunization: <5 Years Exam Narrative Exam Narrative: GENERAL: No acute distress. SKIN: Focused skin assessment warm/dry. HEAD: Atraumatic. Normocephalic. EYES: Pupils equal and round. No scleral icterus. No injection or drainage. ENT: No nasal bleeding or discharge. Mucous membranes pink and moist. NECK: Trachea midline. No JVD. CARDIOVASCULAR: Irreg, irreg, tachy. RESPIRATORY: No accessory muscle use. Clear to auscultation. Breath sounds equal bilaterally. GASTROINTESTINAL: Abdomen soft, suprapubic tender, nondistended. Hepatic and splenic margins not palpable. MUSCULOSKELETAL: No obvious deformities. No clubbing. No cyanosis. No edema. NEUROLOGICAL: Awake and alert. No obvious cranial nerve deficits. Motor grossly within normal limits. Normal speech. PSYCHIATRIC: Appropriate mood and affect; insight and judgment normal. Course Initial Documented Vital Signs Temperature 97.7 F 04/27/18 16:08 Pulse Rate 118 H 04/27/18 16:08 Respiratory Rate 20 04/27/18 16:08 Blood Pressure 116/63 04/27/18 16:08 Pulse Oximetry 98 04/27/18 16:08 Last Documented Vital Signs Temperature 97.9 F 04/27/18 23:31 Pulse Rate 113 H 04/28/18 07:48 Respiratory Rate 16 04/28/18 07:48 Blood Pressure 106/70 04/28/18 07:48 Pulse Oximetry 97 04/28/18 07:48 Medical Decision Making MDM Narrative Medical decision making narrative: Patient presents to the emergency department complaining of shortness of breath. Patient placed on library monitor, continuous pulse ox, and IV access obtained. Labs, chest x-ray, EKG ordered. 1825: BNP increased, CXR shows mild vascular congestion. Patient admitted to hospitalist, requesting that she get lasix 20mg IV for diuresis and lopressor 2.5mg IV for rate control. Patient has a repeat delta troponin and ECG ordered for 1929. Medical Screen Exam Complete: Yes Emergency Medical Condition: Yes Lab Data Result diagrams: 04/27/18 16:30 04/28/18 06:33 Lab Results 04/27/18 04/27/18 04/27/18 Range/Units 16:30 16:30 16:30 WBC 5.0 (4.0-11.0) th/mm3 RBC 3.58 L (4.00-5.30) mil/mm3 Hgb 10.3 L (11.6-15.3) gm/dL Hct 31.7 L (35.0-46.0) % MCV 88.4 (80.0-100.0) fL MCH 28.9 (27.0-34.0) pg MCHC 32.7 (32.0-36.0) % RDW 16.4 (11.6-17.2) % Plt Count 277 (150-450) th/mm3 MPV 8.2 (7.0-11.0) fL Prelim Diff (Auto) Slide review pending Neut % (Auto) 51.1 (16.0-70.0) % Lymph % (Auto) 40.5 (9.0-44.0) % [place] % (Auto) 7.6 (0.0-8.0) % Eos % (Auto) 0.5 (0.0-4.0) % Baso % (Auto) 0.3 (0.0-2.0) % Neut # (Auto) 2.5 (1.8-7.7) th/mm3 Lymph # (Auto) 2.0 (1.0-4.8) th/mm3 [place] # (Auto) 0.4 (0.0-0.9) th/mm3 Eos # (Auto) 0.0 (0.0-0.4) th/mm3 Baso # (Auto) 0.0 (0.0-0.2) th/mm3 WBC Differential Manual diff final Seg Neuts % (Manual) 54 (16-70) % Lymphocytes % (Manual) 38 (9-44) % Monocytes % (Manual) 8 (0-8) % Abs Neuts (Manual) 2.7 (1.8-7.7) th/mm3 Nucleated RBCs/100 WBC 6 H (0-0) /100 WBC Differential Comment . Platelet Estimate Normal (Normal) Platelet Morphology Normal (Normal) Target Cells 1+ H (None) Ovalocytes 1+ H (None) Acanthocytes (Spur) Occ H (None) Keratocytes Occ H (None) PT (9.8-11.6) sec INR Ratio Sodium 138 (136-145) meq/L Potassium 5.6 H (3.5-5.1) meq/L Chloride 104 (98-107) meq/L Carbon Dioxide 27.7 (21.0-32.0) meq/L Anion Gap 6 (5-15) meq/L BUN 29 H (7-18) mg/dL Creatinine 1.30 H (0.50-1.00) mg/dL Estimated GFR 49 L (>89) mL/min Random Glucose 110 H (74-106) mg/dL Calcium 8.8 (8.5-10.1) mg/dL Magnesium 2.1 (1.5-2.5) mg/dL Total Bilirubin 0.8 (0.2-1.0) mg/dL AST 61 H (15-37) U/L ALT 32 (10-53) U/L Alkaline Phosphatase 128 H (45-117) U/L Troponin I Less than 0.02 L (0.02-0.05) ng/mL B-Natriuretic Peptide 2678 H (0-100) pg/mL Total Protein 8.1 (6.4-8.2) g/dL Albumin 3.3 L (3.4-5.0) g/dL Urine Color (Yellw/Straw) Urine Clarity (Clear) Urine pH (5.0-8.5) Ur Specific [place] (1.002-1.035) Urine Protein (Neg-Trace) mg/dL Urine Glucose (UA) (Negative) mg/dL Urine Ketones (Negative) mg/dL Urine Occult Blood (Negative) Urine Nitrate (Negative) Urine Bilirubin (Negative) Urine Urobilinogen (Less than 2) mg/dL Ur Leukocyte Esterase (Negative) Urine RBC (0-3) /hpf Urine WBC (0-5) /hpf Hyaline Casts (0-3) /lpf Urine Mucus (Occasional) /lpf Micro UA Comment Ur Microscopic Review Urine Culture Comments 04/27/18 04/27/18 04/27/18 Range/Units 17:30 17:35 19:50 WBC (4.0-11.0) th/mm3 RBC (4.00-5.30) mil/mm3 Hgb (11.6-15.3) gm/dL Hct (35.0-46.0) % MCV (80.0-100.0) fL MCH (27.0-34.0) pg MCHC (32.0-36.0) % RDW (11.6-17.2) % Plt Count (150-450) th/mm3 MPV (7.0-11.0) fL Prelim Diff (Auto) Neut % (Auto) (16.0-70.0) % Lymph % (Auto) (9.0-44.0) % [place] % (Auto) (0.0-8.0) % Eos % (Auto) (0.0-4.0) % Baso % (Auto) (0.0-2.0) % Neut # (Auto) (1.8-7.7) th/mm3 Lymph # (Auto) (1.0-4.8) th/mm3 [place] # (Auto) (0.0-0.9) th/mm3 Eos # (Auto) (0.0-0.4) th/mm3 Baso # (Auto) (0.0-0.2) th/mm3 WBC Differential Seg Neuts % (Manual) (16-70) % Lymphocytes % (Manual) (9-44) % Monocytes % (Manual) (0-8) % Abs Neuts (Manual) (1.8-7.7) th/mm3 Nucleated RBCs/100 WBC (0-0) /100 WBC Differential Comment Platelet Estimate (Normal) Platelet Morphology (Normal) Target Cells (None) Ovalocytes (None) Acanthocytes (Spur) (None) Keratocytes (None) PT (9.8-11.6) sec INR Ratio Sodium (136-145) meq/L Potassium 4.3 D (3.5-5.1) meq/L Chloride (98-107) meq/L Carbon Dioxide (21.0-32.0) meq/L Anion Gap (5-15) meq/L BUN (7-18) mg/dL Creatinine (0.50-1.00) mg/dL Estimated GFR (>89) mL/min Random Glucose (74-106) mg/dL Calcium (8.5-10.1) mg/dL Magnesium (1.5-2.5) mg/dL Total Bilirubin (0.2-1.0) mg/dL AST (15-37) U/L ALT (10-53) U/L Alkaline Phosphatase (45-117) U/L Troponin I Less than 0.02 L (0.02-0.05) ng/mL B-Natriuretic Peptide (0-100) pg/mL Total Protein (6.4-8.2) g/dL Albumin (3.4-5.0) g/dL Urine Color Yellow (Yellw/Straw) Urine Clarity Clear (Clear) Urine pH 6.0 (5.0-8.5) Ur Specific [place] 1.010 (1.002-1.035) Urine Protein Negative (Neg-Trace) mg/dL Urine Glucose (UA) Negative (Negative) mg/dL Urine Ketones Negative (Negative) mg/dL Urine Occult Blood Negative (Negative) Urine Nitrate Negative (Negative) Urine Bilirubin Negative (Negative) Urine Urobilinogen Less than 2 (Less than 2) mg/dL Ur Leukocyte Esterase Negative (Negative) Urine RBC Less than 1 (0-3) /hpf Urine WBC 1 (0-5) /hpf Hyaline Casts 15 (0-3) /lpf Urine Mucus Few H (Occasional) /lpf Micro UA Comment Culture not ind Ur Microscopic Review Not Reportable Urine Culture Comments Culture not ind 04/27/18 04/28/18 04/28/18 Range/Units 22:40 06:33 06:33 WBC (4.0-11.0) th/mm3 RBC (4.00-5.30) mil/mm3 Hgb (11.6-15.3) gm/dL Hct (35.0-46.0) % MCV (80.0-100.0) fL MCH (27.0-34.0) pg MCHC (32.0-36.0) % RDW (11.6-17.2) % Plt Count (150-450) th/mm3 MPV (7.0-11.0) fL Prelim Diff (Auto) Neut % (Auto) (16.0-70.0) % Lymph % (Auto) (9.0-44.0) % [place] % (Auto) (0.0-8.0) % Eos % (Auto) (0.0-4.0) % Baso % (Auto) (0.0-2.0) % Neut # (Auto) (1.8-7.7) th/mm3 Lymph # (Auto) (1.0-4.8) th/mm3 [place] # (Auto) (0.0-0.9) th/mm3 Eos # (Auto) (0.0-0.4) th/mm3 Baso # (Auto) (0.0-0.2) th/mm3 WBC Differential Seg Neuts % (Manual) (16-70) % Lymphocytes % (Manual) (9-44) % Monocytes % (Manual) (0-8) % Abs Neuts (Manual) (1.8-7.7) th/mm3 Nucleated RBCs/100 WBC (0-0) /100 WBC Differential Comment Platelet Estimate (Normal) Platelet Morphology (Normal) Target Cells (None) Ovalocytes (None) Acanthocytes (Spur) (None) Keratocytes (None) PT 22.4 H (9.8-11.6) sec INR 2.2 Ratio Sodium 138 (136-145) meq/L Potassium 4.9 (3.5-5.1) meq/L Chloride 104 (98-107) meq/L Carbon Dioxide 24.7 (21.0-32.0) meq/L Anion Gap 9 (5-15) meq/L BUN 31 H (7-18) mg/dL Creatinine 1.46 H (0.50-1.00) mg/dL Estimated GFR 43 L (>89) mL/min Random Glucose 116 H (74-106) mg/dL Calcium 8.7 (8.5-10.1) mg/dL Magnesium (1.5-2.5) mg/dL Total Bilirubin (0.2-1.0) mg/dL AST (15-37) U/L ALT (10-53) U/L Alkaline Phosphatase (45-117) U/L Troponin I (0.02-0.05) ng/mL B-Natriuretic Peptide 4015 H (0-100) pg/mL Total Protein (6.4-8.2) g/dL Albumin (3.4-5.0) g/dL Urine Color (Yellw/Straw) Urine Clarity (Clear) Urine pH (5.0-8.5) Ur Specific [place] (1.002-1.035) Urine Protein (Neg-Trace) mg/dL Urine Glucose (UA) (Negative) mg/dL Urine Ketones (Negative) mg/dL Urine Occult Blood (Negative) Urine Nitrate (Negative) Urine Bilirubin (Negative) Urine Urobilinogen (Less than 2) mg/dL Ur Leukocyte Esterase (Negative) Urine RBC (0-3) /hpf Urine WBC (0-5) /hpf Hyaline Casts (0-3) /lpf Urine Mucus (Occasional) /lpf Micro UA Comment Ur Microscopic Review Urine Culture Comments Imaging Data Radiologist's impression: Chest X-Ray 04/27/18 17:01 CONCLUSION: Mild vascular congestion ECG Data Attestation: I personally reviewed and interpreted this ECG as follows: (Rate approximately 120, A. fib with RVR, QTC 440, slight ST elevation in V4 through V6) Discharge Plan Discharge Disposition Patient Disposition: 30 Still Patient Discharge Condition Condition: Stable Discharge Details Diagnosis: CHF (congestive heart failure), Atrial fibrillation with rapid ventricular response Physicians Team ED Provider: Raquel Mejía Primary Care Provider: Joni Hair Attending Provider: Guille Lubin Other Providers: [facility],Insurance ; Ann Patton Status ED Status: Left Department Discharge Information Discharge Date/Time: 04/27/18 20:26
--- NOTE | 2018-04-27 17:19 | XR ---
EXAM DATE: 04/27/2018 5:16 PM EST AGE/SEX: 67 years / Female INDICATIONS: Short of breath. CLINICAL DATA: This is the patient's initial encounter. Patient reports that signs and symptoms have been present for 3 days and indicates a pain score of 0/10. MEDICAL/SURGICAL HISTORY: Congestive heart failure. A-fib. Pacemaker. COMPARISON: [facility], CHEST 1V SINGLE AP, 04/08/2018. . FINDINGS: A pacing implement is present with control pack over left upper chest. Stable asymmetric elevation th e right diaphragm. Mild central vascular congestion. No evidence of consolidative infiltrate or effus ion. CONCLUSION: Mild vascular congestion Electronically signed by: Kiet Arevalo MD 04/27/2018 5:17 PM EST
[2018-04-27] MEDS ORDERED: Carvedilol 6.25 MG Tablet PO ONE (17:28)
[2018-04-27 17:32] LABS: Alkaline Phosphatase 128 U/L (45-117); Total Protein 8.1 g/dL (6.4-8.2)
[2018-04-27 17:33] LABS: Alanine Aminotransferase 32 U/L (10-53); Albumin 3.3 g/dL (3.4-5.0); Anion Gap 6 meq/L (5-15); Blood Urea Nitrogen 29 mg/dL (7-18); Calcium 8.8 mg/dL (8.5-10.1); Carbon Dioxide 27.7 meq/L (21.0-32.0); Chloride 104 meq/L (98-107); Glomerular Filtration Rate 49 mL/min (>89); Glucose,Random 110 mg/dL (74-106); Sodium 138 meq/L (136-145)
[2018-04-27 17:34] LABS: Aspartate Aminotransferase 61 U/L (15-37); Magnesium 2.1 mg/dL (1.5-2.5); Potassium 5.6 meq/L (3.5-5.1)
[2018-04-27 17:51] LABS: Lymphocytes 38 % (9-44); Monocytes 8 % (0-8); Tallied Nucleated RBC 6 (0-0)
[2018-04-27 17:52] LABS: Acanthocytes Occ; Ovalocytes 1+; Platelet Estimate Normal (Normal); Platelet Morphology Normal (Normal); Target Cells 1+
[2018-04-27 18:14] LABS: Bilirubin,Urine Negative (Negative); Clarity,Urine Clear (Clear); Color,Urine Yellow (Yellw/Straw); Glucose,Urine (UA) Negative (Negative); Hyaline Casts,Urine 15 /lpf (0-3); Leukocyte Esterase,Urine Negative (Negative); Mucus,Urine Few /lpf (Occasional); Nitrite,Urine Negative (Negative)
[2018-04-27] MEDS: Metoprolol Inj 5 MG/5 ML Vial IV.PUSH ONE ×2 (19:33→19:44)
[2018-04-27] MEDS ORDERED: Warfarin Consult Pharmacy OTHER PRN (21:01)
--- NOTE | 2018-04-27 21:21 | P.HP ---
History of Present Illness Service: [facility] Primary Care Physician: Joni Hair MD History of Present Illness: 67-year-old female with past medical history significant for atrial fibrillation anticoagulated on Coumadin, hypertension, hyperlipidemia, COPD, CAD , CHF (last EF less than 20% in 2017) status post AICD placement and Crohn's disease presents to the emergency department for the evaluation of shortness of breath. The patient reports her symptoms started over the weekend. She has a history of dementia and states that she lives at home and was unable to make it to the kitchen without becoming short of breath. She states she normally does housework without difficulty. The patient is a poor historian and was sent from her [facility] facility for further evaluation of shortness of breath. She denies lower extremity edema. No chest pain. States she has had palpitations for the past "several days." No fevers/chills. Endorses nonproductive cough. No abdominal pain. No nausea/vomiting/diarrhea. No focal neurologic deficits. Review of Systems All other systems reviewed negative except as stated in HPI [facility] - History History Provided By: Patient - Medical History Medical History: Medical History (Last Updated 04/27/18 @ 21:10 by Daphne Padron MD) Congestive heart failure Dementia Atrial fibrillation Crohn's disease HTN (hypertension) Hx of myocardial infarction Nonischemic cardiomyopathy Pulmonary hypertension Rheumatoid arthritis - Surgical History Surgical History: Surgical History (Last Reviewed 04/27/18 @ 16:09 by Kamryn Glynn) H/O myomectomy Hx of section S/P placement of cardiac pacemaker - Family History Family History: Family History (Last Updated 04/27/18 @ 21:12 by Daphne Padron MD) Other Coronary artery disease Diabetes mellitus Heart disease - Social History I have reviewed the patient's Social History: Yes - Tobacco History Second Hand Smoke Exposure: No Tobacco Use In Past 30 Days: No Smoking Status: Never smoker - Alcohol History How Often Do You Have a Drink Containing Alcohol: Never - Substance Use History Substance History: No History of Abuse - Travel History Recent Travel in the [place] Within the Last 8 Weeks: No Recent Travel Out of the Country Within the Last 8 Weeks: No - Immunization History Tetanus Immunization: <5 Years Medications and Allergies Active Medications: Active Medications Amiodarone HCl (Cordarone) 200 mg PO Q12HR JENSEN Atorvastatin Calcium (Lipitor) 40 mg PO HS JENSEN Carvedilol (Coreg) 6.25 mg PO BID [facility] Fluoxetine HCl (Prozac) 20 mg PO DAILY [facility] Folic Acid (Folic Acid) 1 mg PO DAILY [facility] Furosemide (Lasix Inj) 40 mg IV.PUSH BID@0900,1800 [facility] Non-Formulary Medication (Mirtazapine [Remeron]) 30 mg PO DAILY [facility] Pantoprazole Sodium (Protonix) 20 mg PO DAILY [facility] Sacubitril/Valsartan (Entresto 24 Mg/26 Mg Tablet) 1 tab PO BID [facility] Sodium Chloride (Ns Flush) 2 ml IV.FLUSH BID [facility] Last Admin: 04/27/18 20:51 Dose: 2 ml Sodium Chloride (Ns Flush) 2 ml IV.FLUSH PRN PRN PRN Reason: FLUSH AFTER USING IV ACCESS Allergies Allergy/AdvReac Type Severity Reaction Status Date / Time penicillin G Allergy Severe Swelling Verified 04/27/18 16:10 cefepime Allergy Unknown Swelling Verified 04/27/18 16:10 ceftaroline fosamil Allergy Unknown Swelling Verified 04/27/18 16:10 cephalexin Allergy Unknown RASH Verified 04/27/18 16:10 Home Medications Medication Instructions Recorded Confirmed Type fexofenadine [Lisa Allergy] 180 mg PO DAILY 03/22/18 04/27/18 History fluoxetine [Prozac] 20 mg PO DAILY 03/22/18 04/27/18 History folic acid 1 mg PO DAILY 03/22/18 04/27/18 History furosemide 20 mg PO DAILY 03/22/18 04/27/18 History mirtazapine [Remeron] 30 mg PO DAILY 03/22/18 04/27/18 History pantoprazole [Protonix] 20 mg PO DAILY 03/22/18 04/27/18 History Exam Vital signs: Vital Signs 04/27/18 16:08 04/27/18 16:41 04/27/18 19:33 Temperature 97.7 F Pulse Rate 118 H 100 H 122 H Respiratory Rate 20 18 16 Blood Pressure 116/63 113/81 101/79 Pulse Oximetry 98 99 97 04/27/18 20:20 Temperature Pulse Rate 113 H Respiratory Rate 12 Blood Pressure 93/74 L Pulse Oximetry Intake & Output 04/27/18 04/27/18 04/28/18 06:59 18:59 06:59 Weight 47.627 kg Narrative: Gen.: No acute distress Head: Normocephalic. Atraumatic. EENT: Pupils equal round and reactive to light. Nose without drainage. Airway intact. Throat without injection. Cardiovascular: Tachycardic. Irregularly irregular rhythm. No murmurs, rubs or gallops. Respiratory: Lungs clear to auscultation bilaterally. No wheezes or rhonchi. Abdomen: Soft, nontender, nondistended. No peritoneal signs. Musculoskeletal: No gross deformities. No edema. Skin: No obvious rashes or erythema. Neuro: Sensory and motor grossly intact. Cranial nerves II through XII grossly intact. Results - Labs CBC & Chem 7: 04/27/18 16:30 04/27/18 17:35 Labs: Laboratory Results - last 24 hr 04/27/18 04/27/18 04/27/18 16:30 16:30 16:30 WBC 5.0 RBC 3.58 L Hgb 10.3 L Hct 31.7 L MCV 88.4 MCH 28.9 MCHC 32.7 RDW 16.4 Plt Count 277 MPV 8.2 Prelim Diff (Auto) Slide review pending Neut % (Auto) 51.1 Lymph % (Auto) 40.5 [place] % (Auto) 7.6 Eos % (Auto) 0.5 Baso % (Auto) 0.3 Neut # (Auto) 2.5 Lymph # (Auto) 2.0 [place] # (Auto) 0.4 Eos # (Auto) 0.0 Baso # (Auto) 0.0 WBC Differential Manual diff final Seg Neuts % (Manual) 54 Lymphocytes % (Manual) 38 Monocytes % (Manual) 8 Abs Neuts (Manual) 2.7 Nucleated RBCs/100 WBC 6 H Differential Comment . Platelet Estimate Normal Platelet Morphology Normal Target Cells 1+ H Ovalocytes 1+ H Acanthocytes (Spur) Occ H Keratocytes Occ H Sodium 138 Potassium 5.6 H Chloride 104 Carbon Dioxide 27.7 Anion Gap 6 BUN 29 H Creatinine 1.30 H Estimated GFR 49 L Random Glucose 110 H Calcium 8.8 Magnesium 2.1 Total Bilirubin 0.8 AST 61 H ALT 32 Alkaline Phosphatase 128 H Troponin I Less than 0.02 L B-Natriuretic Peptide 2678 H Total Protein 8.1 Albumin 3.3 L Urine Color Urine Clarity Urine pH Ur Specific [place] Urine Protein Urine Glucose (UA) Urine Ketones Urine Occult Blood Urine Nitrate Urine Bilirubin Urine Urobilinogen Ur Leukocyte Esterase Urine RBC Urine WBC Hyaline Casts Urine Mucus Micro UA Comment Ur Microscopic Review Urine Culture Comments 04/27/18 04/27/18 04/27/18 17:30 17:35 19:50 WBC RBC Hgb Hct MCV MCH MCHC RDW Plt Count MPV Prelim Diff (Auto) Neut % (Auto) Lymph % (Auto) [place] % (Auto) Eos % (Auto) Baso % (Auto) Neut # (Auto) Lymph # (Auto) [place] # (Auto) Eos # (Auto) Baso # (Auto) WBC Differential Seg Neuts % (Manual) Lymphocytes % (Manual) Monocytes % (Manual) Abs Neuts (Manual) Nucleated RBCs/100 WBC Differential Comment Platelet Estimate Platelet Morphology Target Cells Ovalocytes Acanthocytes (Spur) Keratocytes Sodium Potassium 4.3 D Chloride Carbon Dioxide Anion Gap BUN Creatinine Estimated GFR Random Glucose Calcium Magnesium Total Bilirubin AST ALT Alkaline Phosphatase Troponin I Less than 0.02 L B-Natriuretic Peptide Total Protein Albumin Urine Color Yellow Urine Clarity Clear Urine pH 6.0 Ur Specific [place] 1.010 Urine Protein Negative Urine Glucose (UA) Negative Urine Ketones Negative Urine Occult Blood Negative Urine Nitrate Negative Urine Bilirubin Negative Urine Urobilinogen Less than 2 Ur Leukocyte Esterase Negative Urine RBC Less than 1 Urine WBC 1 Hyaline Casts 15 Urine Mucus Few H Micro UA Comment Culture not ind Ur Microscopic Review Not Reportable Urine Culture Comments Culture not ind - Imaging Impressions Chest X-Ray 04/27/18 17:01 CONCLUSION: Mild vascular congestion Caprini VTE Risk Assessment Caprini VTE Risk Assessment: Moderate/High Risk (score >= 2) Caprini Risk Assessment Model: Point Value = 1 Point Value = 2 Point Value = 3 Point Value = 5 Age 41-60 Minor surgery BMI > 25 kg/m2 Swollen legs Varicose veins or History of unexplained or recurrent spontaneous Oral contraceptives or hormone replacement Sepsis (< 1 month) Serious lung disease, including pneumonia (< 1 month) Abnormal pulmonary function Acute myocardial infarction Congestive heart failure (< 1 month) History of inflammatory bowel disease Medical patient at bed rest Age 61-74 Arthroscopic surgery Major open surgery (> 45 min) Laparoscopic surgery (> 45 min) Malignancy Confined to bed (> 72 hours) Immobilizing plaster cast Central venous access Age >= 75 History of VTE Family history of VTE Factor V Leiden Prothrombin [id number] Lupus anticoagulant Anticardiolipin antibodies Elevated serum homocysteine Heparin-induced thrombocytopenia Other congenital or acquired thrombophilia Stroke (< 1 month) Elective arthroplasty Hip, pelvis, or leg fracture Acute spinal cord injury (< 1 month) Prophylaxis Regimen: Total Risk Factor Score Risk Level Prophylaxis Regimen 0-1 Low Early ambulation 2 Moderate Order ONE of the following: *Sequential Compression Device (SCD) *Heparin 5000 units SQ BID 3-4 Higher Order ONE of the following medications: *Heparin 5000 units SQ TID *Enoxaparin/Lovenox 40 mg SQ daily (WT < 150 kg, CrCl > 30 mL/min) *Enoxaparin/Lovenox 30 mg SQ daily (WT < 150 kg, CrCl > 10-29 mL/min) *Enoxaparin/Lovenox 30 mg SQ BID (WT < 150 kg, CrCl > 30 mL/min) AND/OR *Sequential Compression Device (SCD) 5 or more Highest Order ONE of the following medications: *Heparin 5000 units SQ TID (Preferred with Epidurals) *Enoxaparin/Lovenox 40 mg SQ daily (WT < 150 kg, CrCl > 30 mL/min) *Enoxaparin/Lovenox 30 mg SQ daily (WT < 150 kg, CrCl > 10-29 mL/min) *Enoxaparin/Lovenox 30 mg SQ BID (WT < 150 kg, CrCl > 30 mL/min) AND *Sequential Compression Device (SCD) Assessment and Plan - Plan Assessment/plan: 1. Atrial fibrillation with rapid ventricular response EKG shows atrial fibrillation with rapid ventricular response, no ST segment elevations or depressions, personally reviewed Status post 2.5 mg metoprolol IV push in ED Monitor heart rate Continue home amiodarone, carvedilol Patient evaluated by cardiology on 04/08 who recommended amiodarone and anticoagulation with close follow-up with her sodium chlorite operator, Dr. valle INR pending 2. CHF exacerbation Patient with nonischemic cardiomyopathy and EF of 20% in 2017 BNP 2678 Chest x-ray significant for mild vascular congestion, personally reviewed IV Lasix Supplemental oxygen as needed 3. CAD/hypertension/hyperlipidemia Continue home medications 4. Crohn's disease Not currently experiencing symptoms 5. Acute kidney injury Creatinine 1.30, baseline 1 Monitor renal function No IV fluids at this time secondary to volume overload FEN Cardiac diet Electrolytes: Monitor and replete as needed Coumadin
[2018-04-27] MEDS: Amiodarone 200 MG Tablet PO SCH (22:31)
[2018-04-27] MEDS: Carvedilol 6.25 MG Tablet PO SCH (22:31)
[2018-04-27 23:03] LABS: INR 2.2 Ratio; Prothrombin Time 22.4 sec (9.8-11.6)
[2018-04-28] MEDS: Mirtazapine 15 MG Tablet PO SCH ×2 (01:24→20:30)
[2018-04-28 07:23] LABS: Calcium 8.7 mg/dL (8.5-10.1); Carbon Dioxide 24.7 meq/L (21.0-32.0); Potassium 4.9 meq/L (3.5-5.1)
[2018-04-28] MEDS: Amiodarone 200 MG Tablet PO SCH ×2 (09:07→20:30)
[2018-04-28] MEDS: Folic Acid 1 MG Tablet PO SCH (09:07)
[2018-04-28] MEDS: Carvedilol 6.25 MG Tablet PO SCH ×2 (09:07→20:30)
[2018-04-28] MEDS: FLUoxetine 20 MG Capsule PO SCH (09:07)
[2018-04-28] MEDS: Pantoprazole Sodium 20 MG DR Tablet PO SCH (09:07)
--- NOTE | 2018-04-28 09:43 | P.PN ---
Subjective Interval history: Follow up for afib with RVR, CHF. The patient reports feeling slightly better today, however still short of breath, worse with exertion. She states she had some palpitations this morning, but resolved on its own. She denies any chest pain. She denies any orthopnea or lower extremity edema. She states she did not sleep well last night. No other medical complaints at this time. She does not feel ready for discharge. Physical Exam Vital signs: Vital Signs 04/27/18 16:08 04/27/18 16:41 04/27/18 19:33 Temperature 97.7 F Pulse Rate 118 H 100 H 122 H Respiratory Rate 20 18 16 Blood Pressure 116/63 113/81 101/79 Pulse Oximetry 98 99 97 04/27/18 20:20 04/27/18 23:31 04/28/18 03:36 Temperature 97.9 F Pulse Rate 113 H 102 H 108 H Respiratory Rate 12 18 18 Blood Pressure 93/74 L 94/64 L 96/65 L Pulse Oximetry 96 97 04/28/18 07:48 Temperature Pulse Rate 113 H Respiratory Rate 16 Blood Pressure 106/70 Pulse Oximetry 97 Intake & Output 04/27/18 04/28/18 04/28/18 18:59 06:59 18:59 Weight 47.627 kg 154.94 kg Other: Weight On Admission 47.627 kg Narrative: GENERAL: Well-nourished, well-developed pleasant middle aged female patient in [facility]. SKIN: Warm and dry. No rash. HEENT: Normocephalic. Atraumatic. Pupils equal and round. Mucous membranes pink and moist. CARDIOVASCULAR: Irregular rate and rhythm. No murmur appreciated. Pacer at left upper chest. RESPIRATORY: No accessory muscle use. Crackles at bilateral bases with decreased breath sounds. Breath sounds equal bilaterally. GASTROINTESTINAL: Abdomen soft, non-tender, nondistended. Normoactive bowel sounds x4. MUSCULOSKELETAL: No obvious deformities. Extremities without clubbing, cyanosis , or edema. NEUROLOGICAL: Awake and alert. No obvious cranial nerve deficits. Moving all extremities spontaneously. Normal speech. PSYCHIATRIC: Appropriate mood and affect; insight and judgment normal. Results - Labs CBC & Chem 7: 04/27/18 16:30 04/28/18 06:33 Laboratory Results - last 24 hr 04/27/18 04/27/18 04/27/18 16:30 16:30 16:30 WBC 5.0 RBC 3.58 L Hgb 10.3 L Hct 31.7 L MCV 88.4 MCH 28.9 MCHC 32.7 RDW 16.4 Plt Count 277 MPV 8.2 Prelim Diff (Auto) Slide review pending Neut % (Auto) 51.1 Lymph % (Auto) 40.5 [place] % (Auto) 7.6 Eos % (Auto) 0.5 Baso % (Auto) 0.3 Neut # (Auto) 2.5 Lymph # (Auto) 2.0 [place] # (Auto) 0.4 Eos # (Auto) 0.0 Baso # (Auto) 0.0 WBC Differential Manual diff final Seg Neuts % (Manual) 54 Lymphocytes % (Manual) 38 Monocytes % (Manual) 8 Abs Neuts (Manual) 2.7 Nucleated RBCs/100 WBC 6 H Differential Comment . Platelet Estimate Normal Platelet Morphology Normal Target Cells 1+ H Ovalocytes 1+ H Acanthocytes (Spur) Occ H Keratocytes Occ H PT INR Sodium 138 Potassium 5.6 H Chloride 104 Carbon Dioxide 27.7 Anion Gap 6 BUN 29 H Creatinine 1.30 H Estimated GFR 49 L Random Glucose 110 H Calcium 8.8 Magnesium 2.1 Total Bilirubin 0.8 AST 61 H ALT 32 Alkaline Phosphatase 128 H Troponin I Less than 0.02 L B-Natriuretic Peptide 2678 H Total Protein 8.1 Albumin 3.3 L Urine Color Urine Clarity Urine pH Ur Specific [place] Urine Protein Urine Glucose (UA) Urine Ketones Urine Occult Blood Urine Nitrate Urine Bilirubin Urine Urobilinogen Ur Leukocyte Esterase Urine RBC Urine WBC Hyaline Casts Urine Mucus Micro UA Comment Ur Microscopic Review Urine Culture Comments 04/27/18 04/27/18 04/27/18 17:30 17:35 19:50 WBC RBC Hgb Hct MCV MCH MCHC RDW Plt Count MPV Prelim Diff (Auto) Neut % (Auto) Lymph % (Auto) [place] % (Auto) Eos % (Auto) Baso % (Auto) Neut # (Auto) Lymph # (Auto) [place] # (Auto) Eos # (Auto) Baso # (Auto) WBC Differential Seg Neuts % (Manual) Lymphocytes % (Manual) Monocytes % (Manual) Abs Neuts (Manual) Nucleated RBCs/100 WBC Differential Comment Platelet Estimate Platelet Morphology Target Cells Ovalocytes Acanthocytes (Spur) Keratocytes PT INR Sodium Potassium 4.3 D Chloride Carbon Dioxide Anion Gap BUN Creatinine Estimated GFR Random Glucose Calcium Magnesium Total Bilirubin AST ALT Alkaline Phosphatase Troponin I Less than 0.02 L B-Natriuretic Peptide Total Protein Albumin Urine Color Yellow Urine Clarity Clear Urine pH 6.0 Ur Specific [place] 1.010 Urine Protein Negative Urine Glucose (UA) Negative Urine Ketones Negative Urine Occult Blood Negative Urine Nitrate Negative Urine Bilirubin Negative Urine Urobilinogen Less than 2 Ur Leukocyte Esterase Negative Urine RBC Less than 1 Urine WBC 1 Hyaline Casts 15 Urine Mucus Few H Micro UA Comment Culture not ind Ur Microscopic Review Not Reportable Urine Culture Comments Culture not ind 04/27/18 04/28/18 04/28/18 22:40 06:33 06:33 WBC RBC Hgb Hct MCV MCH MCHC RDW Plt Count MPV Prelim Diff (Auto) Neut % (Auto) Lymph % (Auto) [place] % (Auto) Eos % (Auto) Baso % (Auto) Neut # (Auto) Lymph # (Auto) [place] # (Auto) Eos # (Auto) Baso # (Auto) WBC Differential Seg Neuts % (Manual) Lymphocytes % (Manual) Monocytes % (Manual) Abs Neuts (Manual) Nucleated RBCs/100 WBC Differential Comment Platelet Estimate Platelet Morphology Target Cells Ovalocytes Acanthocytes (Spur) Keratocytes PT 22.4 H INR 2.2 Sodium 138 Potassium 4.9 Chloride 104 Carbon Dioxide 24.7 Anion Gap 9 BUN 31 H Creatinine 1.46 H Estimated GFR 43 L Random Glucose 116 H Calcium 8.7 Magnesium Total Bilirubin AST ALT Alkaline Phosphatase Troponin I B-Natriuretic Peptide 4015 H Total Protein Albumin Urine Color Urine Clarity Urine pH Ur Specific [place] Urine Protein Urine Glucose (UA) Urine Ketones Urine Occult Blood Urine Nitrate Urine Bilirubin Urine Urobilinogen Ur Leukocyte Esterase Urine RBC Urine WBC Hyaline Casts Urine Mucus Micro UA Comment Ur Microscopic Review Urine Culture Comments - Imaging Impressions Chest X-Ray 04/27/18 17:01 CONCLUSION: Mild vascular congestion Assessment and Plan - Plan 67-year-old female with past medical history significant for atrial fibrillation anticoagulated on Coumadin, hypertension, hyperlipidemia, COPD, CAD , CHF (last EF less than 20% in 2017) status post AICD placement and Crohn's disease presents to the emergency department for the evaluation of shortness of breath. Atrial fibrillation with rapid ventricular response: acute, -EKG reviewed, shows afib with RVR, no ST segment elevations or depressions -Status post 2.5 mg metoprolol IV push in ED -Monitor heart rate -Continue home amiodarone, carvedilol -Continue anticoagulation with Coumadin, INR 2.2 -Consult patient's test pilot Dr. Patton Acute on Chronic Systolic CHF/Nonischemic Cardiomyopathy: patient with SOB/ATWOOD, fluid overload. Hx of nonischemic cardiomyopathy and EF of 20% in 2017. -BNP elevated at 2678 -Chest x-ray significant for mild vascular congestion, personally reviewed -Continue diuresis with IV Lasix 40mg bid -Continue Coreg, Entresto, statin -Supplemental oxygen as needed -BNP increased to 4015 today, continued symptoms -Crew Leader Dr. Patton consulted as above CAD/hypertension/hyperlipidemia: chronic -Continue home medications including statin, coreg, entresto -Monitor BP, adjust antihypertensives as needed Crohn's disease: chronic, stable, no current symptoms -monitor, outpatient f/up Acute kidney injury: Creatinine 1.46, baseline 1 -No IV fluids at this time secondary to volume overload -Monitor renal function closely DVT Prophylaxis: on Coumadin Discharge Planning: Discharge pending further clinical improvement and evaluation/clearance from patient's test pilot Dr. Patton.
--- NOTE | 2018-04-28 12:11 | ECG ---
Date Performed: 04/27/2018 Time Performed: 22:02:09 PTAGE: 67 years EKG: ATRIAL FIBRILLATION WITH RAPID VENTRICULAR RESPONSE WITH ABERRANT CONDUCTION OR VENTRICULAR PREMATURE COMPLEXES INTRAVENTRICULAR CONDUCTION DELAY POSSIBLE RIGHT VENTRICULAR HYPERTROPHY ABNORMA L ECG Since the PREVIOUS TRACING , no significant change noted PREVIOUS TRACING DOCTOR: Sadi nEciso Interpretating Date/Time 04/28/2018 12:09:51
--- NOTE | 2018-04-28 13:34 | P.CONCA ---
History of Present Illness Service: Cardiology Consult date: 04/28/18 Reason for Consult: Afib RVR, CHF Primary Care Provider: Joni Hair MD Chief Complaint: SOB History of Present Illness: 67-year-old female with past medical history significant for atrial fibrillation anticoagulated on Coumadin, hypertension, hyperlipidemia, COPD, CAD , CHF (last EF less than 20% in 2017) status post AICD placement and Crohn's disease presents to the emergency department for the evaluation for increased shortness of breath and rapid heart rate. On exam today patient reports feeling much better. Diuresing well with IV Lasix. She reports feeling less abdominal fullness and shortness of breath has improved significantly. Telemetry reveals atrial fibrillation heart rates controlled 90s and low 100. Review of Systems All other systems reviewed negative except as stated in HPI [facility] - History History Provided By: Patient - Medical History Medical History: Medical History (Last Reviewed 04/28/18 @ 09:23 by Angelica Ramey) Atrial fibrillation Congestive heart failure Crohn's disease Dementia HTN (hypertension) Hx of myocardial infarction Nonischemic cardiomyopathy Pulmonary hypertension Rheumatoid arthritis - Surgical History Surgical History: Surgical History (Last Reviewed 04/28/18 @ 09:23 by Angelica Ramey) H/O myomectomy Hx of section S/P placement of cardiac pacemaker - Family History Family History: Family History (Last Reviewed 04/28/18 @ 09:23 by Angelica Ramey) Other Coronary artery disease Diabetes mellitus Heart disease - Tobacco History Second Hand Smoke Exposure: No Tobacco Use In Past 30 Days: No Smoking Status: Never smoker - Alcohol History How Often Do You Have a Drink Containing Alcohol: Never - Substance Use History Substance History: No History of Abuse - Travel History Recent Travel in the [place] Within the Last 8 Weeks: No Recent Travel Out of the Country Within the Last 8 Weeks: No - Immunization History Tetanus Immunization: <5 Years Medications and Allergies Allergies Allergy/AdvReac Type Severity Reaction Status Date / Time penicillin G Allergy Severe Swelling Verified 04/27/18 16:10 cefepime Allergy Unknown Swelling Verified 04/27/18 16:10 ceftaroline fosamil Allergy Unknown Swelling Verified 04/27/18 16:10 cephalexin Allergy Unknown RASH Verified 04/27/18 16:10 Home Medications Medication Instructions Recorded Confirmed Type fexofenadine [Lisa Allergy] 180 mg PO DAILY 03/22/18 04/27/18 History fluoxetine [Prozac] 20 mg PO DAILY 03/22/18 04/27/18 History folic acid 1 mg PO DAILY 03/22/18 04/27/18 History mirtazapine [Remeron] 30 mg PO HS 03/22/18 04/28/18 History pantoprazole [Protonix] 20 mg PO DAILY 03/22/18 04/27/18 History Active Medications: Active Medications Amiodarone HCl (Cordarone) 200 mg PO Q12HR [facility] Last Admin: 04/28/18 09:07 Dose: 200 mg Atorvastatin Calcium (Lipitor) 40 mg PO HS [facility] Last Admin: 04/27/18 22:31 Dose: 40 mg Carvedilol (Coreg) 6.25 mg PO BID [facility] Last Admin: 04/28/18 09:07 Dose: 6.25 mg Fluoxetine HCl (Prozac) 20 mg PO DAILY [facility] Last Admin: 04/28/18 09:07 Dose: 20 mg Folic Acid (Folic Acid) 1 mg PO DAILY [facility] Last Admin: 04/28/18 09:07 Dose: 1 mg Furosemide (Lasix Inj) 40 mg IV.PUSH BID@0900,1800 [facility] Last Admin: 04/28/18 09:07 Dose: 40 mg Mirtazapine (Remeron) 30 mg PO HS [facility] Last Admin: 04/28/18 01:24 Dose: 30 mg Pantoprazole Sodium (Protonix) 20 mg PO DAILY [facility] Last Admin: 04/28/18 09:07 Dose: 20 mg Pharmacy Profile Note (Coumadin Consult Pharmacy) 1 each OTHER UNSCH PRN PRN Reason: PHARMACY DOCUMENTATION Sacubitril/Valsartan (Entresto 24 Mg/26 Mg Tablet) 1 tab PO BID [facility] Last Admin: 04/28/18 09:07 Dose: 1 tab Sodium Chloride (Ns Flush) 2 ml IV.FLUSH BID [facility] Sodium Chloride (Ns Flush) 2 ml IV.FLUSH UNSCH PRN PRN Reason: FLUSH AFTER USING IV ACCESS Warfarin Sodium (Coumadin) 2.5 mg PO DAILY@1600 [facility] Last Admin: 04/27/18 23:58 Dose: 2.5 mg Exam Vital signs: Vital Signs 04/27/18 16:08 04/27/18 16:41 04/27/18 19:33 Temperature 97.7 F Pulse Rate 118 H 100 H 122 H Respiratory Rate 20 18 16 Blood Pressure 116/63 113/81 101/79 Pulse Oximetry 98 99 97 04/27/18 20:20 04/27/18 23:31 04/28/18 03:36 Temperature 97.9 F Pulse Rate 113 H 102 H 108 H Respiratory Rate 12 18 18 Blood Pressure 93/74 L 94/64 L 96/65 L Pulse Oximetry 96 97 04/28/18 07:48 04/28/18 08:00 04/28/18 12:00 Temperature Pulse Rate 113 H 115 H 106 H Respiratory Rate 16 18 Blood Pressure 106/70 94/67 L Pulse Oximetry 97 94 L Intake & Output 04/27/18 04/28/18 04/28/18 18:59 06:59 18:59 Intake Total 800 / 800 Output Total 800 / 800 Balance 0 / 0 Weight 47.627 kg 154.94 kg 47.627 kg Intake: Oral 800 / 800 Output: Urine 800 / 800 Other: Weight On Admission 47.627 kg - Constitutional no acute distress, thin - Routine HEENT Exam Head: Present: normocephalic, atraumatic Eye: Present: EOMI, PERRL, normal accommodation ENT: Present: mucous membranes moist - Routine Respiratory Exam Present: crackles - Routine Cardiovascular Exam Present: tachycardia, irregular rhythm - Routine Abdominal Exam Present: soft - Routine Skin Exam Present: intact - Routine Neurological Exam Present: oriented X3 Results 04/29/18 06:11 04/29/18 06:11 Cardiac Enzymes 04/27/18 04/27/18 04/27/18 Range/Units 16:30 16:30 19:50 AST 61 H (15-37) U/L Troponin I Less than 0.02 L Less than 0.02 L (0.02-0.05) ng/mL B-Natriuretic Peptide 2678 H (0-100) pg/mL 04/28/18 Range/Units 06:33 AST (15-37) U/L Troponin I (0.02-0.05) ng/mL B-Natriuretic Peptide 4015 H (0-100) pg/mL Coagulation 04/27/18 04/27/18 04/28/18 Range/Units 16:30 22:40 06:33 PT 22.4 H (9.8-11.6) sec B-Natriuretic Peptide 2678 H 4015 H (0-100) pg/mL CBC 04/27/18 Range/Units 16:30 WBC 5.0 (4.0-11.0) th/mm3 RBC 3.58 L (4.00-5.30) mil/mm3 Hgb 10.3 L (11.6-15.3) gm/dL Hct 31.7 L (35.0-46.0) % Plt Count 277 (150-450) th/mm3 Neut # (Auto) 2.5 (1.8-7.7) th/mm3 Lymph # (Auto) 2.0 (1.0-4.8) th/mm3 Barber # (Auto) 0.4 (0.0-0.9) th/mm3 Eos # (Auto) 0.0 (0.0-0.4) th/mm3 Baso # (Auto) 0.0 (0.0-0.2) th/mm3 Comprehensive Metabolic Panel 04/27/18 04/27/18 04/28/18 Range/Units 16:30 17:35 06:33 Sodium 138 138 (136-145) meq/L Potassium 5.6 H 4.3 D 4.9 (3.5-5.1) meq/L Chloride 104 104 (98-107) meq/L Carbon Dioxide 27.7 24.7 (21.0-32.0) meq/L BUN 29 H 31 H (7-18) mg/dL Creatinine 1.30 H 1.46 H (0.50-1.00) mg/dL Calcium 8.8 8.7 (8.5-10.1) mg/dL AST 61 H (15-37) U/L ALT 32 (10-53) U/L Alkaline Phosphatase 128 H (45-117) U/L Total Protein 8.1 (6.4-8.2) g/dL Albumin 3.3 L (3.4-5.0) g/dL Intake and Output 04/27/18 04/28/18 04/28/18 22:59 06:59 14:59 Intake Total 800 / 800 Output Total 800 / 800 Balance 0 / 0 Intake: Oral 800 / 800 Output: Urine 800 / 800 Other: Weight 154.94 kg 47.627 kg Weight On Admission 47.627 kg Patient Weight 04/29/18 06:59 Weight 47.627 kg - Imaging and Cardiology Imaging: Impressions Chest X-Ray 04/27/18 17:01 CONCLUSION: Mild vascular congestion Assessment and Plan - Plan Assessment and Plan Atrial fibrillation with rapid ventricular response: -HR controlled well on telemetry -Continue home amiodarone, carvedilol -Continue anticoagulation with Coumadin, INR 2.2 Acute on Chronic Systolic CHF/Nonischemic Cardiomyopathy: patient with SOB/ATWOOD, fluid overload. Hx of nonischemic cardiomyopathy and EF of 20% in 2017. -BNP elevated at 4015 -Continue diuresis with IV Lasix 40mg bid -Continue Coreg, Entresto, statin -Supplemental oxygen as needed Acute kidney injury: Creatinine 1.46, -Monitor renal function closely Patient was seen and evaluated by Dr. Guillen who participated in care management decision making. The exam, history, and the medical decision-making described in the above note were completed with the assistance of the mid-level provider. I reviewed and agree with the findings presented. I attest that I had a [id number] encounter with the patient on the same day, and personally performed and documented my assessment and findings in the medical record. Overall doing better Will d/c when stable FU with Dr Patton. Code Status: Full Code Discussed Condition With: Dr. Guillen, RN
--- NOTE | 2018-04-28 14:44 | ECG ---
Date Performed: 04/28/2018 Time Performed: 03:33:06 PTAGE: 67 years EKG: ATRIAL FIBRILLATION WITH RAPID VENTRICULAR RESPONSE WITH ABERRANT CONDUCTION OR VENTRICULAR PREMATURE COMPLEXES POSSIBLE RIGHT VENTRICULAR HYPERTROPHY Marked right axis deviation PREVIOUS TRACING : 04/27/18 DOCTOR: Sadi Enciso Interpretating Date/Time 04/28/2018 14:43:43
--- NOTE | 2018-04-28 14:44 | ECG ---
Date Performed: 04/27/2018 Time Performed: 16:21:17 PTAGE: 67 years EKG: ATRIAL FIBRILLATION WITH RAPID VENTRICULAR RESPONSE WITH ABERRANT CONDUCTION OR VENTRICULAR PREMATURE COMPLEXES INTRAVENTRICULAR CONDUCTION DELAY POSSIBLE RIGHT VENTRICULAR HYPERTROPHY Marked right axis deviation Compared to previous tracing atrial fibrillation is now present ABNORMAL ECG PREVIOUS TRACING : 04/07/2018 23.52 DOCTOR: Sadi Enciso Interpretating Date/Time 04/28/2018 14:42:25
--- NOTE | 2018-04-28 14:44 | ECG ---
Date Performed: 04/27/2018 Time Performed: 19:55:24 PTAGE: 67 years EKG: ATRIAL FIBRILLATION POSSIBLE RIGHT VENTRICULAR HYPERTROPHY ABNORMAL ECG Marked right axis d eviation continues to be present, consider dextracardia, otherwise no change from the prior study PREVIOUS TRACING : 04/27/2018 16.21 DOCTOR: Sadi Enciso Interpretating Date/Time 04/28/2018 14:42:57
[2018-04-29 06:57] LABS: INR 2.2 Ratio; Prothrombin Time 22.4 sec (9.8-11.6)
[2018-04-29 07:07] LABS: Baso % (Auto) 0.7 % (0.0-2.0); Eos % (Auto) 0.6 % (0.0-4.0); Hemoglobin 9.4 gm/dL (11.6-15.3); Lymph # (Auto) 1.5 th/mm3 (1.0-4.8); Mean Corpuscular HGB Conc 31.5 % (32.0-36.0); Mean Corpuscular Hemoglobin 27.2 pg (27.0-34.0); Mean Corpuscular Volume 86.4 fL (80.0-100.0); Mean Platelet Volume 8.3 fL (7.0-11.0); Mono # (Auto) 0.5 th/mm3 (0.0-0.9); Mono % (Auto) 11.5 % (0.0-8.0); Neut # (Auto) 2.2 th/mm3 (1.8-7.7); Neut % (Auto) 52.2 % (16.0-70.0); Platelet Count 258 th/mm3 (150-450); Red Blood Count 3.47 mil/mm3 (4.00-5.30); Red Cell Distribution Width 16.6 % (11.6-17.2); White Blood Count 4.2 th/mm3 (4.0-11.0)
[2018-04-29 07:24] LABS: Calcium 8.2 mg/dL (8.5-10.1); Carbon Dioxide 29.5 meq/L (21.0-32.0); Potassium 3.8 meq/L (3.5-5.1)
--- NOTE | 2018-04-29 08:20 | P.PNCA ---
Subjective Interval history: Patient is resting in bed this a.m. Denies any complaints overnight. No chest pain, shortness of breath has improved. Heart rate controlled at rest continues to spike with exertion. Patient reports feeling much better than she did prior to admission. Medications and Allergies Active Medications: Active Medications Amiodarone HCl (Cordarone) 200 mg PO Q12HR [facility] Last Admin: 04/28/18 20:30 Dose: 200 mg Atorvastatin Calcium (Lipitor) 40 mg PO HS [facility] Last Admin: 04/28/18 20:30 Dose: 40 mg Carvedilol (Coreg) 6.25 mg PO BID [facility] Last Admin: 04/28/18 20:30 Dose: 6.25 mg Fluoxetine HCl (Prozac) 20 mg PO DAILY [facility] Last Admin: 04/28/18 09:07 Dose: 20 mg Folic Acid (Folic Acid) 1 mg PO DAILY [facility] Last Admin: 04/28/18 09:07 Dose: 1 mg Furosemide (Lasix Inj) 40 mg IV.PUSH BID@0900,1800 [facility] Last Admin: 04/28/18 17:38 Dose: 40 mg Mirtazapine (Remeron) 30 mg PO [facility] Last Admin: 04/28/18 20:30 Dose: 30 mg Pantoprazole Sodium (Protonix) 20 mg PO DAILY [facility] Last Admin: 04/28/18 09:07 Dose: 20 mg Pharmacy Profile Note (Coumadin Consult Pharmacy) 1 each OTHER UNSCH PRN PRN Reason: PHARMACY DOCUMENTATION Sacubitril/Valsartan (Entresto 24 Mg/26 Mg Tablet) 1 tab PO BID [facility] Last Admin: 04/28/18 20:30 Dose: 1 tab Sodium Chloride (Ns Flush) 2 ml IV.FLUSH BID [facility] Last Admin: 04/28/18 20:30 Dose: 2 ml Sodium Chloride (Ns Flush) 2 ml IV.FLUSH UNSCH PRN PRN Reason: FLUSH AFTER USING IV ACCESS Warfarin Sodium (Coumadin) 2.5 mg PO DAILY@1600 [facility] Last Admin: 04/28/18 15:23 Dose: 2.5 mg Allergies Allergy/AdvReac Type Severity Reaction Status Date / Time penicillin G Allergy Severe Swelling Verified 04/27/18 16:10 cefepime Allergy Unknown Swelling Verified 04/27/18 16:10 ceftaroline fosamil Allergy Unknown Swelling Verified 04/27/18 16:10 cephalexin Allergy Unknown RASH Verified 04/27/18 16:10 Home Medications Medication Instructions Recorded Confirmed Type fexofenadine [Lisa Allergy] 180 mg PO DAILY 03/22/18 04/27/18 History fluoxetine [Prozac] 20 mg PO DAILY 03/22/18 04/27/18 History folic acid 1 mg PO DAILY 03/22/18 04/27/18 History furosemide 20 mg PO DAILY 03/22/18 04/27/18 History mirtazapine [Remeron] 30 mg PO HS 03/22/18 04/28/18 History pantoprazole [Protonix] 20 mg PO DAILY 03/22/18 04/27/18 History Physical Exam Vital signs: Vital Signs 04/28/18 12:00 04/28/18 15:43 04/28/18 19:45 Temperature 98.0 F 97.8 F Pulse Rate 106 H 90 124 H Respiratory Rate 18 18 16 Blood Pressure 94/67 L 91/57 L 104/73 Pulse Oximetry 94 L 93 L 100 04/28/18 23:50 04/29/18 04:00 Temperature 98.0 F 97.7 F Pulse Rate 91 H 89 Respiratory Rate 16 16 Blood Pressure 91/64 L 94/59 L Pulse Oximetry 97 94 L Intake & Output 04/28/18 04/29/18 04/29/18 18:59 06:59 18:59 Intake Total 800 / 800 1320 / 1320 Output Total 800 / 800 800 / 800 Balance 0 / 0 520 / 520 Weight 47.627 kg Intake: Oral 800 / 800 1320 / 1320 Output: Urine 800 / 800 800 / 800 - Constitutional no acute distress, thin, cachectic - Routine HEENT Exam Head: Present: normocephalic, atraumatic Eye: Present: EOMI, PERRL, normal accommodation ENT: Present: mucous membranes moist - Routine Neck Exam Present: supple - Routine Respiratory Exam Present: rales - Routine Cardiovascular Exam Present: tachycardia, irregular rhythm - Routine Abdominal Exam Present: soft - Routine Skin Exam Present: intact - Routine Neurological Exam Present: alert, oriented X3 - Detailed Neurological Exam: Coma Scale Eye Opening: Spontaneous Verbal Response: Oriented Motor Response: Obey commands Renick Coma Scale Total: 15 - Routine Psychiatric Exam Present: normal affect Results 04/29/18 06:11 04/29/18 06:11 Cardiac Enzymes 04/27/18 04/27/18 04/27/18 Range/Units 16:30 16:30 19:50 AST 61 H (15-37) U/L Troponin I Less than 0.02 L Less than 0.02 L (0.02-0.05) ng/mL B-Natriuretic Peptide 2678 H (0-100) pg/mL 04/28/18 04/29/18 Range/Units 06:33 06:11 AST (15-37) U/L Troponin I (0.02-0.05) ng/mL B-Natriuretic Peptide 4015 H 2913 H (0-100) pg/mL Coagulation 04/27/18 04/27/18 04/28/18 Range/Units 16:30 22:40 06:33 PT 22.4 H (9.8-11.6) sec B-Natriuretic Peptide 2678 H 4015 H (0-100) pg/mL 04/29/18 04/29/18 Range/Units 06:11 06:11 PT 22.4 H (9.8-11.6) sec B-Natriuretic Peptide 2913 H (0-100) pg/mL CBC 04/27/18 04/29/18 Range/Units 16:30 06:11 WBC 5.0 4.2 (4.0-11.0) th/mm3 RBC 3.58 L 3.47 L (4.00-5.30) mil/mm3 Hgb 10.3 L 9.4 L (11.6-15.3) gm/dL Hct 31.7 L 30.0 L (35.0-46.0) % Plt Count 277 258 (150-450) th/mm3 Neut # (Auto) 2.5 2.2 (1.8-7.7) th/mm3 Lymph # (Auto) 2.0 1.5 (1.0-4.8) th/mm3 [place] # (Auto) 0.4 0.5 (0.0-0.9) th/mm3 Eos # (Auto) 0.0 0.0 (0.0-0.4) th/mm3 Baso # (Auto) 0.0 0.0 (0.0-0.2) th/mm3 Comprehensive Metabolic Panel 04/27/18 04/27/18 04/28/18 Range/Units 16:30 17:35 06:33 Sodium 138 138 (136-145) meq/L Potassium 5.6 H 4.3 D 4.9 (3.5-5.1) meq/L Chloride 104 104 (98-107) meq/L Carbon Dioxide 27.7 24.7 (21.0-32.0) meq/L BUN 29 H 31 H (7-18) mg/dL Creatinine 1.30 H 1.46 H (0.50-1.00) mg/dL Calcium 8.8 8.7 (8.5-10.1) mg/dL AST 61 H (15-37) U/L ALT 32 (10-53) U/L Alkaline Phosphatase 128 H (45-117) U/L Total Protein 8.1 (6.4-8.2) g/dL Albumin 3.3 L (3.4-5.0) g/dL 04/29/18 Range/Units 06:11 Sodium 140 (136-145) meq/L Potassium 3.8 D (3.5-5.1) meq/L Chloride 105 (98-107) meq/L Carbon Dioxide 29.5 (21.0-32.0) meq/L BUN 35 H (7-18) mg/dL Creatinine 1.43 H (0.50-1.00) mg/dL Calcium 8.2 L (8.5-10.1) mg/dL AST (15-37) U/L ALT (10-53) U/L Alkaline Phosphatase (45-117) U/L Total Protein (6.4-8.2) g/dL Albumin (3.4-5.0) g/dL Intake and Output 04/28/18 04/29/18 04/29/18 22:59 06:59 14:59 Intake Total 700 / 700 620 / 620 Output Total 800 / 800 Balance -100 / -100 620 / 620 Intake: Oral 700 / 700 620 / 620 Output: Urine 800 / 800 - Imaging and Cardiology Imaging: Impressions Chest X-Ray 04/27/18 17:01 CONCLUSION: Mild vascular congestion Assessment and Plan - Plan Assessment and Plan Atrial fibrillation with rapid ventricular response: -HR controlled on telemetry while resting, continues to spike up to 130s with ambulation. Will continue to monitor closely on telemetry. -Continue home amiodarone, carvedilol -Continue anticoagulation with Coumadin Acute on Chronic Systolic CHF/Nonischemic Cardiomyopathy: patient with SOB/ATWOOD, fluid overload. Hx of nonischemic cardiomyopathy and EF of 20% in 2017. -BNP improved today -Continue diuresis with IV Lasix 40mg bid until D/C -Continue Coreg, Entresto, statin -No longer requiring supplemental oxygen Acute kidney injury: Creatinine 1.46, -Monitor renal function closely Dr. Patton will see patient on Wednesday. Patient was seen and evaluated by Dr. Guillen who participated in care management decision making. Code Status: Full Code Discussed Condition With:
[2018-04-29 08:44] VITALS: TEMP 97.4
[2018-04-29 08:47] LABS: Lymphocytes 28 % (9-44); Monocytes 5 % (0-8); Tallied Nucleated RBC 5 (0-0)
[2018-04-29 08:48] LABS: Platelet Estimate Normal (Normal)
--- NOTE | 2018-04-29 09:09 | P.PN ---
Subjective Interval history: Follow up for afib with RVR, CHF. Patient reports feeling better again today. She denies any current shortness of breath. She reports an occasional cough with some scant clear sputum. Denies any orthopnea or lower extremity edema. Denies fevers or chills. Denies any chest pain or palpitations. She has no other medical complaints at this time. Physical Exam Vital signs: Vital Signs 04/28/18 12:00 04/28/18 15:43 04/28/18 19:45 Temperature 98.0 F 97.8 F Pulse Rate 106 H 90 124 H Respiratory Rate 18 18 16 Blood Pressure 94/67 L 91/57 L 104/73 Pulse Oximetry 94 L 93 L 100 04/28/18 23:50 04/29/18 04:00 04/29/18 08:00 Temperature 98.0 F 97.7 F 97.4 F L Pulse Rate 91 H 89 100 H Respiratory Rate 16 16 18 Blood Pressure 91/64 L 94/59 L 100/70 Pulse Oximetry 97 94 L 98 Intake & Output 04/28/18 04/29/18 04/29/18 18:59 06:59 18:59 Intake Total 800 / 800 1320 / 1320 Output Total 800 / 800 800 / 800 Balance 0 / 0 520 / 520 Weight 47.627 kg Intake: Oral 800 / 800 1320 / 1320 Output: Urine 800 / 800 800 / 800 Narrative: GENERAL: Well-nourished, well-developed pleasant middle aged female patient in [facility]. SKIN: Warm and dry. No rash. HEENT: Normocephalic. Atraumatic. Pupils equal and round. CARDIOVASCULAR: Irregular rate and rhythm. No murmur appreciated. Pacer at left upper chest. RESPIRATORY: No accessory muscle use. Crackles at bilateral bases with decreased breath sounds. Breath sounds equal bilaterally. MUSCULOSKELETAL: Extremities without clubbing, cyanosis, or edema. NEUROLOGICAL: Awake and alert. No obvious cranial nerve deficits. Moving all extremities spontaneously. Normal speech. PSYCHIATRIC: Appropriate mood and affect; insight and judgment normal. Results - Labs CBC & Chem 7: 04/29/18 06:11 04/29/18 06:11 Laboratory Results - last 24 hr 04/29/18 04/29/18 04/29/18 06:11 06:11 06:11 WBC 4.2 RBC 3.47 L Hgb 9.4 L Hct 30.0 L MCV 86.4 MCH 27.2 MCHC 31.5 L RDW 16.6 Plt Count 258 MPV 8.3 Prelim Diff (Auto) Slide review pending Neut % (Auto) 52.2 Lymph % (Auto) 35.0 Travis % (Auto) 11.5 H Eos % (Auto) 0.6 Baso % (Auto) 0.7 Neut # (Auto) 2.2 Lymph # (Auto) 1.5 Travis # (Auto) 0.5 Eos # (Auto) 0.0 Baso # (Auto) 0.0 WBC Differential Manual diff final Seg Neuts % (Manual) 67 Lymphocytes % (Manual) 28 Monocytes % (Manual) 5 Abs Neuts (Manual) 2.8 Nucleated RBCs/100 WBC 5 H Differential Comment . Platelet Estimate Normal Platelet Morphology Enlarged H Keratocytes Occ H PT 22.4 H INR 2.2 Sodium 140 Potassium 3.8 D Chloride 105 Carbon Dioxide 29.5 Anion Gap 6 BUN 35 H Creatinine 1.43 H Estimated GFR 44 L Random Glucose 100 Calcium 8.2 L B-Natriuretic Peptide 04/29/18 06:11 WBC RBC Hgb Hct MCV MCH MCHC RDW Plt Count MPV Prelim Diff (Auto) Neut % (Auto) Lymph % (Auto) Travis % (Auto) Eos % (Auto) Baso % (Auto) Neut # (Auto) Lymph # (Auto) Travis # (Auto) Eos # (Auto) Baso # (Auto) WBC Differential Seg Neuts % (Manual) Lymphocytes % (Manual) Monocytes % (Manual) Abs Neuts (Manual) Nucleated RBCs/100 WBC Differential Comment Platelet Estimate Platelet Morphology Keratocytes PT INR Sodium Potassium Chloride Carbon Dioxide Anion Gap BUN Creatinine Estimated GFR Random Glucose Calcium B-Natriuretic Peptide 2913 H - Imaging Chest X-Ray 04/27/18 17:01 CONCLUSION: Mild vascular congestion Assessment and Plan - Plan 67-year-old female with past medical history significant for atrial fibrillation anticoagulated on Coumadin, hypertension, hyperlipidemia, COPD, CAD , CHF (last EF less than 20% in 2017) status post AICD placement and Crohn's disease presents to the emergency department for the evaluation of shortness of breath. Atrial fibrillation with rapid ventricular response: acute, -EKG reviewed, shows afib with RVR, no ST segment elevations or depressions -Status post 2.5 mg metoprolol IV push in ED -Monitor heart rate -Continue home amiodarone, carvedilol -Continue anticoagulation with Coumadin, INR 2.2 -Consult patient's undraped artist model Dr. Patton, seen by Dr. Guillen, HR better controlled, cleared for d/c Acute on Chronic Systolic CHF/Nonischemic Cardiomyopathy: patient with SOB/ATWOOD, fluid overload. Hx of nonischemic cardiomyopathy and EF of 20% in 2017. -BNP elevated at 4015 -CXR significant for mild vascular congestion, personally reviewed -Continue diuresis with IV Lasix 40mg bid -Continue Coreg, Entresto, statin -Supplemental oxygen as needed -Cardiology consulted as above -Patient diuresed well, SOB resolved, passed home O2 walk test, cleared for discharge by cardiology, increased lasix to 20mg bid at discharge CAD/hypertension/hyperlipidemia: chronic -Continue home medications including statin, coreg, entresto -Monitor BP, adjust antihypertensives as needed Crohn's disease: chronic, stable, no current symptoms -monitor, outpatient f/up Acute kidney injury: Creatinine 1.46, baseline 1 -No IV fluids at this time secondary to volume overload -Monitor renal function closely DVT Prophylaxis: on Coumadin Discharge Planning: Cleared for discharge by cardiology. Will discharge home. Discharge patient to home Condition on discharge: Stable Heart healthy Diet as tolerated [employer] activity Rx written: lasix 20mg bid (increased from once daily dosing) Follow-up with primary care physician and undraped artist model Dr. Patton
[2018-04-29] MEDS: Carvedilol 6.25 MG Tablet PO SCH (09:16)
[2018-04-29] MEDS: FLUoxetine 20 MG Capsule PO SCH (09:16)
[2018-04-29] MEDS: Amiodarone 200 MG Tablet PO SCH (09:16)
[2018-04-29] MEDS: Folic Acid 1 MG Tablet PO SCH (09:16)
[2018-04-29] MEDS: Pantoprazole Sodium 20 MG DR Tablet PO SCH (09:16)
[2018-04-29 12:24] VITALS: BP 61/40; PULSE 80; RESP 16; O2SAT 94
== END 2018-04-29 14:07 | disposition home or self-care (01) ==
LOC: NEDA 16:00 → NEPC 16:00 → NEDA 20:26 → NEPHCDU 20:32
PROVIDERS: ADMIT Hospitalist; ATTEND Hospitalist